=== PATIENT | male | born 1945 | race Hispanic/Latino ===

== ENCOUNTER 2021-10-26 16:00 | Inpatient (IN) | payer MEDICARE ==
[2021-10-26] MEDS ORDERED: IPRATROPIUM 0.02% NEBU 2.5 ML IH ONE ×2 (16:11→18:15)
[2021-10-26] MEDS ORDERED: ALBUTEROL 2.5 MG/3 ML NEBU IH ONE ×2 (16:11→18:15)
--- NOTE | 2021-10-26 16:11 | Emergency Department Report ---
ED Shortness of Breath HPI - General Chief Complaint: Dyspnea/Respdistress Stated Complaint: short of breath Time Seen by Provider: 10/26/21 16:11 Source: patient, EMS Mode of arrival: Stretcher Limitations: No Limitations - History of Present Illness Initial Comments: Patient presents by ambulance secondary to shortness of breath. He has been feeling short of breath for the last several days. Apparently, a mobile urgent care was at his house. He was hypoxic. His COVID test was negative. He was referred here for hypoxia. Paramedics were called. Patient was found to be hypoxic. They placed him on a nasal cannula and his O2 saturations improved. He was in the upper 80% range when EMS arrived. On 2 L, he is in the mid 90% range. He has no pain or swelling in the legs. He does report having a cough. His grandson had a cold a couple of weeks ago and seem to get over it. Patient has no hemoptysis. There is no chest pain associated with this. - Related Data Allergies Allergy/AdvReac Type Severity Reaction Status Date / Time lisinopril Allergy Unknown Verified 10/26/21 16:09 ED Review of Systems ROS: Stated complaint: short of breath Other details as noted in HPI Comment: All other systems reviewed and negative Constitutional: fever (Subjective) Eyes: denies: vision change ENT: denies: throat pain Respiratory: see HPI Cardiovascular: denies: chest pain Endocrine: denies: unexplained weight loss Gastrointestinal: denies: abdominal pain Genitourinary: denies: dysuria Musculoskeletal: denies: back pain Skin: denies: rash Neurological: denies: headache Hematological/Lymphatic: denies: easy bruising ED Past Medical Hx - Past Medical History Previous Medical History?: Yes Hx Hypertension: Yes Additional medical history: Aortic dissection? - Family History Family history: hypertension ED Physical Exam - General Limitations: No Limitations, Other (Pulse ox noted and hypoxic. This improves with treatment.) General appearance: alert, in no apparent distress - Head Head exam: Present: atraumatic, normocephalic - Eye Eye exam: Present: normal appearance, EOMI - ENT ENT exam: Present: normal orophraynx, normal external ear exam - Neck Neck exam: Present: normal inspection. Absent: meningismus - Respiratory Respiratory exam: Present: respiratory distress (Mild), wheezes, accessory muscle use - Cardiovascular Cardiovascular Exam: Present: regular rate, normal rhythm - GI/Abdominal GI/Abdominal exam: Present: soft. Absent: distended - Extremities Exam Extremities exam: Present: normal capillary refill. Absent: pedal edema, calf tenderness - Back Exam Back exam: Absent: CVA tenderness (R), CVA tenderness (L) - Neurological Exam Neurological exam: Present: alert, oriented X3, CN II-XII intact. Absent: motor sensory deficit - Psychiatric Psychiatric exam: Present: normal affect, normal mood - Skin Skin exam: Present: warm ED Course Vital Signs 10/26/21 16:01 Temperature 99.1 F Pulse Rate 103 H Respiratory 18 Rate Blood Pressure 145/87 [Left] O2 Sat by Pulse 93 Oximetry - Reevaluation(s) Reevaluation #1: 10/26/21 16:11 EMS was met upon arrival. Labs and x-rays were ordered. Records reviewed. Reevaluation #2: 10/26/21 18:04 Labs and x-ray were noted. Patient was admitted to Dr. Zee, the hospitalist. ED Medical Decision Making - Lab Data Result diagrams: 10/26/21 16:48 10/26/21 16:48 Rhythm strip: Normal sinus rhythm without ectopy per monitor observe 10 seconds. - Radiology Data Radiology results: report reviewed - Medical Decision Making Patient presented with difficulty breathing, URI symptoms, and hypoxia. He allegedly had a coronavirus test that was negative prior to arrival. However r adiographically, there is a bilateral patchy infiltrate that would be concerning for coronavirus. Patient was treated empirically for community-acquired pneumonia given the negative coronavirus test, although I have a suspicion that was a false negative test. Patient is hypoxic. He will undergo admission and ongoing management. Critical Care Time: No Critical care attestation.: If time is entered above; I have spent that time in minutes in the direct care of this critically ill patient, excluding procedure time. ED Disposition Clinical Impression: Suspected COVID-19 virus infection, CAP (community acquired pneumonia) Disposition: ADMITTED INPATIENT Is pt being admited?: Yes Condition: Stable Instructions: Bacterial Pneumonia (ED)
--- NOTE | 2021-10-26 17:00 | XRay Report ---
CHEST 2 VIEWS INDICATION / CLINICAL INFORMATION: dyspnea. COMPARISON: None available. FINDINGS: SUPPORT DEVICES: None. HEART / MEDIASTINUM: No significant abnormality. LUNGS / PLEURA: There are moderate patchy bilateral pulmonary opacities. ADDITIONAL FINDINGS: No significant additional findings. IMPRESSION: 1. Moderate patchy bilateral pulmonary opacities likely indicating multifocal pneumonia. Signer Name: Ryan Torre MD Signed: 10/26/2021 4:55 PM Workstation Name: [id number]
[2021-10-26 17:04] LABS: Basophils % (Auto) 0.2 % (0.0-1.8); Eosinophils % (Auto) 0.5 % (0.0-4.3); Lymphocytes # (Auto) 0.5 K/mm3 (1.2-5.4); Lymphocytes % (Auto) 11.3 % (13.4-35.0); Mean Corpuscular HGB Conc 32 % (32-34); Mean Corpuscular Volume 94 fl (84-94); Monocytes # (Auto) 0.5 K/mm3 (0.0-0.8); Monocytes % (Auto) 10.2 % (0.0-7.3); Platelet Count 206 K/mm3 (140-440); Red Blood Count 4.38 M/mm3 (3.65-5.03); Red Cell Distribution Width 14.3 % (13.2-15.2)
[2021-10-26 17:28] LABS: BUN/Creatinine Ratio 24; Blood Urea Nitrogen 24 mg/dL (9-20); Calcium 8.7 mg/dL (8.4-10.2); Hemolysis Index 27
[2021-10-26] MEDS ORDERED: cefTRIAXone/NS 1 GM/50 ML 1 GM/50 ML BAG IV ONE (17:45)
[2021-10-26] MEDS ORDERED: AZITHROMYCIN 250 MG TAB PO ONE (17:45)
--- NOTE | 2021-10-26 18:50 | History and Physical Report ---
History of Present Illness Chief complaint: I can hardly breathe History of present illness: 75 YO Male with HTN, PAD, Obesity Hypoventilation Syndrome presents to ED for evaluation. Patient reports "I can hardly breathe". Patient states that he has experienced shortness of breath, fatigue, malaise, body aches, dry cough, diminished sense of smell, diminished sense of taste, subjective fever, generalized weakness, runny nose over the past 1 week with persistent and worsening symptoms over the same timeframe. EMS was notified and upon arrival the patient was found to be in distress with a pulse oximetry of 82% the patient was placed on supplemental oxygen and transported to [facility] for further care and evaluation of the aforementioned symptoms. The patient was seen and evaluated in the emergency department. All lab and imaging studies reviewed. The patient was found to have a pulse oximetry of 83% on room air which is consistent with acute hypoxemic respiratory failure. Patient sitting up in bed and using accessory muscles to breathe, speaking in short sentences. Patient underwent chest x-ray and was found to have bilateral pneumonia. Patient admitted to medical floor and initiated on pneumonia protocol as well as coronavirus protocol. Patient knowledges subjective fever but denies chills, chest pain, palpitation, skin rash, unilateral leg swelling, calf pain, individual/family history of DVT/PE/bleeding/blood clotting disorders. Patient acknowledges recent ill contact with his grandchildren. No prior admission for review. All medication listed at time of admission has been reconciled. Advanced care planning conducted in ED. Past History Past Medical History: hypertension, PVD, other (See HPI) Past Surgical History: No surgical history, Other (Reviewed) Social history: , lives with family. denies: smoking, alcohol abuse, prescription drug abuse Family history: hypertension Medications and Allergies Allergies Allergy/AdvReac Type Severity Reaction Status Date / Time lisinopril Allergy Unknown Verified 10/26/21 16:09 Review of Systems Constitutional: fever, fatigue, weakness, malaise Ears, nose, mouth and throat: nasal congestion, other (Diminished sense of smell, diminished sense of taste), no ear pain, no ear discharge, no tinnitis, no decreased hearing, no nose pain Cardiovascular: no chest pain, no orthopnea, no palpitations Respiratory: cough, shortness of breath Gastrointestinal: no nausea, no vomiting, no diarrhea, no constipation Genitourinary Male: no hematuria, no flank pain, no discharge, no urinary frequency Rectal: no pain, no incontinence, no bleeding Musculoskeletal: no neck stiffness, no neck pain, no shooting arm pain, no arm numbness/tingling, no low back pain Integumentary: no rash, no pruritis, no redness, no sores, no wounds Neurological: no transient paralysis, no paralysis, no weakness, no parathesias, no numbness, no tingling, no seizures Psychiatric: no anxiety, no memory loss, no sleep disturbances, no hypersomnia, no change in appetite, no suicidal ideation Endocrine: no cold intolerance, no excessive thirst, no polydipsia, no polyuria, no nocturia, no excessive sweating Hematologic/Lymphatic: no easy bruising, no easy bleeding Allergic/Immunologic: no urticaria, no wheezing Exam - Constitutional Vitals: Temp Pulse Resp BP Pulse Ox 99.1 F 103 H 18 145/87 95 10/26/21 16:01 10/26/21 16:01 10/26/21 18:47 10/26/21 16:01 10/26/21 18:47 General appearance: Present: mild distress, obese - EENT Eyes: Present: PERRL ENT: hearing intact, clear oral mucosa - Neck Neck: Present: supple, normal ROM - Respiratory Respiratory effort: labored, accessory muscle use, stridor Respiratory: bilateral: diminished, rhonchi - Cardiovascular Heart Sounds: Present: S1 & S2. Absent: rub, click - Extremities Extremities: pulses symmetrical, No edema Peripheral Pulses: within normal limits - Abdominal General gastrointestinal: Present: soft, non-tender, non-distended, normal bowel sounds Male genitourinary: Present: normal - Integumentary Integumentary: Present: clear, warm, dry - Musculoskeletal Musculoskeletal: gait normal, strength equal bilaterally - Psychiatric Psychiatric: appropriate mood/affect, intact judgment & insight - Neurologic Neurologic: CNII-XII intact, moves all extremities HEART Score - HEART Score Troponin: Troponin T < 0.010 ng/mL (0.00-0.029) 10/26/21 16:48 Results - Labs CBC & Chem 7: 10/26/21 16:48 10/26/21 19:03 Labs: Abnormal lab results 10/26/21 10/26/21 Range/Units 16:48 16:48 Lymph % (Auto) 11.3 L (13.4-35.0) % [place] % (Auto) 10.2 H (0.0-7.3) % Lymph # (Auto) 0.5 L (1.2-5.4) K/mm3 Seg Neutrophils % 77.8 H (40.0-70.0) % Potassium 3.4 L (3.6-5.0) mmol/L Chloride 97.5 L (98-107) mmol/L BUN 24 H (9-20) mg/dL Glucose 108 H (75-100) mg/dL Assessment and Plan - Patient Problems (1) Acute hypoxemic respiratory failure Current Visit: No Status: Acute Plan to address problem: Chest x-ray, supplemental oxygen, pulse oximetry, nebulizer therapy, prone positioning while in bed, pulmonary toilet. (2) Pneumonia Current Visit: No Status: Acute Plan to address problem: Pneumonia protocol: Chest x-ray, CBC, CMP, IV antibiotic therapy, supplemental oxygen, pulse oximetry, nebulizer therapy, blood culture. (3) Obesity hypoventilation syndrome Current Visit: No Status: Acute Plan to address problem: Balanced diet, increase physical activity discharge, outpatient pulmonary follow-up for sleep study. (4) Hypertension Current Visit: No Status: Acute Qualifiers: Hypertension type: primary hypertension Qualified Code(s): I10 - Essential (primary) hypertension Plan to address problem: Monitor blood pressure every shift, continue medical management. (5) DVT prophylaxis Current Visit: No Status: Acute Plan to address problem: SCD to bilateral lower extremities while in bed, prophylactic anticoagulation (6) Advance care planning Current Visit: No Status: Acute Plan to address problem: Disease education conducted, care plan discussed, diagnoses discussed, prognosis discussed, patient is full code. Patient acknowledges understanding and agreem ent with care plan, +30 minutes.
[2021-10-26] MEDS ORDERED: ALBUTEROL 2.5 MG/3 ML NEBU IH PRN (18:52)
[2021-10-26] MEDS ORDERED: ONDANSETRON 4 MG/2 ML INJ IV PRN (18:52)
[2021-10-26] MEDS ORDERED: HYDROmorphone 1 MG/1 ML INJ IV PRN (18:52)
[2021-10-26] MEDS ORDERED: ACETAMINOPHEN 325 MG TAB PO PRN (18:52)
[2021-10-26 19:45] LABS: C-Reactive Protein 11.8 mg/dL (0.00-1.30)
[2021-10-26] MEDS ORDERED: dilTIAZem 25 MG/5 ML INJ IV ONE (20:29)
[2021-10-26] MEDS: dilTIAZem/D5W 100 MG/100 ML BAG IV SCH (20:57)
[2021-10-26] MEDS ORDERED: METOPROLOL TARTRATE 5 MG/5 ML INJ IV ONE (21:40)
[2021-10-26 23:01] LABS: Free T4 (Free Thyroxine) 1.78 ng/dL (0.76-1.46)
--- NOTE | 2021-10-26 23:16 | Event Note ---
Date: 10/26/21 I placed a ultrasound-guided right upper extremity 20-gauge peripheral IV in the antecubital fossa. 1 attempt made and it appears successful. The IV was adhered with Tegaderm. Less than 5 cc of blood loss. This was done as nursing and ED staff was unable to obtain IV access.
[2021-10-26 23:48] LABS: ABG HCO3 25.3 mmol/L (20.0-26.0); ABG Methemoglobin 0.4 % (0.0-1.5); ABG Oxygen Saturation 88.5 % (95.0-99.0); ABG PCO2 35.2 mm Hg; ABG PH 7.474 pH Units (7.350-7.450); ABG PO2 47.3 mm Hg (80.0-90.0)
[2021-10-27] MEDS ORDERED: ENOXAPARIN 100 MG/1 ML INJ SUB-Q ONE (03:57)
[2021-10-27 04:11] LABS: Hematocrit 39.3 % (35.5-45.6); Hemoglobin 12.7 gm/dl (11.8-15.2); Mean Corpuscular HGB Conc 32 % (32-34); Mean Corpuscular Volume 95 fl (84-94); Platelet Count 214 K/mm3 (140-440); Red Blood Count 4.13 M/mm3 (3.65-5.03)
[2021-10-27 04:22] LABS: BUN/Creatinine Ratio 23; Blood Urea Nitrogen 23 mg/dL (9-20); Calcium 8.3 mg/dL (8.4-10.2); Hemolysis Index 15
[2021-10-27 04:48] LABS: Band Neutrophils # (Manual) 0.2 K/mm3; Basophils % (Manual) 0 % (0.0-1.8); Eosinophils % (Manual) 0 % (0.0-4.3); Total Cells Counted 100
[2021-10-27 04:49] LABS: Large Platelets Few; Platelet Estimate Consistent w Auto; RBC Morphology Normal
[2021-10-27] MEDS: AZITHROMYCIN/NS 500 MG/250 ML 500 MG/250 ML BAG IV SCH (07:36)
[2021-10-27] MEDS: dilTIAZem/D5W 100 MG/100 ML BAG IV SCH (09:50)
[2021-10-27] MEDS ORDERED: APIXABAN 5 MG TAB PO SCH (12:00)
[2021-10-27 12:54] LABS: Hematocrit 37.7 % (35.5-45.6); Hemoglobin 12.5 gm/dl (11.8-15.2); Mean Corpuscular HGB Conc 33 % (32-34); Mean Corpuscular Volume 93 fl (84-94); Platelet Count 192 K/mm3 (140-440); Red Blood Count 4.07 M/mm3 (3.65-5.03)
[2021-10-27 13:04] LABS: INR 0.91 (0.87-1.13)
[2021-10-27 13:05] LABS: Partial Thromboplastin Time 27.3 Sec. (24.2-36.6)
--- NOTE | 2021-10-27 13:11 | Electrocardiograph Report ---
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
--- NOTE | 2021-10-27 13:12 | Electrocardiograph Report ---
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
[2021-10-27] MEDS: dilTIAZem 30 MG TAB PO SCH ×2 (13:31→20:12)
--- NOTE | 2021-10-27 14:51 | Consultation ---
History of Present Illness Consult date: 10/27/21 Requesting physician: DELMER OLSEN History of present illness: Is a 75-year-old male with a past medical history of hypertension, coronary artery disease, and thoracic aortic aneurysm who presented to the ED with a complaint of difficulty breathing since [place]. Patient states he also has had worsening fatigue, malaise weakness, cough, and fevers throughout this timeframe. EMS was called and patient was found to be in respiratory distress with a pulse ox of 82% patient was then transferred to [facility]. In the ED patient developed new onset A. fib with RVR. He was treated with diltiazem which controlled his rate. Patient denies chest pain, palpitations, nausea, vomiting or dizziness. Patient reports not being vaccinated for the COVID-19 virus. Patient is previously known to our practice but patient follows with [facility]. Cardiology is consulted for A. fib with RVR Past History Past Medical History: CAD, hypertension, PVD, other (See HPI) Past Surgical History: No surgical history, Other (Reviewed) Social history: , lives with family. denies: smoking, alcohol abuse, prescription drug abuse Family history: hypertension Medications and Allergies Allergies Allergy/AdvReac Type Severity Reaction Status Date / Time lisinopril Allergy Unknown Verified 10/26/21 16:09 Active Meds: Active Medications Acetaminophen (Acetaminophen 325 Mg Tab) 650 mg PO Q4H PRN PRN Reason: Pain MILD(1-3)/Fever >100.5/LEYVA Albuterol (Albuterol 2.5 Mg/3 Ml Nebu) 2.5 mg IH Q4HRT PRN PRN Reason: Shortness Of Breath Apixaban (Apixaban 5 Mg Tab) 5 mg PO Q12HR [facility]ASYL; Protocol Last Admin: 10/27/21 13:14 Dose: 5 mg Aspirin (Aspirin 81 Mg Tab Chew) 81 mg PO QDAY [facility] Diltiazem HCl (Diltiazem 30 Mg Tab) 30 mg PO TID [facility]ASYL Last Admin: 10/27/21 13:31 Dose: 30 mg Hydromorphone HCl (Hydromorphone 1 Mg/1 Ml Inj) 0.5 mg IV Q23H PRN PRN Reason: Pain , Severe (7-10) Ceftriaxone Sodium (Rocephin/Ns 2 Gm/100 Ml) 2 gm in 100 mls @ 200 mls/hr IV Q24H [facility]; Protocol Azithromycin (Zithromax/Ns) 500 mg in 250 mls @ 250 mls/hr IV Q24H [facility]; Protocol Last Admin: 10/27/21 07:36 Dose: 250 mls/hr Ondansetron HCl (Ondansetron 4 Mg/2 Ml Inj) 4 mg IV Q8H PRN PRN Reason: Nausea And Vomiting Oxycodone/Acetaminophen (Oxycodone /Acetaminophen 5-325mg Tab) 1 tab PO Q16H PRN PRN Reason: Pain, Moderate (4-6) Sodium Chloride (Sodium Chloride 0.9% 10 Ml Flush Syringe) 10 ml IV BID [facility] Last Admin: 10/27/21 11:16 Dose: 10 ml Sodium Chloride (Sodium Chloride 0.9% 10 Ml Flush Syringe) 10 ml IV PRN PRN PRN Reason: LINE FLUSH Review of Systems Constitutional: fever, chills, fatigue, malaise Ears, nose, mouth and throat: no nasal congestion, no sinus pressure, no sinus pain Cardiovascular: shortness of breath, no chest pain, no palpitations, no rapid/irregular heart beat, no edema, no syncope Respiratory: cough, shortness of breath Gastrointestinal: no abdominal pain, no nausea, no vomiting, no diarrhea Musculoskeletal: no neck pain, no shooting arm pain, no arm numbness/tingling Integumentary: no rash, no pruritis, no redness Neurological: no head injury, no transient paralysis, no paralysis Psychiatric: no anxiety, no memory loss Endocrine: no cold intolerance, no heat intolerance Physical Examination Vital Signs Temp Pulse Resp BP Pulse Ox 99.1 F 103 H 18 145/87 93 10/26/21 16:01 10/26/21 16:01 10/26/21 16:01 10/26/21 16:01 10/26/21 16:01 General appearance: no acute distress, other HEENT: Positive: PERRL, Mucus Membranes Dry Cardiac: Positive: irregularly irregular Lungs: Positive: Rales Neuro: Positive: Grossly Intact Abdomen: Positive: Soft, Active Bowel Sounds Skin: Negative: Rash, Suspicious Lesions, Ulceration Extremities: Present: upper extr. pulses. Absent: edema Results 10/27/21 12:36 10/27/21 12:36 Cardiac Enzymes 10/26/21 Range/Units 19:03 Lactate Dehydrogenase 268 H (91-180) units/L Coagulation 10/27/21 Range/Units 12:36 PT 13.3 (12.2-14.9) Sec. INR 0.91 (0.87-1.13) APTT 27.3 (24.2-36.6) Sec. CBC 10/26/21 10/27/21 10/27/21 Range/Units 16:48 03:44 12:36 WBC 4.5 6.4 4.1 L (4.5-11.0) K/mm3 RBC 4.38 4.13 4.07 (3.65-5.03) M/mm3 Hgb 13.0 12.7 12.5 (11.8-15.2) gm/dl Hct 41.0 39.3 37.7 (35.5-45.6) % Plt Count 206 214 192 (140-440) K/mm3 Lymph # (Auto) 0.5 L (1.2-5.4) K/mm3 [place] # (Auto) 0.5 (0.0-0.8) K/mm3 Eos # (Auto) 0.0 (0.0-0.4) K/mm3 Baso # (Auto) 0.0 (0.0-0.1) K/mm3 Comprehensive Metabolic Panel 10/26/21 10/26/21 10/27/21 Range/Units 16:48 19:03 03:44 Sodium 138 137 (137-145) mmol/L Potassium 3.4 L 3.6 (3.6-5.0) mmol/L Chloride 97.5 L 97.9 L (98-107) mmol/L Carbon Dioxide 24 24 (22-30) mmol/L BUN 24 H 23 H (9-20) mg/dL Creatinine 1.0 1.0 (0.8-1.3) mg/dL Glucose 108 H 104 H 139 H (75-100) mg/dL Calcium 8.7 8.3 L (8.4-10.2) mg/dL 10/27/21 Range/Units 12:36 Sodium (137-145) mmol/L Potassium (3.6-5.0) mmol/L Chloride (98-107) mmol/L Carbon Dioxide (22-30) mmol/L BUN (9-20) mg/dL Creatinine 0.9 (0.8-1.3) mg/dL Glucose (75-100) mg/dL Calcium (8.4-10.2) mg/dL - Imaging and Cardiology Echo: report reviewed EKG interpretations - Telemetry EKG Rhythm: V-Tachycardia - EKG Supraventricular dysrhythmia: atrial fibrillation AV and intraventricular conduction: right bundle branch block Assessment and Plan Is a 75-year-old male with a past medical history of hypertension, coronary artery disease, and thoracic aortic aneurysm who presented to the ED with a complaint of difficulty breathing since [place] PUI- COVID PCR pending Acute hypoxic respiratory failure- on highflow NC PNA Afib w/ RVR(new onset) HTN CAD Echo 10/26/2021-EF 50 to 55%. Right ventricle systolic function is normal. Trace mitral regurgitation. Trace tricuspid regurgitation. Ascending aorta is dilated 4.1 cm Stress11/20/2019- Normal pharmacological SPECT stress test. Stress ECG was negative for ischemia. No symptoms of chest pain with vasodilator stress. Normal perfusion without evidence of ischemia or infarct. TID 0.97 (normal). Normal LV systolic function (calculated LVEF 69%). No wall motion abnormalities. Echo 11/20/2019-LV normal size. Normal LV wall thickness. LV wall motion normal. LVEF is 59%. GLS decreased. Normal LV diastolic function. RV moderately to severely dilated. RV systolic function is normal. Estimated RAP 5 mmHg based on IVC. Unable to assess RVSP due to insufficient TR signal. AV not well visualized. AV opens well. Mild AR. No AV stenosis. Aortic arch normal. Sinotubular junction mildly dilated. Ascending aorta mildly dilated. No aortic coarctation. Ao Sinus s 3.[address] jnct s 3.87 cm Ao Asc s 4.1 cm Plan: Initial EKG shows sinus rhythm 97 PACs. No acute ischemic changes Repeat EKG shows A. fib with RVR rate 174 and incomplete RBBB and LAFB. No acute ischemic changes troponins negative x1. CXR shows PNA Patient denies any chest an dpatient appears euvolemic on exam Rate currently controlled trending in 80s. diltiazem gtt stopped Initiate diltiazem 30 mg p.o. 3 times daily. Titrate as needed for rate control Stop heparin drip. Convert to Eliquis for anticoagulation Echo pending Patient seen in conjunction with Dr. Brady who agrees with this plan of care - Patient Problems (1) CAD (coronary artery disease) Current Visit: Yes Status: Acute (2) Acute hypoxemic respiratory failure Current Visit: No Status: Acute (3) Hypertension Current Visit: No Status: Acute Qualifiers: Hypertension type: primary hypertension Qualified Code(s): I10 - Essential (primary) hypertension (4) Obesity hypoventilation syndrome Current Visit: No Status: Acute (5) Pneumonia Current Visit: No Status: Acute
--- NOTE | 2021-10-27 15:57 | Progress Note ---
Assessment and Plan --New onset atrial fibrillation: Patient found to have new onset A. fib in the emergency department. Patient treated with Cardizem bolus with rapid return of rapid ventricular response. Patient subsequently initiated on Cardizem drip and admitted to [facility]. Cardiology team consulted. Magnesium level, thyroid panel, echocardiogram or dered and pending at time of admission. Initiated on Eliquis for anticoagulation --b/l PE, change eliquis dose tp 10mg bid for a week then will reduce to 5mg bid -- Acute hypoxemic respiratory failure Due to bilateral PE and COVID-19 pneumonia Currently on high flow O2, pulmonary consulted Continue therapeutic anticoagulation and treatment protocol for COVID-19 supplemental oxygen, pulse oximetry, nebulizer therapy, prone positioning while in bed, pulmonary toilet. -- b/l Pneumonia with covid19 ordered solumedrol, remdesivir, ID consulted Continue to follow inflammatory markers -- Obesity Balanced diet, increase physical activity following discharge if stable, outpatient pulmonary follow-up for sleep study. -- Hypertension Monitor blood pressure every shift, continue medical management. -- DVT prophylaxis SCD to bilateral lower extremities while in bed, prophylactic anticoagulation -- Full CODE STATUS The high probability of a clinically significant, sudden or life threatening deterioration of the system(s) required my full and direct attention, intervention and personal management. The aggregate critical care time was [35] minutes. This time is in addition to time spent performing reported procedures but includes the following: [x] Data Review and interpretation [x] Patient assessment and monitoring of vital signs [x] Documentation [x] Medication orders and management Daily clinical course: 10/27/21: Covid 19 test result is positive, initiated on COVID-19 protocol. CTA chest also suggestive for bilateral PE-adjusted Eliquis dose. Patient on 25 L high flow O2, consult pulmonary. Cardiology following for atrial fibrillation. We will also consult ID, will continue to follow inflammatory markers Subjective Date of service: 10/27/21 Interval history: Patient seen and examined. Medical records and medication list reviewed. No acute event overnight noted by the RN. Patient on high flow O2, COVID test is positive Discussed plan of care at bedside with patient. Objective - Exam Narrative Exam: Limited physical exam due to COVID-19 pandemic to minimize transmission of the disease and to preserve PPE. Vital reviewed and stable. GENERAL: well-developed well-nourished elderly wild male lying on bed appeared to be in no discomfort. HEENT: Normocephalic. Atraumatic. NECK: Supple. CHEST/LUNGS: breathing on high flow O2 HEART/CARDIOVASCULAR: Heart rate stable on telemetry ABDOMEN: Visibly not distended SKIN: There is no rash NEURO: No focal motor deficit. Follows command. MUSCULOSKELETAL: No joint effusion EXTRIMITY: No swelling, no cyanosis or clubbing. PSYCH: Cooperative. - Constitutional Vitals: Vital Signs - 12hr 10/27/21 10/27/21 10/27/21 04:01 04:15 04:31 Pulse Rate 93 H 83 79 Respiratory 26 H 29 H 31 H Rate Blood Pressure 103/67 106/76 116/70 Blood Pressure [Left] O2 Sat by Pulse 95 96 96 Oximetry 10/27/21 10/27/21 10/27/21 04:45 05:01 05:15 Pulse Rate 86 83 77 Respiratory 29 H 41 H 37 H Rate Blood Pressure 111/66 117/66 114/57 Blood Pressure [Left] O2 Sat by Pulse 94 96 94 Oximetry 10/27/21 10/27/21 10/27/21 05:30 05:45 06:00 Pulse Rate 124 H 119 H 86 Respiratory 26 H 32 H 28 H Rate Blood Pressure 119/66 121/61 106/65 Blood Pressure [Left] O2 Sat by Pulse 93 97 95 Oximetry 10/27/21 10/27/21 10/27/21 06:15 06:31 06:45 Pulse Rate 77 86 Respiratory 25 H 24 27 H Rate Blood Pressure 102/70 106/55 113/63 Blood Pressure [Left] O2 Sat by Pulse 93 95 95 Oximetry 10/27/21 10/27/21 10/27/21 07:00 07:01 07:15 Pulse Rate 86 89 90 Respiratory 22 12 23 Rate Blood Pressure 118/60 118/60 Blood Pressure 118/60 [Left] O2 Sat by Pulse 93 94 92 Oximetry 10/27/21 10/27/21 07:31 08:00 Pulse Rate 86 Respiratory 27 H Rate Blood Pressure 118/60 Blood Pressure [Left] O2 Sat by Pulse 94 94 Oximetry - Labs CBC & Chem 7: 10/27/21 12:36 10/28/21 04:53 Labs: Abnormal lab results 10/26/21 10/26/21 10/26/21 Range/Units 16:48 16:48 19:03 WBC (4.5-11.0) K/mm3 MCV (84-94) fl Lymph % (Auto) 11.3 L (13.4-35.0) % Tyrrell % (Auto) 10.2 H (0.0-7.3) % Lymph # (Auto) 0.5 L (1.2-5.4) K/mm3 Seg Neutrophils % 77.8 H (40.0-70.0) % Seg Neuts % (Manual) (40.0-70.0) % Lymphocytes % (Manual) (13.4-35.0) % Lymphocytes # (Manual) (1.2-5.4) K/mm3 D-Dimer 1951.42 H (0-234) ng/mlDDU ABG pH (7.350-7.450) pH Units ABG pO2 (80.0-90.0) mm Hg ABG O2 Saturation (95.0-99.0) % ABG Hemoglobin (14.0-18.0) gm/dl Oxyhemoglobin (95.0-99.0) % Potassium 3.4 L (3.6-5.0) mmol/L Chloride 97.5 L (98-107) mmol/L BUN 24 H (9-20) mg/dL Glucose 108 H (75-100) mg/dL Calcium (8.4-10.2) mg/dL Ferritin (30.0-300.0) ng/mL Lactate Dehydrogenase (91-180) units/L C-Reactive Protein (0.00-1.30) mg/dL Free T4 (0.76-1.46) ng/dL 10/26/21 10/26/21 10/26/21 Range/Units 19:03 19:03 21:46 WBC (4.5-11.0) K/mm3 MCV (84-94) fl Lymph % (Auto) (13.4-35.0) % Tyrrell % (Auto) (0.0-7.3) % Lymph # (Auto) (1.2-5.4) K/mm3 Seg Neutrophils % (40.0-70.0) % Seg Neuts % (Manual) (40.0-70.0) % Lymphocytes % (Manual) (13.4-35.0) % Lymphocytes # (Manual) (1.2-5.4) K/mm3 D-Dimer (0-234) ng/mlDDU ABG pH (7.350-7.450) pH Units ABG pO2 (80.0-90.0) mm Hg ABG O2 Saturation (95.0-99.0) % ABG Hemoglobin (14.0-18.0) gm/dl Oxyhemoglobin (95.0-99.0) % Potassium (3.6-5.0) mmol/L Chloride (98-107) mmol/L BUN (9-20) mg/dL Glucose 104 H (75-100) mg/dL Calcium (8.4-10.2) mg/dL Ferritin 319.2 H (30.0-300.0) ng/mL Lactate Dehydrogenase 268 H (91-180) units/L C-Reactive Protein 11.80 H (0.00-1.30) mg/dL Free T4 1.78 H (0.76-1.46) ng/dL 10/26/21 10/27/21 10/27/21 Range/Units 23:20 03:44 03:44 WBC (4.5-11.0) K/mm3 MCV 95 H (84-94) fl Lymph % (Auto) (13.4-35.0) % Tyrrell % (Auto) (0.0-7.3) % Lymph # (Auto) (1.2-5.4) K/mm3 Seg Neutrophils % (40.0-70.0) % Seg Neuts % (Manual) 84.0 H (40.0-70.0) % Lymphocytes % (Manual) 10.0 L (13.4-35.0) % Lymphocytes # (Manual) 0.6 L (1.2-5.4) K/mm3 D-Dimer (0-234) ng/mlDDU ABG pH 7.474 H (7.350-7.450) pH Units ABG pO2 47.3 L (80.0-90.0) mm Hg ABG O2 Saturation 88.5 L (95.0-99.0) % ABG Hemoglobin 13.5 L (14.0-18.0) gm/dl Oxyhemoglobin 87.7 L (95.0-99.0) % Potassium (3.6-5.0) mmol/L Chloride 97.9 L (98-107) mmol/L BUN 23 H (9-20) mg/dL Glucose 139 H (75-100) mg/dL Calcium 8.3 L (8.4-10.2) mg/dL Ferritin (30.0-300.0) ng/mL Lactate Dehydrogenase (91-180) units/L C-Reactive Protein (0.00-1.30) mg/dL Free T4 (0.76-1.46) ng/dL 10/27/21 Range/Units 12:36 WBC 4.1 L (4.5-11.0) K/mm3 MCV (84-94) fl Lymph % (Auto) (13.4-35.0) % Tyrrell % (Auto) (0.0-7.3) % Lymph # (Auto) (1.2-5.4) K/mm3 Seg Neutrophils % (40.0-70.0) % Seg Neuts % (Manual) (40.0-70.0) % Lymphocytes % (Manual) (13.4-35.0) % Lymphocytes # (Manual) (1.2-5.4) K/mm3 D-Dimer (0-234) ng/mlDDU ABG pH (7.350-7.450) pH Units ABG pO2 (80.0-90.0) mm Hg ABG O2 Saturation (95.0-99.0) % ABG Hemoglobin (14.0-18.0) gm/dl Oxyhemoglobin (95.0-99.0) % Potassium (3.6-5.0) mmol/L Chloride (98-107) mmol/L BUN (9-20) mg/dL Glucose (75-100) mg/dL Calcium (8.4-10.2) mg/dL Ferritin (30.0-300.0) ng/mL Lactate Dehydrogenase (91-180) units/L C-Reactive Protein (0.00-1.30) mg/dL Free T4 (0.76-1.46) ng/dL HEART Score - HEART Score Troponin: Troponin T < 0.010 ng/mL (0.00-0.029) 10/26/21 16:48
--- NOTE | 2021-10-27 16:37 | Cat Scan Report ---
CTA CHEST WITH IV CONTRAST INDICATION: Tachycardia, Chest tightness, R/O Pulmonary Embolism. TECHNIQUE: Axial CT images were obtained through the chest after injection of 100 cc Omni 350 IV contrast. 3 nuris ne MIP reconstructions were produced. All CT scans at this location are performed using CT dose reduc tion for ALARA by means of automated exposure control. COMPARISON: None available. FINDINGS: Limited secondary to moderate respiratory motion artifact PULMONARY ARTERIES: Moderate sized pulmonary emboli within both upper and right lower lobe segmental pulmonary arteries THORACIC AORTA: No acute abnormality. HEART: Normal. CORONARY ARTERIES: No significant calcification. PLEURA: No pleural effusion. No pneumothorax. LYMPH NODES: No significant adenopathy. LUNGS: Moderate multifocal bilateral groundglass right renal disease characteristic for multifocal pn eumonia ADDITIONAL FINDINGS: None. UPPER ABDOMEN: Moderate hiatal hernia SKELETAL STRUCTURES: No significant osseous abnormality. IMPRESSION: 1. Moderate bilateral pulmonary emboli 2. Moderate multifocal bilateral Covid pneumonia 3. Moderate hiatal hernia CRITICAL RESULT: Bilateral acute PTE Time of Discovery (EMPLOYMENT REPRESENTATIVE/CDT): 3:26 PM Central time 10/27/2021 Time of Communication (EMPLOYMENT REPRESENTATIVE/CDT): 3:30 p.m. Licensed Practitioner Receiving Report: Angelina Chin [employer] Sales Representative Read-Back Performed: Yes. Signer Name: Michael Luz MD Signed: 10/27/2021 4:32 PM Workstation Name: [id number]
[2021-10-27] MEDS: methylPREDNISolone Sod Succinate 125 MG/2 ML INJ IV SCH (18:15)
[2021-10-27] MEDS: cefTRIAXone/NS 2 GM/100 ML 2 GM/100 ML BAG IV SCH (18:15)
[2021-10-27] MEDS ORDERED: REMDESIVIR 200 MG in SODIUM CHLORIDE 0.9% 250ML 250 ML IV ONE (19:00)
[2021-10-27] MEDS: SODIUM CHLORIDE 0.9% 50 ML IVPB IV SCH (21:14)
[2021-10-27] MEDS: APIXABAN 5 MG TAB PO SCH (21:47)
[2021-10-28 00:03] LABS: Alanine Aminotransferase 26 units/L (7-56); Albumin 3.4 g/dL (3.9-5); BUN/Creatinine Ratio 26; Blood Urea Nitrogen 21 mg/dL (9-20); Calcium 8.8 mg/dL (8.4-10.2); Hemolysis Index 6
[2021-10-28] MEDS: methylPREDNISolone Sod Succinate 125 MG/2 ML INJ IV SCH ×4 (00:10→22:00)
[2021-10-28 05:40] LABS: Alanine Aminotransferase 27 units/L (7-56); Albumin 3.2 g/dL (3.9-5); BUN/Creatinine Ratio 27; Blood Urea Nitrogen 24 mg/dL (9-20); Calcium 8.5 mg/dL (8.4-10.2); Hemolysis Index 5
[2021-10-28] MEDS: AZITHROMYCIN/NS 500 MG/250 ML 500 MG/250 ML BAG IV SCH (05:41)
[2021-10-28] MEDS ORDERED: dilTIAZem 25 MG/5 ML INJ IV ONE (06:24)
[2021-10-28] MEDS ORDERED: dilTIAZem/D5W 100 MG/100 ML BAG IV SCH (07:00)
[2021-10-28] MEDS: dilTIAZem 30 MG TAB PO SCH ×3 (09:30→21:29)
--- NOTE | 2021-10-28 11:17 | Consultation ---
History of Present Illness Consult date: 10/28/21 Requesting physician: RASHEED TURK Reason for consult: other (A-Fib with RVR; COVID-19 infection; Bilateral P.E.) History of present illness: PULMONARY/CCM CONSULT NOTE (Full dictation # [id number]) Please see dictated notes for full details Past History Past Medical History: CAD, hypertension, PVD, other (See HPI) Past Surgical History: No surgical history, Other (Reviewed) Social history: , lives with family. denies: smoking, alcohol abuse, prescription drug abuse Family history: hypertension Medications and Allergies Allergies Allergy/AdvReac Type Severity Reaction Status Date / Time lisinopril Allergy Unknown Verified 10/26/21 16:09 Active Meds: Active Medications Acetaminophen (Acetaminophen 325 Mg Tab) 650 mg PO Q4H PRN PRN Reason: Pain MILD(1-3)/Fever >100.5/LEYVA Albuterol (Albuterol 2.5 Mg/3 Ml Nebu) 2.5 mg IH Q4HRT PRN PRN Reason: Shortness Of Breath Apixaban (Apixaban 5 Mg Tab) 10 mg PO Q12HR [facility]; Protocol Stop: 11/02/21 23:59 Last Admin: 10/27/21 21:47 Dose: 10 mg Aspirin (Aspirin 81 Mg Tab Chew) 81 mg PO QDAY [facility] Diltiazem HCl (Diltiazem 30 Mg Tab) 30 mg PO TID [facility] Last Admin: 10/28/21 09:30 Dose: 30 mg Hydromorphone HCl (Hydromorphone 1 Mg/1 Ml Inj) 0.5 mg IV Q23H PRN PRN Reason: Pain , Severe (7-10) Ceftriaxone Sodium (Rocephin/Ns 2 Gm/100 Ml) 2 gm in 100 mls @ 200 mls/hr IV Q24H [facility]; Protocol Last Infusion: 10/27/21 18:45 Dose: Infused Azithromycin (Zithromax/Ns) 500 mg in 250 mls @ 250 mls/hr IV Q24H [facility]; Protocol Last Admin: 10/28/21 05:41 Dose: 250 mls/hr REMDESIVIR 100 mg/ Sodium (Chloride) 250 mls @ 500 mls/hr IV Q24HR@2100 [facility] Stop: 10/31/21 21:29 Diltiazem HCl (Cardizem/D5w 100mg/100ml) 100 mg in 100 mls @ 5 mls/hr IV TITR [facility]; Protocol Last Titration: 10/28/21 09:26 Dose: 5 mg/hr, 5 mls/hr Methylprednisolone Sodium Succinate (Methylprednisolone Sod Succinate 125 Mg/2 Ml Inj) 60 mg IV Q8HR [facility] Last Admin: 10/28/21 05:41 Dose: 60 mg Ondansetron HCl (Ondansetron 4 Mg/2 Ml Inj) 4 mg IV Q8H PRN PRN Reason: Nausea And Vomiting Oxycodone/Acetaminophen (Oxycodone /Acetaminophen 5-325mg Tab) 1 tab PO Q16H PRN PRN Reason: Pain, Moderate (4-6) Sodium Chloride (Sodium Chloride 0.9% 10 Ml Flush Syringe) 10 ml IV BID [facility] Last Admin: 10/28/21 00:10 Dose: 10 ml Sodium Chloride (Sodium Chloride 0.9% 10 Ml Flush Syringe) 10 ml IV PRN PRN PRN Reason: LINE FLUSH Sodium Chloride (Sodium Chloride 0.9% 50 Ml Ivpb) 50 ml IV Q24HR@2100 [facility] Stop: 10/31/21 21:01 Last Admin: 10/27/21 21:14 Dose: 50 ml Physical Examination Vital signs: Vital Signs Temp Pulse Resp BP Pulse Ox 99.1 F 103 H 18 145/87 93 10/26/21 16:01 10/26/21 16:01 10/26/21 16:01 10/26/21 16:01 10/26/21 16:01 Results - Laboratory Findings CBC and BMP: 10/27/21 12:36 10/28/21 04:53 ABG ABG pH 7.474 pH Units (7.350-7.450) H 10/26/21 23:20 ABG pCO2 35.2 mm Hg 10/26/21 23:20 ABG pO2 47.3 mm Hg (80.0-90.0) L 10/26/21 23:20 ABG O2 Saturation 88.5 % (95.0-99.0) L 10/26/21 23:20 PT/INR, D-dimer PT 13.3 Sec. (12.2-14.9) 10/27/21 12:36 INR 0.91 (0.87-1.13) 10/27/21 12:36 D-Dimer 1951.42 ng/mlDDU (0-234) H 10/26/21 19:03 Abnormal lab findings: Abnormal Labs 10/26/21 10/26/21 10/26/21 16:48 16:48 19:03 WBC MCV Lymph % (Auto) 11.3 L Sherman % (Auto) 10.2 H Lymph # (Auto) 0.5 L Seg Neutrophils % 77.8 H Seg Neuts % (Manual) Lymphocytes % (Manual) Lymphocytes # (Manual) D-Dimer 1951.42 H ABG pH ABG pO2 ABG O2 Saturation ABG Hemoglobin Oxyhemoglobin Sodium Potassium 3.4 L Chloride 97.5 L BUN 24 H Glucose 108 H Calcium Ferritin AST Lactate Dehydrogenase C-Reactive Protein Total Protein Albumin Free T4 Coronavirus (PCR) 10/26/21 10/26/21 10/26/21 19:03 19:03 21:46 WBC MCV Lymph % (Auto) Sherman % (Auto) Lymph # (Auto) Seg Neutrophils % Seg Neuts % (Manual) Lymphocytes % (Manual) Lymphocytes # (Manual) D-Dimer ABG pH ABG pO2 ABG O2 Saturation ABG Hemoglobin Oxyhemoglobin Sodium Potassium Chloride BUN Glucose 104 H Calcium Ferritin 319.2 H AST Lactate Dehydrogenase 268 H C-Reactive Protein 11.80 H Total Protein Albumin Free T4 1.78 H Coronavirus (PCR) 10/26/21 10/27/21 10/27/21 23:20 03:44 03:44 WBC MCV 95 H Lymph % (Auto) Sherman % (Auto) Lymph # (Auto) Seg Neutrophils % Seg Neuts % (Manual) 84.0 H Lymphocytes % (Manual) 10.0 L Lymphocytes # (Manual) 0.6 L D-Dimer ABG pH 7.474 H ABG pO2 47.3 L ABG O2 Saturation 88.5 L ABG Hemoglobin 13.5 L Oxyhemoglobin 87.7 L Sodium Potassium Chloride 97.9 L BUN 23 H Glucose 139 H Calcium 8.3 L Ferritin AST Lactate Dehydrogenase C-Reactive Protein Total Protein Albumin Free T4 Coronavirus (PCR) 10/27/21 10/27/21 10/27/21 12:36 23:24 Unknown WBC 4.1 L MCV Lymph % (Auto) Sherman % (Auto) Lymph # (Auto) Seg Neutrophils % Seg Neuts % (Manual) Lymphocytes % (Manual) Lymphocytes # (Manual) D-Dimer ABG pH ABG pO2 ABG O2 Saturation ABG Hemoglobin Oxyhemoglobin Sodium 136 L Potassium Chloride 96.8 L BUN 21 H Glucose 144 H Calcium Ferritin AST 49 H Lactate Dehydrogenase C-Reactive Protein Total Protein Albumin 3.4 L Free T4 Coronavirus (PCR) Positive A 10/28/21 04:53 WBC MCV Lymph % (Auto) Sherman % (Auto) Lymph # (Auto) Seg Neutrophils % Seg Neuts % (Manual) Lymphocytes % (Manual) Lymphocytes # (Manual) D-Dimer ABG pH ABG pO2 ABG O2 Saturation ABG Hemoglobin Oxyhemoglobin Sodium Potassium Chloride BUN 24 H Glucose 163 H Calcium Ferritin AST 52 H Lactate Dehydrogenase C-Reactive Protein Total Protein 6.2 L Albumin 3.2 L Free T4 Coronavirus (PCR)
[2021-10-28] MEDS: ASPIRIN 81 MG TAB CHEW PO SCH (11:40)
[2021-10-28] MEDS: APIXABAN 5 MG TAB PO SCH ×2 (11:41→22:00)
--- NOTE | 2021-10-28 12:00 | Progress Note ---
Objective Vital Signs Temp Pulse Resp BP BP Pulse Ox 10/28/21 11:30 83 22 130/77 95 10/28/21 11:16 87 22 119/80 95 10/28/21 11:00 82 22 128/74 95 10/28/21 10:46 86 27 H 134/84 96 10/28/21 10:30 83 21 133/86 95 10/28/21 10:16 85 24 144/88 94 10/28/21 10:00 77 22 134/80 93 10/28/21 09:46 88 22 135/77 95 10/28/21 09:30 83 23 128/81 94 10/28/21 09:16 85 21 138/83 95 10/28/21 09:00 75 24 131/76 93 10/28/21 08:46 72 23 127/72 95 10/28/21 08:30 84 26 H 131/82 96 10/28/21 08:16 85 23 131/82 96 10/28/21 08:00 91 H 24 129/85 95 10/28/21 07:45 94 H 25 H 116/90 93 10/28/21 07:30 82 23 115/71 97 10/28/21 07:16 148 H 31 H 120/64 94 10/28/21 07:00 130 H 30 H 122/78 92 10/28/21 06:46 149 H 28 H 136/88 95 10/28/21 06:32 147 H 136/88 10/28/21 06:30 134 H 33 H 136/88 94 10/28/21 06:26 149 H 122/90 10/28/21 06:16 154 H 22 122/90 95 10/28/21 06:00 151 H 32 H 122/90 92 10/28/21 05:46 150 H 24 117/72 94 10/28/21 05:16 128/80 92 10/28/21 04:46 79 21 130/76 94 10/28/21 04:31 95 10/28/21 04:30 82 29 H 130/76 94 10/28/21 04:16 83 17 139/82 95 10/28/21 04:00 85 17 139/82 94 10/28/21 03:46 85 11 L 143/87 95 10/28/21 03:30 86 22 143/87 94 10/28/21 03:16 84 25 H 151/101 94 10/28/21 03:00 84 26 H 151/101 93 10/28/21 02:46 78 14 120/78 95 10/28/21 02:30 81 22 120/78 97 10/28/21 02:16 77 19 112/78 96 10/28/21 02:00 67 21 112/78 97 10/28/21 01:46 69 21 118/83 97 10/28/21 01:30 83 19 118/83 96 10/28/21 01:16 69 20 128/79 96 10/28/21 01:00 78 24 128/79 98 10/28/21 00:46 75 21 131/81 95 10/28/21 00:30 84 27 H 131/81 96 10/28/21 00:15 87 25 H 136/82 97 10/28/21 00:10 98.2 F 89 26 H 136/82 97 10/28/21 00:01 85 28 H 97 10/27/21 23:45 84 27 H 94 10/27/21 22:15 65 20 94 10/27/21 22:01 88 28 H 96 10/27/21 21:45 87 33 H 95 10/27/21 21:31 84 28 H 95 10/27/21 21:15 86 28 H 95 10/27/21 21:01 89 31 H 96 10/27/21 20:45 86 28 H 96 10/27/21 20:31 85 30 H 96 10/27/21 20:15 87 29 H 96 10/27/21 20:12 95 10/27/21 20:01 29 H 96 10/27/21 19:45 24 93 10/27/21 19:31 27 H 95 10/27/21 19:15 22 96 10/27/21 19:01 28 H 96 10/27/21 18:45 14 97 10/27/21 18:31 24 97 10/27/21 18:15 20 96 10/27/21 18:01 15 92 10/27/21 17:45 25 H 96 10/27/21 17:31 26 H 94 10/27/21 17:15 18 98 10/27/21 17:01 19 96 10/27/21 16:45 27 H 94 10/27/21 16:31 23 96 10/27/21 16:15 25 H 94 10/27/21 16:07 24 92 10/27/21 15:15 29 H 127/80 96 10/27/21 15:01 16 127/80 93 10/27/21 14:45 24 127/80 95 10/27/21 14:31 88 26 H 127/80 98 10/27/21 14:15 83 28 H 127/80 96 10/27/21 14:01 82 30 H 127/80 96 10/27/21 14:00 95 10/27/21 13:45 87 31 H 121/81 92 10/27/21 13:31 82 28 H 121/81 96 10/27/21 13:15 85 27 H 121/81 94 10/27/21 13:01 79 28 H 121/81 96 10/27/21 12:45 83 25 H 121/81 94 10/27/21 12:31 92 H 28 H 121/81 96 10/27/21 12:15 87 29 H 121/81 96 10/27/21 12:01 85 28 H 121/81 94 - Physical Examination HEENT: Positive: PERRL, Mucus Membranes Dry Neuro: Positive: Grossly Intact Abdomen: Positive: Soft, Active Bowel Sounds Skin: Negative: Rash, Suspicious Lesions, Ulceration Extremities: Present: upper extr. pulses. Absent: edema - Labs and Meds Cardiac Enzymes 10/27/21 10/28/21 Range/Units 23:24 04:53 AST 49 H 52 H (5-40) units/L Coagulation 10/27/21 Range/Units 12:36 PT 13.3 (12.2-14.9) Sec. INR 0.91 (0.87-1.13) APTT 27.3 (24.2-36.6) Sec. CBC 10/27/21 Range/Units 12:36 WBC 4.1 L (4.5-11.0) K/mm3 RBC 4.07 (3.65-5.03) M/mm3 Hgb 12.5 (11.8-15.2) gm/dl Hct 37.7 (35.5-45.6) % Plt Count 192 (140-440) K/mm3 Comprehensive Metabolic Panel 10/27/21 10/27/21 10/28/21 Range/Units 12:36 23:24 04:53 Sodium 136 L 139 (137-145) mmol/L Potassium 3.8 4.0 (3.6-5.0) mmol/L Chloride 96.8 L 99.1 (98-107) mmol/L Carbon Dioxide 23 23 (22-30) mmol/L BUN 21 H 24 H (9-20) mg/dL Creatinine 0.9 0.8 0.9 (0.8-1.3) mg/dL Glucose 144 H 163 H (75-100) mg/dL Calcium 8.8 8.5 (8.4-10.2) mg/dL AST 49 H 52 H (5-40) units/L ALT 26 27 (7-56) units/L Alkaline Phosphatase 53 55 (35-129) units/L Total Protein 6.6 6.2 L (6.3-8.2) g/dL Albumin 3.4 L 3.2 L (3.9-5) g/dL - Imaging and Cardiology Echo: report reviewed AV and intraventricular conduction: right bundle branch block
--- NOTE | 2021-10-28 12:03 | Progress Note ---
Assessment and Plan Is a 75-year-old male with a past medical history of hypertension, coronary artery disease, and thoracic aortic aneurysm who presented to the ED with a complaint of difficulty breathing since [place] COVID Acute hypoxic respiratory failure- on highflow NC PNA Afib w/ RVR(new onset) - nsr HTN CAD bilateral PE Echo 10/26/2021-EF 50 to 55%. Right ventricle systolic function is normal. Trace mitral regurgitation. Trace tricuspid regurgitation. Ascending aorta is dilated 4.1 cm Stress11/20/2019- Normal pharmacological SPECT stress test. Stress ECG was negative for ischemia. No symptoms of chest pain with vasodilator stress. Normal perfusion without evidence of ischemia or infarct. TID 0.97 (normal). Normal LV systolic function (calculated LVEF 69%). No wall motion abnormalities. Echo 11/20/2019-LV normal size. Normal LV wall thickness. LV wall motion normal. LVEF is 59%. GLS decreased. Normal LV diastolic function. RV moderately to severely dilated. RV systolic function is normal. Estimated RAP 5 mmHg based on IVC. Unable to assess RVSP due to insufficient TR signal. AV not well visualized. AV opens well. Mild AR. No AV stenosis. Aortic arch normal. Sinotubular junction mildly dilated. Ascending aorta mildly dilated. No aortic coarctation. Ao Sinus s 3.[address] jnct s 3.87 cm Ao Asc s 4.1 cm rec: cont elquis and increase cardizem 60mg tid , pt is is nsr this am Subjective Date of service: 10/28/21 Principal diagnosis: afib Interval history: sob is same Objective Vital Signs Temp Pulse Resp BP BP Pulse Ox 10/28/21 11:30 83 22 130/77 95 10/28/21 11:16 87 22 119/80 95 10/28/21 11:00 82 22 128/74 95 10/28/21 10:46 86 27 H 134/84 96 10/28/21 10:30 83 21 133/86 95 10/28/21 10:16 85 24 144/88 94 10/28/21 10:00 77 22 134/80 93 10/28/21 09:46 88 22 135/77 95 10/28/21 09:30 83 23 128/81 94 10/28/21 09:16 85 21 138/83 95 10/28/21 09:00 75 24 131/76 93 10/28/21 08:46 72 23 127/72 95 10/28/21 08:30 84 26 H 131/82 96 10/28/21 08:16 85 23 131/82 96 10/28/21 08:00 91 H 24 129/85 95 10/28/21 07:45 94 H 25 H 116/90 93 10/28/21 07:30 82 23 115/71 97 10/28/21 07:16 148 H 31 H 120/64 94 10/28/21 07:00 130 H 30 H 122/78 92 10/28/21 06:46 149 H 28 H 136/88 95 10/28/21 06:32 147 H 136/88 10/28/21 06:30 134 H 33 H 136/88 94 10/28/21 06:26 149 H 122/90 10/28/21 06:16 154 H 22 122/90 95 10/28/21 06:00 151 H 32 H 122/90 92 10/28/21 05:46 150 H 24 117/72 94 10/28/21 05:16 128/80 92 10/28/21 04:46 79 21 130/76 94 10/28/21 04:31 95 10/28/21 04:30 82 29 H 130/76 94 10/28/21 04:16 83 17 139/82 95 10/28/21 04:00 85 17 139/82 94 10/28/21 03:46 85 11 L 143/87 95 10/28/21 03:30 86 22 143/87 94 10/28/21 03:16 84 25 H 151/101 94 10/28/21 03:00 84 26 H 151/101 93 10/28/21 02:46 78 14 120/78 95 10/28/21 02:30 81 22 120/78 97 10/28/21 02:16 77 19 112/78 96 10/28/21 02:00 67 21 112/78 97 10/28/21 01:46 69 21 118/83 97 10/28/21 01:30 83 19 118/83 96 10/28/21 01:16 69 20 128/79 96 10/28/21 01:00 78 24 128/79 98 10/28/21 00:46 75 21 131/81 95 10/28/21 00:30 84 27 H 131/81 96 10/28/21 00:15 87 25 H 136/82 97 10/28/21 00:10 98.2 F 89 26 H 136/82 97 10/28/21 00:01 85 28 H 97 10/27/21 23:45 84 27 H 94 10/27/21 22:15 65 20 94 10/27/21 22:01 88 28 H 96 10/27/21 21:45 87 33 H 95 10/27/21 21:31 84 28 H 95 10/27/21 21:15 86 28 H 95 10/27/21 21:01 89 31 H 96 10/27/21 20:45 86 28 H 96 10/27/21 20:31 85 30 H 96 10/27/21 20:15 87 29 H 96 10/27/21 20:12 95 10/27/21 20:01 29 H 96 10/27/21 19:45 24 93 10/27/21 19:31 27 H 95 10/27/21 19:15 22 96 10/27/21 19:01 28 H 96 10/27/21 18:45 14 97 10/27/21 18:31 24 97 10/27/21 18:15 20 96 10/27/21 18:01 15 92 10/27/21 17:45 25 H 96 10/27/21 17:31 26 H 94 10/27/21 17:15 18 98 10/27/21 17:01 19 96 10/27/21 16:45 27 H 94 10/27/21 16:31 23 96 10/27/21 16:15 25 H 94 10/27/21 16:07 24 92 10/27/21 15:15 29 H 127/80 96 10/27/21 15:01 16 127/80 93 10/27/21 14:45 24 127/80 95 10/27/21 14:31 88 26 H 127/80 98 10/27/21 14:15 83 28 H 127/80 96 10/27/21 14:01 82 30 H 127/80 96 10/27/21 14:00 95 10/27/21 13:45 87 31 H 121/81 92 10/27/21 13:31 82 28 H 121/81 96 10/27/21 13:15 85 27 H 121/81 94 10/27/21 13:01 79 28 H 96 10/27/21 12:45 83 25 H 94 10/27/21 12:31 92 H 28 H 96 10/27/21 12:15 87 29 H 96 - Physical Examination General: No Apparent Distress HEENT: Positive: PERRL, Mucus Membranes Dry Neck: Positive: neck supple Cardiac: Positive: Reg Rate and Rhythm Lungs: Positive: Decreased Breath Sounds Neuro: Positive: Grossly Intact Abdomen: Positive: Soft, Active Bowel Sounds Skin: Negative: Rash, Suspicious Lesions, Ulceration Extremities: Present: upper extr. pulses. Absent: edema - Labs and Meds Cardiac Enzymes 10/27/21 10/28/21 Range/Units 23:24 04:53 AST 49 H 52 H (5-40) units/L Coagulation 10/27/21 Range/Units 12:36 PT 13.3 (12.2-14.9) Sec. INR 0.91 (0.87-1.13) APTT 27.3 (24.2-36.6) Sec. CBC 10/27/21 Range/Units 12:36 WBC 4.1 L (4.5-11.0) K/mm3 RBC 4.07 (3.65-5.03) M/mm3 Hgb 12.5 (11.8-15.2) gm/dl Hct 37.7 (35.5-45.6) % Plt Count 192 (140-440) K/mm3 Comprehensive Metabolic Panel 10/27/21 10/27/21 10/28/21 Range/Units 12:36 23:24 04:53 Sodium 136 L 139 (137-145) mmol/L Potassium 3.8 4.0 (3.6-5.0) mmol/L Chloride 96.8 L 99.1 (98-107) mmol/L Carbon Dioxide 23 23 (22-30) mmol/L BUN 21 H 24 H (9-20) mg/dL Creatinine 0.9 0.8 0.9 (0.8-1.3) mg/dL Glucose 144 H 163 H (75-100) mg/dL Calcium 8.8 8.5 (8.4-10.2) mg/dL AST 49 H 52 H (5-40) units/L ALT 26 27 (7-56) units/L Alkaline Phosphatase 53 55 (35-129) units/L Total Protein 6.6 6.2 L (6.3-8.2) g/dL Albumin 3.4 L 3.2 L (3.9-5) g/dL - Imaging and Cardiology Echo: report reviewed - Telemetry EKG Rhythm: Sinus Rhythm AV and intraventricular conduction: right bundle branch block
--- NOTE | 2021-10-28 16:29 | Progress Note ---
Assessment and Plan --New onset atrial fibrillation: Patient found to have new onset A. fib in the emergency department. Patient treated with Cardizem bolus with rapid return of rapid ventricular response. Patient subsequently initiated on Cardizem drip and admitted to [facility]. Cardiology team consulted. Magnesium level, thyroid panel, echocardiogram or dered and pending at time of admission. Initiated on Eliquis for anticoagulation --b/l PE, change eliquis dose tp 10mg bid for a week then will reduce to 5mg bid -- Acute hypoxemic respiratory failure Due to bilateral PE and COVID-19 pneumonia Currently on high flow O2, pulmonary consulted Continue therapeutic anticoagulation and treatment protocol for COVID-19 supplemental oxygen, pulse oximetry, nebulizer therapy, prone positioning while in bed, pulmonary toilet. -- b/l Pneumonia with covid19 ordered solumedrol, remdesivir, ID consulted Continue to follow inflammatory markers -- Obesity Balanced diet, increase physical activity following discharge if stable, outpatient pulmonary follow-up for sleep study. -- Hypertension Monitor blood pressure every shift, continue medical management. -- DVT prophylaxis SCD to bilateral lower extremities while in bed, prophylactic anticoagulation -- Full CODE STATUS Daily clinical course: 10/27/21: Covid 19 test result is positive, initiated on COVID-19 protocol. CTA chest also suggestive for bilateral PE-adjusted Eliquis dose. Patient on 25 L high flow O2, consult pulmonary. Cardiology following for atrial fibrillation. We will also consult ID, will continue to follow inflammatory markers 10/28/20; REMAINS ON HIGH FLOW O2, cont therapeutic anticoagulation, empiric steroid and IV remdesivir. Being followed by cardiology and pulmonary. ID consult pending. Will downgrade to MedSur unit with telemetry. Subjective Date of service: 10/28/21 Principal diagnosis: afib Interval history: Patient seen and examined. Medical records and medication list reviewed. No acute event overnight noted by the RN. Patient remains on high flow O2, Discussed plan of care at bedside with patient. Objective - Exam Narrative Exam: Limited physical exam due to COVID-19 pandemic to minimize transmission of the disease and to preserve PPE. Vital reviewed and stable. GENERAL: well-developed well-nourished elderly wild male lying on bed appeared to be in no discomfort. HEENT: Normocephalic. Atraumatic. NECK: Supple. CHEST/LUNGS: breathing on high flow O2 HEART/CARDIOVASCULAR: Heart rate stable on telemetry ABDOMEN: Visibly not distended SKIN: There is no rash NEURO: No focal motor deficit. Follows command. MUSCULOSKELETAL: No joint effusion EXTRIMITY: No swelling, no cyanosis or clubbing. PSYCH: Cooperative. - Constitutional Vitals: Vital Signs - 12hr 10/28/21 10/28/21 10/28/21 04:30 04:31 04:46 Pulse Rate 82 79 Respiratory 29 H 21 Rate Blood Pressure 130/76 130/76 O2 Sat by Pulse 94 95 94 Oximetry 10/28/21 10/28/21 10/28/21 05:16 05:46 06:00 Pulse Rate 150 H 151 H Respiratory 24 32 H Rate Blood Pressure 128/80 117/72 122/90 O2 Sat by Pulse 92 94 92 Oximetry 10/28/21 10/28/21 10/28/21 06:16 06:26 06:30 Pulse Rate 154 H 149 H 134 H Respiratory 22 33 H Rate Blood Pressure 122/90 122/90 136/88 O2 Sat by Pulse 95 94 Oximetry 10/28/21 10/28/21 10/28/21 06:32 06:46 07:00 Pulse Rate 147 H 149 H 130 H Respiratory 28 H 30 H Rate Blood Pressure 136/88 136/88 122/78 O2 Sat by Pulse 95 92 Oximetry 10/28/21 10/28/21 10/28/21 07:16 07:30 07:45 Pulse Rate 148 H 82 94 H Respiratory 31 H 23 25 H Rate Blood Pressure 120/64 115/71 116/90 O2 Sat by Pulse 94 97 93 Oximetry 10/28/21 10/28/21 10/28/21 08:00 08:16 08:30 Pulse Rate 91 H 85 84 Respiratory 24 23 26 H Rate Blood Pressure 129/85 131/82 131/82 O2 Sat by Pulse 95 96 96 Oximetry 10/28/21 10/28/21 10/28/21 08:46 09:00 09:16 Pulse Rate 72 75 85 Respiratory 23 24 21 Rate Blood Pressure 127/72 131/76 138/83 O2 Sat by Pulse 95 93 95 Oximetry 10/28/21 10/28/21 10/28/21 09:30 09:46 10:00 Pulse Rate 83 88 77 Respiratory 23 22 22 Rate Blood Pressure 128/81 135/77 134/80 O2 Sat by Pulse 94 95 93 Oximetry 10/28/21 10/28/21 10/28/21 10:16 10:30 10:46 Pulse Rate 85 83 86 Respiratory 24 21 27 H Rate Blood Pressure 144/88 133/86 134/84 O2 Sat by Pulse 94 95 96 Oximetry 10/28/21 10/28/21 10/28/21 11:00 11:16 11:30 Pulse Rate 82 87 83 Respiratory 22 22 22 Rate Blood Pressure 128/74 119/80 130/77 O2 Sat by Pulse 95 95 95 Oximetry 10/28/21 13:55 Pulse Rate 88 Respiratory Rate Blood Pressure 145/88 O2 Sat by Pulse Oximetry - Labs CBC & Chem 7: 10/29/21 04:28 10/29/21 04:28 Labs: Abnormal lab results 10/27/21 10/27/21 10/28/21 Range/Units 23:24 Unknown 04:53 Sodium 136 L (137-145) mmol/L Chloride 96.8 L (98-107) mmol/L BUN 21 H 24 H (9-20) mg/dL Glucose 144 H 163 H (75-100) mg/dL AST 49 H 52 H (5-40) units/L Total Protein 6.2 L (6.3-8.2) g/dL Albumin 3.4 L 3.2 L (3.9-5) g/dL Coronavirus (PCR) Positive A (Negative) HEART Score - HEART Score Troponin: Troponin T < 0.010 ng/mL (0.00-0.029) 10/26/21 16:48
[2021-10-28] MEDS: cefTRIAXone/NS 2 GM/100 ML 2 GM/100 ML BAG IV SCH (18:50)
[2021-10-28] MEDS: REMDESIVIR 100 MG in SODIUM CHLORIDE 0.9% 250ML 250 ML IV SCH (21:00)
[2021-10-28] MEDS: SODIUM CHLORIDE 0.9% 50 ML IVPB IV SCH (21:00)
--- NOTE | 2021-10-28 23:17 | Consultation ---
DATE OF CONSULTATION: 10/28/2021 PULMONARY CRITICAL CARE CONSULTATION NOTE CONSULTING PHYSICIAN: Dr. Avelar. REASON FOR CONSULTATION: Atrial fibrillation with a rapid ventricular response and COVID-19 infection. CHIEF COMPLAINT AND HISTORY OF PRESENT ILLNESS: As follows: The patient is a now 75-year-old morbidly obese male with past medical history significant amongst other things for a diagnosis of obesity hypoventilation syndrome and peripheral arterial disease, came into the Emergency Room complaining of being unable to breathe. He mentioned that he had experienced shortness of breath, fatigue, body aches, dry cough at home. He had been tested at home he said about 5 days before presentation and it was a negative test. However, when he came into the Emergency Room, he was tested and turned out to be positive for COVID-19. Emergency Medical Services upon arrival found him hypoxemic, 83% on room air. He was using accessory muscles to breathe, speaking in short sentences. He was brought into the ER and a chest x-ray revealed bilateral pneumonia. He denied any new-onset leg pain or swelling, either unilaterally or bilaterally or any suggestion of a deep venous thrombosis. He denied coughing. He denied a family history of any clotting disorders. When I stopped by to see him, he was resting in bed. He was on high-flow nasal cannula 40 liters, 80% FiO2 with O2 sats of about 95%, breathing was still a little bit labored. He denied nausea, vomiting or overt aspiration. When asked about a history of tobacco use, he denies any use throughout his life. This really is as much of the history of presentation as I have. PAST MEDICAL HISTORY: Hypertension, peripheral vascular disease, obesity hypoventilation syndrome. He is morbidly obese. PAST SURGICAL HISTORY: Denied. MEDICATIONS: He was on at the time I stopped by to see him, according to the medication administration record included the following: Tylenol 650 mg p.o. q. 4 hours p.r.n. mild pain or fevers, albuterol 2.5 mg nebulized q. 4 hours p.r.n. shortness of breath, Eliquis 10 mg p.o. q. 12 hours, aspirin 81 mg p.o. daily, azithromycin 500 mg IV daily, Rocephin 2 grams IV daily, diltiazem drip was going at 5 mg per hour. He has also been started on diltiazem 60 mg p.o. t.i.d. scheduled, Dilaudid 0.5 mg IV q. 23 hours p.r.n. severe pain, Solu-Medrol 60 mg IV q. 8 hours, Zofran 4 mg IV q. 8 hours p.r.n. nausea and vomiting, Percocet 5/325 one tablet p.o. q. 16 hours p.r.n. moderate pain. Remdesivir had been started, he was getting the first of 5 bags. ALLERGIES: LISINOPRIL. NATURE OF THIS ALLERGY IS UNKNOWN. DIET: Obese gentleman. Denies acute weight loss or gain in the preceding few weeks to months. FAMILY AND SOCIAL HISTORY: Lives in the community. Denies current alcohol, tobacco or illicit drug use or abuse. There is a family history of hypertension. REVIEW OF SYSTEMS: Denies loss of consciousness. Denies new onset seizures. No new onset focal weakness. Denies gross hematochezia or melena. Denies gross hematuria or dysuria. He has some chest pain. He denies polydipsia or polyuria. Denies heat or cold intolerance. Complete 13-system review of system was obtained. Pertinent positives and/or negatives as in the body of the history above, otherwise noncontributory. PHYSICAL EXAMINATION: VITAL SIGNS: At presentation, he had a low-grade fever of 99.1 degrees Fahrenheit, pulse of 103, respiratory rate at presentation was 18, blood pressure 145/87, O2 sats were 93%, inspired oxygen concentration at that time was not recorded. When I saw him, he was breathing with a respiratory rate in the mid 20s, 95% on 80% via the high flow nasal cannula. GENERAL: He is an elderly looking obese male. Normocephalic, atraumatic. Talking to me with full sentences, but with mildly increased respiratory effort at rest. HEAD, EYES, EARS, NOSE AND THROAT: Anicteric. No conjunctival erythema. Oropharynx was moist. NECK: He has a large neck circumference. No gross jugular venous distention, no thyromegaly. Grossly, there were no palpable lymph nodes in the supraclavicular or submandibular lymph node chains. LUNGS: Auscultation of both lung sampson significant for diminished bilateral breath sounds, bibasilar inspiratory rales, no wheezing. HEART: Sounds 1 and 2 are heard at the time of my evaluation, regular rate and rhythm without overt rubs or murmurs. ABDOMEN: Soft, full, protuberant. Bowel sounds are positive, nontender, no palpable hepatosplenomegaly. EXTREMITIES: Without overt digital clubbing or cyanosis, no pedal edema. Pedal pulses were 2+ bilaterally. NEUROLOGIC: Pupils were equal, round, about 4 mm, reactive to light. Extraocular muscle movements were intact. He moves all 4 extremities spontaneously. SKIN: Normal turgor without overt cellulitis or rash. Please see the wound care nurses' notes for full description of his skin. PSYCHIATRIC: Mood, affect were anxious. He did have intact judgment and insight. LABORATORY DATA: From my review are as follows: White cell count at presentation 12,500, hemoglobin 13.0, hematocrit 41.0, platelet count was 206, 3% band neutrophils on the manual differential. INR 0.91. D-dimer 1951. Arterial blood gas showed a pH of 7.47, pCO2 of 35, pO2 of 47 that was on room air. Serum sodium was 138, potassium 3.4, chloride 98, bicarbonate 24, BUN 24, creatinine 1.0, glucose is 104. Liver function test within normal limits. Troponin within normal limits. CRP was up at 11.8. TSH was within normal limits. Coronavirus PCR testing has come back positive. No microbiology studies for my review. Chest x-ray shows bilateral infiltrates with mid lung zone predominance and gross cardiomegaly. A CT scan was done, it is a CT angiogram. There is poor contrast phase timing, nonetheless I do see filling defects in both lower lobe branches of pulmonary artery as well as dense bilateral consolidation in the lung sampson involving both lung sampson. 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 He also has areas of ground glass calcifications. ASSESSMENT: 1. Acute hypoxemic respiratory failure secondary to bilateral pneumonia. 2. Bilateral pneumonia, community-acquired. 3. COVID-19 infection. 4. Acute respiratory distress syndrome. 5. Obesity hypoventilation syndrome. 6. Bilateral pulmonary emboli. 7. Hypertension. 8. Peripheral vascular disease. PLAN: The plan will be to continue supplemental oxygen to keep sats greater than or equal to about 90%. Aspiration precautions will be maintained. I will deploy bilevel positive airway pressure ventilation therapy at bedtime with p.r.n. daytime use for alveolar recruitment. Bronchodilators will be ordered. I will also start long-acting bronchodilators in the short term. Continue the short-acting bronchodilators. We will complete empiric community-acquired pneumonia therapy with Rocephin and azithromycin. A procalcitonin level will be ordered. The patient may be a candidate for Actemra. I will defer to the Infectious Disease physician. He is unvaccinated and his outcomes are therefore bothersome. He is fully anticoagulated. I will be starting him on zinc and vitamin C supplementation. He is receiving remdesivir therapy. He will also be placed on DVT prophylaxis. Flu and pneumonia vaccination will be addressed per protocol. Further interventions will depend on his progress through this admission. He is critically ill on life-sustaining interventions including the high flow nasal cannula and now noninvasive ventilation therapy, at very high risk of from cardiopulmonary system and hematologic system decompensation. At this time, I spent about 35-40 minutes of critical care time without overlap and excluding any procedural time that may be necessary. TID: [id number] RECEIPT: [id number] SNEHAL/REUBEN
[2021-10-29 05:44] LABS: Hematocrit 41.6 % (35.5-45.6); Hemoglobin 13.2 gm/dl (11.8-15.2); Mean Corpuscular HGB Conc 32 % (32-34); Mean Corpuscular Volume 93 fl (84-94); Platelet Count 279 K/mm3 (140-440); Red Blood Count 4.47 M/mm3 (3.65-5.03); Red Cell Distribution Width 13.9 % (13.2-15.2)
[2021-10-29] MEDS: AZITHROMYCIN/NS 500 MG/250 ML 500 MG/250 ML BAG IV SCH (06:06)
[2021-10-29] MEDS: methylPREDNISolone Sod Succinate 125 MG/2 ML INJ IV SCH ×2 (06:06→18:15)
[2021-10-29 06:10] LABS: Alanine Aminotransferase 29 units/L (7-56); Albumin 3.2 g/dL (3.9-5); BUN/Creatinine Ratio 38; Blood Urea Nitrogen 38 mg/dL (9-20); Calcium 8.8 mg/dL (8.4-10.2); Hemolysis Index 56
[2021-10-29] MEDS: dilTIAZem 30 MG TAB PO SCH ×3 (07:50→21:20)
[2021-10-29] MEDS: ASPIRIN 81 MG TAB CHEW PO SCH (09:57)
[2021-10-29] MEDS: APIXABAN 5 MG TAB PO SCH (09:58)
[2021-10-29] MEDS: FAMOTIDINE 20 MG TAB PO SCH (09:58)
--- NOTE | 2021-10-29 10:34 | Progress Note ---
Assessment and Plan Is a 75-year-old male with a past medical history of hypertension, coronary artery disease, and thoracic aortic aneurysm who presented to the ED with a complaint of difficulty breathing since [place] COVID Acute hypoxic respiratory failure- on highflow NC PNA Afib w/ RVR(new onset) HTN CAD bilateral PE Echo 10/26/2021-EF 50 to 55%. Right ventricle systolic function is normal. Trace mitral regurgitation. Trace tricuspid regurgitation. Ascending aorta is dilated 4.1 cm Stress11/20/2019- Normal pharmacological SPECT stress test. Stress ECG was negative for ischemia. No symptoms of chest pain with vasodilator stress. Normal perfusion without evidence of ischemia or infarct. TID 0.97 (normal). Normal LV systolic function (calculated LVEF 69%). No wall motion abnormalities. Echo 11/20/2019-LV normal size. Normal LV wall thickness. LV wall motion normal. LVEF is 59%. GLS decreased. Normal LV diastolic function. RV moderately to severely dilated. RV systolic function is normal. Estimated RAP 5 mmHg based on IVC. Unable to assess RVSP due to insufficient TR signal. AV not well visualized. AV opens well. Mild AR. No AV stenosis. Aortic arch normal. Sinotubular junction mildly dilated. Ascending aorta mildly dilated. No aortic coarctation. Ao Sinus s 3.[address] jnct s 3.87 cm Ao Asc s 4.1 cm rec: Patient went back into atrial fibrillation with rapid ventricle response reinitiate IV Cardizem and continue p.o. Cardizem and oral anticoagulation and Covid treatment discussed with patient about pronating and sleeping on his stomach Subjective Date of service: 10/29/21 Principal diagnosis: afib Interval history: sob is present but stable Objective Vital Signs Pulse Resp BP Pulse Ox 10/29/21 09:31 149 H 25 H 122/78 98 10/29/21 09:15 151 H 26 H 122/78 98 10/29/21 09:01 151 H 23 122/78 96 10/29/21 08:45 157 H 27 H 122/78 97 10/29/21 08:36 89 10/29/21 08:31 145 H 24 116/81 91 10/29/21 08:15 151 H 27 H 116/81 93 10/29/21 08:01 138 H 28 H 116/81 93 10/29/21 07:50 120 H 126/80 10/29/21 07:45 139 H 26 H 116/81 95 10/29/21 07:30 141 H 23 116/81 95 10/29/21 07:16 141 H 25 H 116/81 94 10/29/21 07:00 153 H 24 116/81 89 10/29/21 06:46 138 H 18 116/81 94 10/29/21 06:30 129 H 19 137/79 92 10/29/21 06:15 148 H 23 116/81 92 10/29/21 05:46 74 14 126/80 91 10/29/21 05:30 82 18 123/81 95 10/29/21 05:16 137/79 89 10/29/21 05:00 131/74 96 10/29/21 04:46 134/78 93 10/29/21 04:30 83 20 129/81 95 10/29/21 04:16 48 L 23 141/90 10/29/21 04:00 78 21 134/77 94 10/29/21 03:46 72 23 128/74 94 10/29/21 03:30 86 33 H 140/91 94 10/29/21 03:16 74 24 120/80 94 10/29/21 03:00 88 29 H 116/74 94 10/29/21 02:45 84 24 116/75 92 10/29/21 02:30 87 24 123/72 92 10/29/21 02:16 90 23 130/64 94 10/29/21 02:00 79 27 H 122/81 93 10/29/21 01:46 97 H 22 138/96 93 10/29/21 01:30 74 25 H 121/81 95 10/29/21 01:16 80 25 H 124/73 92 10/29/21 01:00 79 25 H 133/76 94 10/29/21 00:45 88 26 H 136/84 88 10/29/21 00:30 87 19 127/78 93 10/29/21 00:16 82 25 H 127/78 94 10/29/21 00:00 93 H 23 127/78 92 10/28/21 23:46 90 22 135/85 92 10/28/21 23:30 88 23 139/90 92 10/28/21 23:16 92 H 19 141/88 91 10/28/21 23:00 87 27 H 115/67 92 10/28/21 22:46 83 25 H 129/75 95 10/28/21 22:34 88 22 121/76 93 10/28/21 22:30 85 22 121/76 94 10/28/21 22:16 84 20 121/67 94 10/28/21 22:00 87 21 113/67 95 10/28/21 21:46 86 20 113/64 93 10/28/21 21:30 94 H 22 135/82 93 10/28/21 21:29 91 H 136/78 10/28/21 21:16 129/68 89 10/28/21 21:00 90 26 H 128/70 94 10/28/21 20:46 86 27 H 126/67 93 10/28/21 20:30 87 24 129/75 92 10/28/21 20:16 87 24 141/78 94 10/28/21 20:00 90 27 H 151/86 93 10/28/21 19:50 94 10/28/21 19:46 87 27 H 149/92 95 10/28/21 19:30 86 23 144/84 94 10/28/21 19:15 89 26 H 145/80 92 10/28/21 19:00 91 H 25 H 144/80 94 10/28/21 18:46 92 H 26 H 125/86 93 10/28/21 18:30 93 H 24 122/77 92 10/28/21 18:16 90 25 H 141/96 93 10/28/21 18:00 81 26 H 130/79 92 10/28/21 17:46 93 H 28 H 134/80 94 10/28/21 17:30 86 22 127/73 95 10/28/21 17:16 90 28 H 120/84 92 10/28/21 17:00 91 H 28 H 121/88 92 10/28/21 16:46 90 24 130/83 89 10/28/21 16:30 84 25 H 130/73 91 10/28/21 16:16 86 25 H 130/82 93 10/28/21 16:00 95 H 31 H 142/71 90 10/28/21 15:46 92 H 20 122/88 92 10/28/21 15:30 98 H 34 H 131/87 91 10/28/21 15:16 78 25 H 120/64 93 10/28/21 15:00 71 23 122/71 95 10/28/21 14:45 92 H 23 120/75 93 10/28/21 14:30 85 23 143/76 95 10/28/21 14:16 87 23 130/77 94 10/28/21 14:00 91 H 19 147/84 93 10/28/21 13:55 88 145/88 10/28/21 13:46 91 H 25 H 145/88 91 10/28/21 13:30 84 20 137/80 95 10/28/21 13:16 91 H 16 139/80 94 10/28/21 13:00 79 25 H 129/73 96 10/28/21 12:46 83 25 H 122/71 93 10/28/21 12:30 88 30 H 139/76 95 10/28/21 12:16 83 21 136/74 95 10/28/21 12:00 86 21 126/81 95 10/28/21 11:46 93 H 19 136/87 92 10/28/21 11:30 83 22 130/77 95 10/28/21 11:16 87 22 119/80 95 10/28/21 11:00 82 22 128/74 95 10/28/21 10:46 86 27 H 134/84 96 - Physical Examination General: No Apparent Distress HEENT: Positive: PERRL, Mucus Membranes Dry Neck: Positive: neck supple Cardiac: Positive: Irregularly Regular, Tachycardia Lungs: Positive: Decreased Breath Sounds Neuro: Positive: Grossly Intact Abdomen: Positive: Soft, Active Bowel Sounds Skin: Negative: Rash, Suspicious Lesions, Ulceration Extremities: Present: upper extr. pulses. Absent: edema - Labs and Meds Cardiac Enzymes 10/29/21 Range/Units 04:28 AST 52 H (5-40) units/L CBC 10/29/21 Range/Units 04:28 WBC 5.8 (4.5-11.0) K/mm3 RBC 4.47 (3.65-5.03) M/mm3 Hgb 13.2 (11.8-15.2) gm/dl Hct 41.6 (35.5-45.6) % Plt Count 279 (140-440) K/mm3 Comprehensive Metabolic Panel 10/29/21 Range/Units 04:28 Sodium 136 L (137-145) mmol/L Potassium 4.0 (3.6-5.0) mmol/L Chloride 98.8 (98-107) mmol/L Carbon Dioxide 25 (22-30) mmol/L BUN 38 H (9-20) mg/dL Creatinine 1.0 (0.8-1.3) mg/dL Glucose 225 H (75-100) mg/dL Calcium 8.8 (8.4-10.2) mg/dL AST 52 H (5-40) units/L ALT 29 (7-56) units/L Alkaline Phosphatase 51 (35-129) units/L Total Protein 6.7 (6.3-8.2) g/dL Albumin 3.2 L (3.9-5) g/dL - Imaging and Cardiology Echo: report reviewed - Telemetry EKG Rhythm: Atrial Fibrillation AV and intraventricular conduction: right bundle branch block
[2021-10-29] MEDS ORDERED: dilTIAZem 25 MG/5 ML INJ IV ONE (11:00)
--- NOTE | 2021-10-29 12:33 | Progress Note ---
Assessment and Plan Acute hypoxemic respiratory failure Bilateral pneumonia (CAP / COVID-19) COVID-19 infection Acute respiratory distress syndrome Bilateral pulmonary emboli A-fib with RVR OHS Hypertension Peripheral vascular disease - continue BIPAP scheduled qhs with prn daytime use - ID evaluation pending - continue full anticoagulation re: P.E. - awake proning counseled - continue to wean supplemental oxygen for target O2 sat's > 90% acutely - aspiration precautions - continue bronchodilators with pulmonary hygiene per RT - continue accuchecks with glycemic control per SSI (While critically ill target blood glucose of 140-180 mg/dL; avoid hypoglycemia) - avoid nephrotoxins, renally dose all medications - avoid benzodiazepine's, reduce the possibility of delirium - Anti-infective's per ID rec's - prn analgesia per CPOT score - Maintenance of sleep-wake cycle, avoid delirium - G.I. & VTE prophylaxis - PT/OT/ROM exercises - continue mobility protocols for pressure ulcer prophylaxis - Monitor hemodynamics closely - continue other care per attending / other consultants - discharge planning ongoing concurrently COVID SPECIFIC INTERVENTIONS - Remdesivir as per ID/Pulmonary developed protocols (patient wants to discuss therapeutics with ID team) - continue systemic steroids for severe COVID-19 infection empirically (Dexamet hasngozi) - follow repeat COVID tests results - zinc and vitamin C supplementation - Monitor inflammatory markers per facility protocol - ferritin, Ddimer, CRP - therapeutic anticoagulation per system Protocol based on d-dimer and clinical considerations (treatment dose re: VTE) - Continue contact and airborne isolation .... Re-evaluate in am & prn CONDITION: CRITICAL PROGNOSIS: GUARDED CODE STATUS: FULL CODE The high probability of a clinically significant, sudden or life-threatening deterioration of the [respiratory, cardiovascular & hematologic] system(s) required my full and direct attention, intervention and personal management. The aggregate critical care time was [33] minutes without overlap. Time includes spent on; [x] Data Review and interpretation [x] Patient assessment and monitoring of vital signs [x] Documentation [x] Medication orders and management Subjective Date of service: 10/29/21 Principal diagnosis: AHRF; A-fib; CAP; COVID-19 infection; Pulm Embolism; ARDS; Morbid Obesity Interval history: Patient is seen today for: AHRF; A-fib with RVR; Pneumonia; COVID-19 infection; Pulm Embolism; ARDS; Morbid Obesity; OHS Seen and examined at bedside; 24hour events reviewed; nursing and respiratory care staff consulted; no adverse overnight events reported to me; resting in bed; remains with ARDS on HFNC via vapotherm and 80% FiO2; denies chest pain / N/V/F/C; denies hemoptysis Objective Vital Signs - 12hr 10/29/21 10/29/21 10/29/21 00:45 01:00 01:16 Pulse Rate 88 79 80 Respiratory 26 H 25 H 25 H Rate Blood Pressure 136/84 133/76 124/73 O2 Sat by Pulse 88 94 92 Oximetry 10/29/21 10/29/21 10/29/21 01:30 01:46 02:00 Pulse Rate 74 97 H 79 Respiratory 25 H 22 27 H Rate Blood Pressure 121/81 138/96 122/81 O2 Sat by Pulse 95 93 93 Oximetry 10/29/21 10/29/21 10/29/21 02:16 02:30 02:45 Pulse Rate 90 87 84 Respiratory 23 24 24 Rate Blood Pressure 130/64 123/72 116/75 O2 Sat by Pulse 94 92 92 Oximetry 10/29/21 10/29/21 10/29/21 03:00 03:16 03:30 Pulse Rate 88 74 86 Respiratory 29 H 24 33 H Rate Blood Pressure 116/74 120/80 140/91 O2 Sat by Pulse 94 94 94 Oximetry 10/29/21 10/29/21 10/29/21 03:46 04:00 04:16 Pulse Rate 72 78 48 L Respiratory 23 21 23 Rate Blood Pressure 128/74 134/77 141/90 O2 Sat by Pulse 94 94 Oximetry 10/29/21 10/29/21 10/29/21 04:30 04:46 05:00 Pulse Rate 83 Respiratory 20 Rate Blood Pressure 129/81 134/78 131/74 O2 Sat by Pulse 95 93 96 Oximetry 10/29/21 10/29/21 10/29/21 05:16 05:30 05:46 Pulse Rate 82 74 Respiratory 18 14 Rate Blood Pressure 137/79 123/81 126/80 O2 Sat by Pulse 89 95 91 Oximetry 10/29/21 10/29/21 10/29/21 06:15 06:30 06:46 Pulse Rate 148 H 129 H 138 H Respiratory 23 19 18 Rate Blood Pressure 116/81 137/79 116/81 O2 Sat by Pulse 92 92 94 Oximetry 10/29/21 10/29/21 10/29/21 07:00 07:16 07:30 Pulse Rate 153 H 141 H 141 H Respiratory 24 25 H 23 Rate Blood Pressure 116/81 116/81 116/81 O2 Sat by Pulse 89 94 95 Oximetry 10/29/21 10/29/21 10/29/21 07:45 07:50 08:01 Pulse Rate 139 H 120 H 138 H Respiratory 26 H 28 H Rate Blood Pressure 116/81 126/80 116/81 O2 Sat by Pulse 95 93 Oximetry 10/29/21 10/29/21 10/29/21 08:15 08:31 08:36 Pulse Rate 151 H 145 H Respiratory 27 H 24 Rate Blood Pressure 116/81 116/81 O2 Sat by Pulse 93 91 89 Oximetry 10/29/21 10/29/21 10/29/21 08:45 09:01 09:15 Pulse Rate 157 H 151 H 151 H Respiratory 27 H 23 26 H Rate Blood Pressure 122/78 122/78 122/78 O2 Sat by Pulse 97 96 98 Oximetry 10/29/21 10/29/21 10/29/21 09:31 09:45 10:01 Pulse Rate 149 H 141 H 146 H Respiratory 25 H 30 H 32 H Rate Blood Pressure 122/78 122/78 122/78 O2 Sat by Pulse 98 98 97 Oximetry 10/29/21 10/29/21 10/29/21 10:15 10:31 10:39 Pulse Rate 123 H 134 H 134 H Respiratory 25 H 24 Rate Blood Pressure 122/78 122/78 O2 Sat by Pulse 99 100 Oximetry 10/29/21 10/29/21 10/29/21 10:46 11:00 11:16 Pulse Rate 139 H 128 H 139 H Respiratory 29 H 26 H 26 H Rate Blood Pressure 119/72 113/76 113/76 O2 Sat by Pulse 98 100 97 Oximetry 10/29/21 10/29/21 10/29/21 11:30 11:46 12:00 Pulse Rate 133 H 116 H 129 H Respiratory 25 H 24 25 H Rate Blood Pressure 113/76 113/76 116/84 O2 Sat by Pulse 100 100 100 Oximetry 10/29/21 12:16 Pulse Rate 143 H Respiratory 26 H Rate Blood Pressure 116/84 O2 Sat by Pulse 99 Oximetry Constitutional: appears uncomfortable, other (elderly obese male with mildly increased respiratory effort at rest) Eyes: non-icteric ENT: oropharynx moist Neck: supple, no lymphadenopathy, no JVD, other (large circumference) Effort: mildly labored Ascultation: Bilateral: diminished breath sounds, rales Percussion: Bilateral: not dull Cardiovascular: regular rate and rhythm Gastrointestinal: normoactive bowel sounds, soft, non-tender, non-distended (protuberant) Integumentary: normal Extremities: no cyanosis, pink and warm, pulses normal, no ischemia or petechiae Neurologic: non-focal exam, pupils equal and round, CN II-XII normal, motor strength normal and Psychiatric: mood appropriate, anxious CBC and BMP: 11/02/21 05:58 11/02/21 05:58 ABG, PT/INR, D-dimer: ABG ABG pH 7.474 pH Units (7.350-7.450) H 10/26/21 23:20 ABG pCO2 35.2 mm Hg 10/26/21 23:20 ABG pO2 47.3 mm Hg (80.0-90.0) L 10/26/21 23:20 ABG O2 Saturation 88.5 % (95.0-99.0) L 10/26/21 23:20 PT/INR, D-dimer PT 13.3 Sec. (12.2-14.9) 10/27/21 12:36 INR 0.91 (0.87-1.13) 10/27/21 12:36 D-Dimer 1951.42 ng/mlDDU (0-234) H 10/26/21 19:03 Abnormal lab findings: Abnormal Labs 10/26/21 10/26/21 10/26/21 16:48 16:48 19:03 WBC MCV Lymph % (Auto) 11.3 L Pope % (Auto) 10.2 H Lymph # (Auto) 0.5 L Seg Neutrophils % 77.8 H Seg Neuts % (Manual) Lymphocytes % (Manual) Lymphocytes # (Manual) D-Dimer 1951.42 H ABG pH ABG pO2 ABG O2 Saturation ABG Hemoglobin Oxyhemoglobin Sodium Potassium 3.4 L Chloride 97.5 L BUN 24 H Glucose 108 H Calcium Ferritin AST Lactate Dehydrogenase C-Reactive Protein Total Protein Albumin Free T4 Coronavirus (PCR) 10/26/21 10/26/21 10/26/21 19:03 19:03 21:46 WBC MCV Lymph % (Auto) Pope % (Auto) Lymph # (Auto) Seg Neutrophils % Seg Neuts % (Manual) Lymphocytes % (Manual) Lymphocytes # (Manual) D-Dimer ABG pH ABG pO2 ABG O2 Saturation ABG Hemoglobin Oxyhemoglobin Sodium Potassium Chloride BUN Glucose 104 H Calcium Ferritin 319.2 H AST Lactate Dehydrogenase 268 H C-Reactive Protein 11.80 H Total Protein Albumin Free T4 1.78 H Coronavirus (PCR) 10/26/21 10/27/21 10/27/21 23:20 03:44 03:44 WBC MCV 95 H Lymph % (Auto) Pope % (Auto) Lymph # (Auto) Seg Neutrophils % Seg Neuts % (Manual) 84.0 H Lymphocytes % (Manual) 10.0 L Lymphocytes # (Manual) 0.6 L D-Dimer ABG pH 7.474 H ABG pO2 47.3 L ABG O2 Saturation 88.5 L ABG Hemoglobin 13.5 L Oxyhemoglobin 87.7 L Sodium Potassium Chloride 97.9 L BUN 23 H Glucose 139 H Calcium 8.3 L Ferritin AST Lactate Dehydrogenase C-Reactive Protein Total Protein Albumin Free T4 Coronavirus (PCR) 10/27/21 10/27/21 10/27/21 12:36 23:24 Unknown WBC 4.1 L MCV Lymph % (Auto) Pope % (Auto) Lymph # (Auto) Seg Neutrophils % Seg Neuts % (Manual) Lymphocytes % (Manual) Lymphocytes # (Manual) D-Dimer ABG pH ABG pO2 ABG O2 Saturation ABG Hemoglobin Oxyhemoglobin Sodium 136 L Potassium Chloride 96.8 L BUN 21 H Glucose 144 H Calcium Ferritin AST 49 H Lactate Dehydrogenase C-Reactive Protein Total Protein Albumin 3.4 L Free T4 Coronavirus (PCR) Positive A 10/28/21 10/29/21 04:53 04:28 WBC MCV Lymph % (Auto) Pope % (Auto) Lymph # (Auto) Seg Neutrophils % Seg Neuts % (Manual) Lymphocytes % (Manual) Lymphocytes # (Manual) D-Dimer ABG pH ABG pO2 ABG O2 Saturation ABG Hemoglobin Oxyhemoglobin Sodium 136 L Potassium Chloride BUN 24 H 38 H Glucose 163 H 225 H Calcium Ferritin AST 52 H 52 H Lactate Dehydrogenase C-Reactive Protein Total Protein 6.2 L Albumin 3.2 L 3.2 L Free T4 Coronavirus (PCR) Allied health notes reviewed: nursing
--- NOTE | 2021-10-29 17:35 | Progress Note ---
Assessment and Plan --New onset atrial fibrillation: Patient found to have new onset A. fib in the emergency department. Patient treated with Cardizem bolus with rapid return of rapid ventricular response. Patient subsequently initiated on Cardizem drip and admitted to [facility]. Cardiology team consulted. Initiated on Eliquis for anticoagulation --b/l PE, change eliquis dose tp 10mg bid for a week then will reduce to 5mg bid -- Acute hypoxemic respiratory failure Due to bilateral PE and COVID-19 pneumonia Currently on high flow O2, pulmonary consulted Continue therapeutic anticoagulation and treatment protocol for COVID-19 supplemental oxygen, pulse oximetry, nebulizer therapy, prone positioning while in bed, pulmonary toilet. -- b/l Pneumonia with covid19 ordered solumedrol, remdesivir, ID consulted Continue to follow inflammatory markers -- Obesity Balanced diet, increase physical activity following discharge if stable, outpatient pulmonary follow-up for sleep study. -- Hypertension Monitor blood pressure every shift, continue medical management. -- DVT prophylaxis SCD to bilateral lower extremities while in bed, prophylactic anticoagulation -- Full CODE STATUS Daily clinical course: 10/27/21: Covid 19 test result is positive, initiated on COVID-19 protocol. CTA chest also suggestive for bilateral PE-adjusted Eliquis dose. Patient on 25 L high flow O2, consult pulmonary. Cardiology following for atrial fibrillation. We will also consult ID, will continue to follow inflammatory markers 10/28/20; REMAINS ON HIGH FLOW O2, cont therapeutic anticoagulation, empiric steroid and IV remdesivir. Being followed by cardiology and pulmonary. ID consult pending. Will downgrade to MedSurg unit with telemetry. 10/29/20: Patient HR at 160s today, restarted on cardizem drip, cont high flow O2, follow inflammatory markers, follow clinically Subjective Date of service: 10/29/21 Principal diagnosis: afib Interval history: Patient seen and examined. Medical records and medication list reviewed. No acute event overnight noted by the RN. Patient remains on high flow O2, HR at 160s Discussed plan of care at bedside with patient. Objective - Exam Narrative Exam: Limited physical exam due to COVID-19 pandemic to minimize transmission of the disease and to preserve PPE. Vital reviewed and stable. GENERAL: well-developed well-nourished elderly wild male lying on bed appeared to be in no discomfort. HEENT: Normocephalic. Atraumatic. NECK: Supple. CHEST/LUNGS: breathing on high flow O2 HEART/CARDIOVASCULAR: Heart rate stable on telemetry ABDOMEN: Visibly not distended SKIN: There is no rash NEURO: No focal motor deficit. Follows command. MUSCULOSKELETAL: No joint effusion EXTRIMITY: No swelling, no cyanosis or clubbing. PSYCH: Cooperative. - Constitutional Vitals: Vital Signs - 12hr 10/29/21 10/29/21 10/29/21 05:46 06:15 06:30 Pulse Rate 74 148 H 129 H Respiratory 14 23 19 Rate Blood Pressure 126/80 116/81 137/79 O2 Sat by Pulse 91 92 92 Oximetry 10/29/21 10/29/21 10/29/21 06:46 07:00 07:16 Pulse Rate 138 H 153 H 141 H Respiratory 18 24 25 H Rate Blood Pressure 116/81 116/81 116/81 O2 Sat by Pulse 94 89 94 Oximetry 10/29/21 10/29/21 10/29/21 07:30 07:45 07:50 Pulse Rate 141 H 139 H 120 H Respiratory 23 26 H Rate Blood Pressure 116/81 116/81 126/80 O2 Sat by Pulse 95 95 Oximetry 10/29/21 10/29/21 10/29/21 08:01 08:15 08:31 Pulse Rate 138 H 151 H 145 H Respiratory 28 H 27 H 24 Rate Blood Pressure 116/81 116/81 116/81 O2 Sat by Pulse 93 93 91 Oximetry 10/29/21 10/29/21 10/29/21 08:36 08:45 09:01 Pulse Rate 157 H 151 H Respiratory 27 H 23 Rate Blood Pressure 122/78 122/78 O2 Sat by Pulse 89 97 96 Oximetry 10/29/21 10/29/21 10/29/21 09:15 09:31 09:45 Pulse Rate 151 H 149 H 141 H Respiratory 26 H 25 H 30 H Rate Blood Pressure 122/78 122/78 122/78 O2 Sat by Pulse 98 98 98 Oximetry 10/29/21 10/29/21 10/29/21 10:01 10:15 10:31 Pulse Rate 146 H 123 H 134 H Respiratory 32 H 25 H 24 Rate Blood Pressure 122/78 122/78 122/78 O2 Sat by Pulse 97 99 100 Oximetry 10/29/21 10/29/21 10/29/21 10:39 10:46 11:00 Pulse Rate 134 H 139 H 128 H Respiratory 29 H 26 H Rate Blood Pressure 119/72 113/76 O2 Sat by Pulse 98 100 Oximetry 10/29/21 10/29/21 10/29/21 11:16 11:30 11:46 Pulse Rate 139 H 133 H 116 H Respiratory 26 H 25 H 24 Rate Blood Pressure 113/76 113/76 113/76 O2 Sat by Pulse 97 100 100 Oximetry 10/29/21 10/29/21 10/29/21 12:00 12:16 12:30 Pulse Rate 129 H 143 H 145 H Respiratory 25 H 26 H 28 H Rate Blood Pressure 116/84 116/84 116/84 O2 Sat by Pulse 100 99 96 Oximetry 10/29/21 10/29/21 10/29/21 12:46 13:00 13:16 Pulse Rate 153 H 150 H 161 H Respiratory 26 H 30 H 28 H Rate Blood Pressure 116/84 105/78 105/78 O2 Sat by Pulse 100 96 97 Oximetry 10/29/21 10/29/21 10/29/21 13:30 13:46 14:00 Pulse Rate 150 H 153 H Respiratory 25 H 24 Rate Blood Pressure 105/78 105/78 105/78 O2 Sat by Pulse 99 98 92 Oximetry - Labs CBC & Chem 7: 10/29/21 04:28 10/29/21 04:28 Labs: Abnormal lab results 10/29/21 Range/Units 04:28 Sodium 136 L (137-145) mmol/L BUN 38 H (9-20) mg/dL Glucose 225 H (75-100) mg/dL AST 52 H (5-40) units/L Albumin 3.2 L (3.9-5) g/dL HEART Score - HEART Score Troponin: Troponin T < 0.010 ng/mL (0.00-0.029) 10/26/21 16:48
[2021-10-29] MEDS ORDERED: METOPROLOL TARTRATE 5 MG/5 ML INJ IV ONE (18:07)
[2021-10-29] MEDS: cefTRIAXone/NS 2 GM/100 ML 2 GM/100 ML BAG IV SCH (18:15)
[2021-10-29] MEDS: REMDESIVIR 100 MG in SODIUM CHLORIDE 0.9% 250ML 250 ML IV SCH (21:05)
[2021-10-29] MEDS: SODIUM CHLORIDE 0.9% 50 ML IVPB IV SCH (21:05)
[2021-10-29] MEDS: dilTIAZem/D5W 100 MG/100 ML BAG IV SCH (22:00)
[2021-10-30] MEDS: methylPREDNISolone Sod Succinate 125 MG/2 ML INJ IV SCH ×3 (00:45→14:24)
[2021-10-30] MEDS: APIXABAN 5 MG TAB PO SCH ×3 (00:45→23:12)
[2021-10-30] MEDS: dilTIAZem/D5W 100 MG/100 ML BAG IV SCH (05:00)
[2021-10-30 05:58] LABS: Alanine Aminotransferase 37 units/L (7-56); Albumin 3.5 g/dL (3.9-5); BUN/Creatinine Ratio 44; Blood Urea Nitrogen 44 mg/dL (9-20); Calcium 9.4 mg/dL (8.4-10.2); Hemolysis Index 9
[2021-10-30] MEDS: AZITHROMYCIN/NS 500 MG/250 ML 500 MG/250 ML BAG IV SCH (06:09)
[2021-10-30] MEDS: dilTIAZem 30 MG TAB PO SCH ×3 (09:00→20:15)
--- NOTE | 2021-10-30 09:31 | Progress Note ---
Assessment and Plan 75 YO Male with HTN, PVD, Obesity Hypoventilation Syndrome presents to ED for evaluation. Patient reports "I can hardly breathe". Patient states that he has experienced shortness of breath, fatigue, malaise, body aches, dry cough, dimini shed sense of smell, diminished sense of taste, subjective fever, generalized weakness, runny nose over the past 1 week with persistent and worsening symptoms over the same timeframe. EMS was notified and upon arrival the patient was found to be in distress with a pulse oximetry of 82% the patient was placed on supplemental oxygen and transported to [facility] for further care and evaluation of the aforementioned symptoms. The patient was seen and evaluated in the emergency department. All lab and imaging studies reviewed. The patient was found to have a pulse oximetry of 83% on room air which is consistent with acute hypoxemic respiratory failure. Patient sitting up in bed and using accessory muscles to breathe, speaking in short sentences. Patient underwent chest x-ray and was found to have bilateral pneumonia. Patient admitted to the hospital and initiated on pneumonia protocol as well as coronavirus protocol. Patient knowledges subjective fever but denies chills, chest pain, palpitation, skin rash, unilateral leg swelling, calf pain. Patient has history of PE. On eliquis. Patient acknowledges recent ill contact with his grandchildren. Patient denies smoking, alcohol or drug abuse. 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 Allergic to Lisinopril. Patients cedillo virus PCR positive. Patient awake. Complaining shortness of breath and cough. Denies chest pain. Patient is on vapotherm FIO2 70% and O2 saturation running 95%. Patient afebrile, No leukocytosis. Blood pressure 124/59, pulse 122, Respirations 20. Patients CAT scan of chest done 10/26/21 reported Moderate bilateral pulmonary emboli .Moderate multifocal bilateral Covid pneumonia . Moderate hiatal hernia . Patient is on I/V solumedrol, REMDESIVIR, Apixaban, Famotidine. Patient was seen in the Emergency room. I spent critical care time of 40 minutes, obtaining history, review the chart, examine the patient, review chest xray, CAT scan of chest, review lab results.talking to the nursing staff and respiratory therapy and work up plan of treatment in this critically ill COVID 19 patient. - Patient Problems (1) CAD (coronary artery disease) Current Visit: Yes Status: Acute Plan to address problem: Management as per cardiology. (2) Acute hypoxemic respiratory failure Current Visit: No Status: Acute Plan to address problem: On vapotherm, FIO2 70%. Patient is on I/V solumedrol Patient is on Apixaban Patient is on famotidine. Albuterol inhaler as needed for shortness of breath. (3) Hypertension Current Visit: No Status: Acute Qualifiers: Hypertension type: primary hypertension Qualified Code(s): I10 - Essential (primary) hypertension Plan to address problem: Management as per primary care. (4) Obesity hypoventilation syndrome Current Visit: No Status: Acute Plan to address problem: Blood gases not suggestive of Obesity hypoventilation. Recommend sleep study as out patient, once she recovered from this episode. (5) Pneumonia Current Visit: No Status: Acute Plan to address problem: Antibiotics as per infectious diseases. (6) Pulmonary emboli Current Visit: Yes Status: Acute Plan to address problem: Patient is on eliquis. Subjective Date of service: 10/30/21 Principal diagnosis: afib Interval history: 75 YO Male with HTN, PVD, Obesity Hypoventilation Syndrome presents to ED for evaluation. Patient reports "I can hardly breathe". Patient states that he has experienced shortness of breath, fatigue, malaise, body aches, dry cough, diminished sense of smell, diminished sense of taste, subjective fever, generalized weakness, runny nose over the past 1 week with persistent and worsening symptoms over the same timeframe. EMS was notified and upon arrival the patient was found to be in distress with a pulse oximetry of 82% the patient was placed on supplemental oxygen and transported to [facility] for further care and e valuation of the aforementioned symptoms. The patient was seen and evaluated in the emergency department. All lab and imaging studies reviewed. The patient was found to have a pulse oximetry of 83% on room air which is consistent with acute hypoxemic respiratory failure. Patient sitting up in bed and using accessory muscles to breathe, speaking in short sentences. Patient underwent chest x-ray and was found to have bilateral pneumonia. Patient admitted to the hospital and initiated on pneumonia protocol as well as coronavirus protocol. Patient knowledges subjective fever but denies chills, chest pain, palpitation, skin rash, unilateral leg swelling, calf pain. Patient has history of PE. On Eliquis. Patient acknowledges recent ill contact with his grandchildren. Patient denies smoking, alcohol or drug abuse. 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 Allergic to Lisinopril. Patients cedillo virus PCR positive. Patient awake. Complaining shortness of breath and cough. Denies chest pain. Patient is on vapotherm FIO2 70% and O2 saturation running 95%. Patient afebrile, No leukocytosis. Blood pressure 124/59, pulse 122, Respirations 20. Patients CAT scan of chest done 10/26/21 reported Moderate bilateral pulmonary emboli .Moderate multifocal bilateral Covid pneumonia . Moderate hiatal hernia . Patient is on I/V solumedrol, REMDESIVIR, Apixaban, Famotidine. Objective Vital Signs - 12hr 10/29/21 10/29/21 10/29/21 21:30 21:31 21:45 Pulse Rate 134 H 134 H Respiratory 21 26 H Rate Blood Pressure 113/78 113/73 O2 Sat by Pulse 95 94 97 Oximetry 10/29/21 10/29/21 10/29/21 22:00 22:15 22:31 Pulse Rate 133 H 124 H 112 H Respiratory 27 H 15 26 H Rate Blood Pressure 119/70 122/80 118/74 O2 Sat by Pulse 97 97 97 Oximetry 10/29/21 10/29/21 10/29/21 22:45 23:01 23:15 Pulse Rate 128 H 122 H 138 H Respiratory 19 39 H 43 H Rate Blood Pressure 118/80 124/73 119/67 O2 Sat by Pulse 96 86 Oximetry 10/29/21 10/29/21 10/29/21 23:30 23:45 23:57 Pulse Rate 112 H 120 H 101 H Respiratory 24 28 H 28 H Rate Blood Pressure 119/79 124/72 124/72 O2 Sat by Pulse 84 99 98 Oximetry 10/30/21 10/30/21 10/30/21 00:01 00:15 00:30 Pulse Rate 117 H 111 H 111 H Respiratory 26 H 25 H 25 H Rate Blood Pressure 107/75 108/80 113/78 O2 Sat by Pulse 94 100 98 Oximetry 10/30/21 10/30/21 10/30/21 00:45 01:01 01:15 Pulse Rate 131 H 117 H 145 H Respiratory 19 20 28 H Rate Blood Pressure 113/78 128/83 115/65 O2 Sat by Pulse 93 96 98 Oximetry 10/30/21 10/30/21 10/30/21 01:31 01:45 02:01 Pulse Rate 133 H 128 H 125 H Respiratory 26 H 25 H 14 Rate Blood Pressure 128/79 138/81 123/73 O2 Sat by Pulse 85 90 97 Oximetry 10/30/21 10/30/21 10/30/21 02:15 02:31 02:45 Pulse Rate 122 H 122 H 123 H Respiratory 22 25 H 20 Rate Blood Pressure 117/67 111/70 103/68 O2 Sat by Pulse 98 96 98 Oximetry 10/30/21 10/30/21 10/30/21 03:01 03:15 03:31 Pulse Rate 112 H 125 H 134 H Respiratory 20 22 22 Rate Blood Pressure 98/65 98/68 99/67 O2 Sat by Pulse 98 98 97 Oximetry 10/30/21 10/30/21 10/30/21 03:45 04:01 04:15 Pulse Rate 128 H 136 H 133 H Respiratory 34 H 31 H 36 H Rate Blood Pressure 99/67 92/74 120/80 O2 Sat by Pulse 85 95 95 Oximetry 10/30/21 10/30/21 10/30/21 04:31 04:45 05:00 Pulse Rate 124 H 128 H 135 H Respiratory 28 H 29 H 38 H Rate Blood Pressure 122/68 123/83 102/78 O2 Sat by Pulse 96 96 84 Oximetry 10/30/21 10/30/21 10/30/21 05:15 05:31 05:45 Pulse Rate 133 H 129 H 118 H Respiratory 28 H 25 H 22 Rate Blood Pressure 114/69 109/79 114/69 O2 Sat by Pulse 98 98 98 Oximetry 10/30/21 10/30/21 10/30/21 06:00 06:15 06:30 Pulse Rate 125 H 119 H 112 H Respiratory 30 H 28 H 26 H Rate Blood Pressure 129/88 120/81 114/88 O2 Sat by Pulse 99 100 100 Oximetry 10/30/21 10/30/21 10/30/21 06:45 07:01 07:15 Pulse Rate 129 H 123 H 122 H Respiratory 22 21 34 H Rate Blood Pressure 107/72 103/67 96/75 O2 Sat by Pulse 100 100 100 Oximetry 10/30/21 08:00 Pulse Rate Respiratory Rate Blood Pressure O2 Sat by Pulse 100 Oximetry Constitutional: alert, appears uncomfortable Eyes: non-icteric Neck: supple, no lymphadenopathy Ascultation: Bilateral: rhonchi Cardiovascular: irregular rhythm (Tachycardia.) Gastrointestinal: normoactive bowel sounds, soft, non-tender Integumentary: normal Extremities: no cyanosis, no edema Neurologic: non-focal exam, pupils equal and round Psychiatric: depressed CBC and BMP: 10/31/21 08:07 11/01/21 04:00 ABG, PT/INR, D-dimer: ABG ABG pH 7.474 pH Units (7.350-7.450) H 10/26/21 23:20 ABG pCO2 35.2 mm Hg 10/26/21 23:20 ABG pO2 47.3 mm Hg (80.0-90.0) L 10/26/21 23:20 ABG O2 Saturation 88.5 % (95.0-99.0) L 10/26/21 23:20 PT/INR, D-dimer PT 13.3 Sec. (12.2-14.9) 10/27/21 12:36 INR 0.91 (0.87-1.13) 10/27/21 12:36 D-Dimer 1951.42 ng/mlDDU (0-234) H 10/26/21 19:03 Abnormal lab findings: Abnormal Labs 10/26/21 10/26/21 10/26/21 16:48 16:48 19:03 WBC MCV Lymph % (Auto) 11.3 L Alexander % (Auto) 10.2 H Lymph # (Auto) 0.5 L Seg Neutrophils % 77.8 H Seg Neuts % (Manual) Lymphocytes % (Manual) Lymphocytes # (Manual) D-Dimer 1951.42 H ABG pH ABG pO2 ABG O2 Saturation ABG Hemoglobin Oxyhemoglobin Sodium Potassium 3.4 L Chloride 97.5 L BUN 24 H Glucose 108 H Calcium Ferritin AST Lactate Dehydrogenase C-Reactive Protein Total Protein Albumin Free T4 Coronavirus (PCR) 10/26/21 10/26/21 10/26/21 19:03 19:03 21:46 WBC MCV Lymph % (Auto) Alexander % (Auto) Lymph # (Auto) Seg Neutrophils % Seg Neuts % (Manual) Lymphocytes % (Manual) Lymphocytes # (Manual) D-Dimer ABG pH ABG pO2 ABG O2 Saturation ABG Hemoglobin Oxyhemoglobin Sodium Potassium Chloride BUN Glucose 104 H Calcium Ferritin 319.2 H AST Lactate Dehydrogenase 268 H C-Reactive Protein 11.80 H Total Protein Albumin Free T4 1.78 H Coronavirus (PCR) 10/26/21 10/27/21 10/27/21 23:20 03:44 03:44 WBC MCV 95 H Lymph % (Auto) Alexander % (Auto) Lymph # (Auto) Seg Neutrophils % Seg Neuts % (Manual) 84.0 H Lymphocytes % (Manual) 10.0 L Lymphocytes # (Manual) 0.6 L D-Dimer ABG pH 7.474 H ABG pO2 47.3 L ABG O2 Saturation 88.5 L ABG Hemoglobin 13.5 L Oxyhemoglobin 87.7 L Sodium Potassium Chloride 97.9 L BUN 23 H Glucose 139 H Calcium 8.3 L Ferritin AST Lactate Dehydrogenase C-Reactive Protein Total Protein Albumin Free T4 Coronavirus (PCR) 10/27/21 10/27/21 10/27/21 12:36 23:24 Unknown WBC 4.1 L MCV Lymph % (Auto) Alexander % (Auto) Lymph # (Auto) Seg Neutrophils % Seg Neuts % (Manual) Lymphocytes % (Manual) Lymphocytes # (Manual) D-Dimer ABG pH ABG pO2 ABG O2 Saturation ABG Hemoglobin Oxyhemoglobin Sodium 136 L Potassium Chloride 96.8 L BUN 21 H Glucose 144 H Calcium Ferritin AST 49 H Lactate Dehydrogenase C-Reactive Protein Total Protein Albumin 3.4 L Free T4 Coronavirus (PCR) Positive A 10/28/21 10/29/21 10/30/21 04:53 04:28 05:02 WBC MCV Lymph % (Auto) Alexander % (Auto) Lymph # (Auto) Seg Neutrophils % Seg Neuts % (Manual) Lymphocytes % (Manual) Lymphocytes # (Manual) D-Dimer ABG pH ABG pO2 ABG O2 Saturation ABG Hemoglobin Oxyhemoglobin Sodium 136 L Potassium Chloride BUN 24 H 38 H 44 H Glucose 163 H 225 H 215 H Calcium Ferritin AST 52 H 52 H 55 H Lactate Dehydrogenase C-Reactive Protein Total Protein 6.2 L 6.1 L Albumin 3.2 L 3.2 L 3.5 L Free T4 Coronavirus (PCR) Chest x-ray: report reviewed, image reviewed CT scan - chest: report reviewed, image reviewed Additional Studies: CHEST 2 VIEWS 10/26/2021 INDICATION / CLINICAL INFORMATION: dyspnea. COMPARISON: None available. FINDINGS: SUPPORT DEVICES: None. HEART / MEDIASTINUM: No significant abnormality. LUNGS / PLEURA: There are moderate patchy bilateral pulmonary opacities. ADDITIONAL FINDINGS: No significant additional findings. IMPRESSION: 1. Moderate patchy bilateral pulmonary opacities likely indicating multifocal pneumonia. CTA CHEST WITH IV CONTRAST 10/26/2021 INDICATION: Tachycardia, Chest tightness, R/O Pulmonary Embolism. TECHNIQUE: Axial CT images were obtained through the chest after injection of 100 cc Omni 350 IV contrast. 3 plane MIP reconstructions were produced. All CT scans at this location are performed using CT dose reduction for ALARA by means of automated exposure control. COMPARISON: None available. FINDINGS: Limited secondary to moderate respiratory motion artifact PULMONARY ARTERIES: Moderate sized pulmonary emboli within both upper and right lower lobe segmental pulmonary arteries THORACIC AORTA: No acute abnormality. HEART: Normal. CORONARY ARTERIES: No significant calcification. PLEURA: No pleural effusion. No pneumothorax. LYMPH NODES: No significant adenopathy. LUNGS: Moderate multifocal bilateral groundglass right renal disease characteristic for multifocal pneumonia ADDITIONAL FINDINGS: None. UPPER ABDOMEN: Moderate hiatal hernia SKELETAL STRUCTURES: No significant osseous abnormality. IMPRESSION: 1. Moderate bilateral pulmonary emboli 2. Moderate multifocal bilateral Covid pneumonia 3. Moderate hiatal hernia
[2021-10-30] MEDS: ASPIRIN 81 MG TAB CHEW PO SCH (11:55)
[2021-10-30] MEDS: FAMOTIDINE 20 MG TAB PO SCH (11:55)
[2021-10-30] MEDS: METOPROLOL TARTRATE 50 MG TAB PO SCH ×2 (12:15→23:12)
--- NOTE | 2021-10-30 12:38 | Progress Note ---
Assessment and Plan Is a 75-year-old male with a past medical history of hypertension, coronary artery disease, and thoracic aortic aneurysm who presented to the ED with a complaint of difficulty breathing since [place] PUI- COVID PCR pending Acute hypoxic respiratory failure- on highflow NC PNA Afib w/ RVR(new onset) HTN CAD Echo 10/26/2021-EF 50 to 55%. Right ventricle systolic function is normal. Trace mitral regurgitation. Trace tricuspid regurgitation. Ascending aorta is dilated 4.1 cm Stress11/20/2019- Normal pharmacological SPECT stress test. Stress ECG was negative for ischemia. No symptoms of chest pain with vasodilator stress. Normal perfusion without evidence of ischemia or infarct. TID 0.97 (normal). Normal LV systolic function (calculated LVEF 69%). No wall motion abnormalities. Echo 11/20/2019-LV normal size. Normal LV wall thickness. LV wall motion normal. LVEF is 59%. GLS decreased. Normal LV diastolic function. RV moderately to severely dilated. RV systolic function is normal. Estimated RAP 5 mmHg based on IVC. Unable to assess RVSP due to insufficient TR signal. AV not well visualized. AV opens well. Mild AR. No AV stenosis. Aortic arch normal. Sinotubular junction mildly dilated. Ascending aorta mildly dilated. No aortic coarctation. Ao Sinus s 3.[address] jnct s 3.87 cm Ao Asc s 4.1 cm Plan: Currently on diltiazem gtt and diltiazem 60 mg p.o. 3 times daily. Eliquis for anticoagulation HR is still elevated will intiate metoprolol 50mg PO BID Patient seen in conjunction with Dr. Garcia who agrees with this plan of care - Patient Problems (1) CAD (coronary artery disease) Current Visit: Yes Status: Acute (2) Acute hypoxemic respiratory failure Current Visit: No Status: Acute (3) Hypertension Current Visit: No Status: Acute Qualifiers: Hypertension type: primary hypertension Qualified Code(s): I10 - Essential (primary) hypertension (4) Obesity hypoventilation syndrome Current Visit: No Status: Acute (5) Pneumonia Current Visit: No Status: Acute Subjective Date of service: 10/30/21 Principal diagnosis: afib, COVID-19 Interval history: Patient sitting in bed on high flow nasal cannula A. fib heart rate trending 120s to 130 Objective Vital Signs Temp Pulse Resp BP Pulse Ox 10/30/21 09:44 97.9 F 22 79 L 10/30/21 09:31 130 H 28 H 134/83 82 L 10/30/21 09:15 131 H 27 H 113/85 77 L 10/30/21 09:00 135 H 26 H 120/66 79 L 10/30/21 08:45 117 H 27 H 128/81 78 L 10/30/21 08:31 135 H 30 H 128/81 84 10/30/21 08:15 124 H 34 H 116/65 97 10/30/21 08:00 113 H 25 H 116/65 100 10/30/21 07:45 127 H 32 H 130/85 99 10/30/21 07:31 110 H 20 131/68 98 10/30/21 07:15 122 H 34 H 96/75 100 10/30/21 07:01 123 H 21 103/67 100 10/30/21 06:45 129 H 22 107/72 100 10/30/21 06:30 112 H 26 H 114/88 100 10/30/21 06:15 119 H 28 H 120/81 100 10/30/21 06:00 125 H 30 H 129/88 99 10/30/21 05:45 118 H 22 114/69 98 10/30/21 05:31 129 H 25 H 109/79 98 10/30/21 05:15 133 H 28 H 114/69 98 10/30/21 05:00 135 H 38 H 102/78 84 10/30/21 04:45 128 H 29 H 123/83 96 10/30/21 04:31 124 H 28 H 122/68 96 10/30/21 04:15 133 H 36 H 120/80 95 10/30/21 04:01 136 H 31 H 92/74 95 10/30/21 03:45 128 H 34 H 99/67 85 10/30/21 03:31 134 H 22 99/67 97 10/30/21 03:15 125 H 22 98/68 98 10/30/21 03:01 112 H 20 98/65 98 10/30/21 02:45 123 H 20 103/68 98 10/30/21 02:31 122 H 25 H 111/70 96 10/30/21 02:15 122 H 22 117/67 98 10/30/21 02:01 125 H 14 123/73 97 10/30/21 01:45 128 H 25 H 138/81 90 10/30/21 01:31 133 H 26 H 128/79 85 10/30/21 01:15 145 H 28 H 115/65 98 10/30/21 01:01 117 H 20 128/83 96 10/30/21 00:45 131 H 19 113/78 93 10/30/21 00:30 111 H 25 H 113/78 98 10/30/21 00:15 111 H 25 H 108/80 100 10/30/21 00:01 117 H 26 H 107/75 94 10/29/21 23:57 101 H 28 H 124/72 98 10/29/21 23:45 120 H 28 H 124/72 99 10/29/21 23:30 112 H 24 119/79 84 10/29/21 23:15 138 H 43 H 119/67 86 10/29/21 23:01 122 H 39 H 124/73 96 10/29/21 22:45 128 H 19 118/80 10/29/21 22:31 112 H 26 H 118/74 97 10/29/21 22:15 124 H 15 122/80 97 10/29/21 22:00 133 H 27 H 119/70 97 10/29/21 21:45 134 H 26 H 113/73 97 10/29/21 21:31 134 H 21 113/78 94 10/29/21 21:30 95 10/29/21 21:20 135 H 125/90 10/29/21 21:15 125/90 96 10/29/21 21:01 142 H 29 H 125/87 100 10/29/21 20:45 31 H 130/88 98 10/29/21 20:31 124 H 25 H 116/72 100 10/29/21 20:15 112 H 110/66 100 10/29/21 20:01 118/82 100 10/29/21 19:45 111/75 100 10/29/21 19:31 130 H 36 H 117/86 100 10/29/21 19:15 135 H 26 H 107/80 98 10/29/21 19:01 28 H 115/89 100 10/29/21 18:45 118 H 26 H 94/73 100 10/29/21 18:30 27 H 99/72 93 10/29/21 18:15 133 H 28 H 120/77 99 10/29/21 18:01 154 H 33 H 116/76 100 10/29/21 17:45 111/85 100 10/29/21 17:31 111/85 96 10/29/21 17:15 165 H 41 H 111/85 96 10/29/21 17:01 111/85 99 10/29/21 16:45 111/85 93 10/29/21 16:31 111/85 99 10/29/21 16:15 111/85 100 10/29/21 16:01 167 H 34 H 111/85 100 10/29/21 15:45 167 H 29 H 111/85 100 10/29/21 15:31 160 H 31 H 111/85 99 10/29/21 15:15 150 H 34 H 111/85 100 10/29/21 15:00 164 H 18 111/85 100 10/29/21 14:45 146 H 38 H 105/78 100 10/29/21 14:31 167 H 28 H 105/78 99 10/29/21 14:15 184 H 30 H 105/78 10/29/21 14:00 105/78 92 10/29/21 13:46 153 H 24 105/78 98 10/29/21 13:30 150 H 25 H 105/78 99 10/29/21 13:16 161 H 28 H 105/78 97 10/29/21 13:00 150 H 30 H 105/78 96 10/29/21 12:46 153 H 26 H 116/84 100 - Physical Examination General: No Apparent Distress HEENT: Positive: PERRL, Mucus Membranes Dry Neck: Positive: neck supple Cardiac: Positive: irregularly irregular, Tachycardia Lungs: Positive: Decreased Breath Sounds Neuro: Positive: Grossly Intact Abdomen: Positive: Soft, Active Bowel Sounds Skin: Negative: Rash, Suspicious Lesions, Ulceration Extremities: Present: upper extr. pulses. Absent: edema - Labs and Meds Cardiac Enzymes 10/30/21 Range/Units 05:02 AST 55 H (5-40) units/L Comprehensive Metabolic Panel 10/30/21 Range/Units 05:02 Sodium 138 (137-145) mmol/L Potassium 4.4 (3.6-5.0) mmol/L Chloride 98.3 (98-107) mmol/L Carbon Dioxide 26 (22-30) mmol/L BUN 44 H (9-20) mg/dL Creatinine 1.0 (0.8-1.3) mg/dL Glucose 215 H (75-100) mg/dL Calcium 9.4 (8.4-10.2) mg/dL AST 55 H (5-40) units/L ALT 37 (7-56) units/L Alkaline Phosphatase 54 (35-129) units/L Total Protein 6.1 L (6.3-8.2) g/dL Albumin 3.5 L (3.9-5) g/dL - Imaging and Cardiology Echo: report reviewed - Telemetry EKG Rhythm: Atrial Fibrillation - EKG Supraventricular dysrhythmia: atrial fibrillation AV and intraventricular conduction: right bundle branch block
[2021-10-30] MEDS ORDERED: TOCILIZUMAB 800 MG in SODIUM CHLORIDE 0.9% 100 ML IV ONE (15:44)
--- NOTE | 2021-10-30 15:45 | Consultation ---
History of Present Illness - Reason for Consult Consult date: 10/30/21 COVID-19 Requesting physician: MARCO A LOBO - History of Present Illness The patient is a 75-year-old male with hypertension, CAD, thoracic aortic aneurysm peripheral vascular disease, obesity hypoventilation, morbid obesity was admitted to the hospital with worsening shortness of breath. Noted to be hypoxic on admission. Chest x-ray showed bilateral pneumonia. Tested positive for COVID-19, hence infectious diseases was consulted. Otherwise afebrile, currently requiring high flow nasal cannula. Labs reveal WBC 5.8, D-dimer 1951, mild transaminitis, ferritin 319, LDH 268, CRP 11.8 Review of Systems: reviewed in the chart, unable to obtain, minimize risk of transmission Past History Past Medical History: CAD, hypertension, PVD, other (See HPI) Past Surgical History: No surgical history, Other (Reviewed) Social history: , lives with family. denies: smoking, alcohol abuse, prescription drug abuse Family history: hypertension Medications and Allergies Allergies Allergy/AdvReac Type Severity Reaction Status Date / Time lisinopril Allergy Unknown Verified 10/26/21 16:09 Home Medications Medication Instructions Recorded Confirmed Last Taken Type Aspirin BABY CHEW TAB 1 tab PO DAILY 10/28/21 10/28/21 Unknown History Losartan 100 mg PO DAILY 10/28/21 10/28/21 Unknown History Prilosec 40 mg PO DAILY 10/28/21 10/28/21 Unknown History Triamter/Hctz 37.5-25 mg 1 tab PO DAILY 10/28/21 10/28/21 Unknown History Active Meds: Active Medications Acetaminophen (Acetaminophen 325 Mg Tab) 650 mg PO Q4H PRN PRN Reason: Pain MILD(1-3)/Fever >100.5/LEYVA Albuterol (Albuterol 2.5 Mg/3 Ml Nebu) 2.5 mg IH Q4HRT PRN PRN Reason: Shortness Of Breath Apixaban (Apixaban 5 Mg Tab) 10 mg PO Q12HR [facility]; Protocol Stop: 11/02/21 23:59 Last Admin: 10/30/21 11:55 Dose: 10 mg Aspirin (Aspirin 81 Mg Tab Chew) 81 mg PO QDAY [facility] Last Admin: 10/30/21 11:55 Dose: 81 mg Diltiazem HCl (Diltiazem 30 Mg Tab) 60 mg PO TID [facility] Last Admin: 10/30/21 14:25 Dose: 60 mg Famotidine (Famotidine 20 Mg Tab) 20 mg PO QDAY [facility] Last Admin: 10/30/21 11:55 Dose: 20 mg Hydromorphone HCl (Hydromorphone 1 Mg/1 Ml Inj) 0.5 mg IV Q23H PRN PRN Reason: Pain , Severe (7-10) Ceftriaxone Sodium (Rocephin/Ns 2 Gm/100 Ml) 2 gm in 100 mls @ 200 mls/hr IV Q24H [facility]; Protocol Last Admin: 10/29/21 18:15 Dose: 200 mls/hr Azithromycin (Zithromax/Ns) 500 mg in 250 mls @ 250 mls/hr IV Q24H [facility]; Protocol Last Admin: 10/30/21 06:09 Dose: 250 mls/hr REMDESIVIR 100 mg/ Sodium (Chloride) 250 mls @ 500 mls/hr IV Q24HR@2100 [facility] Stop: 10/31/21 21:29 Last Admin: 10/29/21 21:05 Dose: Not Given Diltiazem HCl (Cardizem/D5w 100mg/100ml) 100 mg in 100 mls @ 5 mls/hr IV TITR [facility]; Protocol Last Admin: 10/30/21 05:00 Dose: 15 mg/hr, 15 mls/hr Methylprednisolone Sodium Succinate (Methylprednisolone Sod Succinate 125 Mg/2 Ml Inj) 60 mg IV Q8HR [facility] Last Admin: 10/30/21 14:24 Dose: 60 mg Metoprolol Tartrate (Metoprolol Tartrate 50 Mg Tab) 50 mg PO BID [facility] Last Admin: 10/30/21 12:15 Dose: 50 mg Ondansetron HCl (Ondansetron 4 Mg/2 Ml Inj) 4 mg IV Q8H PRN PRN Reason: Nausea And Vomiting Oxycodone/Acetaminophen (Oxycodone /Acetaminophen 5-325mg Tab) 1 tab PO Q16H PRN PRN Reason: Pain, Moderate (4-6) Sodium Chloride (Sodium Chloride 0.9% 10 Ml Flush Syringe) 10 ml IV BID [facility] Last Admin: 10/30/21 11:56 Dose: 10 ml Sodium Chloride (Sodium Chloride 0.9% 10 Ml Flush Syringe) 10 ml IV PRN PRN PRN Reason: LINE FLUSH Sodium Chloride (Sodium Chloride 0.9% 50 Ml Ivpb) 50 ml IV Q24HR@2100 [facility] Stop: 10/31/21 21:01 Last Admin: 10/29/21 21:05 Dose: Not Given Physical Examination - Physical Exam Narrative exam: Physical Exam (reviewed in chart to minimize risk of transmission) Constitutional: deferred Head, Ears, Nose: deferred Eyes: deferred Neck: deferred Oral: deferred Cardiovascular: deferred Respiratory: deferred GI: deferred Musculoskeletal: deferred Skin: deferred Hem/Lymphatic: deferred Psych: deferred Neurological: deferred - Constitutional Vitals: Vital Signs Temp Pulse Resp BP Pulse Ox 97.9 F 130 H 22 134/83 95 10/30/21 09:44 10/30/21 14:25 10/30/21 09:44 10/30/21 09:31 10/30/21 14:00 Temperature -Last 24 Hours Temperature 97.9 F Results - Labs CBC & Chem 7: 10/29/21 04:28 10/30/21 05:02 Labs: Abnormal lab results 10/30/21 Range/Units 05:02 BUN 44 H (9-20) mg/dL Glucose 215 H (75-100) mg/dL AST 55 H (5-40) units/L Total Protein 6.1 L (6.3-8.2) g/dL Albumin 3.5 L (3.9-5) g/dL - Imaging and Cardiology Chest x-ray: report reviewed, image reviewed (b/l pna) Assessment and Plan Cultures: SARS CoV2 PCR: Positive A/P: 75-year-old male with hypertension, CAD, thoracic aortic aneurysm peripheral vascular disease, obesity hypoventilation, morbid obesity: #Bilateral pneumonia: Secondary to COVID-19. Labs reveal WBC 5.8, D-dimer 1951, mild transaminitis, ferritin 319, LDH 268, CRP 11.8 #Acute hypoxic respiratory failure: Requiring HFNC #New onset atrial fibrillation with RVR #Bilateral PE: on anticoagulation. Recs: -On Solu-Medrol, complete at least 10 days of steroids -Continue remdesivir x 5 days -given high CRP and need for HFNC, candidate for Actemra (depending on availability), order placed -Anticoagulation for PE per primary -if procalcitonin is low, abx not needed -trend CRP every 2-3 days Bruno Garrett MD, FACP, [facility] O: [phone] F: [phone]
--- NOTE | 2021-10-30 16:02 | Progress Note ---
Assessment and Plan 75-year-old male with a past medical history of hypertension, coronary artery disease, and thoracic aortic aneurysm who presented to the ED with a complaint of difficulty breathing since [place]. Chest x-ray showed bilateral pneumonia. His COVID 19 test result was positive and noted to be in atrial fib. Assessment and plan: --New onset atrial fibrillation: Patient found to have new onset A. fib in the emergency department. Patient treated with Cardizem bolus with rapid return of rapid ventricular response. Patient subsequently initiated on Cardizem drip along with cardizem po Cardiology team consulted. Initiated on Eliquis for anticoagulation HR still elevated, plan to initiate on metoprolol 50mg BID --b/l PE, change eliquis dose tp 10mg bid for a week then will reduce to 5mg bid -- Acute hypoxemic respiratory failure Due to bilateral PE and COVID-19 pneumonia Currently on high flow O2, pulmonary consulted Continue therapeutic anticoagulation and treatment protocol for COVID-19 supplemental oxygen, pulse oximetry, nebulizer therapy, prone positioning while in bed, pulmonary toilet. -- b/l Pneumonia with covid19 ordered solumedrol, remdesivir, ID consulted Continue to follow inflammatory markers -- Obesity Balanced diet, increase physical activity following discharge if stable, outpatient pulmonary follow-up for sleep study. -- Hypertension Monitor blood pressure every shift, continue medical management. --CAD, cont current cardiac medication -- Thoracic aortic aneurysm, CTA chest w/o any -- DVT prophylaxis SCD to bilateral lower extremities while in bed, prophylactic anticoagulation -- Full CODE STATUS Daily clinical course: 10/27/21: Covid 19 test result is positive, initiated on COVID-19 protocol. CTA chest also suggestive for bilateral PE-adjusted Eliquis dose. Patient on 25 L high flow O2, consult pulmonary. Cardiology following for atrial fibrillation. We will also consult ID, will continue to follow inflammatory markers 10/28/21; REMAINS ON HIGH FLOW O2, cont therapeutic anticoagulation, empiric steroid and IV remdesivir. Being followed by cardiology and pulmonary. ID consult pending. Will downgrade to MedSurg unit with telemetry. 10/29/21: Patient HR at 160s today, restarted on cardizem drip, cont high flow O2, follow inflammatory markers, follow clinically 10/30/21; HR still at 130s with cardizem drip and cardizem po. Plan to initiate metoprolol 50mg po BID if HR remains uncontrolled. Patient remains on high flow O2. Subjective Date of service: 10/30/21 Principal diagnosis: afib, COVID-19 Interval history: Patient seen and examined. Medical records and medication list reviewed. No acute event overnight noted by the RN. Patient remains on high flow O2, HR at 120s Discussed plan of care at bedside with patient. Objective - Exam Narrative Exam: Limited physical exam due to COVID-19 pandemic to minimize transmission of the disease and to preserve PPE. Vital reviewed and stable. GENERAL: well-developed well-nourished elderly wild male lying on bed appeared to be in no discomfort. HEENT: Normocephalic. Atraumatic. NECK: Supple. CHEST/LUNGS: breathing on high flow O2 HEART/CARDIOVASCULAR: Heart rate elevated ABDOMEN: Visibly not distended SKIN: There is no rash NEURO: No focal motor deficit. Follows command. MUSCULOSKELETAL: No joint effusion EXTRIMITY: No swelling, no cyanosis or clubbing. PSYCH: Cooperative. - Constitutional Vitals: Vital Signs - 12hr 10/30/21 10/30/21 10/30/21 03:31 03:45 04:01 Temperature Pulse Rate 134 H 128 H 136 H Respiratory 22 34 H 31 H Rate Blood Pressure 99/67 99/67 92/74 O2 Sat by Pulse 97 85 95 Oximetry 10/30/21 10/30/21 10/30/21 04:15 04:31 04:45 Temperature Pulse Rate 133 H 124 H 128 H Respiratory 36 H 28 H 29 H Rate Blood Pressure 120/80 122/68 123/83 O2 Sat by Pulse 95 96 96 Oximetry 10/30/21 10/30/21 10/30/21 05:00 05:15 05:31 Temperature Pulse Rate 135 H 133 H 129 H Respiratory 38 H 28 H 25 H Rate Blood Pressure 102/78 114/69 109/79 O2 Sat by Pulse 84 98 98 Oximetry 10/30/21 10/30/21 10/30/21 05:45 06:00 06:15 Temperature Pulse Rate 118 H 125 H 119 H Respiratory 22 30 H 28 H Rate Blood Pressure 114/69 129/88 120/81 O2 Sat by Pulse 98 99 100 Oximetry 10/30/21 10/30/21 10/30/21 06:30 06:45 07:01 Temperature Pulse Rate 112 H 129 H 123 H Respiratory 26 H 22 21 Rate Blood Pressure 114/88 107/72 103/67 O2 Sat by Pulse 100 100 100 Oximetry 10/30/21 10/30/21 10/30/21 07:15 07:31 07:45 Temperature Pulse Rate 122 H 110 H 127 H Respiratory 34 H 20 32 H Rate Blood Pressure 96/75 131/68 130/85 O2 Sat by Pulse 100 98 99 Oximetry 10/30/21 10/30/21 10/30/21 08:00 08:15 08:31 Temperature Pulse Rate 113 H 124 H 135 H Respiratory 25 H 34 H 30 H Rate Blood Pressure 116/65 116/65 128/81 O2 Sat by Pulse 100 97 84 Oximetry 10/30/21 10/30/21 10/30/21 08:45 09:00 09:15 Temperature Pulse Rate 117 H 135 H 131 H Respiratory 27 H 26 H 27 H Rate Blood Pressure 128/81 120/66 113/85 O2 Sat by Pulse 78 L 79 L 77 L Oximetry 10/30/21 10/30/21 10/30/21 09:31 09:44 14:25 Temperature 97.9 F Pulse Rate 130 H 130 H Respiratory 28 H 22 Rate Blood Pressure 134/83 O2 Sat by Pulse 82 L 79 L Oximetry - Labs CBC & Chem 7: 10/29/21 04:28 10/30/21 05:02 Labs: Abnormal lab results 10/30/21 Range/Units 05:02 BUN 44 H (9-20) mg/dL Glucose 215 H (75-100) mg/dL AST 55 H (5-40) units/L Total Protein 6.1 L (6.3-8.2) g/dL Albumin 3.5 L (3.9-5) g/dL HEART Score - HEART Score Troponin: Troponin T < 0.010 ng/mL (0.00-0.029) 10/26/21 16:48
[2021-10-30] MEDS: cefTRIAXone/NS 2 GM/100 ML 2 GM/100 ML BAG IV SCH (19:07)
[2021-10-30] MEDS: REMDESIVIR 100 MG in SODIUM CHLORIDE 0.9% 250ML 250 ML IV SCH (23:13)
[2021-10-30] MEDS: SODIUM CHLORIDE 0.9% 50 ML IVPB IV SCH (23:14)
[2021-10-31] MEDS: dilTIAZem 30 MG TAB PO SCH ×2 (07:00→14:20)
[2021-10-31] MEDS: methylPREDNISolone Sod Succinate 125 MG/2 ML INJ IV SCH ×3 (07:15→21:36)
[2021-10-31 08:13] LABS: Hemoglobin 13.9 gm/dl (11.8-15.2); Mean Corpuscular HGB Conc 32 % (32-34); Mean Corpuscular Volume 93 fl (84-94); Platelet Count 371 K/mm3 (140-440); Red Blood Count 4.73 M/mm3 (3.65-5.03); Red Cell Distribution Width 14.1 % (13.2-15.2)
[2021-10-31] MEDS: METOPROLOL TARTRATE 50 MG TAB PO SCH ×2 (10:00→23:22)
[2021-10-31] MEDS: FAMOTIDINE 20 MG TAB PO SCH (10:00)
[2021-10-31] MEDS: ASPIRIN 81 MG TAB CHEW PO SCH (10:00)
[2021-10-31] MEDS: APIXABAN 5 MG TAB PO SCH ×2 (10:00→23:21)
--- NOTE | 2021-10-31 10:56 | Progress Note ---
Assessment and Plan Is a 75-year-old male with a past medical history of hypertension, coronary artery disease, and thoracic aortic aneurysm who presented to the ED with a complaint of difficulty breathing since [place] COVID PE Acute hypoxic respiratory failure- on highflow NC PNA Afib w/ RVR(new onset) HTN CAD Echo 10/26/2021-EF 50 to 55%. Right ventricle systolic function is normal. Trace mitral regurgitation. Trace tricuspid regurgitation. Ascending aorta is dilated 4.1 cm Stress11/20/2019- Normal pharmacological SPECT stress test. Stress ECG was negative for ischemia. No symptoms of chest pain with vasodilator stress. Normal perfusion without evidence of ischemia or infarct. TID 0.97 (normal). Normal LV systolic function (calculated LVEF 69%). No wall motion abnormalities. Echo 11/20/2019-LV normal size. Normal LV wall thickness. LV wall motion normal. LVEF is 59%. GLS decreased. Normal LV diastolic function. RV moderately to severely dilated. RV systolic function is normal. Estimated RAP 5 mmHg based on IVC. Unable to assess RVSP due to insufficient TR signal. AV not well visualized. AV opens well. Mild AR. No AV stenosis. Aortic arch normal. Sinotubular junction mildly dilated. Ascending aorta mildly dilated. No aortic coarctation. Ao Sinus s 3.[address] jnct s 3.87 cm Ao Asc s 4.1 cm Plan: Patient has not been receiving his Cardizem drip Currently on diltiazem 60 mg p.o. q6hrs and metoprolol 50mg PO BID Eliquis for anticoagulation HR is still elevated will initiate amiodarone bolus and drip Patient seen in conjunction with Dr. Garcia who agrees with this plan of care - Patient Problems (1) CAD (coronary artery disease) Current Visit: Yes Status: Acute (2) Acute hypoxemic respiratory failure Current Visit: No Status: Acute (3) Hypertension Current Visit: No Status: Acute Qualifiers: Hypertension type: primary hypertension Qualified Code(s): I10 - Essential (primary) hypertension (4) Obesity hypoventilation syndrome Current Visit: No Status: Acute (5) Pneumonia Current Visit: No Status: Acute Subjective Date of service: 10/31/21 Principal diagnosis: afib, COVID-19 Interval history: Patient sitting in bed on high flow nasal cannula. Patient reports feeling better A. fib heart rate trending 120s to 130s Objective Vital Signs Temp Pulse Resp BP Pulse Ox 10/31/21 06:45 118 H 22 127/85 96 10/31/21 06:31 129 H 20 127/83 94 10/31/21 06:15 128 H 23 122/85 95 10/31/21 06:01 107 H 20 116/71 93 10/31/21 05:45 115 H 21 114/73 93 10/31/21 05:31 120 H 21 114/80 93 10/31/21 05:15 103 H 21 113/77 94 10/31/21 05:01 107 H 21 128/84 93 10/31/21 04:45 106 H 21 118/81 94 10/31/21 04:31 114 H 14 113/89 95 10/31/21 04:15 111 H 24 111/80 93 10/31/21 04:01 114 H 25 H 104/60 92 10/31/21 03:45 108 H 21 104/60 95 10/31/21 03:30 107 H 21 98/68 93 10/31/21 03:15 114 H 22 115/66 94 10/31/21 03:01 124 H 19 119/83 93 10/31/21 02:45 103 H 22 129/87 92 10/31/21 02:30 110 H 20 123/86 93 10/31/21 02:15 106 H 25 H 136/92 95 10/31/21 02:01 97 H 31 H 116/74 96 10/31/21 01:45 107 H 21 116/74 96 10/31/21 01:31 97 H 21 108/69 95 10/31/21 01:15 105 H 21 119/72 96 10/31/21 01:01 105 H 31 H 121/85 94 10/31/21 00:54 97 10/31/21 00:45 99 H 24 122/80 94 10/31/21 00:31 97 H 24 121/83 95 10/31/21 00:15 119 H 29 H 124/75 92 10/31/21 00:01 107 H 24 118/88 96 10/30/21 23:45 112 H 34 H 116/83 95 10/30/21 23:31 99 H 31 H 132/85 89 10/30/21 23:15 124 H 27 H 127/79 95 10/30/21 23:12 125 H 10/30/21 23:10 98.0 F 10/30/21 23:09 115 H 30 H 130/78 96 10/30/21 23:01 115 H 27 H 130/78 95 10/30/21 22:45 115 H 26 H 125/82 95 10/30/21 22:31 115 H 19 130/83 95 10/30/21 22:15 129 H 30 H 117/78 92 10/30/21 22:01 117 H 22 107/69 94 10/30/21 21:45 104 H 26 H 119/87 96 10/30/21 21:36 97 10/30/21 21:31 119 H 22 126/79 95 10/30/21 21:15 117 H 32 H 129/79 92 10/30/21 21:01 66 22 125/88 94 10/30/21 20:45 130 H 26 H 122/80 94 10/30/21 20:31 107 H 26 H 117/77 95 10/30/21 20:15 125 H 24 130/78 96 10/30/21 20:00 135 H 17 114/80 95 10/30/21 19:45 121 H 19 118/76 95 10/30/21 19:31 113 H 29 H 120/72 94 10/30/21 19:15 102 H 24 115/69 94 10/30/21 19:01 112 H 25 H 110/76 95 10/30/21 18:45 124 H 21 121/69 95 10/30/21 18:31 135 H 23 119/65 95 10/30/21 18:15 148 H 17 118/76 95 10/30/21 18:01 141 H 29 H 124/78 95 10/30/21 17:45 127 H 27 H 121/85 92 10/30/21 17:31 32 H 108/66 95 10/30/21 17:15 133 H 22 113/68 92 10/30/21 17:01 116 H 21 118/72 94 10/30/21 16:45 129 H 16 110/79 94 10/30/21 16:31 116 H 22 99/78 97 10/30/21 16:15 118 H 21 111/68 95 10/30/21 16:01 117 H 21 115/66 95 10/30/21 15:45 110 H 21 115/72 95 10/30/21 15:31 114 H 15 111/78 96 10/30/21 15:15 126 H 20 123/83 90 10/30/21 15:01 115 H 22 113/75 95 10/30/21 14:45 124 H 46 H 131/82 92 10/30/21 14:31 121 H 20 125/74 93 10/30/21 14:25 130 H 10/30/21 14:15 117 H 24 114/78 94 10/30/21 14:01 117 H 22 118/78 93 10/30/21 14:00 95 10/30/21 13:45 127 H 21 124/81 95 10/30/21 13:30 137 H 18 93/75 95 10/30/21 13:15 127 H 20 104/77 94 10/30/21 13:01 119 H 24 117/67 79 L 10/30/21 12:45 109 H 26 H 125/73 70 L 10/30/21 12:31 120 H 21 125/78 92 10/30/21 12:15 135 H 18 116/74 82 L 10/30/21 12:00 120 H 29 H 120/84 83 L 10/30/21 11:45 122 H 22 106/70 91 10/30/21 11:31 124 H 16 116/79 87 10/30/21 11:15 120 H 22 116/76 85 10/30/21 11:01 117 H 17 122/86 79 L - Physical Examination General: No Apparent Distress HEENT: Positive: PERRL, Mucus Membranes Dry Neck: Positive: neck supple Cardiac: Positive: irregularly irregular Lungs: Positive: Decreased Breath Sounds Neuro: Positive: Grossly Intact Abdomen: Positive: Soft, Active Bowel Sounds Skin: Negative: Rash, Suspicious Lesions, Ulceration Extremities: Present: upper extr. pulses. Absent: edema - Labs and Meds CBC 10/31/21 Range/Units 08:07 WBC 8.6 (4.5-11.0) K/mm3 RBC 4.73 (3.65-5.03) M/mm3 Hgb 13.9 (11.8-15.2) gm/dl Hct 44.0 (35.5-45.6) % Plt Count 371 (140-440) K/mm3 - Imaging and Cardiology Echo: report reviewed - Telemetry EKG Rhythm: Atrial Fibrillation - EKG Supraventricular dysrhythmia: atrial fibrillation AV and intraventricular conduction: right bundle branch block
[2021-10-31] MEDS ORDERED: AMIODARONE 360 MG in DEXTROSE 5% IN WATER 192.8 ML IV SCH (11:00)
[2021-10-31] MEDS ORDERED: AMIODARONE 150 MG in DEXTROSE 5% IN WATER 97 ML IV NR (11:00)
--- NOTE | 2021-10-31 15:08 | Progress Note ---
Assessment and Plan Cultures: SARS CoV2 PCR: Positive A/P: 75-year-old male with hypertension, CAD, thoracic aortic aneurysm peripheral vascular disease, obesity hypoventilation, morbid obesity: #Bilateral pneumonia: Secondary to COVID-19. Labs reveal WBC 5.8, D-dimer 1951, mild transaminitis, ferritin 319, LDH 268, CRP 11.8. Procalcitonin 0.05 #Acute hypoxic respiratory failure: Requiring HFNC #New onset atrial fibrillation with RVR: cardiology following. #Bilateral PE: on anticoagulation. Recs: -On Solu-Medrol, complete at least 10 days of steroids -Continue remdesivir x 5 days -Actemra ordered yesterday, not administered yet, limited supply per pharmacy -Anticoagulation for PE per primary -procalcitonin is low, abx not needed, order d/ingrid -trend CRP every 2-3 days Bruno Garrett MD, FACP, [facility] O: [phone] F: [phone] Subjective Date of service: 10/31/21 Principal diagnosis: afib, COVID-19 Interval history: No fever. In A. fib with RVR. Remains on high flow. Objective - Exam Narrative Exam: Physical Exam (reviewed in chart to minimize risk of transmission) Constitutional: deferred Head, Ears, Nose: deferred Eyes: deferred Neck: deferred Oral: deferred Cardiovascular: deferred Respiratory: deferred GI: deferred Musculoskeletal: deferred Skin: deferred Hem/Lymphatic: deferred Psych: deferred Neurological: deferred - Constitutional Vitals: Vital Signs Temp Pulse Resp BP Pulse Ox 98.4 F 128 H 19 127/85 95 10/31/21 12:41 10/31/21 07:00 10/31/21 12:41 10/31/21 06:45 10/31/21 12:41 Temperature -Last 24 Hours Temperature 98.4 F Temperature 98.0 F - Labs CBC & Chem 7: 10/31/21 08:07 10/30/21 05:02
[2021-10-31] MEDS ORDERED: FLU VACC QUAD 2021-22(6MOS UP)/PF 60 MCG/0.5 ML SYRINGE IM ONE (16:27)
[2021-10-31] MEDS ORDERED: TOCILIZUMAB 810 MG in SODIUM CHLORIDE 0.9% 100 ML IV ONE (17:00)
--- NOTE | 2021-10-31 18:11 | Progress Note ---
Assessment and Plan Assessment and plan: #New onset atrial fibrillation Patient found to have new onset A. fib in the emergency department. Patient treated with Cardizem bolus with rapid return of rapid ventricular r esponse. Patient subsequently initiated on Cardizem drip along with cardizem po Cardiology consulted; appreciate recs. Initiated on Eliquis for anticoagulation Continue metoprolol tartrate 50 mg twice daily. Continue to monitor. #B/l pulmonary embolism Change eliquis dose tp 10mg bid for a week then will reduce to 5mg bid #Acute hypoxemic respiratory failure #COVID-19 pneumonia Due to bilateral PE and COVID-19 pneumonia Currently on high flow O2. Wean as tolerated. Infectious disease consulted; appreciate recs Pulmonology consulted; appreciate recs Continue steroids x10 days and remdesivir x5 days. Continue therapeutic anticoagulation and treatment protocol for COVID-19 Supplemental oxygen, pulse oximetry, nebulizer therapy, prone positioning while in bed, pulmonary toilet. #Obesity #Weight loss counseling #Exercise counseling - BMI 34 - Counseled patient on the importance of weight loss, incorporating exercise, and dietary changes (lean meats, fresh fruits and vegetables, and water intake). Patient expresses understanding. Outpatient pulmonary follow-up for sleep study. - Time: +15 min #Hypertension Monitor blood pressure every shift, continue medical management. #CAD -cont current cardiac medication #Thoracic aortic aneurysm CTA chest w/o any h/o Thoracic aortic aneurysm, but CTA chest w/o any acute findings, follow clinically. given high CRP and need for HFNC, candidate for Actemra (depending on availability), order placed. Pending procalcitonin level. #Advanced care planning -Disease education conducted, care plan discussed, diagnoses discussed, prognosis discussed, and patient acknowledges understanding with care plan -Time: +30 min Disposition Plan: Continue medical management Total Time Spent with Patient (Minutes): 45 minutes History Interval history: No acute events overnight. Hospitalist Physical - Constitutional Vitals: Temp Pulse Resp BP Pulse Ox 98.4 F 126 H 16 125/73 94 10/31/21 12:41 10/31/21 17:31 10/31/21 17:31 10/31/21 17:31 10/31/21 17:31 General appearance: Present: no acute distress, obese, other - EENT Eyes: Present: PERRL, EOM intact ENT: hearing intact, clear oral mucosa - Neck Neck: Present: supple, normal ROM - Respiratory Respiratory effort: normal Respiratory: negative: diminished (On high flow nasal cannula) - Cardiovascular Rhythm: regular Heart Sounds: Present: S1 & S2 - Extremities Extremities: no ischemia, pulses intact, pulses symmetrical, No edema, normal temperature, normal color Peripheral Pulses: within normal limits - Abdominal General gastrointestinal: soft, non-tender, non-distended, normal bowel sounds - Integumentary Integumentary: Present: clear, warm, dry - Psychiatric Psychiatric: appropriate mood/affect, cooperative - Neurologic Neurologic: CNII-XII intact - Allied Health Allied health notes reviewed: nursing HEART Score - HEART Score Troponin: Troponin T < 0.010 ng/mL (0.00-0.029) 10/26/21 16:48 Results - Labs CBC & Chem 7: 10/31/21 08:07 10/30/21 05:02 Labs: Laboratory Last Values WBC 8.6 K/mm3 (4.5-11.0) 10/31/21 08:07 RBC 4.73 M/mm3 (3.65-5.03) 10/31/21 08:07 Hgb 13.9 gm/dl (11.8-15.2) 10/31/21 08:07 Hct 44.0 % (35.5-45.6) 10/31/21 08:07 MCV 93 fl (84-94) 10/31/21 08:07 MCH 29 pg (28-32) 10/31/21 08:07 MCHC 32 % (32-34) 10/31/21 08:07 RDW 14.1 % (13.2-15.2) 10/31/21 08:07 Plt Count 371 K/mm3 (140-440) 10/31/21 08:07 Lymph % (Auto) 11.3 % (13.4-35.0) L 10/26/21 16:48 [place] % (Auto) 10.2 % (0.0-7.3) H 10/26/21 16:48 Eos % (Auto) 0.5 % (0.0-4.3) 10/26/21 16:48 Baso % (Auto) 0.2 % (0.0-1.8) 10/26/21 16:48 Lymph # (Auto) 0.5 K/mm3 (1.2-5.4) L 10/26/21 16:48 [place] # (Auto) 0.5 K/mm3 (0.0-0.8) 10/26/21 16:48 Eos # (Auto) 0.0 K/mm3 (0.0-0.4) 10/26/21 16:48 Baso # (Auto) 0.0 K/mm3 (0.0-0.1) 10/26/21 16:48 Add Manual Diff Complete 10/27/21 03:44 Total Counted 100 10/27/21 03:44 Seg Neutrophils % 77.8 % (40.0-70.0) H 10/26/21 16:48 Seg Neuts % (Manual) 84.0 % (40.0-70.0) H 10/27/21 03:44 Band Neutrophils % 3.0 % 10/27/21 03:44 Lymphocytes % (Manual) 10.0 % (13.4-35.0) L 10/27/21 03:44 Reactive Lymphs % (Man) 0 % 10/27/21 03:44 Monocytes % (Manual) 3.0 % (0.0-7.3) 10/27/21 03:44 Eosinophils % (Manual) 0 % (0.0-4.3) 10/27/21 03:44 Basophils % (Manual) 0 % (0.0-1.8) 10/27/21 03:44 Metamyelocytes % 0 % 10/27/21 03:44 Myelocytes % 0 % 10/27/21 03:44 Promyelocytes % 0 % 10/27/21 03:44 Blast Cells % 0 % 10/27/21 03:44 Nucleated RBC % Not Reportable 10/27/21 03:44 Seg Neutrophils # 3.5 K/mm3 (1.8-7.7) 10/26/21 16:48 Seg Neutrophils # Man 5.4 K/mm3 (1.8-7.7) 10/27/21 03:44 Band Neutrophils # 0.2 K/mm3 10/27/21 03:44 Lymphocytes # (Manual) 0.6 K/mm3 (1.2-5.4) L 10/27/21 03:44 Abs React Lymphs (Man) 0.0 K/mm3 10/27/21 03:44 Monocytes # (Manual) 0.2 K/mm3 (0.0-0.8) 10/27/21 03:44 Eosinophils # (Manual) 0.0 K/mm3 (0.0-0.4) 10/27/21 03:44 Basophils # (Manual) 0.0 K/mm3 (0.0-0.1) 10/27/21 03:44 Metamyelocytes # 0.0 K/mm3 10/27/21 03:44 Myelocytes # 0.0 K/mm3 10/27/21 03:44 Promyelocytes # 0.0 K/mm3 10/27/21 03:44 Blast Cells # 0.0 K/mm3 10/27/21 03:44 WBC Morphology Not Reportable 10/27/21 03:44 Hypersegmented Neuts Not Reportable 10/27/21 03:44 Hyposegmented Neuts Not Reportable 10/27/21 03:44 Hypogranular Neuts Not Reportable 10/27/21 03:44 Smudge Cells Not Reportable 10/27/21 03:44 Toxic Granulation Not Reportable 10/27/21 03:44 Toxic Vacuolation Not Reportable 10/27/21 03:44 Dohle Bodies Not Reportable 10/27/21 03:44 Pelger-Huet Anomaly Not Reportable 10/27/21 03:44 Seven Rods Not Reportable 10/27/21 03:44 Platelet Estimate Consistent w auto 10/27/21 03:44 Clumped Platelets Not Reportable 10/27/21 03:44 Plt Clumps, EDTA Not Reportable 10/27/21 03:44 Large Platelets Few 10/27/21 03:44 Giant Platelets Not Reportable 10/27/21 03:44 Platelet Satelliting Not Reportable 10/27/21 03:44 Plt Morphology Comment Not Reportable 10/27/21 03:44 RBC Morphology Normal 10/27/21 03:44 Dimorphic RBCs Not Reportable 10/27/21 03:44 Polychromasia Not Reportable 10/27/21 03:44 Hypochromasia Not Reportable 10/27/21 03:44 Poikilocytosis Not Reportable 10/27/21 03:44 Anisocytosis Not Reportable 10/27/21 03:44 Microcytosis Not Reportable 10/27/21 03:44 Macrocytosis Not Reportable 10/27/21 03:44 Spherocytes Not Reportable 10/27/21 03:44 Pappenheimer Bodies Not Reportable 10/27/21 03:44 Sickle Cells Not Reportable 10/27/21 03:44 Target Cells Not Reportable 10/27/21 03:44 Tear Drop Cells Not Reportable 10/27/21 03:44 Ovalocytes Not Reportable 10/27/21 03:44 Helmet Cells Not Reportable 10/27/21 03:44 Jain-[place] Bodies Not Reportable 10/27/21 03:44 [place] Rings Not Reportable 10/27/21 03:44 [place] Cells Not Reportable 10/27/21 03:44 Bite Cells Not Reportable 10/27/21 03:44 Crenated Cell Not Reportable 10/27/21 03:44 Elliptocytes Not Reportable 10/27/21 03:44 Acanthocytes (Spur) Not Reportable 10/27/21 03:44 Rouleaux Not Reportable 10/27/21 03:44 Hemoglobin C Crystals Not Reportable 10/27/21 03:44 Schistocytes Not Reportable 10/27/21 03:44 Malaria parasites Not Reportable 10/27/21 03:44 Harjit Bodies Not Reportable 10/27/21 03:44 Hem Pathologist Commnt No 10/27/21 03:44 PT 13.3 Sec. (12.2-14.9) 10/27/21 12:36 INR 0.91 (0.87-1.13) 10/27/21 12:36 APTT 27.3 Sec. (24.2-36.6) 10/27/21 12:36 D-Dimer 1951.42 ng/mlDDU (0-234) H 10/26/21 19:03 ABG pH 7.474 pH Units (7.350-7.450) H 10/26/21 23:20 ABG pCO2 35.2 mm Hg 10/26/21 23:20 ABG pO2 47.3 mm Hg (80.0-90.0) L 10/26/21 23:20 ABG HCO3 25.3 mmol/L (20.0-26.0) 10/26/21 23:20 ABG O2 Saturation 88.5 % (95.0-99.0) L 10/26/21 23:20 ABG O2 Content 16.6 (0.0-44) 10/26/21 23:20 ABG Base Excess 2.0 mmol/L (-2.0-3.0) 10/26/21 23:20 ABG Hemoglobin 13.5 gm/dl (14.0-18.0) L 10/26/21 23:20 ABG Carboxyhemoglobin 0.5 % (0.0-5.0) 10/26/21 23:20 ABG Methemoglobin 0.4 % (0.0-1.5) 10/26/21 23:20 Oxyhemoglobin 87.7 % (95.0-99.0) L 10/26/21 23:20 FiO2 21 % 10/26/21 23:20 Sodium 138 mmol/L (137-145) 10/30/21 05:02 Potassium 4.4 mmol/L (3.6-5.0) 10/30/21 05:02 Chloride 98.3 mmol/L (98-107) 10/30/21 05:02 Carbon Dioxide 26 mmol/L (22-30) 10/30/21 05:02 Anion Gap 18 mmol/L 10/30/21 05:02 BUN 44 mg/dL (9-20) H 10/30/21 05:02 Creatinine 1.0 mg/dL (0.8-1.3) 10/30/21 05:02 Estimated GFR > 60 ml/min 10/30/21 05:02 BUN/Creatinine Ratio 44 % 10/30/21 05:02 Glucose 215 mg/dL (75-100) H 10/30/21 05:02 Calcium 9.4 mg/dL (8.4-10.2) 10/30/21 05:02 Magnesium 1.90 mg/dL (1.7-2.3) 10/26/21 21:46 Ferritin 319.2 ng/mL (30.0-300.0) H 10/26/21 19:03 Total Bilirubin 0.50 mg/dL (0.1-1.2) 10/30/21 05:02 AST 55 units/L (5-40) H 10/30/21 05:02 ALT 37 units/L (7-56) 10/30/21 05:02 Alkaline Phosphatase 54 units/L (35-129) 10/30/21 05:02 Lactate Dehydrogenase 268 units/L (91-180) H 10/26/21 19:03 Troponin T < 0.010 ng/mL (0.00-0.029) 10/26/21 16:48 C-Reactive Protein 11.80 mg/dL (0.00-1.30) H 10/26/21 19:03 NT-Pro-B Natriuret Pep 806.1 pg/mL (0-900) 10/26/21 16:48 Total Protein 6.1 g/dL (6.3-8.2) L 10/30/21 05:02 Albumin 3.5 g/dL (3.9-5) L 10/30/21 05:02 Albumin/Globulin Ratio 1.3 % 10/30/21 05:02 Procalcitonin < 0.05 ng/mL (<0.15) 10/31/21 08:07 TSH 0.889 mlU/mL (0.270-4.200) 10/26/21 21:46 Free T4 1.78 ng/dL (0.76-1.46) H 10/26/21 21:46 Coronavirus (PCR) Positive (Negative) A 10/27/21 Unknown Active Medications - Current Medications Current Medications: Generic Name Dose Route Start Last Admin Trade Name Freq PRN Reason Stop Dose Admin Acetaminophen 650 mg 10/26/21 18:52 Acetaminophen 325 Mg Tab PO Q4H PRN Pain MILD(1-3)/Fever >100.5/LEYVA Albuterol 2.5 mg 10/26/21 18:52 Albuterol 2.5 Mg/3 Ml Nebu IH Q4HRT PRN Shortness Of Breath Apixaban 10 mg 10/27/21 18:00 10/31/21 10:00 Apixaban 5 Mg Tab PO 11/02/21 23:59 10 mg Q12HR VASYL Administration Protocol Apixaban 5 mg 11/03/21 10:00 Apixaban 5 Mg Tab PO Q12HR VASYL Aspirin 81 mg 10/28/21 10:00 10/31/21 10:00 Aspirin 81 Mg Tab Chew PO 81 mg QDAY VASYL Administration Diltiazem HCl 60 mg 10/28/21 13:00 10/31/21 14:20 Diltiazem 30 Mg Tab PO 60 mg TID VASYL Administration Famotidine 20 mg 10/29/21 10:00 10/31/21 10:00 Famotidine 20 Mg Tab PO 20 mg QDAY VASYL Administration Hydromorphone HCl 0.5 mg 10/26/21 18:52 Hydromorphone 1 Mg/1 Ml Inj IV Q23H PRN Pain , Severe (7-10) REMDESIVIR 100 mg/ Sodium 250 mls @ 500 mls/hr 10/28/21 21:00 10/30/21 23:13 Chloride IV 10/31/21 21:29 Not Given Q24HR@2100 VASYL Diltiazem HCl 100 mg in 100 mls @ 5 mls/hr 10/29/21 15:00 10/30/21 05:00 Cardizem/D5w 100mg/100ml IV 15 mg/hr TITR VASYL 15 mls/hr Administration Protocol 5 MG/HR Amiodarone HCl 360 mg/ 200 mls @ 33.333 mls/hr 10/31/21 11:00 10/31/21 16:00 Dextrose IV 1 mg/min DIRECT VASYL 33.333 mls/hr Titration Protocol 1 MG/MIN Methylprednisolone Sodium Succinate 60 mg 10/27/21 18:00 10/31/21 14:15 Methylprednisolone Sod Succinate 125 Mg/2 Ml Inj IV 60 mg Q8HR VASYL Administration Metoprolol Tartrate 50 mg 10/30/21 12:00 10/31/21 10:00 Metoprolol Tartrate 50 Mg Tab PO 50 mg BID VASYL Administration Ondansetron HCl 4 mg 10/26/21 18:52 Ondansetron 4 Mg/2 Ml Inj IV Q8H PRN Nausea And Vomiting Oxycodone/Acetaminophen 1 tab 10/26/21 18:52 Oxycodone /Acetaminophen 5-325mg Tab PO Q16H PRN Pain, Moderate (4-6) Sodium Chloride 10 ml 10/26/21 22:00 10/31/21 11:41 Sodium Chloride 0.9% 10 Ml Flush Syringe IV 10 ml BID VASYL Administration Sodium Chloride 10 ml 10/26/21 18:52 Sodium Chloride 0.9% 10 Ml Flush Syringe IV PRN PRN LINE FLUSH Sodium Chloride 50 ml 10/27/21 21:00 10/30/21 23:14 Sodium Chloride 0.9% 50 Ml Ivpb IV 10/31/21 21:01 50 ml Q24HR@2100 VASYL Administration
[2021-10-31] MEDS ORDERED: METOPROLOL TARTRATE 5 MG/5 ML INJ IV ONE (18:57)
[2021-10-31] MEDS: SODIUM CHLORIDE 0.9% 50 ML IVPB IV SCH (21:28)
[2021-10-31] MEDS: REMDESIVIR 100 MG in SODIUM CHLORIDE 0.9% 250ML 250 ML IV SCH (21:35)
--- NOTE | 2021-10-31 23:20 | Progress Note ---
Assessment and Plan 75 YO Male with HTN, PVD, Obesity Hypoventilation Syndrome presents to ED for evaluation. Patient reports "I can hardly breathe". Patient states that he has experienced shortness of breath, fatigue, malaise, body aches, dry cough, dimini shed sense of smell, diminished sense of taste, subjective fever, generalized weakness, runny nose over the past 1 week with persistent and worsening symptoms over the same timeframe. EMS was notified and upon arrival the patient was found to be in distress with a pulse oximetry of 82% the patient was placed on supplemental oxygen and transported to [facility] for further care and evaluation of the aforementioned symptoms. The patient was seen and evaluated in the emergency department. All lab and imaging studies reviewed. The patient was found to have a pulse oximetry of 83% on room air which is consistent with acute hypoxemic respiratory failure. Patient sitting up in bed and using accessory muscles to breathe, speaking in short sentences. Patient underwent chest x-ray and was found to have bilateral pneumonia. Patient admitted to the hospital and initiated on pneumonia protocol as well as coronavirus protocol. Patient knowledges subjective fever but denies chills, chest pain, palpitation, skin rash, unilateral leg swelling, calf pain. Patient has history of PE. On eliquis. Patient acknowledges recent ill contact with his grandchildren. Patient denies smoking, alcohol or drug abuse. 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 Allergic to Lisinopril. Patients cedillo virus PCR positive. Patient is obese and sleeping on BiPAP 26/20, rate 20. FIO2 100%. O2 saturation 96% BP 156/84, Pulse 65, Respiratory rate 20 Patient is afebrile. No leukocytosis. Patients CAT scan of chest done 10/26/21 reported Moderate bilateral pulmonary emboli .Moderate multifocal bilateral Covid pneumonia . Moderate hiatal hernia . Patient is on I/V solumedrol, Apixaban, Famotidine and albuterol, finished course of remdesevir I spent critical care time of 35 minutes, obtaining history, review the chart, examine the patient, review chest xray, CAT scan of chest, review lab results.talking to the nursing staff and respiratory therapy and work up plan of treatment in this critically ill COVID 19 patient - Patient Problems (1) CAD (coronary artery disease) Current Visit: Yes Status: Acute Plan to address problem: Management as per cardiology. (2) Acute hypoxemic respiratory failure Current Visit: No Status: Acute Plan to address problem: On BiPAP /, rate 20. FIO2 100%. Patient is on I/V solumedrol Patient is on Apixaban Patient is on famotidine. Albuterol inhaler as needed for shortness of breath. (3) Hypertension Current Visit: No Status: Acute Qualifiers: Hypertension type: primary hypertension Qualified Code(s): I10 - Essential (primary) hypertension Plan to address problem: Management as per primary care. (4) Obesity hypoventilation syndrome Current Visit: No Status: Acute Plan to address problem: Blood gases not suggestive of Obesity hypoventilation. Recommend sleep study as out patient, once she recovered from this episode. (5) Pneumonia Current Visit: No Status: Acute Plan to address problem: Antibiotics as per infectious diseases. (6) Pulmonary emboli Current Visit: Yes Status: Acute Plan to address problem: Patient is on eliquis. Subjective Date of service: 10/31/21 Principal diagnosis: afib Interval history: 75 YO Male with HTN, PVD, Obesity Hypoventilation Syndrome presents to ED for ev aluation. Patient reports "I can hardly breathe". Patient states that he has experienced shortness of breath, fatigue, malaise, body aches, dry cough, diminished sense of smell, diminished sense of taste, subjective fever, generalized weakness, runny nose over the past 1 week with persistent and w orsening symptoms over the same timeframe. EMS was notified and upon arrival the patient was found to be in distress with a pulse oximetry of 82% the patient was placed on supplemental oxygen and transported to [facility] for further care and evaluation of the aforementioned symptoms. The patient was seen and evaluated in the emergency department. All lab and imaging studies reviewed. The patient was found to have a pulse oximetry of 83% on room air which is consistent with acute hypoxemic respiratory failure. Patient sitting up in bed and using accessory muscles to breathe, speaking in short sentences. Patient underwent chest x-ray and was found to have bilateral pneumonia. Patient admitted to the hospital and initiated on pneumonia protocol as well as coronavirus protocol. Patient knowledges subjective fever but denies chills, chest pain, palpitation, skin rash, unilateral leg swelling, calf pain. Patient has history of PE. On eliquis. Patient acknowledges recent ill contact with his grandchildren. Patient denies smoking, alcohol or drug abuse. 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 Allergic to Lisinopril. Patients cedillo virus PCR positive. Patient is obese and sleeping on BiPAP 26/20, rate 20. FIO2 100%. O2 saturation 96% BP 156/84, Pulse 65, Respiratory rate 20 Patient is afebrile. No leukocytosis. Patients CAT scan of chest done 10/26/21 reported Moderate bilateral pulmonary emboli .Moderate multifocal bilateral Covid pneumonia . Moderate hiatal hernia . Patient is on I/V solumedrol, Apixaban, Famotidine and albuterol, finished course of remdesevir Objective Vital Signs - 12hr 10/31/21 10/31/21 10/31/21 11:28 11:31 11:45 Temperature Pulse Rate 141 H 133 H Respiratory 28 H 24 22 Rate Blood Pressure 126/80 85/66 116/57 O2 Sat by Pulse 94 92 94 Oximetry 10/31/21 10/31/21 10/31/21 12:01 12:15 12:31 Temperature Pulse Rate 138 H 116 H Respiratory 35 H 21 29 H Rate Blood Pressure 112/79 109/73 114/69 O2 Sat by Pulse 96 96 94 Oximetry 10/31/21 10/31/21 10/31/21 12:41 12:45 13:01 Temperature 98.4 F Pulse Rate 116 H 114 H Respiratory 19 19 24 Rate Blood Pressure 109/74 117/78 O2 Sat by Pulse 95 93 94 Oximetry 10/31/21 10/31/21 10/31/21 13:15 13:31 13:45 Temperature Pulse Rate 108 H 98 H 100 H Respiratory 22 23 25 H Rate Blood Pressure 115/83 117/74 109/82 O2 Sat by Pulse 94 96 96 Oximetry 10/31/21 10/31/21 10/31/21 14:00 14:01 14:15 Temperature Pulse Rate 108 H 108 H Respiratory 23 21 Rate Blood Pressure 119/82 125/85 O2 Sat by Pulse 96 96 97 Oximetry 10/31/21 10/31/21 10/31/21 14:31 14:45 15:01 Temperature Pulse Rate 102 H 103 H 105 H Respiratory 20 16 19 Rate Blood Pressure 115/76 103/68 115/76 O2 Sat by Pulse 95 96 95 Oximetry 10/31/21 10/31/21 10/31/21 15:15 15:31 15:45 Temperature Pulse Rate 109 H 110 H 106 H Respiratory 21 22 24 Rate Blood Pressure 114/83 114/83 119/73 O2 Sat by Pulse 96 95 94 Oximetry 10/31/21 10/31/21 10/31/21 16:01 16:15 16:31 Temperature Pulse Rate 117 H 121 H 110 H Respiratory 17 24 13 Rate Blood Pressure 117/79 116/77 112/82 O2 Sat by Pulse 94 95 94 Oximetry 10/31/21 10/31/21 10/31/21 16:45 17:01 17:15 Temperature Pulse Rate 114 H 119 H 109 H Respiratory 25 H 23 26 H Rate Blood Pressure 103/73 127/91 127/91 O2 Sat by Pulse 93 94 96 Oximetry 10/31/21 10/31/21 10/31/21 17:31 17:45 18:01 Temperature Pulse Rate 126 H 128 H 115 H Respiratory 16 25 H 20 Rate Blood Pressure 125/73 117/74 126/81 O2 Sat by Pulse 94 95 95 Oximetry 10/31/21 10/31/21 10/31/21 18:15 18:31 18:45 Temperature Pulse Rate 120 H 122 H 127 H Respiratory 20 29 H 25 H Rate Blood Pressure 118/88 123/71 116/84 O2 Sat by Pulse 95 96 96 Oximetry 10/31/21 10/31/21 10/31/21 19:00 19:11 19:15 Temperature Pulse Rate 106 H 132 H 102 H Respiratory 26 H 25 H Rate Blood Pressure 113/78 119/91 O2 Sat by Pulse 94 95 Oximetry 10/31/21 10/31/21 10/31/21 19:31 19:45 20:00 Temperature Pulse Rate 116 H 103 H Respiratory 24 23 Rate Blood Pressure 125/75 120/75 O2 Sat by Pulse 94 95 95 Oximetry 10/31/21 10/31/21 10/31/21 20:01 20:15 20:30 Temperature Pulse Rate 104 H 103 H 106 H Respiratory 22 24 22 Rate Blood Pressure 109/67 106/74 95/70 O2 Sat by Pulse 95 97 94 Oximetry 10/31/21 20:45 Temperature Pulse Rate 102 H Respiratory 23 Rate Blood Pressure 104/67 O2 Sat by Pulse 95 Oximetry Constitutional: asleep, appears uncomfortable, other (on BiPAP, mildly increased work of breathing) Eyes: non-icteric Neck: supple, no lymphadenopathy Ascultation: Bilateral: rhonchi Cardiovascular: irregular rhythm (Tachycardia.) Gastrointestinal: normoactive bowel sounds, soft, non-tender Integumentary: normal Extremities: no cyanosis, no edema Neurologic: non-focal exam, pupils equal and round Psychiatric: depressed CBC and BMP: 10/31/21 08:07 11/01/21 04:00 ABG, PT/INR, D-dimer: ABG ABG pH 7.474 pH Units (7.350-7.450) H 10/26/21 23:20 ABG pCO2 35.2 mm Hg 10/26/21 23:20 ABG pO2 47.3 mm Hg (80.0-90.0) L 10/26/21 23:20 ABG O2 Saturation 88.5 % (95.0-99.0) L 10/26/21 23:20 PT/INR, D-dimer PT 13.3 Sec. (12.2-14.9) 10/27/21 12:36 INR 0.91 (0.87-1.13) 10/27/21 12:36 D-Dimer 1951.42 ng/mlDDU (0-234) H 10/26/21 19:03 Abnormal lab findings: Abnormal Labs 10/26/21 10/26/21 10/26/21 16:48 16:48 19:03 WBC MCV Lymph % (Auto) 11.3 L [place] % (Auto) 10.2 H Lymph # (Auto) 0.5 L Seg Neutrophils % 77.8 H Seg Neuts % (Manual) Lymphocytes % (Manual) Lymphocytes # (Manual) D-Dimer 1951.42 H ABG pH ABG pO2 ABG O2 Saturation ABG Hemoglobin Oxyhemoglobin Sodium Potassium 3.4 L Chloride 97.5 L BUN 24 H Glucose 108 H Calcium Ferritin AST Lactate Dehydrogenase C-Reactive Protein Total Protein Albumin Free T4 Coronavirus (PCR) 10/26/21 10/26/21 10/26/21 19:03 19:03 21:46 WBC MCV Lymph % (Auto) [place] % (Auto) Lymph # (Auto) Seg Neutrophils % Seg Neuts % (Manual) Lymphocytes % (Manual) Lymphocytes # (Manual) D-Dimer ABG pH ABG pO2 ABG O2 Saturation ABG Hemoglobin Oxyhemoglobin Sodium Potassium Chloride BUN Glucose 104 H Calcium Ferritin 319.2 H AST Lactate Dehydrogenase 268 H C-Reactive Protein 11.80 H Total Protein Albumin Free T4 1.78 H Coronavirus (PCR) 10/26/21 10/27/21 10/27/21 23:20 03:44 03:44 WBC MCV 95 H Lymph % (Auto) [place] % (Auto) Lymph # (Auto) Seg Neutrophils % Seg Neuts % (Manual) 84.0 H Lymphocytes % (Manual) 10.0 L Lymphocytes # (Manual) 0.6 L D-Dimer ABG pH 7.474 H ABG pO2 47.3 L ABG O2 Saturation 88.5 L ABG Hemoglobin 13.5 L Oxyhemoglobin 87.7 L Sodium Potassium Chloride 97.9 L BUN 23 H Glucose 139 H Calcium 8.3 L Ferritin AST Lactate Dehydrogenase C-Reactive Protein Total Protein Albumin Free T4 Coronavirus (PCR) 10/27/21 10/27/21 10/27/21 12:36 23:24 Unknown WBC 4.1 L MCV Lymph % (Auto) [place] % (Auto) Lymph # (Auto) Seg Neutrophils % Seg Neuts % (Manual) Lymphocytes % (Manual) Lymphocytes # (Manual) D-Dimer ABG pH ABG pO2 ABG O2 Saturation ABG Hemoglobin Oxyhemoglobin Sodium 136 L Potassium Chloride 96.8 L BUN 21 H Glucose 144 H Calcium Ferritin AST 49 H Lactate Dehydrogenase C-Reactive Protein Total Protein Albumin 3.4 L Free T4 Coronavirus (PCR) Positive A 10/28/21 10/29/21 10/30/21 04:53 04:28 05:02 WBC MCV Lymph % (Auto) [place] % (Auto) Lymph # (Auto) Seg Neutrophils % Seg Neuts % (Manual) Lymphocytes % (Manual) Lymphocytes # (Manual) D-Dimer ABG pH ABG pO2 ABG O2 Saturation ABG Hemoglobin Oxyhemoglobin Sodium 136 L Potassium Chloride BUN 24 H 38 H 44 H Glucose 163 H 225 H 215 H Calcium Ferritin AST 52 H 52 H 55 H Lactate Dehydrogenase C-Reactive Protein Total Protein 6.2 L 6.1 L Albumin 3.2 L 3.2 L 3.5 L Free T4 Coronavirus (PCR)
[2021-10-31] MEDS: dilTIAZem 60 MG TAB PO SCH (23:21)
[2021-11-01] MEDS: methylPREDNISolone Sod Succinate 125 MG/2 ML INJ IV SCH ×4 (02:32→21:53)
[2021-11-01] MEDS: dilTIAZem 60 MG TAB PO SCH ×4 (02:33→17:45)
--- NOTE | 2021-11-01 08:23 | Electrocardiograph Report ---
[facility] Test Date: 2021-10-28 Test Time: 06:00:44 Pat Name: SHELBY LEBLANC Department: Room: A357 Gender: M Horologist: CAROLINE : 1945 Requested By: MARCO A LOBO Order Number: [id number] Reading MD: Angela Abdul Measurements Intervals [place] Rate: 137 P: SD: QRS: -64 QRSD: 102 T: 90 QT: 317 QTc: 489 Interpretive Statements Atrial fibrillation with rapid ventricular response Nonspecific ST and T wave abnormality Repolarization abnormality, prob rate related Compared to ECG 10/26/2021 20:24:46 No significant change Electronically Signed On 11-01-2021 8:23:19 EST by Angela Abdul
[2021-11-01 08:44] LABS: BUN/Creatinine Ratio 46; Blood Urea Nitrogen 41 mg/dL (9-20); Calcium 9.1 mg/dL (8.4-10.2); Hemolysis Index 5
[2021-11-01] MEDS: ASPIRIN 81 MG TAB CHEW PO SCH (09:14)
[2021-11-01] MEDS: METOPROLOL TARTRATE 50 MG TAB PO SCH ×2 (09:14→21:53)
[2021-11-01] MEDS: APIXABAN 5 MG TAB PO SCH ×2 (09:15→21:53)
[2021-11-01] MEDS: FAMOTIDINE 20 MG TAB PO SCH (09:15)
[2021-11-01 09:33] LABS: Albumin 3.3 g/dL (3.9-5); Bilirubin,Direct 0.2 mg/dL (0-0.2)
--- NOTE | 2021-11-01 11:18 | Progress Note ---
Assessment and Plan Is a 75-year-old male with a past medical history of hypertension, coronary artery disease, and thoracic aortic aneurysm who presented to the ED with a complaint of difficulty breathing since [place] COVID PE Acute hypoxic respiratory failure- on highflow NC PNA Afib w/ RVR(new onset) HTN CAD Echo 10/26/2021-EF 50 to 55%. Right ventricle systolic function is normal. Trace mitral regurgitation. Trace tricuspid regurgitation. Ascending aorta is dilated 4.1 cm Stress11/20/2019- Normal pharmacological SPECT stress test. Stress ECG was negative for ischemia. No symptoms of chest pain with vasodilator stress. Normal perfusion without evidence of ischemia or infarct. TID 0.97 (normal). Normal LV systolic function (calculated LVEF 69%). No wall motion abnormalities. Echo 11/20/2019-LV normal size. Normal LV wall thickness. LV wall motion normal. LVEF is 59%. GLS decreased. Normal LV diastolic function. RV moderately to severely dilated. RV systolic function is normal. Estimated RAP 5 mmHg based on IVC. Unable to assess RVSP due to insufficient TR signal. AV not well visualized. AV opens well. Mild AR. No AV stenosis. Aortic arch normal. Sinotubular junction mildly dilated. Ascending aorta mildly dilated. No aortic coarctation. Ao Sinus s 3.[address] jnct s 3.87 cm Ao Asc s 4.1 cm Plan: Patient not currently on amiodarone drip. However patient heart rate has significantly improved trending in the low 100s Continue diltiazem 60 mg p.o. q6hrs and metoprolol 50mg PO BID. Will titrate as needed for rate control Eliquis for anticoagulation Patient seen in conjunction with Dr. Garcia who agrees with this plan of care - Patient Problems (1) CAD (coronary artery disease) Current Visit: Yes Status: Acute (2) Acute hypoxemic respiratory failure Current Visit: No Status: Acute (3) Hypertension Current Visit: No Status: Acute Qualifiers: Hypertension type: primary hypertension Qualified Code(s): I10 - Essential (primary) hypertension (4) Obesity hypoventilation syndrome Current Visit: No Status: Acute (5) Pneumonia Current Visit: No Status: Acute Subjective Date of service: 11/01/21 Principal diagnosis: afib,COVID, bilateral PE Interval history: Patient has been transferred to third floor. Patient sitting in bed in no acute distress reports feeling better Patient not on monitor overnight. This morning patient is still in A. fib rate trending 100s Objective Vital Signs Temp Pulse Resp BP Pulse Ox 11/01/21 08:00 94 11/01/21 04:43 97.6 F 103 H 16 126/97 95 11/01/21 04:00 94 11/01/21 03:20 96 11/01/21 02:34 94 11/01/21 02:17 97.9 F 94 H 20 115/80 95 11/01/21 01:45 104 H 21 120/76 94 11/01/21 01:31 99 H 24 119/80 96 11/01/21 01:15 111 H 42 H 125/88 94 11/01/21 01:01 106 H 29 H 123/86 95 11/01/21 00:45 115 H 21 115/80 95 11/01/21 00:31 126 H 27 H 123/83 96 11/01/21 00:15 111 H 24 128/80 97 11/01/21 00:01 124 H 22 107/77 96 10/31/21 23:45 122 H 21 119/82 95 10/31/21 23:31 102 H 18 121/83 95 10/31/21 23:22 120 H 133/79 10/31/21 23:21 120 H 133/79 10/31/21 23:15 120 H 27 H 124/88 95 10/31/21 23:01 110 H 22 133/73 95 10/31/21 22:45 109 H 22 111/72 94 10/31/21 22:31 115 H 24 117/85 94 10/31/21 22:15 124 H 21 127/90 95 10/31/21 22:01 113 H 16 123/82 93 10/31/21 21:45 116 H 20 126/84 95 10/31/21 21:31 109 H 26 H 119/79 94 10/31/21 21:15 103 H 15 118/98 90 10/31/21 21:01 98 H 14 102/71 97 10/31/21 20:47 104 H 21 104/67 95 10/31/21 20:45 102 H 23 104/67 95 10/31/21 20:30 106 H 22 95/70 94 10/31/21 20:15 103 H 24 106/74 97 01/11/22 20:01 104 H 22 109/67 95 10/31/21 20:00 95 10/31/21 19:45 103 H 23 120/75 95 10/31/21 19:31 116 H 24 125/75 94 10/31/21 19:15 102 H 25 H 119/91 95 10/31/21 19:11 132 H 10/31/21 19:00 106 H 26 H 113/78 94 10/31/21 18:45 127 H 25 H 116/84 96 10/31/21 18:31 122 H 29 H 123/71 96 10/31/21 18:15 120 H 20 118/88 95 10/31/21 18:01 115 H 20 126/81 95 10/31/21 17:45 128 H 25 H 117/74 95 10/31/21 17:31 126 H 16 125/73 94 10/31/21 17:15 109 H 26 H 127/91 96 10/31/21 17:01 119 H 23 127/91 94 10/31/21 16:45 114 H 25 H 103/73 93 10/31/21 16:31 110 H 13 112/82 94 10/31/21 16:15 121 H 24 116/77 95 10/31/21 16:01 117 H 17 117/79 94 10/31/21 15:45 106 H 24 119/73 94 10/31/21 15:31 110 H 22 114/83 95 10/31/21 15:15 109 H 21 114/83 96 10/31/21 15:01 105 H 19 115/76 95 10/31/21 14:45 103 H 16 103/68 96 10/31/21 14:31 102 H 20 115/76 95 10/31/21 14:15 108 H 21 125/85 97 10/31/21 14:01 108 H 23 119/82 96 10/31/21 14:00 96 10/31/21 13:45 100 H 25 H 109/82 96 10/31/21 13:31 98 H 23 117/74 96 10/31/21 13:15 108 H 22 115/83 94 10/31/21 13:01 114 H 24 117/78 94 10/31/21 12:45 116 H 19 109/74 93 10/31/21 12:41 98.4 F 19 95 01/11/22 12:31 116 H 29 H 114/69 94 10/31/21 12:15 138 H 21 109/73 96 10/31/21 12:01 35 H 112/79 96 10/31/21 11:45 22 116/57 94 10/31/21 11:31 133 H 24 85/66 92 10/31/21 11:28 141 H 28 H 126/80 94 - Physical Examination General: No Apparent Distress HEENT: Positive: PERRL, Mucus Membranes Dry Neck: Positive: neck supple Cardiac: Positive: irregularly irregular Lungs: Positive: Decreased Breath Sounds Neuro: Positive: Grossly Intact Abdomen: Positive: Soft, Active Bowel Sounds Skin: Negative: Rash, Suspicious Lesions, Ulceration Extremities: Present: upper extr. pulses. Absent: edema - Labs and Meds Cardiac Enzymes 11/01/21 Range/Units 04:00 AST 37 (5-40) units/L Comprehensive Metabolic Panel 11/01/21 11/01/21 Range/Units 04:00 04:00 Sodium 141 (137-145) mmol/L Potassium 4.6 (3.6-5.0) mmol/L Chloride 102.2 (98-107) mmol/L Carbon Dioxide 28 (22-30) mmol/L BUN 41 H (9-20) mg/dL Creatinine 0.9 (0.8-1.3) mg/dL Glucose 192 H (75-100) mg/dL Calcium 9.1 (8.4-10.2) mg/dL Direct Bilirubin 0.2 (0-0.2) mg/dL Indirect Bilirubin 0.5 mg/dL AST 37 (5-40) units/L ALT 47 (7-56) units/L Alkaline Phosphatase 50 (35-129) units/L Total Protein 6.1 L (6.3-8.2) g/dL Albumin 3.3 L (3.9-5) g/dL - Imaging and Cardiology Echo: report reviewed - Telemetry EKG Rhythm: Atrial Fibrillation - EKG Supraventricular dysrhythmia: atrial fibrillation AV and intraventricular conduction: right bundle branch block
--- NOTE | 2021-11-01 13:51 | Progress Note ---
Assessment and Plan Cultures: SARS CoV2 PCR: Positive A/P: 75-year-old male with hypertension, CAD, thoracic aortic aneurysm peripheral vascular disease, obesity hypoventilation, morbid obesity: #Bilateral pneumonia: Secondary to COVID-19. Labs reveal WBC 5.8, D-dimer 1951, mild transaminitis, ferritin 319, LDH 268, CRP 11.8. Procalcitonin 0.05 #Acute hypoxic respiratory failure: Requiring HFNC #New onset atrial fibrillation with RVR: cardiology following. #Bilateral PE: on anticoagulation. Recs: -On Solu-Medrol, complete at least 10 days of steroids -Completed Remdesivir -s/p Actemra 10/31/2021 -Anticoagulation for PE per primary -trend CRP every 2-3 days -guarded prognosis Bruno Garrett MD, FACP, [facility] ([facility] O: [phone] F: [phone] Subjective Date of service: 11/01/21 Principal diagnosis: afib Interval history: No fever. Remains on high flow nasal cannula. Objective - Exam Narrative Exam: Physical Exam (reviewed in chart to minimize risk of transmission) Constitutional: deferred Head, Ears, Nose: deferred Eyes: deferred Neck: deferred Oral: deferred Cardiovascular: deferred Respiratory: deferred GI: deferred Musculoskeletal: deferred Skin: deferred Hem/Lymphatic: deferred Psych: deferred Neurological: deferred - Constitutional Vitals: Vital Signs Temp Pulse Resp BP Pulse Ox 97.6 F 103 H 16 126/97 95 11/01/21 04:43 11/01/21 04:43 11/01/21 04:43 11/01/21 04:43 11/01/21 08:00 Temperature -Last 24 Hours Temperature 97.6 F Temperature 97.9 F - Labs CBC & Chem 7: 10/31/21 08:07 11/01/21 04:00 Labs: Abnormal lab results 11/01/21 11/01/21 Range/Units 04:00 04:00 BUN 41 H (9-20) mg/dL Glucose 192 H (75-100) mg/dL Total Protein 6.1 L (6.3-8.2) g/dL Albumin 3.3 L (3.9-5) g/dL
--- NOTE | 2021-11-01 13:58 | Progress Note ---
Assessment and Plan Assessment and plan: #New onset atrial fibrillation Patient found to have new onset A. fib in the emergency department. Continue p.o. diltiazem 60 mg every 6 hours and metoprolol tartrate 50 mg twice daily Cardiology consulted; appreciate recs. Currently on Eliquis 10 mg every 12 hours for anticoagulation. Will transition to Eliquis 5 mg every 12 hours on 11/03/2021 Continue to monitor. #B/l pulmonary embolism Currently on Eliquis 10 mg every 12 hours for anticoagulation. Will transition to Eliquis 5 mg every 12 hours on 11/03/2021 #Acute hypoxemic respiratory failure #COVID-19 pneumonia Due to bilateral PE and COVID-19 pneumonia Currently on high flow nasal cannula 25 L / 65% FiO2 wean as tolerated. Infectious disease consulted; appreciate recs Pulmonology consulted; appreciate recs Continue steroids x10 days. Completed remdesivir x5 days. Continue therapeutic anticoagulation and treatment protocol for COVID-19 Supplemental oxygen, pulse oximetry, nebulizer therapy, prone positioning while in bed, pulmonary toilet. #Obesity #Weight loss counseling #Exercise counseling - BMI 34 - Counseled patient on the importance of weight loss, incorporating exercise, and dietary changes (lean meats, fresh fruits and vegetables, and water intake). Patient expresses understanding. Outpatient pulmonary follow-up for sleep study. - Time: +15 min #Hypertension Monitor blood pressure every shift, continue medical management. #CAD -cont current cardiac medication #Thoracic aortic aneurysm CTA chest w/o any h/o Thoracic aortic aneurysm, but CTA chest w/o any acute findings, follow clinically. given high CRP and need for HFNC, candidate for Actemra (depending on availability), order placed. Pending procalcitonin level. #Advanced care planning -Disease education conducted, care plan discussed, diagnoses discussed, prognosis discussed, and patient acknowledges understanding with care plan -Time: +30 min Disposition Plan: Continue medical management Total Time Spent with Patient (Minutes): 45 minutes History Interval history: No acute events overnight Hospitalist Physical - Constitutional Vitals: Temp Pulse Resp BP Pulse Ox 97.6 F 103 H 16 126/97 95 11/01/21 04:43 11/01/21 04:43 11/01/21 04:43 11/01/21 04:43 11/01/21 08:00 General appearance: Present: no acute distress, well-nourished, obese, other - EENT Eyes: Present: PERRL, EOM intact ENT: hearing intact, clear oral mucosa - Neck Neck: Present: supple, normal ROM - Respiratory Respiratory effort: normal Respiratory: bilateral: diminished (On high flow nasal cannula 25 L / 65% FiO2) - Cardiovascular Rhythm: regular Heart Sounds: Present: S1 & S2 - Extremities Extremities: no ischemia, pulses intact, pulses symmetrical, No edema, normal temperature, normal color, Full ROM Peripheral Pulses: within normal limits - Abdominal General gastrointestinal: soft, non-tender, non-distended, normal bowel sounds - Integumentary Integumentary: Present: clear, warm, dry - Psychiatric Psychiatric: appropriate mood/affect, cooperative - Neurologic Neurologic: CNII-XII intact, moves all extremities - Allied Health Allied health notes reviewed: nursing HEART Score - HEART Score Troponin: Troponin T < 0.010 ng/mL (0.00-0.029) 10/26/21 16:48 Results - Labs CBC & Chem 7: 10/31/21 08:07 11/01/21 04:00 Labs: Laboratory Last Values WBC 8.6 K/mm3 (4.5-11.0) 10/31/21 08:07 RBC 4.73 M/mm3 (3.65-5.03) 10/31/21 08:07 Hgb 13.9 gm/dl (11.8-15.2) 10/31/21 08:07 Hct 44.0 % (35.5-45.6) 10/31/21 08:07 MCV 93 fl (84-94) 10/31/21 08:07 MCH 29 pg (28-32) 10/31/21 08:07 MCHC 32 % (32-34) 10/31/21 08:07 RDW 14.1 % (13.2-15.2) 10/31/21 08:07 Plt Count 371 K/mm3 (140-440) 10/31/21 08:07 Lymph % (Auto) 11.3 % (13.4-35.0) L 10/26/21 16:48 [place] % (Auto) 10.2 % (0.0-7.3) H 10/26/21 16:48 Eos % (Auto) 0.5 % (0.0-4.3) 10/26/21 16:48 Baso % (Auto) 0.2 % (0.0-1.8) 10/26/21 16:48 Lymph # (Auto) 0.5 K/mm3 (1.2-5.4) L 10/26/21 16:48 [place] # (Auto) 0.5 K/mm3 (0.0-0.8) 10/26/21 16:48 Eos # (Auto) 0.0 K/mm3 (0.0-0.4) 10/26/21 16:48 Baso # (Auto) 0.0 K/mm3 (0.0-0.1) 10/26/21 16:48 Add Manual Diff Complete 10/27/21 03:44 Total Counted 100 10/27/21 03:44 Seg Neutrophils % 77.8 % (40.0-70.0) H 10/26/21 16:48 Seg Neuts % (Manual) 84.0 % (40.0-70.0) H 10/27/21 03:44 Band Neutrophils % 3.0 % 10/27/21 03:44 Lymphocytes % (Manual) 10.0 % (13.4-35.0) L 10/27/21 03:44 Reactive Lymphs % (Man) 0 % 10/27/21 03:44 Monocytes % (Manual) 3.0 % (0.0-7.3) 10/27/21 03:44 Eosinophils % (Manual) 0 % (0.0-4.3) 10/27/21 03:44 Basophils % (Manual) 0 % (0.0-1.8) 10/27/21 03:44 Metamyelocytes % 0 % 10/27/21 03:44 Myelocytes % 0 % 10/27/21 03:44 Promyelocytes % 0 % 10/27/21 03:44 Blast Cells % 0 % 10/27/21 03:44 Nucleated RBC % Not Reportable 10/27/21 03:44 Seg Neutrophils # 3.5 K/mm3 (1.8-7.7) 10/26/21 16:48 Seg Neutrophils # Man 5.4 K/mm3 (1.8-7.7) 10/27/21 03:44 Band Neutrophils # 0.2 K/mm3 10/27/21 03:44 Lymphocytes # (Manual) 0.6 K/mm3 (1.2-5.4) L 10/27/21 03:44 Abs React Lymphs (Man) 0.0 K/mm3 10/27/21 03:44 Monocytes # (Manual) 0.2 K/mm3 (0.0-0.8) 10/27/21 03:44 Eosinophils # (Manual) 0.0 K/mm3 (0.0-0.4) 10/27/21 03:44 Basophils # (Manual) 0.0 K/mm3 (0.0-0.1) 10/27/21 03:44 Metamyelocytes # 0.0 K/mm3 10/27/21 03:44 Myelocytes # 0.0 K/mm3 10/27/21 03:44 Promyelocytes # 0.0 K/mm3 10/27/21 03:44 Blast Cells # 0.0 K/mm3 10/27/21 03:44 WBC Morphology Not Reportable 10/27/21 03:44 Hypersegmented Neuts Not Reportable 10/27/21 03:44 Hyposegmented Neuts Not Reportable 10/27/21 03:44 Hypogranular Neuts Not Reportable 10/27/21 03:44 Smudge Cells Not Reportable 10/27/21 03:44 Toxic Granulation Not Reportable 10/27/21 03:44 Toxic Vacuolation Not Reportable 10/27/21 03:44 Dohle Bodies Not Reportable 10/27/21 03:44 Pelger-Huet Anomaly Not Reportable 10/27/21 03:44 Seven Rods Not Reportable 10/27/21 03:44 Platelet Estimate Consistent w auto 10/27/21 03:44 Clumped Platelets Not Reportable 10/27/21 03:44 Plt Clumps, EDTA Not Reportable 10/27/21 03:44 Large Platelets Few 10/27/21 03:44 Giant Platelets Not Reportable 10/27/21 03:44 Platelet Satelliting Not Reportable 10/27/21 03:44 Plt Morphology Comment Not Reportable 10/27/21 03:44 RBC Morphology Normal 10/27/21 03:44 Dimorphic RBCs Not Reportable 10/27/21 03:44 Polychromasia Not Reportable 10/27/21 03:44 Hypochromasia Not Reportable 10/27/21 03:44 Poikilocytosis Not Reportable 10/27/21 03:44 Anisocytosis Not Reportable 10/27/21 03:44 Microcytosis Not Reportable 10/27/21 03:44 Macrocytosis Not Reportable 10/27/21 03:44 Spherocytes Not Reportable 10/27/21 03:44 Pappenheimer Bodies Not Reportable 10/27/21 03:44 Sickle Cells Not Reportable 10/27/21 03:44 Target Cells Not Reportable 10/27/21 03:44 Tear Drop Cells Not Reportable 10/27/21 03:44 Ovalocytes Not Reportable 10/27/21 03:44 Helmet Cells Not Reportable 10/27/21 03:44 [place] Bodies Not Reportable 10/27/21 03:44 [place] Rings Not Reportable 10/27/21 03:44 [place] Cells Not Reportable 10/27/21 03:44 Bite Cells Not Reportable 10/27/21 03:44 Crenated Cell Not Reportable 10/27/21 03:44 Elliptocytes Not Reportable 10/27/21 03:44 Acanthocytes (Spur) Not Reportable 10/27/21 03:44 Rouleaux Not Reportable 10/27/21 03:44 Hemoglobin C Crystals Not Reportable 10/27/21 03:44 Schistocytes Not Reportable 10/27/21 03:44 Malaria parasites Not Reportable 10/27/21 03:44 Harjit Bodies Not Reportable 10/27/21 03:44 Hem Pathologist Commnt No 10/27/21 03:44 PT 13.3 Sec. (12.2-14.9) 10/27/21 12:36 INR 0.91 (0.87-1.13) 10/27/21 12:36 APTT 27.3 Sec. (24.2-36.6) 10/27/21 12:36 D-Dimer 1951.42 ng/mlDDU (0-234) H 10/26/21 19:03 ABG pH 7.474 pH Units (7.350-7.450) H 10/26/21 23:20 ABG pCO2 35.2 mm Hg 10/26/21 23:20 ABG pO2 47.3 mm Hg (80.0-90.0) L 10/26/21 23:20 ABG HCO3 25.3 mmol/L (20.0-26.0) 10/26/21 23:20 ABG O2 Saturation 88.5 % (95.0-99.0) L 10/26/21 23:20 ABG O2 Content 16.6 (0.0-44) 10/26/21 23:20 ABG Base Excess 2.0 mmol/L (-2.0-3.0) 10/26/21 23:20 ABG Hemoglobin 13.5 gm/dl (14.0-18.0) L 10/26/21 23:20 ABG Carboxyhemoglobin 0.5 % (0.0-5.0) 10/26/21 23:20 ABG Methemoglobin 0.4 % (0.0-1.5) 10/26/21 23:20 Oxyhemoglobin 87.7 % (95.0-99.0) L 10/26/21 23:20 FiO2 21 % 10/26/21 23:20 Sodium 141 mmol/L (137-145) 11/01/21 04:00 Potassium 4.6 mmol/L (3.6-5.0) 11/01/21 04:00 Chloride 102.2 mmol/L (98-107) 11/01/21 04:00 Carbon Dioxide 28 mmol/L (22-30) 11/01/21 04:00 Anion Gap 15 mmol/L 11/01/21 04:00 BUN 41 mg/dL (9-20) H 11/01/21 04:00 Creatinine 0.9 mg/dL (0.8-1.3) 11/01/21 04:00 Estimated GFR > 60 ml/min 11/01/21 04:00 BUN/Creatinine Ratio 46 % 11/01/21 04:00 Glucose 192 mg/dL (75-100) H 11/01/21 04:00 Calcium 9.1 mg/dL (8.4-10.2) 11/01/21 04:00 Magnesium 1.90 mg/dL (1.7-2.3) 10/26/21 21:46 Ferritin 319.2 ng/mL (30.0-300.0) H 10/26/21 19:03 Total Bilirubin 0.70 mg/dL (0.1-1.2) 11/01/21 04:00 Direct Bilirubin 0.2 mg/dL (0-0.2) 11/01/21 04:00 Indirect Bilirubin 0.5 mg/dL 11/01/21 04:00 AST 37 units/L (5-40) 11/01/21 04:00 ALT 47 units/L (7-56) 11/01/21 04:00 Alkaline Phosphatase 50 units/L (35-129) 11/01/21 04:00 Lactate Dehydrogenase 268 units/L (91-180) H 10/26/21 19:03 Troponin T < 0.010 ng/mL (0.00-0.029) 10/26/21 16:48 C-Reactive Protein 11.80 mg/dL (0.00-1.30) H 10/26/21 19:03 NT-Pro-B Natriuret Pep 806.1 pg/mL (0-900) 10/26/21 16:48 Total Protein 6.1 g/dL (6.3-8.2) L 11/01/21 04:00 Albumin 3.3 g/dL (3.9-5) L 11/01/21 04:00 Albumin/Globulin Ratio 1.2 % 11/01/21 04:00 Procalcitonin < 0.05 ng/mL (<0.15) 10/31/21 08:07 TSH 0.889 mlU/mL (0.270-4.200) 10/26/21 21:46 Free T4 1.78 ng/dL (0.76-1.46) H 10/26/21 21:46 Coronavirus (PCR) Positive (Negative) A 10/27/21 Unknown Active Medications - Current Medications Current Medications: Generic Name Dose Route Start Last Admin Trade Name Freq PRN Reason Stop Dose Admin Acetaminophen 650 mg 10/26/21 18:52 Acetaminophen 325 Mg Tab PO Q4H PRN Pain MILD(1-3)/Fever >100.5/LEYVA Albuterol 2.5 mg 10/26/21 18:52 Albuterol 2.5 Mg/3 Ml Nebu IH Q4HRT PRN Shortness Of Breath Apixaban 10 mg 10/27/21 18:00 11/01/21 09:15 Apixaban 5 Mg Tab PO 11/02/21 23:59 10 mg Q12HR VASYL Administration Protocol Apixaban 5 mg 11/03/21 10:00 Apixaban 5 Mg Tab PO Q12HR VASYL Aspirin 81 mg 10/28/21 10:00 11/01/21 09:14 Aspirin 81 Mg Tab Chew PO 81 mg QDAY VASYL Administration Diltiazem HCl 60 mg 10/31/21 19:00 11/01/21 05:01 Diltiazem 60 Mg Tab PO 60 mg Q6HR VASYL Administration Famotidine 20 mg 10/29/21 10:00 11/01/21 09:15 Famotidine 20 Mg Tab PO 20 mg QDAY VASYL Administration Hydromorphone HCl 0.5 mg 10/26/21 18:52 Hydromorphone 1 Mg/1 Ml Inj IV Q23H PRN Pain , Severe (7-10) Amiodarone HCl 360 mg/ 200 mls @ 33.333 mls/hr 10/31/21 11:00 10/31/21 18:00 Dextrose IV Infused DIRECT VASYL Titration Protocol 1 MG/MIN Methylprednisolone Sodium Succinate 60 mg 10/27/21 18:00 11/01/21 05:00 Methylprednisolone Sod Succinate 125 Mg/2 Ml Inj IV 60 mg Q8HR VASYL Administration Metoprolol Tartrate 50 mg 10/30/21 12:00 11/01/21 09:14 Metoprolol Tartrate 50 Mg Tab PO 50 mg BID VASYL Administration Ondansetron HCl 4 mg 10/26/21 18:52 Ondansetron 4 Mg/2 Ml Inj IV Q8H PRN Nausea And Vomiting Oxycodone/Acetaminophen 1 tab 10/26/21 18:52 Oxycodone /Acetaminophen 5-325mg Tab PO Q16H PRN Pain, Moderate (4-6) Sodium Chloride 10 ml 10/26/21 22:00 11/01/21 09:15 Sodium Chloride 0.9% 10 Ml Flush Syringe IV 10 ml BID VASYL Administration Sodium Chloride 10 ml 10/26/21 18:52 Sodium Chloride 0.9% 10 Ml Flush Syringe IV PRN PRN LINE FLUSH
--- NOTE | 2021-11-01 19:27 | Progress Note ---
Assessment and Plan 75 YO Male with HTN, PVD, Obesity Hypoventilation Syndrome presents to ED for evaluation. Patient reports "I can hardly breathe". Patient states that he has experienced shortness of breath, fatigue, malaise, body aches, dry cough, dimini shed sense of smell, diminished sense of taste, subjective fever, generalized weakness, runny nose over the past 1 week with persistent and worsening symptoms over the same timeframe. EMS was notified and upon arrival the patient was found to be in distress with a pulse oximetry of 82% the patient was placed on supplemental oxygen and transported to [facility] for further care and evaluation of the aforementioned symptoms. The patient was seen and evaluated in the emergency department. All lab and imaging studies reviewed. The patient was found to have a pulse oximetry of 83% on room air which is consistent with acute hypoxemic respiratory failure. Patient sitting up in bed and using accessory muscles to breathe, speaking in short sentences. Patient underwent chest x-ray and was found to have bilateral pneumonia. Patient admitted to the hospital and initiated on pneumonia protocol as well as coronavirus protocol. Patient knowledges subjective fever but denies chills, chest pain, palpitation, skin rash, unilateral leg swelling, calf pain. Patient has history of PE. On eliquis. Patient acknowledges recent ill contact with his grandchildren. Patient denies smoking, alcohol or drug abuse. 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 Allergic to Lisinopril. Patients cedillo virus PCR positive. Patient alert, and awake, still has shortness of breath and cough, no chest pain. On vapotherm FiO2 60%. O2 saturation 91% BP 128/94 Pulse 104, Respiratory rate 18 Patient is afebrile. No leukocytosis. Patients CAT scan of chest done 10/26/21 reported Moderate bilateral pulmonary emboli .Moderate multifocal bilateral Covid pneumonia . Moderate hiatal hernia . Patient is on I/V solumedrol, Apixaban, Famotidine and albuterol, finished course of remdesevir I spent critical care time of 35 minutes, obtaining history, review the chart, examine the patient, review chest xray, CAT scan of chest, review lab results.talking to the nursing staff and respiratory therapy and work up plan of treatment in this critically ill COVID 19 patient - Patient Problems (1) CAD (coronary artery disease) Current Visit: Yes Status: Acute Plan to address problem: Management as per cardiology. (2) Acute hypoxemic respiratory failure Current Visit: No Status: Acute Plan to address problem: On Vapotherm Fi02 60%. Patient is on I/V solumedrol Patient is on Apixaban Patient is on famotidine. Albuterol inhaler as needed for shortness of breath. (3) Hypertension Current Visit: No Status: Acute Qualifiers: Hypertension type: primary hypertension Qualified Code(s): I10 - Essential (primary) hypertension Plan to address problem: Management as per primary care. (4) Obesity hypoventilation syndrome Current Visit: No Status: Acute Plan to address problem: Blood gases not suggestive of Obesity hypoventilation. Recommend sleep study as out patient, once she recovered from this episode. (5) Pneumonia Current Visit: No Status: Acute Plan to address problem: Antibiotics as per infectious diseases. (6) Pulmonary emboli Current Visit: Yes Status: Acute Plan to address problem: Patient is on eliquis. Subjective Date of service: 11/01/21 Principal diagnosis: afib Interval history: 75 YO Male with HTN, PVD, Obesity Hypoventilation Syndrome presents to ED for evaluation. Patient reports "I can hardly breathe". Patient states that he has experienced shortness of breath, fatigue, malaise, body aches, dry cough, diminished sense of smell, diminished sense of taste, subjective fever, generalized weakness, runny nose over the past 1 week with persistent and worsening symptoms over the same timeframe. EMS was notified and upon arrival the patient was found to be in distress with a pulse oximetry of 82% the patient was placed on supplemental oxygen and transported to [facility] for further care and evaluation of the aforementioned symptoms. The patient was seen and evaluated in the emergency department. All lab and imaging studies reviewed. The patient was found to have a pulse oximetry of 83% on room air which is consistent with acute hypoxemic respiratory failure. Patient sitting up in bed and using accessory muscles to breathe, speaking in short sentences. Patient underwent chest x-ray and was found to have bilateral pneumonia. Patient admitted to the hospital and initiated on pneumonia protocol as well as coronavirus protocol. Patient knowledges subjective fever but denies chills, chest pain, palpitation, skin rash, unilateral leg swelling, calf pain. Patient has history of PE. On eliquis. Patient acknowledges recent ill contact with his grandchildren. Patient denies smoking, alcohol or drug abuse. 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 Allergic to Lisinopril. Patients cedillo virus PCR positive. Patient alert, and awake, still has shortness of breath and cough, no chest pain. On vapotherm FiO2 60%. O2 saturation 91% BP 128/94 Pulse 104, Respiratory rate 18 Patient is afebrile. No leukocytosis. Patients CAT scan of chest done 10/26/21 reported Moderate bilateral pulmonary emboli .Moderate multifocal bilateral Covid pneumonia . Moderate hiatal hernia . Patient is on I/V solumedrol, Apixaban, Famotidine and albuterol, finished course of remdesevir Objective Vital Signs - 12hr 11/01/21 11/01/21 11/01/21 08:00 14:09 15:40 Temperature 98.4 F Pulse Rate 79 Respiratory 18 Rate Blood Pressure 118/80 O2 Sat by Pulse 95 94 96 Oximetry 11/01/21 16:46 Temperature 98.6 F Pulse Rate 89 Respiratory 18 Rate Blood Pressure 109/72 O2 Sat by Pulse 95 Oximetry Constitutional: asleep, appears uncomfortable, other (on Vapotherm, mildly increased work of breathing) Eyes: non-icteric Neck: supple, no lymphadenopathy Ascultation: Bilateral: rhonchi Cardiovascular: irregular rhythm (Tachycardia.) Gastrointestinal: normoactive bowel sounds, soft, non-tender Integumentary: normal Extremities: no cyanosis, no edema Neurologic: non-focal exam, pupils equal and round Psychiatric: depressed CBC and BMP: 11/02/21 05:58 11/02/21 05:58 ABG, PT/INR, D-dimer: ABG ABG pH 7.474 pH Units (7.350-7.450) H 10/26/21 23:20 ABG pCO2 35.2 mm Hg 10/26/21 23:20 ABG pO2 47.3 mm Hg (80.0-90.0) L 10/26/21 23:20 ABG O2 Saturation 88.5 % (95.0-99.0) L 10/26/21 23:20 PT/INR, D-dimer PT 13.3 Sec. (12.2-14.9) 10/27/21 12:36 INR 0.91 (0.87-1.13) 10/27/21 12:36 D-Dimer 1951.42 ng/mlDDU (0-234) H 10/26/21 19:03 Abnormal lab findings: Abnormal Labs 10/26/21 10/26/21 10/26/21 16:48 16:48 19:03 WBC MCV Lymph % (Auto) 11.3 L [place] % (Auto) 10.2 H Lymph # (Auto) 0.5 L Seg Neutrophils % 77.8 H Seg Neuts % (Manual) Lymphocytes % (Manual) Lymphocytes # (Manual) D-Dimer 1951.42 H ABG pH ABG pO2 ABG O2 Saturation ABG Hemoglobin Oxyhemoglobin Sodium Potassium 3.4 L Chloride 97.5 L BUN 24 H Glucose 108 H Calcium Ferritin AST Lactate Dehydrogenase C-Reactive Protein Total Protein Albumin Free T4 Coronavirus (PCR) 10/26/21 10/26/21 10/26/21 19:03 19:03 21:46 WBC MCV Lymph % (Auto) [place] % (Auto) Lymph # (Auto) Seg Neutrophils % Seg Neuts % (Manual) Lymphocytes % (Manual) Lymphocytes # (Manual) D-Dimer ABG pH ABG pO2 ABG O2 Saturation ABG Hemoglobin Oxyhemoglobin Sodium Potassium Chloride BUN Glucose 104 H Calcium Ferritin 319.2 H AST Lactate Dehydrogenase 268 H C-Reactive Protein 11.80 H Total Protein Albumin Free T4 1.78 H Coronavirus (PCR) 10/26/21 10/27/21 10/27/21 23:20 03:44 03:44 WBC MCV 95 H Lymph % (Auto) [place] % (Auto) Lymph # (Auto) Seg Neutrophils % Seg Neuts % (Manual) 84.0 H Lymphocytes % (Manual) 10.0 L Lymphocytes # (Manual) 0.6 L D-Dimer ABG pH 7.474 H ABG pO2 47.3 L ABG O2 Saturation 88.5 L ABG Hemoglobin 13.5 L Oxyhemoglobin 87.7 L Sodium Potassium Chloride 97.9 L BUN 23 H Glucose 139 H Calcium 8.3 L Ferritin AST Lactate Dehydrogenase C-Reactive Protein Total Protein Albumin Free T4 Coronavirus (PCR) 10/27/21 10/27/21 10/27/21 12:36 23:24 Unknown WBC 4.1 L MCV Lymph % (Auto) [place] % (Auto) Lymph # (Auto) Seg Neutrophils % Seg Neuts % (Manual) Lymphocytes % (Manual) Lymphocytes # (Manual) D-Dimer ABG pH ABG pO2 ABG O2 Saturation ABG Hemoglobin Oxyhemoglobin Sodium 136 L Potassium Chloride 96.8 L BUN 21 H Glucose 144 H Calcium Ferritin AST 49 H Lactate Dehydrogenase C-Reactive Protein Total Protein Albumin 3.4 L Free T4 Coronavirus (PCR) Positive A 10/28/21 10/29/21 10/30/21 04:53 04:28 05:02 WBC MCV Lymph % (Auto) [place] % (Auto) Lymph # (Auto) Seg Neutrophils % Seg Neuts % (Manual) Lymphocytes % (Manual) Lymphocytes # (Manual) D-Dimer ABG pH ABG pO2 ABG O2 Saturation ABG Hemoglobin Oxyhemoglobin Sodium 136 L Potassium Chloride BUN 24 H 38 H 44 H Glucose 163 H 225 H 215 H Calcium Ferritin AST 52 H 52 H 55 H Lactate Dehydrogenase C-Reactive Protein Total Protein 6.2 L 6.1 L Albumin 3.2 L 3.2 L 3.5 L Free T4 Coronavirus (PCR) 11/01/21 11/01/21 04:00 04:00 WBC MCV Lymph % (Auto) [place] % (Auto) Lymph # (Auto) Seg Neutrophils % Seg Neuts % (Manual) Lymphocytes % (Manual) Lymphocytes # (Manual) D-Dimer ABG pH ABG pO2 ABG O2 Saturation ABG Hemoglobin Oxyhemoglobin Sodium Potassium Chloride BUN 41 H Glucose 192 H Calcium Ferritin AST Lactate Dehydrogenase C-Reactive Protein Total Protein 6.1 L Albumin 3.3 L Free T4 Coronavirus (PCR)
[2021-11-02] MEDS: dilTIAZem 60 MG TAB PO SCH ×4 (01:30→17:32)
[2021-11-02] MEDS: methylPREDNISolone Sod Succinate 125 MG/2 ML INJ IV SCH ×3 (05:30→21:09)
[2021-11-02 06:22] LABS: Hematocrit 40.9 % (35.5-45.6); Hemoglobin 13.4 gm/dl (11.8-15.2); Mean Corpuscular HGB Conc 33 % (32-34); Mean Corpuscular Volume 93 fl (84-94); Platelet Count 329 K/mm3 (140-440); Red Blood Count 4.41 M/mm3 (3.65-5.03); Red Cell Distribution Width 13.5 % (13.2-15.2)
[2021-11-02 06:36] LABS: BUN/Creatinine Ratio 43; Blood Urea Nitrogen 39 mg/dL (9-20); Calcium 8.9 mg/dL (8.4-10.2); Hemolysis Index 10
[2021-11-02] MEDS: ASPIRIN 81 MG TAB CHEW PO SCH (10:27)
[2021-11-02] MEDS: APIXABAN 5 MG TAB PO SCH ×2 (10:27→21:10)
[2021-11-02 10:31] LABS: Basophils % (Manual) 0 % (0.0-1.8); Eosinophils % (Manual) 0 % (0.0-4.3); Total Cells Counted 100
[2021-11-02 10:32] LABS: Platelet Estimate Consistent w Auto
[2021-11-02] MEDS: FAMOTIDINE 20 MG TAB PO SCH (10:33)
--- NOTE | 2021-11-02 10:44 | Progress Note ---
Assessment and Plan Is a 75-year-old male with a past medical history of hypertension, coronary artery disease, and thoracic aortic aneurysm who presented to the ED with a complaint of difficulty breathing since [place] COVID PE Acute hypoxic respiratory failure- on highflow NC PNA Afib w/ RVR(new onset) HTN CAD Echo 10/26/2021-EF 50 to 55%. Right ventricle systolic function is normal. Trace mitral regurgitation. Trace tricuspid regurgitation. Ascending aorta is dilated 4.1 cm Stress11/20/2019- Normal pharmacological SPECT stress test. Stress ECG was negative for ischemia. No symptoms of chest pain with vasodilator stress. Normal perfusion without evidence of ischemia or infarct. TID 0.97 (normal). Normal LV systolic function (calculated LVEF 69%). No wall motion abnormalities. Echo 11/20/2019-LV normal size. Normal LV wall thickness. LV wall motion normal. LVEF is 59%. GLS decreased. Normal LV diastolic function. RV moderately to severely dilated. RV systolic function is normal. Estimated RAP 5 mmHg based on IVC. Unable to assess RVSP due to insufficient TR signal. AV not well visualized. AV opens well. Mild AR. No AV stenosis. Aortic arch normal. Sinotubular junction mildly dilated. Ascending aorta mildly dilated. No aortic coarctation. Ao Sinus s 3.[address] jnct s 3.87 cm Ao Asc s 4.1 cm Plan: Patient heart is now 110s-120s Will increase to metoprolol 50mg PO TID Continue diltiazem 60 mg p.o. q6hrs Continue Eliquis for anticoagulation Patient seen in conjunction with Dr. Garcia who agrees with this plan of care - Patient Problems (1) CAD (coronary artery disease) Current Visit: Yes Status: Acute (2) Acute hypoxemic respiratory failure Current Visit: No Status: Acute (3) Hypertension Current Visit: No Status: Acute Qualifiers: Hypertension type: primary hypertension Qualified Code(s): I10 - Essential (primary) hypertension (4) Obesity hypoventilation syndrome Current Visit: No Status: Acute (5) Pneumonia Current Visit: No Status: Acute Subjective Date of service: 11/02/21 Principal diagnosis: afib Interval history: Patient sitting in bed in no acute distress reports feeling better Patient is still in A. fib rate trending 110s-120s Objective Vital Signs Temp Pulse Resp BP Pulse Ox 11/02/21 08:00 94 11/02/21 05:23 98.2 F 72 18 115/79 95 11/02/21 02:00 97 11/02/21 01:55 94 11/02/21 01:42 94 11/01/21 21:26 98.1 F 104 H 18 128/94 91 11/01/21 20:00 95 11/01/21 16:46 98.6 F 89 18 109/72 95 11/01/21 15:40 96 11/01/21 14:09 98.4 F 79 18 118/80 94 - Physical Examination General: No Apparent Distress HEENT: Positive: PERRL, Mucus Membranes Dry Neck: Positive: neck supple Cardiac: Positive: irregularly irregular, Tachycardia Lungs: Positive: Normal Breath Sounds Neuro: Positive: Grossly Intact Abdomen: Positive: Soft, Active Bowel Sounds Skin: Negative: Rash, Suspicious Lesions, Ulceration Extremities: Present: upper extr. pulses. Absent: edema - Labs and Meds Cardiac Enzymes 11/02/21 Range/Units 05:58 Lactate Dehydrogenase 411 H (91-180) units/L CBC 11/02/21 Range/Units 05:58 WBC 8.0 (4.5-11.0) K/mm3 RBC 4.41 (3.65-5.03) M/mm3 Hgb 13.4 (11.8-15.2) gm/dl Hct 40.9 (35.5-45.6) % Plt Count 329 (140-440) K/mm3 Comprehensive Metabolic Panel 11/02/21 Range/Units 05:58 Sodium 135 L (137-145) mmol/L Potassium 4.8 (3.6-5.0) mmol/L Chloride 99.0 (98-107) mmol/L Carbon Dioxide 28 (22-30) mmol/L BUN 39 H (9-20) mg/dL Creatinine 0.9 (0.8-1.3) mg/dL Glucose 236 H (75-100) mg/dL Calcium 8.9 (8.4-10.2) mg/dL - Imaging and Cardiology Echo: report reviewed - Telemetry EKG Rhythm: Atrial Fibrillation - EKG Supraventricular dysrhythmia: atrial fibrillation AV and intraventricular conduction: right bundle branch block
--- NOTE | 2021-11-02 11:44 | Progress Note ---
Assessment and Plan Acute hypoxemic respiratory failure Bilateral pneumonia (CAP / COVID-19) COVID-19 infection Acute respiratory distress syndrome Bilateral pulmonary emboli A-fib with RVR OHS Hypertension Peripheral vascular disease - clinically better, continue care as below; - continue BIPAP scheduled qhs with prn daytime use - ID evaluation pending - continue full anticoagulation re: P.E. - awake proning counseled - continue to wean supplemental oxygen for target O2 sat's > 90% acutely - aspiration precautions - continue bronchodilators with pulmonary hygiene per RT - continue accuchecks with glycemic control per SSI (While critically ill target blood glucose of 140-180 mg/dL; avoid hypoglycemia) - avoid nephrotoxins, renally dose all medications - avoid benzodiazepine's, reduce the possibility of delirium - Anti-infective's per ID rec's - prn analgesia per CPOT score - Maintenance of sleep-wake cycle, avoid delirium - G.I. & VTE prophylaxis - PT/OT/ROM exercises - continue mobility protocols for pressure ulcer prophylaxis - Monitor hemodynamics closely - continue other care per attending / other consultants - discharge planning ongoing concurrently COVID SPECIFIC INTERVENTIONS - Remdesivir as per ID/Pulmonary developed protocols (refused) - continue systemic steroids for severe COVID-19 infection empirically (Solumedrol) - follow repeat COVID tests results - zinc and vitamin C supplementation - Monitor inflammatory markers per facility protocol - ferritin, Ddimer, CRP - therapeutic anticoagulation per system Protocol based on d-dimer and clinical considerations (treatment dose re: VTE) - Continue contact and airborne isolation .... Re-evaluate in am & prn CONDITION: CRITICAL PROGNOSIS: GUARDED CODE STATUS: FULL CODE The high probability of a clinically significant, sudden or life-threatening deterioration of the [respiratory, cardiovascular & hematologic] system(s) required my full and direct attention, intervention and personal management. The aggregate critical care time was [34] minutes without overlap. Time includes spent on; [x] Data Review and interpretation [x] Patient assessment and monitoring of vital signs [x] Documentation [x] Medication orders and management Subjective Date of service: 11/02/21 Principal diagnosis: AHRF; A-fib; CAP; COVID-19 infection; Pulm Embolism; ARDS; Morbid Obesity Interval history: Patient is seen today for: AHRF; A-fib with RVR; Pneumonia; COVID-19 infection; Pulm Embolism; ARDS; Morbid Obesity; OHS Seen and examined at bedside; 24hour events reviewed; nursing and respiratory care staff consulted; no adverse overnight events reported to me; resting in bed; remains on supplemental oxygen at 60% FiO2; clinically looks better; denies N/V/F/C Objective Vital Signs - 12hr 11/02/21 11/02/21 11/02/21 01:42 01:55 02:00 Temperature Pulse Rate Respiratory Rate Blood Pressure O2 Sat by Pulse 94 94 97 Oximetry 11/02/21 11/02/21 05:23 08:00 Temperature 98.2 F Pulse Rate 72 Respiratory 18 Rate Blood Pressure 115/79 O2 Sat by Pulse 95 94 Oximetry Constitutional: no acute distress, other (elderly obese male with mildly increased respiratory effort at rest) Eyes: non-icteric ENT: oropharynx moist Neck: supple, no lymphadenopathy, no JVD, other (large circumference) Effort: mildly labored Ascultation: Bilateral: diminished breath sounds, rhonchi Percussion: Bilateral: not dull Cardiovascular: regular rate and rhythm Gastrointestinal: normoactive bowel sounds, soft, non-tender, non-distended (protuberant) Integumentary: normal Extremities: no cyanosis, pink and warm, pulses normal, no ischemia or petechiae Neurologic: non-focal exam, pupils equal and round, CN II-XII normal, motor strength normal and Psychiatric: mood appropriate, anxious CBC and BMP: 11/02/21 05:58 11/02/21 05:58 ABG, PT/INR, D-dimer: ABG ABG pH 7.474 pH Units (7.350-7.450) H 10/26/21 23:20 ABG pCO2 35.2 mm Hg 10/26/21 23:20 ABG pO2 47.3 mm Hg (80.0-90.0) L 10/26/21 23:20 ABG O2 Saturation 88.5 % (95.0-99.0) L 10/26/21 23:20 PT/INR, D-dimer PT 13.3 Sec. (12.2-14.9) 10/27/21 12:36 INR 0.91 (0.87-1.13) 10/27/21 12:36 D-Dimer 1824.38 ng/mlDDU (0-234) H 11/02/21 05:58 Abnormal lab findings: Abnormal Labs 10/26/21 10/26/21 10/26/21 16:48 16:48 19:03 WBC MCV Lymph % (Auto) 11.3 L [place] % (Auto) 10.2 H Lymph # (Auto) 0.5 L Seg Neutrophils % 77.8 H Seg Neuts % (Manual) Lymphocytes % (Manual) Seg Neutrophils # Man Lymphocytes # (Manual) D-Dimer 1951.42 H ABG pH ABG pO2 ABG O2 Saturation ABG Hemoglobin Oxyhemoglobin Sodium Potassium 3.4 L Chloride 97.5 L BUN 24 H Glucose 108 H Calcium Ferritin AST Lactate Dehydrogenase C-Reactive Protein Total Protein Albumin Free T4 Coronavirus (PCR) 10/26/21 10/26/21 10/26/21 19:03 19:03 21:46 WBC MCV Lymph % (Auto) [place] % (Auto) Lymph # (Auto) Seg Neutrophils % Seg Neuts % (Manual) Lymphocytes % (Manual) Seg Neutrophils # Man Lymphocytes # (Manual) D-Dimer ABG pH ABG pO2 ABG O2 Saturation ABG Hemoglobin Oxyhemoglobin Sodium Potassium Chloride BUN Glucose 104 H Calcium Ferritin 319.2 H AST Lactate Dehydrogenase 268 H C-Reactive Protein 11.80 H Total Protein Albumin Free T4 1.78 H Coronavirus (PCR) 10/26/21 10/27/21 10/27/21 23:20 03:44 03:44 WBC MCV 95 H Lymph % (Auto) [place] % (Auto) Lymph # (Auto) Seg Neutrophils % Seg Neuts % (Manual) 84.0 H Lymphocytes % (Manual) 10.0 L Seg Neutrophils # Man Lymphocytes # (Manual) 0.6 L D-Dimer ABG pH 7.474 H ABG pO2 47.3 L ABG O2 Saturation 88.5 L ABG Hemoglobin 13.5 L Oxyhemoglobin 87.7 L Sodium Potassium Chloride 97.9 L BUN 23 H Glucose 139 H Calcium 8.3 L Ferritin AST Lactate Dehydrogenase C-Reactive Protein Total Protein Albumin Free T4 Coronavirus (PCR) 10/27/21 10/27/21 10/27/21 12:36 23:24 Unknown WBC 4.1 L MCV Lymph % (Auto) [place] % (Auto) Lymph # (Auto) Seg Neutrophils % Seg Neuts % (Manual) Lymphocytes % (Manual) Seg Neutrophils # Man Lymphocytes # (Manual) D-Dimer ABG pH ABG pO2 ABG O2 Saturation ABG Hemoglobin Oxyhemoglobin Sodium 136 L Potassium Chloride 96.8 L BUN 21 H Glucose 144 H Calcium Ferritin AST 49 H Lactate Dehydrogenase C-Reactive Protein Total Protein Albumin 3.4 L Free T4 Coronavirus (PCR) Positive A 10/28/21 10/29/21 10/30/21 04:53 04:28 05:02 WBC MCV Lymph % (Auto) [place] % (Auto) Lymph # (Auto) Seg Neutrophils % Seg Neuts % (Manual) Lymphocytes % (Manual) Seg Neutrophils # Man Lymphocytes # (Manual) D-Dimer ABG pH ABG pO2 ABG O2 Saturation ABG Hemoglobin Oxyhemoglobin Sodium 136 L Potassium Chloride BUN 24 H 38 H 44 H Glucose 163 H 225 H 215 H Calcium Ferritin AST 52 H 52 H 55 H Lactate Dehydrogenase C-Reactive Protein Total Protein 6.2 L 6.1 L Albumin 3.2 L 3.2 L 3.5 L Free T4 Coronavirus (PCR) 11/01/21 11/01/21 11/02/21 04:00 04:00 05:58 WBC MCV Lymph % (Auto) [place] % (Auto) Lymph # (Auto) Seg Neutrophils % Seg Neuts % (Manual) 98.0 H Lymphocytes % (Manual) 0 L Seg Neutrophils # Man 7.8 H Lymphocytes # (Manual) 0.0 L D-Dimer ABG pH ABG pO2 ABG O2 Saturation ABG Hemoglobin Oxyhemoglobin Sodium Potassium Chloride BUN 41 H Glucose 192 H Calcium Ferritin AST Lactate Dehydrogenase C-Reactive Protein Total Protein 6.1 L Albumin 3.3 L Free T4 Coronavirus (PCR) 11/02/21 11/02/21 11/02/21 05:58 05:58 05:58 WBC MCV Lymph % (Auto) [place] % (Auto) Lymph # (Auto) Seg Neutrophils % Seg Neuts % (Manual) Lymphocytes % (Manual) Seg Neutrophils # Man Lymphocytes # (Manual) D-Dimer 1824.38 H ABG pH ABG pO2 ABG O2 Saturation ABG Hemoglobin Oxyhemoglobin Sodium 135 L Potassium Chloride BUN 39 H Glucose 236 H Calcium Ferritin 497.7 H AST Lactate Dehydrogenase 411 H C-Reactive Protein Total Protein Albumin Free T4 Coronavirus (PCR) Allied health notes reviewed: nursing
--- NOTE | 2021-11-02 13:08 | Progress Note ---
Assessment and Plan Cultures: SARS CoV2 PCR: Positive A/P: 75-year-old male with hypertension, CAD, thoracic aortic aneurysm peripheral vascular disease, obesity hypoventilation, morbid obesity: #Bilateral pneumonia: Secondary to COVID-19. Labs reveal WBC 5.8, D-dimer 1951, mild transaminitis, ferritin 319, LDH 268, CRP 11.8. Procalcitonin 0.05. CRP improved to 1.3, ferritin 497. #Acute hypoxic respiratory failure: Requiring HFNC #New onset atrial fibrillation with RVR: cardiology following. #Bilateral PE: on anticoagulation. Recs: -On Solu-Medrol, complete at least 10 days of steroids -Completed Remdesivir -s/p Actemra 10/31/2021 -Anticoagulation for PE per primary -CRP improved to 1.3, ferritin 497 -guarded prognosis Bruno Garrett MD, FACP, [facility] O: [phone] F: [phone] Subjective Date of service: 11/02/21 Principal diagnosis: AHRF; A-fib; CAP; COVID-19 infection; Pulm Embolism; ARDS; Morbid Obesity Interval history: No fever. Remains on HFNC. Objective - Exam Narrative Exam: Physical Exam (reviewed in chart to minimize risk of transmission) Constitutional: deferred Head, Ears, Nose: deferred Eyes: deferred Neck: deferred Oral: deferred Cardiovascular: deferred Respiratory: deferred GI: deferred Musculoskeletal: deferred Skin: deferred Hem/Lymphatic: deferred Psych: deferred Neurological: deferred - Constitutional Vitals: Vital Signs Temp Pulse Resp BP Pulse Ox 98.2 F 72 18 115/79 94 11/02/21 05:23 11/02/21 05:23 11/02/21 05:23 11/02/21 05:23 11/02/21 08:00 Temperature -Last 24 Hours Temperature 98.2 F Temperature 98.1 F Temperature 98.6 F Temperature 98.4 F - Labs CBC & Chem 7: 11/02/21 05:58 11/02/21 05:58 Labs: Abnormal lab results 11/02/21 11/02/21 11/02/21 Range/Units 05:58 05:58 05:58 Seg Neuts % (Manual) 98.0 H (40.0-70.0) % Lymphocytes % (Manual) 0 L (13.4-35.0) % Seg Neutrophils # Man 7.8 H (1.8-7.7) K/mm3 Lymphocytes # (Manual) 0.0 L (1.2-5.4) K/mm3 D-Dimer 1824.38 H (0-234) ng/mlDDU Sodium 135 L (137-145) mmol/L BUN 39 H (9-20) mg/dL Glucose 236 H (75-100) mg/dL Ferritin (30.0-300.0) ng/mL Lactate Dehydrogenase 411 H (91-180) units/L 11/02/21 Range/Units 05:58 Seg Neuts % (Manual) (40.0-70.0) % Lymphocytes % (Manual) (13.4-35.0) % Seg Neutrophils # Man (1.8-7.7) K/mm3 Lymphocytes # (Manual) (1.2-5.4) K/mm3 D-Dimer (0-234) ng/mlDDU Sodium (137-145) mmol/L BUN (9-20) mg/dL Glucose (75-100) mg/dL Ferritin 497.7 H (30.0-300.0) ng/mL Lactate Dehydrogenase (91-180) units/L
--- NOTE | 2021-11-02 14:44 | Progress Note ---
Assessment and Plan Assessment and plan: #New onset atrial fibrillation Patient found to have new onset A. fib in the emergency department. Continue p.o. diltiazem 60 mg every 6 hours and metoprolol tartrate 50 mg twice daily Cardiology consulted; appreciate recs. Currently on Eliquis 10 mg every 12 hours for anticoagulation. Will transition to Eliquis 5 mg every 12 hours on 11/03/2021 Continue to monitor. #B/l pulmonary embolism Currently on Eliquis 10 mg every 12 hours for anticoagulation. Will transition to Eliquis 5 mg every 12 hours on 11/03/2021 #Acute hypoxemic respiratory failure #COVID-19 pneumonia Due to bilateral PE and COVID-19 pneumonia Currently on high flow nasal cannula 25 L / 60% FiO2 wean as tolerated. Infectious disease consulted; appreciate recs Pulmonology consulted; appreciate recs Continue steroids x10 days. Completed remdesivir x5 days. Continue therapeutic anticoagulation and treatment protocol for COVID-19 Supplemental oxygen, pulse oximetry, nebulizer therapy, prone positioning while in bed, pulmonary toilet. #Obesity #Weight loss counseling #Exercise counseling - BMI 34 - Counseled patient on the importance of weight loss, incorporating exercise, and dietary changes (lean meats, fresh fruits and vegetables, and water intake). Patient expresses understanding. Outpatient pulmonary follow-up for sleep study. - Time: +15 min #Hypertension Monitor blood pressure every shift, continue medical management. #CAD -cont current cardiac medication #Thoracic aortic aneurysm CTA chest w/o any h/o Thoracic aortic aneurysm, but CTA chest w/o any acute findings, follow clinically. given high CRP and need for HFNC, candidate for Actemra (depending on availability), order placed. Pending procalcitonin level. #Advanced care planning -Disease education conducted, care plan discussed, diagnoses discussed, prognosis discussed, and patient acknowledges understanding with care plan -Time: +30 min Disposition Plan: Continue medical management Total Time Spent with Patient (Minutes): 45 min History Interval history: No acute events overnight Hospitalist Physical - Constitutional Vitals: Temp Pulse Resp BP Pulse Ox 98.2 F 73 18 119/73 94 11/02/21 05:23 11/02/21 13:44 11/02/21 05:23 11/02/21 13:44 11/02/21 08:00 General appearance: Present: no acute distress, well-nourished, obese, other - EENT Eyes: Present: PERRL, EOM intact ENT: hearing intact, clear oral mucosa - Neck Neck: Present: supple, normal ROM - Respiratory Respiratory effort: labored Respiratory: bilateral: diminished (HFNC 25L/60% ) - Cardiovascular Rhythm: regular Heart Sounds: Present: S1 & S2 - Extremities Extremities: no ischemia, pulses intact, pulses symmetrical, No edema, normal temperature, normal color Peripheral Pulses: within normal limits - Abdominal General gastrointestinal: soft, non-tender, non-distended, normal bowel sounds - Integumentary Integumentary: Present: clear, warm, dry - Psychiatric Psychiatric: appropriate mood/affect, cooperative - Neurologic Neurologic: CNII-XII intact - Allied Health Allied health notes reviewed: nursing HEART Score - HEART Score Troponin: Troponin T < 0.010 ng/mL (0.00-0.029) 10/26/21 16:48 Results - Labs CBC & Chem 7: 11/02/21 05:58 11/02/21 05:58 Labs: Laboratory Last Values WBC 8.0 K/mm3 (4.5-11.0) 11/02/21 05:58 RBC 4.41 M/mm3 (3.65-5.03) 11/02/21 05:58 Hgb 13.4 gm/dl (11.8-15.2) 11/02/21 05:58 Hct 40.9 % (35.5-45.6) 11/02/21 05:58 MCV 93 fl (84-94) 11/02/21 05:58 MCH 31 pg (28-32) 11/02/21 05:58 MCHC 33 % (32-34) 11/02/21 05:58 RDW 13.5 % (13.2-15.2) 11/02/21 05:58 Plt Count 329 K/mm3 (140-440) 11/02/21 05:58 Lymph % (Auto) 11.3 % (13.4-35.0) L 10/26/21 16:48 [place] % (Auto) 10.2 % (0.0-7.3) H 10/26/21 16:48 Eos % (Auto) 0.5 % (0.0-4.3) 10/26/21 16:48 Baso % (Auto) 0.2 % (0.0-1.8) 10/26/21 16:48 Lymph # (Auto) 0.5 K/mm3 (1.2-5.4) L 10/26/21 16:48 [place] # (Auto) 0.5 K/mm3 (0.0-0.8) 10/26/21 16:48 Eos # (Auto) 0.0 K/mm3 (0.0-0.4) 10/26/21 16:48 Baso # (Auto) 0.0 K/mm3 (0.0-0.1) 10/26/21 16:48 Add Manual Diff Complete 11/02/21 05:58 Total Counted 100 11/02/21 05:58 Seg Neutrophils % Fight Manager 11/02/21 05:58 Seg Neuts % (Manual) 98.0 % (40.0-70.0) H 11/02/21 05:58 Band Neutrophils % 0 % 11/02/21 05:58 Lymphocytes % (Manual) 0 % (13.4-35.0) L 11/02/21 05:58 Reactive Lymphs % (Man) 0 % 11/02/21 05:58 Monocytes % (Manual) 2.0 % (0.0-7.3) 11/02/21 05:58 Eosinophils % (Manual) 0 % (0.0-4.3) 11/02/21 05:58 Basophils % (Manual) 0 % (0.0-1.8) 11/02/21 05:58 Metamyelocytes % 0 % 11/02/21 05:58 Myelocytes % 0 % 11/02/21 05:58 Promyelocytes % 0 % 11/02/21 05:58 Blast Cells % 0 % 11/02/21 05:58 Nucleated RBC % Not Reportable 11/02/21 05:58 Seg Neutrophils # 3.5 K/mm3 (1.8-7.7) 10/26/21 16:48 Seg Neutrophils # Man 7.8 K/mm3 (1.8-7.7) H 11/02/21 05:58 Band Neutrophils # 0.0 K/mm3 11/02/21 05:58 Lymphocytes # (Manual) 0.0 K/mm3 (1.2-5.4) L 11/02/21 05:58 Abs React Lymphs (Man) 0.0 K/mm3 11/02/21 05:58 Monocytes # (Manual) 0.2 K/mm3 (0.0-0.8) 11/02/21 05:58 Eosinophils # (Manual) 0.0 K/mm3 (0.0-0.4) 11/02/21 05:58 Basophils # (Manual) 0.0 K/mm3 (0.0-0.1) 11/02/21 05:58 Metamyelocytes # 0.0 K/mm3 11/02/21 05:58 Myelocytes # 0.0 K/mm3 11/02/21 05:58 Promyelocytes # 0.0 K/mm3 11/02/21 05:58 Blast Cells # 0.0 K/mm3 11/02/21 05:58 WBC Morphology Not Reportable 11/02/21 05:58 Hypersegmented Neuts Not Reportable 11/02/21 05:58 Hyposegmented Neuts Not Reportable 11/02/21 05:58 Hypogranular Neuts Not Reportable 11/02/21 05:58 Smudge Cells Not Reportable 11/02/21 05:58 Toxic Granulation Not Reportable 11/02/21 05:58 Toxic Vacuolation Not Reportable 11/02/21 05:58 Dohle Bodies Not Reportable 11/02/21 05:58 Pelger-Huet Anomaly Not Reportable 11/02/21 05:58 Seven Rods Not Reportable 11/02/21 05:58 Platelet Estimate Consistent w auto 11/02/21 05:58 Clumped Platelets Not Reportable 11/02/21 05:58 Plt Clumps, EDTA Not Reportable 11/02/21 05:58 Large Platelets Not Reportable 11/02/21 05:58 Giant Platelets Not Reportable 11/02/21 05:58 Platelet Satelliting Not Reportable 11/02/21 05:58 Plt Morphology Comment Not Reportable 11/02/21 05:58 RBC Morphology Not Reportable 11/02/21 05:58 Dimorphic RBCs Not Reportable 11/02/21 05:58 Polychromasia Not Reportable 11/02/21 05:58 Hypochromasia Not Reportable 11/02/21 05:58 Poikilocytosis Not Reportable 11/02/21 05:58 Anisocytosis Not Reportable 11/02/21 05:58 Microcytosis Not Reportable 11/02/21 05:58 Macrocytosis Not Reportable 11/02/21 05:58 Spherocytes Not Reportable 11/02/21 05:58 Pappenheimer Bodies Not Reportable 11/02/21 05:58 Sickle Cells Not Reportable 11/02/21 05:58 Target Cells Not Reportable 11/02/21 05:58 Tear Drop Cells Not Reportable 11/02/21 05:58 Ovalocytes Not Reportable 11/02/21 05:58 Helmet Cells Not Reportable 11/02/21 05:58 Jain-Dowling Bodies Not Reportable 11/02/21 05:58 [place] Rings Not Reportable 11/02/21 05:58 [place] Cells Not Reportable 11/02/21 05:58 Bite Cells Not Reportable 11/02/21 05:58 Crenated Cell Not Reportable 11/02/21 05:58 Elliptocytes Not Reportable 11/02/21 05:58 Acanthocytes (Spur) Not Reportable 11/02/21 05:58 Rouleaux Not Reportable 11/02/21 05:58 Hemoglobin C Crystals Not Reportable 11/02/21 05:58 Schistocytes Not Reportable 11/02/21 05:58 Malaria parasites Not Reportable 11/02/21 05:58 Harjit Bodies Not Reportable 11/02/21 05:58 Hem Pathologist Commnt No 11/02/21 05:58 PT 13.3 Sec. (12.2-14.9) 10/27/21 12:36 INR 0.91 (0.87-1.13) 10/27/21 12:36 APTT 27.3 Sec. (24.2-36.6) 10/27/21 12:36 D-Dimer 1824.38 ng/mlDDU (0-234) H 11/02/21 05:58 ABG pH 7.474 pH Units (7.350-7.450) H 10/26/21 23:20 ABG pCO2 35.2 mm Hg 10/26/21 23:20 ABG pO2 47.3 mm Hg (80.0-90.0) L 10/26/21 23:20 ABG HCO3 25.3 mmol/L (20.0-26.0) 10/26/21 23:20 ABG O2 Saturation 88.5 % (95.0-99.0) L 10/26/21 23:20 ABG O2 Content 16.6 (0.0-44) 10/26/21 23:20 ABG Base Excess 2.0 mmol/L (-2.0-3.0) 10/26/21 23:20 ABG Hemoglobin 13.5 gm/dl (14.0-18.0) L 10/26/21 23:20 ABG Carboxyhemoglobin 0.5 % (0.0-5.0) 10/26/21 23:20 ABG Methemoglobin 0.4 % (0.0-1.5) 10/26/21 23:20 Oxyhemoglobin 87.7 % (95.0-99.0) L 10/26/21 23:20 FiO2 21 % 10/26/21 23:20 Sodium 135 mmol/L (137-145) L 11/02/21 05:58 Potassium 4.8 mmol/L (3.6-5.0) 11/02/21 05:58 Chloride 99.0 mmol/L (98-107) 11/02/21 05:58 Carbon Dioxide 28 mmol/L (22-30) 11/02/21 05:58 Anion Gap 13 mmol/L 11/02/21 05:58 BUN 39 mg/dL (9-20) H 11/02/21 05:58 Creatinine 0.9 mg/dL (0.8-1.3) 11/02/21 05:58 Estimated GFR > 60 ml/min 11/02/21 05:58 BUN/Creatinine Ratio 43 % 11/02/21 05:58 Glucose 236 mg/dL (75-100) H 11/02/21 05:58 Calcium 8.9 mg/dL (8.4-10.2) 11/02/21 05:58 Magnesium 1.90 mg/dL (1.7-2.3) 10/26/21 21:46 Ferritin 497.7 ng/mL (30.0-300.0) H 11/02/21 05:58 Total Bilirubin 0.70 mg/dL (0.1-1.2) 11/01/21 04:00 Direct Bilirubin 0.2 mg/dL (0-0.2) 11/01/21 04:00 Indirect Bilirubin 0.5 mg/dL 11/01/21 04:00 AST 37 units/L (5-40) 11/01/21 04:00 ALT 47 units/L (7-56) 11/01/21 04:00 Alkaline Phosphatase 50 units/L (35-129) 11/01/21 04:00 Lactate Dehydrogenase 411 units/L (91-180) H 11/02/21 05:58 Troponin T < 0.010 ng/mL (0.00-0.029) 10/26/21 16:48 C-Reactive Protein 1.30 mg/dL (0.00-1.30) 11/02/21 05:58 NT-Pro-B Natriuret Pep 806.1 pg/mL (0-900) 10/26/21 16:48 Total Protein 6.1 g/dL (6.3-8.2) L 11/01/21 04:00 Albumin 3.3 g/dL (3.9-5) L 11/01/21 04:00 Albumin/Globulin Ratio 1.2 % 11/01/21 04:00 Procalcitonin < 0.05 ng/mL (<0.15) 10/31/21 08:07 TSH 0.889 mlU/mL (0.270-4.200) 10/26/21 21:46 Free T4 1.78 ng/dL (0.76-1.46) H 10/26/21 21:46 Coronavirus (PCR) Positive (Negative) A 10/27/21 Unknown Active Medications - Current Medications Current Medications: Generic Name Dose Route Start Last Admin Trade Name Freq PRN Reason Stop Dose Admin Acetaminophen 650 mg 10/26/21 18:52 Acetaminophen 325 Mg Tab PO Q4H PRN Pain MILD(1-3)/Fever >100.5/LEYVA Albuterol 2.5 mg 10/26/21 18:52 Albuterol 2.5 Mg/3 Ml Nebu IH Q4HRT PRN Shortness Of Breath Apixaban 10 mg 10/27/21 18:00 11/02/21 10:27 Apixaban 5 Mg Tab PO 11/02/21 23:59 10 mg Q12HR VASYL Administration Protocol Apixaban 5 mg 11/03/21 10:00 Apixaban 5 Mg Tab PO Q12HR VASYL Aspirin 81 mg 10/28/21 10:00 11/02/21 10:27 Aspirin 81 Mg Tab Chew PO 81 mg QDAY VASYL Administration Diltiazem HCl 60 mg 10/31/21 19:00 11/02/21 13:44 Diltiazem 60 Mg Tab PO 60 mg Q6HR VASYL Administration Famotidine 20 mg 10/29/21 10:00 11/02/21 10:33 Famotidine 20 Mg Tab PO 20 mg QDAY [facility] Administration Hydromorphone HCl 0.5 mg 10/26/21 18:52 Hydromorphone 1 Mg/1 Ml Inj IV Q23H PRN Pain , Severe (7-10) Methylprednisolone Sodium Succinate 60 mg 10/27/21 18:00 11/02/21 05:30 Methylprednisolone Sod Succinate 125 Mg/2 Ml Inj IV 60 mg Q8HR VASYL Administration Metoprolol Tartrate 50 mg 11/02/21 14:00 Metoprolol Tartrate 50 Mg Tab PO TID [facility] Ondansetron HCl 4 mg 10/26/21 18:52 Ondansetron 4 Mg/2 Ml Inj IV Q8H PRN Nausea And Vomiting Oxycodone/Acetaminophen 1 tab 10/26/21 18:52 Oxycodone /Acetaminophen 5-325mg Tab PO Q16H PRN Pain, Moderate (4-6) Sodium Chloride 10 ml 10/26/21 22:00 11/02/21 10:33 Sodium Chloride 0.9% 10 Ml Flush Syringe IV 10 ml BID VASYL Administration Sodium Chloride 10 ml 10/26/21 18:52 Sodium Chloride 0.9% 10 Ml Flush Syringe IV PRN PRN LINE FLUSH
[2021-11-02] MEDS: METOPROLOL TARTRATE 50 MG TAB PO SCH ×2 (17:32→21:12)
[2021-11-03] MEDS: dilTIAZem 60 MG TAB PO SCH ×4 (05:11→17:27)
[2021-11-03] MEDS: methylPREDNISolone Sod Succinate 125 MG/2 ML INJ IV SCH ×3 (05:12→22:07)
[2021-11-03] MEDS: METOPROLOL TARTRATE 50 MG TAB PO SCH ×3 (08:26→22:06)
[2021-11-03] MEDS: ASPIRIN 81 MG TAB CHEW PO SCH (10:11)
[2021-11-03] MEDS: FAMOTIDINE 20 MG TAB PO SCH (10:12)
[2021-11-03] MEDS: APIXABAN 5 MG TAB PO SCH ×2 (10:12→22:08)
--- NOTE | 2021-11-03 11:58 | Progress Note ---
Assessment and Plan Is a 75-year-old male with a past medical history of hypertension, coronary artery disease, and thoracic aortic aneurysm who presented to the ED with a complaint of difficulty breathing since [place] COVID Bilateral PE Acute hypoxic respiratory failure- on highflow NC COVID PNA Afib w/ RVR(new onset) HTN CAD Echo 10/26/2021-EF 50 to 55%. Right ventricle systolic function is normal. Trace mitral regurgitation. Trace tricuspid regurgitation. Ascending aorta is dilated 4.1 cm Stress11/20/2019- Normal pharmacological SPECT stress test. Stress ECG was negative for ischemia. No symptoms of chest pain with vasodilator stress. Normal perfusion without evidence of ischemia or infarct. TID 0.97 (normal). Normal LV systolic function (calculated LVEF 69%). No wall motion abnormalities. Echo 11/20/2019-LV normal size. Normal LV wall thickness. LV wall motion normal. LVEF is 59%. GLS decreased. Normal LV diastolic function. RV moderately to severely dilated. RV systolic function is normal. Estimated RAP 5 mmHg based on IVC. Unable to assess RVSP due to insufficient TR signal. AV not well visualized. AV opens well. Mild AR. No AV stenosis. Aortic arch normal. Sinotubular junction mildly dilated. Ascending aorta mildly dilated. No aortic coarctation. Ao Sinus s 3.[address] jnct s 3.87 cm Ao Asc s 4.1 cm Plan: Patient heart is now 90s-110s Continue metoprolol 50mg PO TID and diltiazem 60 mg p.o. q6hrs Continue Eliquis for anticoagulation Due to variable BP we will continue to hold patient's losartan Patient seen in conjunction with Dr. Garcia who agrees with this plan of care - Patient Problems (1) CAD (coronary artery disease) Current Visit: Yes Status: Acute (2) Acute hypoxemic respiratory failure Current Visit: No Status: Acute (3) Hypertension Current Visit: No Status: Acute Qualifiers: Hypertension type: primary hypertension Qualified Code(s): I10 - Essential (primary) hypertension (4) Obesity hypoventilation syndrome Current Visit: No Status: Acute (5) Pneumonia Current Visit: No Status: Acute Subjective Date of service: 11/03/21 Principal diagnosis: afib Interval history: Patient sitting in bed in no acute distress. Patient still on high flow nasal cannula but being weaned down. Patient currently being seen by PT Patient is still in A. fib rate trending 90s-110s Objective Vital Signs Temp Pulse Resp BP Pulse Ox 11/03/21 08:26 79 137/92 11/03/21 08:00 95 11/03/21 05:34 98.6 F 79 20 137/92 95 11/03/21 02:00 95 11/02/21 22:01 98.1 F 95 H 20 100/80 97 11/02/21 20:00 97 11/02/21 16:47 98.2 F 88 20 121/68 95 11/02/21 14:00 96 11/02/21 13:44 73 119/73 - Physical Examination General: No Apparent Distress HEENT: Positive: PERRL, Mucus Membranes Dry Neck: Positive: neck supple Cardiac: Positive: irregularly irregular, Tachycardia Lungs: Positive: Decreased Breath Sounds Neuro: Positive: Grossly Intact Abdomen: Positive: Soft, Active Bowel Sounds Skin: Negative: Rash, Suspicious Lesions, Ulceration Extremities: Present: upper extr. pulses. Absent: edema - Imaging and Cardiology Echo: report reviewed - Telemetry EKG Rhythm: Atrial Fibrillation - EKG Supraventricular dysrhythmia: atrial fibrillation AV and intraventricular conduction: right bundle branch block - Allied health notes Allied health notes reviewed: nursing
--- NOTE | 2021-11-03 12:04 | Progress Note ---
Assessment and Plan Cultures: SARS CoV2 PCR: Positive A/P: 75-year-old male with hypertension, CAD, thoracic aortic aneurysm peripheral vascular disease, obesity hypoventilation, morbid obesity: #Bilateral pneumonia: Secondary to COVID-19. Labs reveal WBC 5.8, D-dimer 1951, mild transaminitis, ferritin 319, LDH 268, CRP 11.8. Procalcitonin 0.05. CRP improved to 1.3, ferritin 497. #Acute hypoxic respiratory failure: on HFNC #New onset atrial fibrillation with RVR: cardiology following. #Bilateral PE: on anticoagulation. Recs: -On Solu-Medrol per pulmonary, complete at least 10 days of steroids -Completed Remdesivir -s/p Actemra 10/31/2021 -Anticoagulation for PE per primary -guarded prognosis Bruno Garrett MD, FACP, [facility] O: [phone] F: [phone] Subjective Date of service: 11/03/21 Principal diagnosis: afib Interval history: No fever. Remains on HFNC. Objective - Exam Narrative Exam: Physical Exam (reviewed in chart to minimize risk of transmission) Constitutional: deferred Head, Ears, Nose: deferred Eyes: deferred Neck: deferred Oral: deferred Cardiovascular: deferred Respiratory: deferred GI: deferred Musculoskeletal: deferred Skin: deferred Hem/Lymphatic: deferred Psych: deferred Neurological: deferred - Constitutional Vitals: Vital Signs Temp Pulse Resp BP Pulse Ox 98.6 F 79 20 137/92 95 11/03/21 05:34 11/03/21 08:26 11/03/21 05:34 11/03/21 08:26 11/03/21 08:00 Temperature -Last 24 Hours Temperature 98.6 F Temperature 98.1 F Temperature 98.2 F - Labs CBC & Chem 7: 11/02/21 05:58 11/02/21 05:58
--- NOTE | 2021-11-03 13:04 | Progress Note ---
Assessment and Plan Acute hypoxemic respiratory failure Bilateral pneumonia (CAP / COVID-19) COVID-19 infection Acute respiratory distress syndrome Bilateral pulmonary emboli A-fib with RVR OHS Hypertension Peripheral vascular disease - trend H&H - conservative volume strategies - clinically better, continue care as below; - continue BIPAP scheduled qhs with prn daytime use - ID evaluation pending - continue full anticoagulation re: P.E. - awake proning counseled - continue to wean supplemental oxygen for target O2 sat's > 90% acutely - aspiration precautions - continue bronchodilators with pulmonary hygiene per RT - continue accuchecks with glycemic control per SSI (While critically ill target blood glucose of 140-180 mg/dL; avoid hypoglycemia) - avoid nephrotoxins, renally dose all medications - avoid benzodiazepine's, reduce the possibility of delirium - Anti-infective's per ID rec's - prn analgesia per CPOT score - Maintenance of sleep-wake cycle, avoid delirium - G.I. & VTE prophylaxis - PT/OT/ROM exercises - continue mobility protocols for pressure ulcer prophylaxis - Monitor hemodynamics closely - continue other care per attending / other consultants - discharge planning ongoing concurrently COVID SPECIFIC INTERVENTIONS - Remdesivir as per ID/Pulmonary developed protocols (refused) - continue systemic steroids for severe COVID-19 infection empirically (Solumedrol) - follow repeat COVID tests results - zinc and vitamin C supplementation - Monitor inflammatory markers per facility protocol - ferritin, Ddimer, CRP - therapeutic anticoagulation per system Protocol based on d-dimer and clinical considerations (treatment dose re: VTE) - Continue contact and airborne isolation .... Re-evaluate in am & prn CONDITION: CRITICAL PROGNOSIS: GUARDED CODE STATUS: FULL CODE The high probability of a clinically significant, sudden or life-threatening deterioration of the [respiratory, cardiovascular & hematologic] system(s) required my full and direct attention, intervention and personal management. The aggregate critical care time was [32] minutes without overlap. Time includes spent on; [x] Data Review and interpretation [x] Patient assessment and monitoring of vital signs [x] Documentation [x] Medication orders and management Subjective Date of service: 11/03/21 Principal diagnosis: AHRF; A-fib; CAP; COVID-19 infection; Pulm Embolism; ARDS; Morbid Obesity Interval history: Patient is seen today for: AHRF; A-fib with RVR; Pneumonia; COVID-19 infection; Pulm Embolism; ARDS; Morbid Obesity; OHS Seen and examined at bedside; 24hour events reviewed; nursing and respiratory care staff consulted; no adverse overnight events reported to me; resting in bed; remains on supplemental oxygen but down to 50% at 20L flow; afebrile Objective Vital Signs - 12hr 11/03/21 11/03/21 11/03/21 02:00 05:34 08:00 Temperature 98.6 F Pulse Rate 79 Respiratory 20 Rate Blood Pressure 137/92 O2 Sat by Pulse 95 95 95 Oximetry 11/03/21 08:26 Temperature Pulse Rate 79 Respiratory Rate Blood Pressure 137/92 O2 Sat by Pulse Oximetry Constitutional: no acute distress, other (elderly obese male with mildly increased respiratory effort at rest) Eyes: non-icteric ENT: oropharynx moist Neck: supple, no lymphadenopathy, no JVD, other (large circumference) Effort: mildly labored Ascultation: Bilateral: diminished breath sounds, rales (inspiratory, bases) Percussion: Bilateral: not dull Cardiovascular: regular rate and rhythm Gastrointestinal: normoactive bowel sounds, soft, non-tender, non-distended (protuberant) Integumentary: normal Extremities: no cyanosis, pink and warm, pulses normal, no ischemia or petechiae Neurologic: non-focal exam, pupils equal and round, CN II-XII normal, motor strength normal and Psychiatric: mood appropriate, affect normal CBC and BMP: 11/02/21 05:58 11/02/21 05:58 ABG, PT/INR, D-dimer: ABG ABG pH 7.474 pH Units (7.350-7.450) H 10/26/21 23:20 ABG pCO2 35.2 mm Hg 10/26/21 23:20 ABG pO2 47.3 mm Hg (80.0-90.0) L 10/26/21 23:20 ABG O2 Saturation 88.5 % (95.0-99.0) L 10/26/21 23:20 PT/INR, D-dimer PT 13.3 Sec. (12.2-14.9) 10/27/21 12:36 INR 0.91 (0.87-1.13) 10/27/21 12:36 D-Dimer 1824.38 ng/mlDDU (0-234) H 11/02/21 05:58 Abnormal lab findings: Abnormal Labs 10/26/21 10/26/21 10/26/21 16:48 16:48 19:03 WBC MCV Lymph % (Auto) 11.3 L [place] % (Auto) 10.2 H Lymph # (Auto) 0.5 L Seg Neutrophils % 77.8 H Seg Neuts % (Manual) Lymphocytes % (Manual) Seg Neutrophils # Man Lymphocytes # (Manual) D-Dimer 1951.42 H ABG pH ABG pO2 ABG O2 Saturation ABG Hemoglobin Oxyhemoglobin Sodium Potassium 3.4 L Chloride 97.5 L BUN 24 H Glucose 108 H Calcium Ferritin AST Lactate Dehydrogenase C-Reactive Protein Total Protein Albumin Free T4 Coronavirus (PCR) 10/26/21 10/26/21 10/26/21 19:03 19:03 21:46 WBC MCV Lymph % (Auto) [place] % (Auto) Lymph # (Auto) Seg Neutrophils % Seg Neuts % (Manual) Lymphocytes % (Manual) Seg Neutrophils # Man Lymphocytes # (Manual) D-Dimer ABG pH ABG pO2 ABG O2 Saturation ABG Hemoglobin Oxyhemoglobin Sodium Potassium Chloride BUN Glucose 104 H Calcium Ferritin 319.2 H AST Lactate Dehydrogenase 268 H C-Reactive Protein 11.80 H Total Protein Albumin Free T4 1.78 H Coronavirus (PCR) 10/26/21 10/27/21 10/27/21 23:20 03:44 03:44 WBC MCV 95 H Lymph % (Auto) [place] % (Auto) Lymph # (Auto) Seg Neutrophils % Seg Neuts % (Manual) 84.0 H Lymphocytes % (Manual) 10.0 L Seg Neutrophils # Man Lymphocytes # (Manual) 0.6 L D-Dimer ABG pH 7.474 H ABG pO2 47.3 L ABG O2 Saturation 88.5 L ABG Hemoglobin 13.5 L Oxyhemoglobin 87.7 L Sodium Potassium Chloride 97.9 L BUN 23 H Glucose 139 H Calcium 8.3 L Ferritin AST Lactate Dehydrogenase C-Reactive Protein Total Protein Albumin Free T4 Coronavirus (PCR) 10/27/21 10/27/21 10/27/21 12:36 23:24 Unknown WBC 4.1 L MCV Lymph % (Auto) [place] % (Auto) Lymph # (Auto) Seg Neutrophils % Seg Neuts % (Manual) Lymphocytes % (Manual) Seg Neutrophils # Man Lymphocytes # (Manual) D-Dimer ABG pH ABG pO2 ABG O2 Saturation ABG Hemoglobin Oxyhemoglobin Sodium 136 L Potassium Chloride 96.8 L BUN 21 H Glucose 144 H Calcium Ferritin AST 49 H Lactate Dehydrogenase C-Reactive Protein Total Protein Albumin 3.4 L Free T4 Coronavirus (PCR) Positive A 10/28/21 10/29/21 10/30/21 04:53 04:28 05:02 WBC MCV Lymph % (Auto) [place] % (Auto) Lymph # (Auto) Seg Neutrophils % Seg Neuts % (Manual) Lymphocytes % (Manual) Seg Neutrophils # Man Lymphocytes # (Manual) D-Dimer ABG pH ABG pO2 ABG O2 Saturation ABG Hemoglobin Oxyhemoglobin Sodium 136 L Potassium Chloride BUN 24 H 38 H 44 H Glucose 163 H 225 H 215 H Calcium Ferritin AST 52 H 52 H 55 H Lactate Dehydrogenase C-Reactive Protein Total Protein 6.2 L 6.1 L Albumin 3.2 L 3.2 L 3.5 L Free T4 Coronavirus (PCR) 11/01/21 11/01/21 11/02/21 04:00 04:00 05:58 WBC MCV Lymph % (Auto) [place] % (Auto) Lymph # (Auto) Seg Neutrophils % Seg Neuts % (Manual) 98.0 H Lymphocytes % (Manual) 0 L Seg Neutrophils # Man 7.8 H Lymphocytes # (Manual) 0.0 L D-Dimer ABG pH ABG pO2 ABG O2 Saturation ABG Hemoglobin Oxyhemoglobin Sodium Potassium Chloride BUN 41 H Glucose 192 H Calcium Ferritin AST Lactate Dehydrogenase C-Reactive Protein Total Protein 6.1 L Albumin 3.3 L Free T4 Coronavirus (PCR) 11/02/21 11/02/21 11/02/21 05:58 05:58 05:58 WBC MCV Lymph % (Auto) [place] % (Auto) Lymph # (Auto) Seg Neutrophils % Seg Neuts % (Manual) Lymphocytes % (Manual) Seg Neutrophils # Man Lymphocytes # (Manual) D-Dimer 1824.38 H ABG pH ABG pO2 ABG O2 Saturation ABG Hemoglobin Oxyhemoglobin Sodium 135 L Potassium Chloride BUN 39 H Glucose 236 H Calcium Ferritin 497.7 H AST Lactate Dehydrogenase 411 H C-Reactive Protein Total Protein Albumin Free T4 Coronavirus (PCR) Allied health notes reviewed: nursing
--- NOTE | 2021-11-03 14:18 | Progress Note ---
Assessment and Plan Assessment and plan: #New onset atrial fibrillation Patient found to have new onset A. fib in the emergency department. Continue p.o. diltiazem 60 mg every 6 hours and metoprolol tartrate 50 mg twice daily Cardiology consulted; appreciate recs. Currently on Eliquis 10 mg every 12 hours for anticoagulation. Will transition to Eliquis 5 mg every 12 hours on 11/03/2021 Continue to monitor. #B/l pulmonary embolism Currently on Eliquis 10 mg every 12 hours for anticoagulation. Will transition to Eliquis 5 mg every 12 hours on 11/03/2021 #Acute hypoxemic respiratory failure #COVID-19 pneumonia Due to bilateral PE and COVID-19 pneumonia Currently on high flow nasal cannula 25 L / 55% FiO2 wean as tolerated. Infectious disease consulted; appreciate recs Pulmonology consulted; appreciate recs Continue steroids x10 days. Patient refused Remdesivir (correction from previous notes) Continue therapeutic anticoagulation and treatment protocol for COVID-19 Supplemental oxygen, pulse oximetry, nebulizer therapy, prone positioning while in bed, pulmonary toilet. #Obesity #Weight loss counseling #Exercise counseling - BMI 34 - Counseled patient on the importance of weight loss, incorporating exercise, a nd dietary changes (lean meats, fresh fruits and vegetables, and water intake). Patient expresses understanding. Outpatient pulmonary follow-up for sleep study. - Time: +15 min #Hypertension Monitor blood pressure every shift, continue medical management. #CAD -cont current cardiac medication #Thoracic aortic aneurysm CTA chest w/o any h/o Thoracic aortic aneurysm, but CTA chest w/o any acute findings, follow clinically. given high CRP and need for HFNC, candidate for Actemra (depending on availability), order placed. Pending procalcitonin level. #Advanced care planning -Disease education conducted, care plan discussed, diagnoses discussed, prognosis discussed, and patient acknowledges understanding with care plan -Time: +30 min Disposition Plan: Continue medical management Total Time Spent with Patient (Minutes): 45 minutes History Interval history: No acute events overnight. Hospitalist Physical - Constitutional Vitals: Temp Pulse Resp BP Pulse Ox 98.6 F 79 20 137/92 95 11/03/21 05:34 11/03/21 08:26 11/03/21 05:34 11/03/21 08:26 11/03/21 08:00 General appearance: Present: no acute distress, well-nourished, obese, other - EENT Eyes: Present: PERRL, EOM intact ENT: hearing intact, clear oral mucosa, dentition normal - Neck Neck: Present: supple, normal ROM - Respiratory Respiratory effort: normal Respiratory: bilateral: diminished (on HFNC 25L/55% ) - Cardiovascular Rhythm: regular Heart Sounds: Present: S1 & S2 - Extremities Extremities: no ischemia, pulses intact, pulses symmetrical, No edema, normal temperature, normal color Peripheral Pulses: within normal limits - Abdominal General gastrointestinal: soft, non-tender, non-distended, normal bowel sounds - Integumentary Integumentary: Present: clear, warm, dry - Psychiatric Psychiatric: appropriate mood/affect, cooperative - Neurologic Neurologic: CNII-XII intact, moves all extremities - Allied Health Allied health notes reviewed: nursing HEART Score - HEART Score Troponin: Troponin T < 0.010 ng/mL (0.00-0.029) 10/26/21 16:48 Results - Labs CBC & Chem 7: 11/02/21 05:58 11/02/21 05:58 Labs: Laboratory Last Values WBC 8.0 K/mm3 (4.5-11.0) 11/02/21 05:58 RBC 4.41 M/mm3 (3.65-5.03) 11/02/21 05:58 Hgb 13.4 gm/dl (11.8-15.2) 11/02/21 05:58 Hct 40.9 % (35.5-45.6) 11/02/21 05:58 MCV 93 fl (84-94) 11/02/21 05:58 MCH 31 pg (28-32) 11/02/21 05:58 MCHC 33 % (32-34) 11/02/21 05:58 RDW 13.5 % (13.2-15.2) 11/02/21 05:58 Plt Count 329 K/mm3 (140-440) 11/02/21 05:58 Lymph % (Auto) 11.3 % (13.4-35.0) L 10/26/21 16:48 Arroyo % (Auto) 10.2 % (0.0-7.3) H 10/26/21 16:48 Eos % (Auto) 0.5 % (0.0-4.3) 10/26/21 16:48 Baso % (Auto) 0.2 % (0.0-1.8) 10/26/21 16:48 Lymph # (Auto) 0.5 K/mm3 (1.2-5.4) L 10/26/21 16:48 Arroyo # (Auto) 0.5 K/mm3 (0.0-0.8) 10/26/21 16:48 Eos # (Auto) 0.0 K/mm3 (0.0-0.4) 10/26/21 16:48 Baso # (Auto) 0.0 K/mm3 (0.0-0.1) 10/26/21 16:48 Add Manual Diff Complete 11/02/21 05:58 Total Counted 100 11/02/21 05:58 Seg Neutrophils % Peer Tutor 11/02/21 05:58 Seg Neuts % (Manual) 98.0 % (40.0-70.0) H 11/02/21 05:58 Band Neutrophils % 0 % 11/02/21 05:58 Lymphocytes % (Manual) 0 % (13.4-35.0) L 11/02/21 05:58 Reactive Lymphs % (Man) 0 % 11/02/21 05:58 Monocytes % (Manual) 2.0 % (0.0-7.3) 11/02/21 05:58 Eosinophils % (Manual) 0 % (0.0-4.3) 11/02/21 05:58 Basophils % (Manual) 0 % (0.0-1.8) 11/02/21 05:58 Metamyelocytes % 0 % 11/02/21 05:58 Myelocytes % 0 % 11/02/21 05:58 Promyelocytes % 0 % 11/02/21 05:58 Blast Cells % 0 % 11/02/21 05:58 Nucleated RBC % Not Reportable 11/02/21 05:58 Seg Neutrophils # 3.5 K/mm3 (1.8-7.7) 10/26/21 16:48 Seg Neutrophils # Man 7.8 K/mm3 (1.8-7.7) H 11/02/21 05:58 Band Neutrophils # 0.0 K/mm3 11/02/21 05:58 Lymphocytes # (Manual) 0.0 K/mm3 (1.2-5.4) L 11/02/21 05:58 Abs React Lymphs (Man) 0.0 K/mm3 11/02/21 05:58 Monocytes # (Manual) 0.2 K/mm3 (0.0-0.8) 11/02/21 05:58 Eosinophils # (Manual) 0.0 K/mm3 (0.0-0.4) 11/02/21 05:58 Basophils # (Manual) 0.0 K/mm3 (0.0-0.1) 11/02/21 05:58 Metamyelocytes # 0.0 K/mm3 11/02/21 05:58 Myelocytes # 0.0 K/mm3 11/02/21 05:58 Promyelocytes # 0.0 K/mm3 11/02/21 05:58 Blast Cells # 0.0 K/mm3 11/02/21 05:58 WBC Morphology Not Reportable 11/02/21 05:58 Hypersegmented Neuts Not Reportable 11/02/21 05:58 Hyposegmented Neuts Not Reportable 11/02/21 05:58 Hypogranular Neuts Not Reportable 11/02/21 05:58 Smudge Cells Not Reportable 11/02/21 05:58 Toxic Granulation Not Reportable 11/02/21 05:58 Toxic Vacuolation Not Reportable 11/02/21 05:58 Dohle Bodies Not Reportable 11/02/21 05:58 Pelger-Huet Anomaly Not Reportable 11/02/21 05:58 Seven Rods Not Reportable 11/02/21 05:58 Platelet Estimate Consistent w auto 11/02/21 05:58 Clumped Platelets Not Reportable 11/02/21 05:58 Plt Clumps, EDTA Not Reportable 11/02/21 05:58 Large Platelets Not Reportable 11/02/21 05:58 Giant Platelets Not Reportable 11/02/21 05:58 Platelet Satelliting Not Reportable 11/02/21 05:58 Plt Morphology Comment Not Reportable 11/02/21 05:58 RBC Morphology Not Reportable 11/02/21 05:58 Dimorphic RBCs Not Reportable 11/02/21 05:58 Polychromasia Not Reportable 11/02/21 05:58 Hypochromasia Not Reportable 11/02/21 05:58 Poikilocytosis Not Reportable 11/02/21 05:58 Anisocytosis Not Reportable 11/02/21 05:58 Microcytosis Not Reportable 11/02/21 05:58 Macrocytosis Not Reportable 11/02/21 05:58 Spherocytes Not Reportable 11/02/21 05:58 Pappenheimer Bodies Not Reportable 11/02/21 05:58 Sickle Cells Not Reportable 11/02/21 05:58 Target Cells Not Reportable 11/02/21 05:58 Tear Drop Cells Not Reportable 11/02/21 05:58 Ovalocytes Not Reportable 11/02/21 05:58 Helmet Cells Not Reportable 11/02/21 05:58 Jain-Agar Bodies Not Reportable 11/02/21 05:58 Vinson Rings Not Reportable 11/02/21 05:58 [place] Cells Not Reportable 11/02/21 05:58 Bite Cells Not Reportable 11/02/21 05:58 Crenated Cell Not Reportable 11/02/21 05:58 Elliptocytes Not Reportable 11/02/21 05:58 Acanthocytes (Spur) Not Reportable 11/02/21 05:58 Rouleaux Not Reportable 11/02/21 05:58 Hemoglobin C Crystals Not Reportable 11/02/21 05:58 Schistocytes Not Reportable 11/02/21 05:58 Malaria parasites Not Reportable 11/02/21 05:58 Harjit Bodies Not Reportable 11/02/21 05:58 Hem Pathologist Commnt No 11/02/21 05:58 PT 13.3 Sec. (12.2-14.9) 10/27/21 12:36 INR 0.91 (0.87-1.13) 10/27/21 12:36 APTT 27.3 Sec. (24.2-36.6) 10/27/21 12:36 D-Dimer 1824.38 ng/mlDDU (0-234) H 11/02/21 05:58 ABG pH 7.474 pH Units (7.350-7.450) H 10/26/21 23:20 ABG pCO2 35.2 mm Hg 10/26/21 23:20 ABG pO2 47.3 mm Hg (80.0-90.0) L 10/26/21 23:20 ABG HCO3 25.3 mmol/L (20.0-26.0) 10/26/21 23:20 ABG O2 Saturation 88.5 % (95.0-99.0) L 10/26/21 23:20 ABG O2 Content 16.6 (0.0-44) 10/26/21 23:20 ABG Base Excess 2.0 mmol/L (-2.0-3.0) 10/26/21 23:20 ABG Hemoglobin 13.5 gm/dl (14.0-18.0) L 10/26/21 23:20 ABG Carboxyhemoglobin 0.5 % (0.0-5.0) 10/26/21 23:20 ABG Methemoglobin 0.4 % (0.0-1.5) 10/26/21 23:20 Oxyhemoglobin 87.7 % (95.0-99.0) L 10/26/21 23:20 FiO2 21 % 10/26/21 23:20 Sodium 135 mmol/L (137-145) L 11/02/21 05:58 Potassium 4.8 mmol/L (3.6-5.0) 11/02/21 05:58 Chloride 99.0 mmol/L (98-107) 11/02/21 05:58 Carbon Dioxide 28 mmol/L (22-30) 11/02/21 05:58 Anion Gap 13 mmol/L 11/02/21 05:58 BUN 39 mg/dL (9-20) H 11/02/21 05:58 Creatinine 0.9 mg/dL (0.8-1.3) 11/02/21 05:58 Estimated GFR > 60 ml/min 11/02/21 05:58 BUN/Creatinine Ratio 43 % 11/02/21 05:58 Glucose 236 mg/dL (75-100) H 11/02/21 05:58 Calcium 8.9 mg/dL (8.4-10.2) 11/02/21 05:58 Magnesium 1.90 mg/dL (1.7-2.3) 10/26/21 21:46 Ferritin 497.7 ng/mL (30.0-300.0) H 11/02/21 05:58 Total Bilirubin 0.70 mg/dL (0.1-1.2) 11/01/21 04:00 Direct Bilirubin 0.2 mg/dL (0-0.2) 11/01/21 04:00 Indirect Bilirubin 0.5 mg/dL 11/01/21 04:00 AST 37 units/L (5-40) 11/01/21 04:00 ALT 47 units/L (7-56) 11/01/21 04:00 Alkaline Phosphatase 50 units/L (35-129) 11/01/21 04:00 Lactate Dehydrogenase 411 units/L (91-180) H 11/02/21 05:58 Troponin T < 0.010 ng/mL (0.00-0.029) 10/26/21 16:48 C-Reactive Protein 1.30 mg/dL (0.00-1.30) 11/02/21 05:58 NT-Pro-B Natriuret Pep 806.1 pg/mL (0-900) 10/26/21 16:48 Total Protein 6.1 g/dL (6.3-8.2) L 11/01/21 04:00 Albumin 3.3 g/dL (3.9-5) L 11/01/21 04:00 Albumin/Globulin Ratio 1.2 % 11/01/21 04:00 Procalcitonin < 0.05 ng/mL (<0.15) 10/31/21 08:07 TSH 0.889 mlU/mL (0.270-4.200) 10/26/21 21:46 Free T4 1.78 ng/dL (0.76-1.46) H 10/26/21 21:46 Coronavirus (PCR) Positive (Negative) A 10/27/21 Unknown Active Medications - Current Medications Current Medications: Generic Name Dose Route Start Last Admin Trade Name Freq PRN Reason Stop Dose Admin Acetaminophen 650 mg 10/26/21 18:52 Acetaminophen 325 Mg Tab PO Q4H PRN Pain MILD(1-3)/Fever >100.5/LEYVA Albuterol 2.5 mg 10/26/21 18:52 Albuterol 2.5 Mg/3 Ml Nebu IH Q4HRT PRN Shortness Of Breath Apixaban 5 mg 11/03/21 10:00 11/03/21 10:12 Apixaban 5 Mg Tab PO 5 mg Q12HR VASYL Administration Aspirin 81 mg 10/28/21 10:00 11/03/21 10:11 Aspirin 81 Mg Tab Chew PO 81 mg QDAY VASYL Administration Diltiazem HCl 60 mg 10/31/21 19:00 11/03/21 05:11 Diltiazem 60 Mg Tab PO 60 mg Q6HR VASYL Administration Famotidine 20 mg 10/29/21 10:00 11/03/21 10:12 Famotidine 20 Mg Tab PO 20 mg QDAY VASYL Administration Hydromorphone HCl 0.5 mg 10/26/21 18:52 Hydromorphone 1 Mg/1 Ml Inj IV Q23H PRN Pain , Severe (7-10) Methylprednisolone Sodium Succinate 60 mg 10/27/21 18:00 11/03/21 05:12 Methylprednisolone Sod Succinate 125 Mg/2 Ml Inj IV 60 mg Q8HR VASYL Administration Metoprolol Tartrate 50 mg 11/02/21 14:00 11/03/21 08:26 Metoprolol Tartrate 50 Mg Tab PO 50 mg TID VASYL Administration Ondansetron HCl 4 mg 10/26/21 18:52 Ondansetron 4 Mg/2 Ml Inj IV Q8H PRN Nausea And Vomiting Oxycodone/Acetaminophen 1 tab 10/26/21 18:52 Oxycodone /Acetaminophen 5-325mg Tab PO Q16H PRN Pain, Moderate (4-6) Sodium Chloride 10 ml 10/26/21 22:00 11/03/21 10:12 Sodium Chloride 0.9% 10 Ml Flush Syringe IV 10 ml BID VASYL Administration Sodium Chloride 10 ml 10/26/21 18:52 Sodium Chloride 0.9% 10 Ml Flush Syringe IV PRN PRN LINE FLUSH Nutrition/Malnutrition Assess - Dietary Evaluation Nutrition/Malnutrition Findings: Nutrition Notes Start: 11/02/21 15:51 Freq: Status: Active Protocol: Document 11/02/21 15:51 JOANN (Rec: 11/02/21 16:06 JOANN [id number]) Nutrition Notes Need for Assessment generated from: LOS Initial or Follow up Assessment Current Diagnosis Coronary Artery Disease, Hypertension,Respiratory Failure Other Pertinent Diagnosis COVID-19, B/l pulmonary embolism, Aortic aneurysm, Atrial Fibrilation. Current Diet Cardiac Diet (since D 10/26). Labs/Tests 11/02: Na 135, BUN 39, Glu 236 . Pertinent Medications 11/02: Nutritionally unremarkable. Height 5 ft 11 in Weight 113.398 kg [place] Body Weight (kg) 78.18 BMI 34.8 Intake Prior to Admission Good Weight change and time frame Pt states not having lost body weight recently. Subjective/Other Information RD consult for LOS assessment. Pt's PO intake of meals has been Fair (50%), according to ADL notes. Ht & Wt checked with RN over the phone. Percent of energy/protein needs met: Prescribed Cardiac Diet provides for energy/protein needs (2,230 Kcal/85 g) during LOS. Burn Absent Trauma Absent GI Symptoms None Food Allergy No Skin Integrity/Comment Clear, warm, dry. Current % PO Fair (50-74%) Minimum of two criteria No Is patient on ventilator? No Is Patient Ambulatory and/or Out of Bed Yes REE-([place]-St. Jeor-ambulatory/OOB) [ 2458.443 [id number]] Kcal/Kg value to use for calculation 12 Approximate Energy Requirements Using 1361 kcal/Kg Calculation Used for Recommendations Kcal/kg Additional Notes Protein: 0.8-1 g/Kg; 77-96 g/ day. Fluids: 1 ml/Kcal, or as per MD. Nutrition Intervention Change Diet Order: Continue Cardiac Diet. Follow-Up By: 11/10/21 Additional Comments Continue monitoring food tolerance, %PO intake of meals , and BM.
[2021-11-04] MEDS: dilTIAZem 60 MG TAB PO SCH ×2 (01:35→05:36)
[2021-11-04] MEDS: methylPREDNISolone Sod Succinate 125 MG/2 ML INJ IV SCH ×2 (05:36→21:35)
--- NOTE | 2021-11-04 10:29 | Progress Note ---
Assessment and Plan Continue current management. - Patient Problems (1) Acute hypoxemic respiratory failure Current Visit: Yes Status: Acute (2) Pneumonia due to COVID-19 virus Current Visit: Yes Status: Acute (3) Atrial fibrillation with rapid ventricular response Current Visit: Yes Status: Acute (4) Acute pulmonary embolism Current Visit: Yes Status: Acute (5) CAD (coronary artery disease) Current Visit: Yes Status: Chronic Qualifiers: Coronary Disease-Associated Artery/Lesion type: habematolel artery (6) Hypertension Current Visit: Yes Status: Chronic Qualifiers: Hypertension type: primary hypertension Qualified Code(s): I10 - Essential (primary) hypertension (7) Obesity hypoventilation syndrome Current Visit: Yes Status: Chronic Subjective Date of service: 11/04/21 Principal diagnosis: Acute resp failure, Covid PNA, Acute PE, AF with RVR Interval history: He feels better. In AF with mildly RVR. Objective Vital Signs Temp Pulse Resp BP BP Pulse Ox 11/04/21 08:33 98 11/04/21 05:36 98 H 11/04/21 05:05 98.2 F 68 18 116/81 93 11/04/21 02:34 94 11/04/21 01:35 112 H 11/03/21 21:22 92 11/03/21 19:00 95 11/03/21 17:28 68 119/90 11/03/21 17:27 68 119/90 11/03/21 16:00 98.6 F 68 16 119/90 92 11/03/21 12:00 98 F 94 H 18 108/77 108/77 94 - Physical Examination General: No Apparent Distress HEENT: Positive: EOMI, Normocephaly, Mucus Membranes Moist, Mucus Membranes Dry Neck: Positive: neck supple, trachea midline Cardiac: Positive: irregularly irregular, S1/S2 Lungs: Positive: Rhonchi Neuro: Positive: Grossly Intact Abdomen: Positive: Soft, Active Bowel Sounds. Negative: Tender Skin: Negative: Rash Musculoskeletal: Normal Range of Motion Extremities: Present: upper extr. pulses. Absent: edema - Telemetry EKG Rhythm: Atrial Fibrillation (with RVR) AV and intraventricular conduction: right bundle branch block - Allied health notes Allied health notes reviewed: nursing
[2021-11-04] MEDS: METOPROLOL TARTRATE 50 MG TAB PO SCH ×2 (10:40→21:36)
--- NOTE | 2021-11-04 10:47 | Progress Note ---
Assessment and Plan Assessment and plan: #New onset atrial fibrillation Patient found to have new onset A. fib in the emergency department. Continue p.o. diltiazem 60 mg every 6 hours and metoprolol tartrate 50 mg twice daily Cardiology consulted; appreciate recs. Currently on Eliquis 10 mg every 12 hours for anticoagulation. Will transition to Eliquis 5 mg every 12 hours on 11/03/2021 Continue to monitor. #B/l pulmonary embolism Currently on Eliquis 10 mg every 12 hours for anticoagulation. Will transition to Eliquis 5 mg every 12 hours on 11/03/2021 #Acute hypoxemic respiratory failure #COVID-19 pneumonia Due to bilateral PE and COVID-19 pneumonia Currently on high flow nasal cannula 25 L / 50% FiO2 wean as tolerated. Infectious disease consulted; appreciate recs Pulmonology consulted; appreciate recs Continue steroids x10 days. Patient refused Remdesivir (correction from previous notes) Continue therapeutic anticoagulation and treatment protocol for COVID-19 Supplemental oxygen, pulse oximetry, nebulizer therapy, prone positioning while in bed, pulmonary toilet. #Obesity #Weight loss counseling #Exercise counseling - BMI 34 - Counseled patient on the importance of weight loss, incorporating exercise, a nd dietary changes (lean meats, fresh fruits and vegetables, and water intake). Patient expresses understanding. Outpatient pulmonary follow-up for sleep study. - Time: +15 min #Hypertension Monitor blood pressure every shift, continue medical management. #CAD -cont current cardiac medication #Thoracic aortic aneurysm CTA chest w/o any h/o Thoracic aortic aneurysm, but CTA chest w/o any acute findings, follow clinically. given high CRP and need for HFNC, candidate for Actemra (depending on availability), order placed. Pending procalcitonin level. #Advanced care planning -Disease education conducted, care plan discussed, diagnoses discussed, prognosis discussed, and patient acknowledges understanding with care plan -Time: +30 min Disposition Plan: Continue medical management Total Time Spent with Patient (Minutes): 45 min History Interval history: No acute events overnight. Hospitalist Physical - Constitutional Vitals: Temp Pulse Resp BP Pulse Ox 98.2 F 91 H 18 116/71 98 11/04/21 05:05 11/04/21 10:40 11/04/21 05:05 11/04/21 10:40 11/04/21 08:33 General appearance: Present: no acute distress, well-nourished, obese, other - EENT Eyes: Present: PERRL, EOM intact ENT: hearing intact, clear oral mucosa, dentition normal - Neck Neck: Present: supple, normal ROM - Respiratory Respiratory effort: labored Respiratory: bilateral: diminished (on 25L/50% FiO2) - Cardiovascular Rhythm: regular Heart Sounds: Present: S1 & S2 - Extremities Extremities: no ischemia, pulses intact, pulses symmetrical, No edema, normal temperature, normal color Peripheral Pulses: within normal limits - Abdominal General gastrointestinal: soft, non-tender, non-distended, normal bowel sounds - Integumentary Integumentary: Present: clear, warm, dry - Psychiatric Psychiatric: appropriate mood/affect, cooperative - Neurologic Neurologic: CNII-XII intact, moves all extremities - Allied Health Allied health notes reviewed: nursing HEART Score - HEART Score Troponin: Troponin T < 0.010 ng/mL (0.00-0.029) 10/26/21 16:48 Results - Labs CBC & Chem 7: 11/02/21 05:58 11/02/21 05:58 Labs: Laboratory Last Values WBC 8.0 K/mm3 (4.5-11.0) 11/02/21 05:58 RBC 4.41 M/mm3 (3.65-5.03) 11/02/21 05:58 Hgb 13.4 gm/dl (11.8-15.2) 11/02/21 05:58 Hct 40.9 % (35.5-45.6) 11/02/21 05:58 MCV 93 fl (84-94) 11/02/21 05:58 MCH 31 pg (28-32) 11/02/21 05:58 MCHC 33 % (32-34) 11/02/21 05:58 RDW 13.5 % (13.2-15.2) 11/02/21 05:58 Plt Count 329 K/mm3 (140-440) 11/02/21 05:58 Lymph % (Auto) 11.3 % (13.4-35.0) L 10/26/21 16:48 [place] % (Auto) 10.2 % (0.0-7.3) H 10/26/21 16:48 Eos % (Auto) 0.5 % (0.0-4.3) 10/26/21 16:48 Baso % (Auto) 0.2 % (0.0-1.8) 10/26/21 16:48 Lymph # (Auto) 0.5 K/mm3 (1.2-5.4) L 10/26/21 16:48 [place] # (Auto) 0.5 K/mm3 (0.0-0.8) 10/26/21 16:48 Eos # (Auto) 0.0 K/mm3 (0.0-0.4) 10/26/21 16:48 Baso # (Auto) 0.0 K/mm3 (0.0-0.1) 10/26/21 16:48 Add Manual Diff Complete 11/02/21 05:58 Total Counted 100 11/02/21 05:58 Seg Neutrophils % [employer] 11/02/21 05:58 Seg Neuts % (Manual) 98.0 % (40.0-70.0) H 11/02/21 05:58 Band Neutrophils % 0 % 11/02/21 05:58 Lymphocytes % (Manual) 0 % (13.4-35.0) L 11/02/21 05:58 Reactive Lymphs % (Man) 0 % 11/02/21 05:58 Monocytes % (Manual) 2.0 % (0.0-7.3) 11/02/21 05:58 Eosinophils % (Manual) 0 % (0.0-4.3) 11/02/21 05:58 Basophils % (Manual) 0 % (0.0-1.8) 11/02/21 05:58 Metamyelocytes % 0 % 11/02/21 05:58 Myelocytes % 0 % 11/02/21 05:58 Promyelocytes % 0 % 11/02/21 05:58 Blast Cells % 0 % 11/02/21 05:58 Nucleated RBC % Not Reportable 11/02/21 05:58 Seg Neutrophils # 3.5 K/mm3 (1.8-7.7) 10/26/21 16:48 Seg Neutrophils # Man 7.8 K/mm3 (1.8-7.7) H 11/02/21 05:58 Band Neutrophils # 0.0 K/mm3 11/02/21 05:58 Lymphocytes # (Manual) 0.0 K/mm3 (1.2-5.4) L 11/02/21 05:58 Abs React Lymphs (Man) 0.0 K/mm3 11/02/21 05:58 Monocytes # (Manual) 0.2 K/mm3 (0.0-0.8) 11/02/21 05:58 Eosinophils # (Manual) 0.0 K/mm3 (0.0-0.4) 11/02/21 05:58 Basophils # (Manual) 0.0 K/mm3 (0.0-0.1) 11/02/21 05:58 Metamyelocytes # 0.0 K/mm3 11/02/21 05:58 Myelocytes # 0.0 K/mm3 11/02/21 05:58 Promyelocytes # 0.0 K/mm3 11/02/21 05:58 Blast Cells # 0.0 K/mm3 11/02/21 05:58 WBC Morphology Not Reportable 11/02/21 05:58 Hypersegmented Neuts Not Reportable 11/02/21 05:58 Hyposegmented Neuts Not Reportable 11/02/21 05:58 Hypogranular Neuts Not Reportable 11/02/21 05:58 Smudge Cells Not Reportable 11/02/21 05:58 Toxic Granulation Not Reportable 11/02/21 05:58 Toxic Vacuolation Not Reportable 11/02/21 05:58 Dohle Bodies Not Reportable 11/02/21 05:58 Pelger-Huet Anomaly Not Reportable 11/02/21 05:58 Seven Rods Not Reportable 11/02/21 05:58 Platelet Estimate Consistent w auto 11/02/21 05:58 Clumped Platelets Not Reportable 11/02/21 05:58 Plt Clumps, EDTA Not Reportable 11/02/21 05:58 Large Platelets Not Reportable 11/02/21 05:58 Giant Platelets Not Reportable 11/02/21 05:58 Platelet Satelliting Not Reportable 11/02/21 05:58 Plt Morphology Comment Not Reportable 11/02/21 05:58 RBC Morphology Not Reportable 11/02/21 05:58 Dimorphic RBCs Not Reportable 11/02/21 05:58 Polychromasia Not Reportable 11/02/21 05:58 Hypochromasia Not Reportable 11/02/21 05:58 Poikilocytosis Not Reportable 11/02/21 05:58 Anisocytosis Not Reportable 11/02/21 05:58 Microcytosis Not Reportable 11/02/21 05:58 Macrocytosis Not Reportable 11/02/21 05:58 Spherocytes Not Reportable 11/02/21 05:58 Pappenheimer Bodies Not Reportable 11/02/21 05:58 Sickle Cells Not Reportable 11/02/21 05:58 Target Cells Not Reportable 11/02/21 05:58 Tear Drop Cells Not Reportable 11/02/21 05:58 Ovalocytes Not Reportable 11/02/21 05:58 Helmet Cells Not Reportable 11/02/21 05:58 [place] Bodies Not Reportable 11/02/21 05:58 [place] Rings Not Reportable 11/02/21 05:58 [place] Cells Not Reportable 11/02/21 05:58 Bite Cells Not Reportable 11/02/21 05:58 Crenated Cell Not Reportable 11/02/21 05:58 Elliptocytes Not Reportable 11/02/21 05:58 Acanthocytes (Spur) Not Reportable 11/02/21 05:58 Rouleaux Not Reportable 11/02/21 05:58 Hemoglobin C Crystals Not Reportable 11/02/21 05:58 Schistocytes Not Reportable 11/02/21 05:58 Malaria parasites Not Reportable 11/02/21 05:58 Harjit Bodies Not Reportable 11/02/21 05:58 Hem Pathologist Commnt No 11/02/21 05:58 PT 13.3 Sec. (12.2-14.9) 10/27/21 12:36 INR 0.91 (0.87-1.13) 10/27/21 12:36 APTT 27.3 Sec. (24.2-36.6) 10/27/21 12:36 D-Dimer 1824.38 ng/mlDDU (0-234) H 11/02/21 05:58 ABG pH 7.474 pH Units (7.350-7.450) H 10/26/21 23:20 ABG pCO2 35.2 mm Hg 10/26/21 23:20 ABG pO2 47.3 mm Hg (80.0-90.0) L 10/26/21 23:20 ABG HCO3 25.3 mmol/L (20.0-26.0) 10/26/21 23:20 ABG O2 Saturation 88.5 % (95.0-99.0) L 10/26/21 23:20 ABG O2 Content 16.6 (0.0-44) 10/26/21 23:20 ABG Base Excess 2.0 mmol/L (-2.0-3.0) 10/26/21 23:20 ABG Hemoglobin 13.5 gm/dl (14.0-18.0) L 10/26/21 23:20 ABG Carboxyhemoglobin 0.5 % (0.0-5.0) 10/26/21 23:20 ABG Methemoglobin 0.4 % (0.0-1.5) 10/26/21 23:20 Oxyhemoglobin 87.7 % (95.0-99.0) L 10/26/21 23:20 FiO2 21 % 10/26/21 23:20 Sodium 135 mmol/L (137-145) L 11/02/21 05:58 Potassium 4.8 mmol/L (3.6-5.0) 11/02/21 05:58 Chloride 99.0 mmol/L (98-107) 11/02/21 05:58 Carbon Dioxide 28 mmol/L (22-30) 11/02/21 05:58 Anion Gap 13 mmol/L 11/02/21 05:58 BUN 39 mg/dL (9-20) H 11/02/21 05:58 Creatinine 0.9 mg/dL (0.8-1.3) 11/02/21 05:58 Estimated GFR > 60 ml/min 11/02/21 05:58 BUN/Creatinine Ratio 43 % 11/02/21 05:58 Glucose 236 mg/dL (75-100) H 11/02/21 05:58 Calcium 8.9 mg/dL (8.4-10.2) 11/02/21 05:58 Magnesium 1.90 mg/dL (1.7-2.3) 10/26/21 21:46 Ferritin 497.7 ng/mL (30.0-300.0) H 11/02/21 05:58 Total Bilirubin 0.70 mg/dL (0.1-1.2) 11/01/21 04:00 Direct Bilirubin 0.2 mg/dL (0-0.2) 11/01/21 04:00 Indirect Bilirubin 0.5 mg/dL 11/01/21 04:00 AST 37 units/L (5-40) 11/01/21 04:00 ALT 47 units/L (7-56) 11/01/21 04:00 Alkaline Phosphatase 50 units/L (35-129) 11/01/21 04:00 Lactate Dehydrogenase 411 units/L (91-180) H 11/02/21 05:58 Troponin T < 0.010 ng/mL (0.00-0.029) 10/26/21 16:48 C-Reactive Protein 1.30 mg/dL (0.00-1.30) 11/02/21 05:58 NT-Pro-B Natriuret Pep 806.1 pg/mL (0-900) 10/26/21 16:48 Total Protein 6.1 g/dL (6.3-8.2) L 11/01/21 04:00 Albumin 3.3 g/dL (3.9-5) L 11/01/21 04:00 Albumin/Globulin Ratio 1.2 % 11/01/21 04:00 Procalcitonin < 0.05 ng/mL (<0.15) 10/31/21 08:07 TSH 0.889 mlU/mL (0.270-4.200) 10/26/21 21:46 Free T4 1.78 ng/dL (0.76-1.46) H 10/26/21 21:46 Coronavirus (PCR) Positive (Negative) A 10/27/21 Unknown [place]/IV: Voiding Method Urinal Active Medications - Current Medications Current Medications: Generic Name Dose Route Start Last Admin Trade Name Freq PRN Reason Stop Dose Admin Acetaminophen 650 mg 10/26/21 18:52 Acetaminophen 325 Mg Tab PO Q4H PRN Pain MILD(1-3)/Fever >100.5/LEYVA Albuterol 2.5 mg 10/26/21 18:52 Albuterol 2.5 Mg/3 Ml Nebu IH Q4HRT PRN Shortness Of Breath Apixaban 5 mg 11/03/21 10:00 11/03/21 22:08 Apixaban 5 Mg Tab PO 5 mg Q12HR VASYL Administration Aspirin 81 mg 10/28/21 10:00 11/03/21 10:11 Aspirin 81 Mg Tab Chew PO 81 mg QDAY VASYL Administration Diltiazem HCl 60 mg 10/31/21 19:00 11/04/21 05:36 Diltiazem 60 Mg Tab PO 60 mg Q6HR VASYL Administration Famotidine 20 mg 10/29/21 10:00 11/03/21 10:12 Famotidine 20 Mg Tab PO 20 mg QDAY VASYL Administration Hydromorphone HCl 0.5 mg 10/26/21 18:52 Hydromorphone 1 Mg/1 Ml Inj IV Q23H PRN Pain , Severe (7-10) Methylprednisolone Sodium Succinate 60 mg 10/27/21 18:00 11/04/21 05:36 Methylprednisolone Sod Succinate 125 Mg/2 Ml Inj IV 60 mg Q8HR VASYL Administration Metoprolol Tartrate 50 mg 11/02/21 14:00 11/04/21 10:40 Metoprolol Tartrate 50 Mg Tab PO 50 mg TID VASYL Administration Ondansetron HCl 4 mg 10/26/21 18:52 Ondansetron 4 Mg/2 Ml Inj IV Q8H PRN Nausea And Vomiting Oxycodone/Acetaminophen 1 tab 10/26/21 18:52 Oxycodone /Acetaminophen 5-325mg Tab PO Q16H PRN Pain, Moderate (4-6) Sodium Chloride 10 ml 10/26/21 22:00 11/04/21 10:39 Sodium Chloride 0.9% 10 Ml Flush Syringe IV 10 ml BID VASYL Administration Sodium Chloride 10 ml 10/26/21 18:52 Sodium Chloride 0.9% 10 Ml Flush Syringe IV PRN PRN LINE FLUSH Nutrition/Malnutrition Assess - Dietary Evaluation Nutrition/Malnutrition Findings: Nutrition Notes Start: 11/02/21 15:51 Freq: Status: Active Protocol: Document 11/02/21 15:51 JOANN (Rec: 11/02/21 16:06 JOANN [id number]) Nutrition Notes Need for Assessment generated from: LOS Initial or Follow up Assessment Current Diagnosis Coronary Artery Disease, Hypertension,Respiratory Failure Other Pertinent Diagnosis COVID-19, B/l pulmonary embolism, Aortic aneurysm, Atrial Fibrilation. Current Diet Cardiac Diet (since D 10/26). Labs/Tests 11/02: Na 135, BUN 39, Glu 236 . Pertinent Medications 01/13: Nutritionally unremarkable. Height 5 ft 11 in Weight 113.398 kg [place] Body Weight (kg) 78.18 BMI 34.8 Intake Prior to Admission Good Weight change and time frame Pt states not having lost body weight recently. Subjective/Other Information RD consult for LOS assessment. Pt's PO intake of meals has been Fair (50%), according to ADL notes. Ht & Wt checked with RN over the phone. Percent of energy/protein needs met: Prescribed Cardiac Diet provides for energy/protein needs (2,230 Kcal/85 g) during LOS. Burn Absent Trauma Absent GI Symptoms None Food Allergy No Skin Integrity/Comment Clear, warm, dry. Current % PO Fair (50-74%) Minimum of two criteria No Is patient on ventilator? No Is Patient Ambulatory and/or Out of Bed Yes REE-([place]-ambulatory/OOB) [ 2458.443 [id number]] Kcal/Kg value to use for calculation 12 Approximate Energy Requirements Using 1361 kcal/Kg Calculation Used for Recommendations Kcal/kg Additional Notes Protein: 0.8-1 g/Kg; 77-96 g/ day. Fluids: 1 ml/Kcal, or as per MD. Nutrition Intervention Change Diet Order: Continue Cardiac Diet. Follow-Up By: 11/10/21 Additional Comments Continue monitoring food tolerance, %PO intake of meals , and BM.
--- NOTE | 2021-11-04 15:05 | Progress Note ---
Assessment and Plan Acute hypoxemic respiratory failure Bilateral pneumonia (CAP / COVID-19) COVID-19 infection Acute respiratory distress syndrome Bilateral pulmonary emboli A-fib with RVR OHS Hypertension Peripheral vascular disease - no new issues today, continue care as below; - continue BIPAP scheduled qhs with prn daytime use - ID evaluation pending - continue full anticoagulation re: P.E. - awake proning counseled - continue to wean supplemental oxygen for target O2 sat's > 90% acutely - aspiration precautions - continue bronchodilators with pulmonary hygiene per RT - continue accuchecks with glycemic control per SSI (While critically ill target blood glucose of 140-180 mg/dL; avoid hypoglycemia) - avoid nephrotoxins, renally dose all medications - avoid benzodiazepine's, reduce the possibility of delirium - Anti-infective's per ID rec's - prn analgesia per CPOT score - Maintenance of sleep-wake cycle, avoid delirium - G.I. & VTE prophylaxis - PT/OT/ROM exercises - continue mobility protocols for pressure ulcer prophylaxis - Monitor hemodynamics closely - continue other care per attending / other consultants - discharge planning ongoing concurrently COVID SPECIFIC INTERVENTIONS - Remdesivir as per ID/Pulmonary developed protocols (refused) - continue systemic steroids for severe COVID-19 infection empirically (Solumedrol) - follow repeat COVID tests results - zinc and vitamin C supplementation - Monitor inflammatory markers per facility protocol - ferritin, Ddimer, CRP - therapeutic anticoagulation per system Protocol based on d-dimer and clinical considerations (treatment dose re: VTE) - Continue contact and airborne isolation .... Re-evaluate in am & prn CONDITION: CRITICAL PROGNOSIS: GUARDED CODE STATUS: FULL CODE The high probability of a clinically significant, sudden or life-threatening deterioration of the [respiratory, cardiovascular & hematologic] system(s) required my full and direct attention, intervention and personal management. The aggregate critical care time was [34] minutes without overlap. Time includes spent on; [x] Data Review and interpretation [x] Patient assessment and monitoring of vital signs [x] Documentation [x] Medication orders and management Subjective Date of service: 11/04/21 Principal diagnosis: Acute resp failure, Covid PNA, Acute PE, AF with RVR Interval history: Patient is seen today for: AHRF; A-fib with RVR; Pneumonia; COVID-19 infection; Pulm Embolism; ARDS; Morbid Obesity; OHS Seen and examined at bedside; 24hour events reviewed; nursing and respiratory care staff consulted; no adverse overnight events reported to me; resting in bed; remains on supplemental oxygen; denies acute chest pains or palpitations Objective Vital Signs - 12hr 11/04/21 11/04/21 11/04/21 05:05 05:36 08:33 Temperature 98.2 F Pulse Rate 68 98 H Respiratory 18 Rate Blood Pressure 116/81 O2 Sat by Pulse 93 98 Oximetry 11/04/21 11/04/21 11/04/21 10:40 10:43 11:18 Temperature 98.6 F Pulse Rate 91 H 96 H Respiratory 20 Rate Blood Pressure 116/71 124/82 O2 Sat by Pulse 95 95 Oximetry Constitutional: no acute distress, other (elderly obese male with mildly increased respiratory effort at rest) Eyes: non-icteric ENT: oropharynx moist Neck: supple, no lymphadenopathy, no JVD, other (large circumference) Effort: mildly labored Ascultation: Bilateral: diminished breath sounds, rhonchi Percussion: Bilateral: not dull Cardiovascular: regular rate and rhythm Gastrointestinal: normoactive bowel sounds, soft, non-tender, non-distended (protuberant) Integumentary: normal Extremities: no cyanosis, pink and warm, pulses normal, no ischemia or petechiae Neurologic: non-focal exam, pupils equal and round, CN II-XII normal, motor strength normal and Psychiatric: mood appropriate, affect normal CBC and BMP: 11/05/21 06:01 11/05/21 06:01 ABG, PT/INR, D-dimer: ABG ABG pH 7.474 pH Units (7.350-7.450) H 10/26/21 23:20 ABG pCO2 35.2 mm Hg 10/26/21 23:20 ABG pO2 47.3 mm Hg (80.0-90.0) L 10/26/21 23:20 ABG O2 Saturation 88.5 % (95.0-99.0) L 10/26/21 23:20 PT/INR, D-dimer PT 13.3 Sec. (12.2-14.9) 10/27/21 12:36 INR 0.91 (0.87-1.13) 10/27/21 12:36 D-Dimer 1824.38 ng/mlDDU (0-234) H 11/02/21 05:58 Abnormal lab findings: Abnormal Labs 10/26/21 10/26/21 10/26/21 16:48 16:48 19:03 WBC MCV Lymph % (Auto) 11.3 L [place] % (Auto) 10.2 H Lymph # (Auto) 0.5 L Seg Neutrophils % 77.8 H Seg Neuts % (Manual) Lymphocytes % (Manual) Seg Neutrophils # Man Lymphocytes # (Manual) D-Dimer 1951.42 H ABG pH ABG pO2 ABG O2 Saturation ABG Hemoglobin Oxyhemoglobin Sodium Potassium 3.4 L Chloride 97.5 L BUN 24 H Glucose 108 H Calcium Ferritin AST Lactate Dehydrogenase C-Reactive Protein Total Protein Albumin Free T4 Coronavirus (PCR) 10/26/21 10/26/21 10/26/21 19:03 19:03 21:46 WBC MCV Lymph % (Auto) [place] % (Auto) Lymph # (Auto) Seg Neutrophils % Seg Neuts % (Manual) Lymphocytes % (Manual) Seg Neutrophils # Man Lymphocytes # (Manual) D-Dimer ABG pH ABG pO2 ABG O2 Saturation ABG Hemoglobin Oxyhemoglobin Sodium Potassium Chloride BUN Glucose 104 H Calcium Ferritin 319.2 H AST Lactate Dehydrogenase 268 H C-Reactive Protein 11.80 H Total Protein Albumin Free T4 1.78 H Coronavirus (PCR) 10/26/21 10/27/21 10/27/21 23:20 03:44 03:44 WBC MCV 95 H Lymph % (Auto) [place] % (Auto) Lymph # (Auto) Seg Neutrophils % Seg Neuts % (Manual) 84.0 H Lymphocytes % (Manual) 10.0 L Seg Neutrophils # Man Lymphocytes # (Manual) 0.6 L D-Dimer ABG pH 7.474 H ABG pO2 47.3 L ABG O2 Saturation 88.5 L ABG Hemoglobin 13.5 L Oxyhemoglobin 87.7 L Sodium Potassium Chloride 97.9 L BUN 23 H Glucose 139 H Calcium 8.3 L Ferritin AST Lactate Dehydrogenase C-Reactive Protein Total Protein Albumin Free T4 Coronavirus (PCR) 10/27/21 10/27/21 10/27/21 12:36 23:24 Unknown WBC 4.1 L MCV Lymph % (Auto) [place] % (Auto) Lymph # (Auto) Seg Neutrophils % Seg Neuts % (Manual) Lymphocytes % (Manual) Seg Neutrophils # Man Lymphocytes # (Manual) D-Dimer ABG pH ABG pO2 ABG O2 Saturation ABG Hemoglobin Oxyhemoglobin Sodium 136 L Potassium Chloride 96.8 L BUN 21 H Glucose 144 H Calcium Ferritin AST 49 H Lactate Dehydrogenase C-Reactive Protein Total Protein Albumin 3.4 L Free T4 Coronavirus (PCR) Positive A 10/28/21 10/29/21 10/30/21 04:53 04:28 05:02 WBC MCV Lymph % (Auto) [place] % (Auto) Lymph # (Auto) Seg Neutrophils % Seg Neuts % (Manual) Lymphocytes % (Manual) Seg Neutrophils # Man Lymphocytes # (Manual) D-Dimer ABG pH ABG pO2 ABG O2 Saturation ABG Hemoglobin Oxyhemoglobin Sodium 136 L Potassium Chloride BUN 24 H 38 H 44 H Glucose 163 H 225 H 215 H Calcium Ferritin AST 52 H 52 H 55 H Lactate Dehydrogenase C-Reactive Protein Total Protein 6.2 L 6.1 L Albumin 3.2 L 3.2 L 3.5 L Free T4 Coronavirus (PCR) 11/01/21 11/01/21 11/02/21 04:00 04:00 05:58 WBC MCV Lymph % (Auto) [place] % (Auto) Lymph # (Auto) Seg Neutrophils % Seg Neuts % (Manual) 98.0 H Lymphocytes % (Manual) 0 L Seg Neutrophils # Man 7.8 H Lymphocytes # (Manual) 0.0 L D-Dimer ABG pH ABG pO2 ABG O2 Saturation ABG Hemoglobin Oxyhemoglobin Sodium Potassium Chloride BUN 41 H Glucose 192 H Calcium Ferritin AST Lactate Dehydrogenase C-Reactive Protein Total Protein 6.1 L Albumin 3.3 L Free T4 Coronavirus (PCR) 11/02/21 11/02/21 11/02/21 05:58 05:58 05:58 WBC MCV Lymph % (Auto) [place] % (Auto) Lymph # (Auto) Seg Neutrophils % Seg Neuts % (Manual) Lymphocytes % (Manual) Seg Neutrophils # Man Lymphocytes # (Manual) D-Dimer 1824.38 H ABG pH ABG pO2 ABG O2 Saturation ABG Hemoglobin Oxyhemoglobin Sodium 135 L Potassium Chloride BUN 39 H Glucose 236 H Calcium Ferritin 497.7 H AST Lactate Dehydrogenase 411 H C-Reactive Protein Total Protein Albumin Free T4 Coronavirus (PCR) Allied health notes reviewed: nursing
[2021-11-04] MEDS: APIXABAN 5 MG TAB PO SCH (21:36)
[2021-11-05] MEDS: dilTIAZem 60 MG TAB PO SCH ×4 (01:01→17:36)
[2021-11-05] MEDS: methylPREDNISolone Sod Succinate 125 MG/2 ML INJ IV SCH ×3 (05:43→21:57)
[2021-11-05 06:56] LABS: Basophils % (Auto) 0.1 % (0.0-1.8); Hematocrit 38.9 % (35.5-45.6); Hemoglobin 12.9 gm/dl (11.8-15.2); Lymphocytes # (Auto) 0.3 K/mm3 (1.2-5.4); Lymphocytes % (Auto) 5.1 % (13.4-35.0); Mean Corpuscular HGB Conc 33 % (32-34); Mean Corpuscular Volume 92 fl (84-94); Monocytes # (Auto) 0.3 K/mm3 (0.0-0.8); Platelet Count 295 K/mm3 (140-440); Red Blood Count 4.22 M/mm3 (3.65-5.03); Red Cell Distribution Width 13.4 % (13.2-15.2)
[2021-11-05 07:07] LABS: BUN/Creatinine Ratio 44; Blood Urea Nitrogen 35 mg/dL (9-20); Calcium 8.6 mg/dL (8.4-10.2); Hemolysis Index 24
[2021-11-05] MEDS: ASPIRIN 81 MG TAB CHEW PO SCH (09:12)
[2021-11-05] MEDS: FAMOTIDINE 20 MG TAB PO SCH (09:13)
[2021-11-05] MEDS: APIXABAN 5 MG TAB PO SCH ×2 (09:13→21:57)
[2021-11-05] MEDS: METOPROLOL TARTRATE 50 MG TAB PO SCH ×3 (09:13→21:56)
--- NOTE | 2021-11-05 09:39 | Progress Note ---
Assessment and Plan Assessment and plan: #New onset atrial fibrillation Patient found to have new onset A. fib in the emergency department. Continue p.o. diltiazem 60 mg every 6 hours and metoprolol tartrate 50 mg 3 times daily. Unsure as to why the patient missed 12 doses yesterday. Cardiology consulted; appreciate recs. Currently on Eliquis 5 mg every 12 hours for anticoagulation. Continue to monitor. #B/l pulmonary embolism Currently on Eliquis 5 mg every 12 hours for anticoagulation. #Acute hypoxemic respiratory failure #COVID-19 pneumonia Due to bilateral PE and COVID-19 pneumonia Currently on high flow nasal cannula 20 L / 45% FiO2 wean as tolerated. Infectious disease consulted; appreciate recs Pulmonology consulted; appreciate recs Continue steroids x10 days. Patient refused Remdesivir (correction from previous notes) Continue therapeutic anticoagulation and treatment protocol for COVID-19 Supplemental oxygen, pulse oximetry, nebulizer therapy, prone positioning while in bed, pulmonary toilet. #Obesity #Weight loss counseling #Exercise counseling - BMI 34 - Counseled patient on the importance of weight loss, incorporating exercise, and dietary changes (lean meats, fresh fruits and vegetables, and water intake). Patient expresses understanding. Outpatient pulmonary follow-up for sleep study. - Time: +15 min #Hypertension Monitor blood pressure every shift, continue medical management. #CAD -cont current cardiac medication #Thoracic aortic aneurysm CTA chest w/o any h/o Thoracic aortic aneurysm, but CTA chest w/o any acute findings, follow clinically. given high CRP and need for HFNC, candidate for Actemra (depending on availability), order placed. Pending procalcitonin level. #Advanced care planning -Disease education conducted, care plan discussed, diagnoses discussed, prognosis discussed, and patient acknowledges understanding with care plan -Time: +30 min Disposition Plan: Continue medical management Total Time Spent with Patient (Minutes): 45 minutes History Interval history: No acute events overnight. Hospitalist Physical - Constitutional Vitals: Temp Pulse Resp BP Pulse Ox 98.4 F 129 H 21 128/78 98 11/04/21 20:36 11/05/21 09:13 11/04/21 20:36 11/04/21 20:36 11/05/21 07:46 General appearance: Present: no acute distress, well-nourished, obese, other - EENT Eyes: Present: PERRL, EOM intact ENT: hearing intact, clear oral mucosa, dentition normal - Neck Neck: Present: supple, normal ROM - Respiratory Respiratory effort: normal Respiratory: bilateral: diminished (On high flow nasal cannula 20 L / 40% FiO2) - Cardiovascular Rhythm: regular Heart Sounds: Present: S1 & S2 - Extremities Extremities: no ischemia, pulses intact, pulses symmetrical Peripheral Pulses: within normal limits - Abdominal General gastrointestinal: soft, non-tender, non-distended, normal bowel sounds - Integumentary Integumentary: Present: clear, warm, dry - Psychiatric Psychiatric: appropriate mood/affect, memory intact, cooperative - Neurologic Neurologic: CNII-XII intact, moves all extremities - Allied Health Allied health notes reviewed: nursing HEART Score - HEART Score Troponin: Troponin T < 0.010 ng/mL (0.00-0.029) 10/26/21 16:48 Results - Labs CBC & Chem 7: 11/05/21 06:01 11/05/21 06:01 Labs: Laboratory Last Values WBC 6.9 K/mm3 (4.5-11.0) 11/05/21 06:01 RBC 4.22 M/mm3 (3.65-5.03) 11/05/21 06:01 Hgb 12.9 gm/dl (11.8-15.2) 11/05/21 06:01 Hct 38.9 % (35.5-45.6) 11/05/21 06:01 MCV 92 fl (84-94) 11/05/21 06:01 MCH 31 pg (28-32) 11/05/21 06:01 MCHC 33 % (32-34) 11/05/21 06:01 RDW 13.4 % (13.2-15.2) 11/05/21 06:01 Plt Count 295 K/mm3 (140-440) 11/05/21 06:01 Lymph % (Auto) 5.1 % (13.4-35.0) L 11/05/21 06:01 [place] % (Auto) 5.0 % (0.0-7.3) 11/05/21 06:01 Eos % (Auto) 0.0 % (0.0-4.3) 11/05/21 06:01 Baso % (Auto) 0.1 % (0.0-1.8) 11/05/21 06:01 Lymph # (Auto) 0.3 K/mm3 (1.2-5.4) L 11/05/21 06:01 [place] # (Auto) 0.3 K/mm3 (0.0-0.8) 11/05/21 06:01 Eos # (Auto) 0.0 K/mm3 (0.0-0.4) 11/05/21 06:01 Baso # (Auto) 0.0 K/mm3 (0.0-0.1) 11/05/21 06:01 Add Manual Diff Complete 11/02/21 05:58 Total Counted 100 11/02/21 05:58 Seg Neutrophils % 89.8 % (40.0-70.0) H 11/05/21 06:01 Seg Neuts % (Manual) 98.0 % (40.0-70.0) H 11/02/21 05:58 Band Neutrophils % 0 % 11/02/21 05:58 Lymphocytes % (Manual) 0 % (13.4-35.0) L 11/02/21 05:58 Reactive Lymphs % (Man) 0 % 11/02/21 05:58 Monocytes % (Manual) 2.0 % (0.0-7.3) 11/02/21 05:58 Eosinophils % (Manual) 0 % (0.0-4.3) 11/02/21 05:58 Basophils % (Manual) 0 % (0.0-1.8) 11/02/21 05:58 Metamyelocytes % 0 % 11/02/21 05:58 Myelocytes % 0 % 11/02/21 05:58 Promyelocytes % 0 % 11/02/21 05:58 Blast Cells % 0 % 11/02/21 05:58 Nucleated RBC % Not Reportable 11/02/21 05:58 Seg Neutrophils # 6.2 K/mm3 (1.8-7.7) 11/05/21 06:01 Seg Neutrophils # Man 7.8 K/mm3 (1.8-7.7) H 11/02/21 05:58 Band Neutrophils # 0.0 K/mm3 11/02/21 05:58 Lymphocytes # (Manual) 0.0 K/mm3 (1.2-5.4) L 11/02/21 05:58 Abs React Lymphs (Man) 0.0 K/mm3 11/02/21 05:58 Monocytes # (Manual) 0.2 K/mm3 (0.0-0.8) 11/02/21 05:58 Eosinophils # (Manual) 0.0 K/mm3 (0.0-0.4) 11/02/21 05:58 Basophils # (Manual) 0.0 K/mm3 (0.0-0.1) 11/02/21 05:58 Metamyelocytes # 0.0 K/mm3 11/02/21 05:58 Myelocytes # 0.0 K/mm3 11/02/21 05:58 Promyelocytes # 0.0 K/mm3 11/02/21 05:58 Blast Cells # 0.0 K/mm3 11/02/21 05:58 WBC Morphology Not Reportable 11/02/21 05:58 Hypersegmented Neuts Not Reportable 11/02/21 05:58 Hyposegmented Neuts Not Reportable 11/02/21 05:58 Hypogranular Neuts Not Reportable 11/02/21 05:58 Smudge Cells Not Reportable 11/02/21 05:58 Toxic Granulation Not Reportable 11/02/21 05:58 Toxic Vacuolation Not Reportable 11/02/21 05:58 Dohle Bodies Not Reportable 11/02/21 05:58 Pelger-Huet Anomaly Not Reportable 11/02/21 05:58 Seven Rods Not Reportable 11/02/21 05:58 Platelet Estimate Consistent w auto 11/02/21 05:58 Clumped Platelets Not Reportable 11/02/21 05:58 Plt Clumps, EDTA Not Reportable 11/02/21 05:58 Large Platelets Not Reportable 11/02/21 05:58 Giant Platelets Not Reportable 11/02/21 05:58 Platelet Satelliting Not Reportable 11/02/21 05:58 Plt Morphology Comment Not Reportable 11/02/21 05:58 RBC Morphology Not Reportable 11/02/21 05:58 Dimorphic RBCs Not Reportable 11/02/21 05:58 Polychromasia Not Reportable 11/02/21 05:58 Hypochromasia Not Reportable 11/02/21 05:58 Poikilocytosis Not Reportable 11/02/21 05:58 Anisocytosis Not Reportable 11/02/21 05:58 Microcytosis Not Reportable 11/02/21 05:58 Macrocytosis Not Reportable 11/02/21 05:58 Spherocytes Not Reportable 11/02/21 05:58 Pappenheimer Bodies Not Reportable 11/02/21 05:58 Sickle Cells Not Reportable 11/02/21 05:58 Target Cells Not Reportable 11/02/21 05:58 Tear Drop Cells Not Reportable 11/02/21 05:58 Ovalocytes Not Reportable 11/02/21 05:58 Helmet Cells Not Reportable 11/02/21 05:58 Jain-Leander Bodies Not Reportable 11/02/21 05:58 [place]ma Rings Not Reportable 11/02/21 05:58 Mary Cells Not Reportable 11/02/21 05:58 Bite Cells Not Reportable 11/02/21 05:58 Crenated Cell Not Reportable 11/02/21 05:58 Elliptocytes Not Reportable 11/02/21 05:58 Acanthocytes (Spur) Not Reportable 11/02/21 05:58 Rouleaux Not Reportable 11/02/21 05:58 Hemoglobin C Crystals Not Reportable 11/02/21 05:58 Schistocytes Not Reportable 11/02/21 05:58 Malaria parasites Not Reportable 11/02/21 05:58 Harjit Bodies Not Reportable 11/02/21 05:58 Hem Pathologist Commnt No 11/02/21 05:58 PT 13.3 Sec. (12.2-14.9) 10/27/21 12:36 INR 0.91 (0.87-1.13) 10/27/21 12:36 APTT 27.3 Sec. (24.2-36.6) 10/27/21 12:36 D-Dimer 1824.38 ng/mlDDU (0-234) H 11/02/21 05:58 ABG pH 7.474 pH Units (7.350-7.450) H 10/26/21 23:20 ABG pCO2 35.2 mm Hg 10/26/21 23:20 ABG pO2 47.3 mm Hg (80.0-90.0) L 10/26/21 23:20 ABG HCO3 25.3 mmol/L (20.0-26.0) 10/26/21 23:20 ABG O2 Saturation 88.5 % (95.0-99.0) L 10/26/21 23:20 ABG O2 Content 16.6 (0.0-44) 10/26/21 23:20 ABG Base Excess 2.0 mmol/L (-2.0-3.0) 10/26/21 23:20 ABG Hemoglobin 13.5 gm/dl (14.0-18.0) L 10/26/21 23:20 ABG Carboxyhemoglobin 0.5 % (0.0-5.0) 10/26/21 23:20 ABG Methemoglobin 0.4 % (0.0-1.5) 10/26/21 23:20 Oxyhemoglobin 87.7 % (95.0-99.0) L 10/26/21 23:20 FiO2 21 % 10/26/21 23:20 Sodium 133 mmol/L (137-145) L 11/05/21 06:01 Potassium 5.0 mmol/L (3.6-5.0) 11/05/21 06:01 Chloride 98.8 mmol/L (98-107) 11/05/21 06:01 Carbon Dioxide 23 mmol/L (22-30) 11/05/21 06:01 Anion Gap 16 mmol/L 11/05/21 06:01 BUN 35 mg/dL (9-20) H 11/05/21 06:01 Creatinine 0.8 mg/dL (0.8-1.3) 11/05/21 06:01 Estimated GFR > 60 ml/min 11/05/21 06:01 BUN/Creatinine Ratio 44 % 11/05/21 06:01 Glucose 237 mg/dL (75-100) H 11/05/21 06:01 Calcium 8.6 mg/dL (8.4-10.2) 11/05/21 06:01 Magnesium 1.90 mg/dL (1.7-2.3) 10/26/21 21:46 Ferritin 497.7 ng/mL (30.0-300.0) H 11/02/21 05:58 Total Bilirubin 0.70 mg/dL (0.1-1.2) 11/01/21 04:00 Direct Bilirubin 0.2 mg/dL (0-0.2) 11/01/21 04:00 Indirect Bilirubin 0.5 mg/dL 11/01/21 04:00 AST 37 units/L (5-40) 11/01/21 04:00 ALT 47 units/L (7-56) 11/01/21 04:00 Alkaline Phosphatase 50 units/L (35-129) 11/01/21 04:00 Lactate Dehydrogenase 411 units/L (91-180) H 11/02/21 05:58 Troponin T < 0.010 ng/mL (0.00-0.029) 10/26/21 16:48 C-Reactive Protein 1.30 mg/dL (0.00-1.30) 11/02/21 05:58 NT-Pro-B Natriuret Pep 806.1 pg/mL (0-900) 10/26/21 16:48 Total Protein 6.1 g/dL (6.3-8.2) L 11/01/21 04:00 Albumin 3.3 g/dL (3.9-5) L 11/01/21 04:00 Albumin/Globulin Ratio 1.2 % 11/01/21 04:00 Procalcitonin < 0.05 ng/mL (<0.15) 10/31/21 08:07 TSH 0.889 mlU/mL (0.270-4.200) 10/26/21 21:46 Free T4 1.78 ng/dL (0.76-1.46) H 10/26/21 21:46 Coronavirus (PCR) Positive (Negative) A 10/27/21 Unknown Cummings/IV: Voiding Method Urinal Active Medications - Current Medications Current Medications: Generic Name Dose Route Start Last Admin Trade Name Freq PRN Reason Stop Dose Admin Acetaminophen 650 mg 10/26/21 18:52 Acetaminophen 325 Mg Tab PO Q4H PRN Pain MILD(1-3)/Fever >100.5/LEYVA Albuterol 2.5 mg 10/26/21 18:52 Albuterol 2.5 Mg/3 Ml Nebu IH Q4HRT PRN Shortness Of Breath Apixaban 5 mg 11/03/21 10:00 11/05/21 09:13 Apixaban 5 Mg Tab PO 5 mg Q12HR VASYL Administration Aspirin 81 mg 10/28/21 10:00 11/05/21 09:12 Aspirin 81 Mg Tab Chew PO 81 mg QDAY VASYL Administration Diltiazem HCl 60 mg 10/31/21 19:00 11/05/21 05:42 Diltiazem 60 Mg Tab PO 60 mg Q6HR VASYL Administration Famotidine 20 mg 10/29/21 10:00 11/05/21 09:13 Famotidine 20 Mg Tab PO 20 mg QDAY VASYL Administration Hydromorphone HCl 0.5 mg 10/26/21 18:52 Hydromorphone 1 Mg/1 Ml Inj IV Q23H PRN Pain , Severe (7-10) Methylprednisolone Sodium Succinate 60 mg 10/27/21 18:00 11/05/21 05:43 Methylprednisolone Sod Succinate 125 Mg/2 Ml Inj IV 60 mg Q8HR VASYL Administration Metoprolol Tartrate 50 mg 11/02/21 14:00 11/05/21 09:13 Metoprolol Tartrate 50 Mg Tab PO 50 mg TID VASYL Administration Ondansetron HCl 4 mg 10/26/21 18:52 Ondansetron 4 Mg/2 Ml Inj IV Q8H PRN Nausea And Vomiting Oxycodone/Acetaminophen 1 tab 10/26/21 18:52 Oxycodone /Acetaminophen 5-325mg Tab PO Q16H PRN Pain, Moderate (4-6) Sodium Chloride 10 ml 10/26/21 22:00 11/04/21 21:37 Sodium Chloride 0.9% 10 Ml Flush Syringe IV 10 ml BID VASYL Administration Sodium Chloride 10 ml 10/26/21 18:52 Sodium Chloride 0.9% 10 Ml Flush Syringe IV PRN PRN LINE FLUSH Nutrition/Malnutrition Assess - Dietary Evaluation Nutrition/Malnutrition Findings: Nutrition Notes Start: 11/02/21 15:51 Freq: Status: Active Protocol: Document 11/02/21 15:51 JOANN (Rec: 11/02/21 16:06 JOANN [id number]) Nutrition Notes Need for Assessment generated from: LOS Initial or Follow up Assessment Current Diagnosis Coronary Artery Disease, Hypertension,Respiratory Failure Other Pertinent Diagnosis COVID-19, B/l pulmonary embolism, Aortic aneurysm, Atrial Fibrilation. Current Diet Cardiac Diet (since D 10/26). Labs/Tests 11/02: Na 135, BUN 39, Glu 236 . Pertinent Medications 11/02: Nutritionally unremarkable. Height 5 ft 11 in Weight 113.398 kg [place] Body Weight (kg) 78.18 BMI 34.8 Intake Prior to Admission Good Weight change and time frame Pt states not having lost body weight recently. Subjective/Other Information RD consult for LOS assessment. Pt's PO intake of meals has been Fair (50%), according to ADL notes. Ht & Wt checked with RN over the phone. Percent of energy/protein needs met: Prescribed Cardiac Diet provides for energy/protein needs (2,230 Kcal/85 g) during LOS. Burn Absent Trauma Absent GI Symptoms None Food Allergy No Skin Integrity/Comment Clear, warm, dry. Current % PO Fair (50-74%) Minimum of two criteria No Is patient on ventilator? No Is Patient Ambulatory and/or Out of Bed Yes REE-([place]-St. Jeor-ambulatory/OOB) [ 2458.443 [id number]] Kcal/Kg value to use for calculation 12 Approximate Energy Requirements Using 1361 kcal/Kg Calculation Used for Recommendations Kcal/kg Additional Notes Protein: 0.8-1 g/Kg; 77-96 g/ day. Fluids: 1 ml/Kcal, or as per MD. Nutrition Intervention Change Diet Order: Continue Cardiac Diet. Follow-Up By: 11/10/21 Additional Comments Continue monitoring food tolerance, %PO intake of meals , and BM.
[2021-11-05] MEDS ORDERED: AMIODARONE 150 MG in DEXTROSE 5% IN WATER 97 ML IV ONE (12:29)
--- NOTE | 2021-11-05 12:36 | Progress Note ---
Assessment and Plan Initiate amiodarone bolus with drip. - Patient Problems (1) Acute hypoxemic respiratory failure Current Visit: Yes Status: Acute (2) Pneumonia due to COVID-19 virus Current Visit: Yes Status: Acute (3) Atrial fibrillation with rapid ventricular response Current Visit: Yes Status: Acute (4) Acute pulmonary embolism Current Visit: Yes Status: Acute (5) CAD (coronary artery disease) Current Visit: Yes Status: Chronic Qualifiers: Coronary Disease-Associated Artery/Lesion type: [place] artery (6) Hypertension Current Visit: Yes Status: Chronic Qualifiers: Hypertension type: primary hypertension Qualified Code(s): I10 - Essential (primary) hypertension (7) Obesity hypoventilation syndrome Current Visit: Yes Status: Chronic Subjective Date of service: 11/05/21 Principal diagnosis: Acute resp failure, Covid PNA, Acute PE, AF with RVR Interval history: The patient is in rapid atrial fibrillation this morning. Objective Vital Signs Temp Pulse Resp BP Pulse Ox 11/05/21 09:13 129 H 11/05/21 07:46 98 11/05/21 02:00 96 11/05/21 01:01 160 H 11/04/21 22:00 165 H 11/04/21 21:36 165 H 11/04/21 20:36 98.4 F 92 H 21 128/78 96 11/04/21 20:19 97.9 F 68 16 123/69 94 11/04/21 20:00 95 11/04/21 16:30 96 11/04/21 16:13 98.9 F 69 20 127/84 94 - Physical Examination General: No Apparent Distress HEENT: Positive: EOMI, Normocephaly, Mucus Membranes Moist, Mucus Membranes Dry Neck: Positive: neck supple, trachea midline Cardiac: Positive: irregularly irregular, S1/S2 Neuro: Positive: Grossly Intact Abdomen: Positive: Soft, Active Bowel Sounds. Negative: Tender Skin: Negative: Rash Musculoskeletal: Normal Range of Motion Extremities: Absent: edema - Labs and Meds CBC 11/05/21 Range/Units 06:01 WBC 6.9 (4.5-11.0) K/mm3 RBC 4.22 (3.65-5.03) M/mm3 Hgb 12.9 (11.8-15.2) gm/dl Hct 38.9 (35.5-45.6) % Plt Count 295 (140-440) K/mm3 Lymph # (Auto) 0.3 L (1.2-5.4) K/mm3 [place] # (Auto) 0.3 (0.0-0.8) K/mm3 Eos # (Auto) 0.0 (0.0-0.4) K/mm3 Baso # (Auto) 0.0 (0.0-0.1) K/mm3 Comprehensive Metabolic Panel 11/05/21 Range/Units 06:01 Sodium 133 L (137-145) mmol/L Potassium 5.0 (3.6-5.0) mmol/L Chloride 98.8 (98-107) mmol/L Carbon Dioxide 23 (22-30) mmol/L BUN 35 H (9-20) mg/dL Creatinine 0.8 (0.8-1.3) mg/dL Glucose 237 H (75-100) mg/dL Calcium 8.6 (8.4-10.2) mg/dL - Telemetry EKG Rhythm: Atrial Fibrillation (with RVR) AV and intraventricular conduction: right bundle branch block - Allied health notes Allied health notes reviewed: nursing
--- NOTE | 2021-11-05 16:44 | Progress Note ---
Assessment and Plan Acute hypoxemic respiratory failure Bilateral pneumonia (CAP / COVID-19) COVID-19 infection Acute respiratory distress syndrome Bilateral pulmonary emboli A-fib with RVR OHS Hypertension Peripheral vascular disease - no new issues today, continue care as below; - continue BIPAP scheduled qhs with prn daytime use - ID evaluation pending - continue full anticoagulation re: P.E. - awake proning counseled - continue to wean supplemental oxygen for target O2 sat's > 90% acutely - aspiration precautions - continue bronchodilators with pulmonary hygiene per RT - continue accuchecks with glycemic control per SSI for target blood glucose of < 180 mg/dL; avoid hypoglycemia - avoid nephrotoxins, renally dose all medications - avoid benzodiazepine's, reduce the possibility of delirium - Anti-infective's per ID rec's - prn analgesia per CPOT score - Maintenance of sleep-wake cycle, avoid delirium - G.I. & VTE prophylaxis - PT/OT/ROM exercises - continue mobility protocols for pressure ulcer prophylaxis - Monitor hemodynamics closely - continue other care per attending / other consultants - discharge planning ongoing concurrently COVID SPECIFIC INTERVENTIONS - Remdesivir as per ID/Pulmonary developed protocols (refused) - continue systemic steroids for severe COVID-19 infection empirically (Solumedrol) - follow repeat COVID tests results - zinc and vitamin C supplementation - Monitor inflammatory markers per facility protocol - ferritin, Ddimer, CRP - therapeutic anticoagulation per system Protocol based on d-dimer and clinical considerations (treatment dose re: VTE) - Continue contact and airborne isolation .... Re-evaluate in am & prn Subjective Date of service: 11/05/21 Principal diagnosis: Acute resp failure, Covid PNA, Acute PE, AF with RVR Interval history: Patient is seen today for: AHRF; A-fib with RVR; Pneumonia; COVID-19 infection; Pulm Embolism; ARDS; Morbid Obesity; OHS Seen and examined at bedside; 24hour events reviewed; nursing and respiratory care staff consulted; no adverse overnight events reported to me; resting in bed; remains on supplemental oxygen Objective Vital Signs - 12hr 11/05/21 11/05/21 11/05/21 07:46 08:00 09:13 Pulse Rate 129 H Respiratory 20 Rate O2 Sat by Pulse 98 98 Oximetry 11/05/21 15:05 Pulse Rate Respiratory Rate O2 Sat by Pulse 96 Oximetry Constitutional: no acute distress, other (elderly obese male with mildly increased respiratory effort at rest) Eyes: non-icteric ENT: oropharynx moist Neck: supple, no lymphadenopathy, no JVD, other (large circumference) Effort: mildly labored Ascultation: Bilateral: diminished breath sounds, rales (inspiratory, bases), rhonchi Percussion: Bilateral: not dull Cardiovascular: regular rate and rhythm Gastrointestinal: normoactive bowel sounds, soft, non-tender, non-distended (protuberant) Integumentary: normal Extremities: no cyanosis, pink and warm, pulses normal, no ischemia or petechiae Neurologic: non-focal exam, pupils equal and round, CN II-XII normal, motor strength normal and Psychiatric: mood appropriate, affect normal CBC and BMP: 11/05/21 06:01 11/05/21 06:01 ABG, PT/INR, D-dimer: ABG ABG pH 7.474 pH Units (7.350-7.450) H 10/26/21 23:20 ABG pCO2 35.2 mm Hg 10/26/21 23:20 ABG pO2 47.3 mm Hg (80.0-90.0) L 10/26/21 23:20 ABG O2 Saturation 88.5 % (95.0-99.0) L 10/26/21 23:20 PT/INR, D-dimer PT 13.3 Sec. (12.2-14.9) 10/27/21 12:36 INR 0.91 (0.87-1.13) 10/27/21 12:36 D-Dimer 1824.38 ng/mlDDU (0-234) H 11/02/21 05:58 Abnormal lab findings: Abnormal Labs 10/26/21 10/26/21 10/26/21 16:48 16:48 19:03 WBC MCV Lymph % (Auto) 11.3 L [place] % (Auto) 10.2 H Lymph # (Auto) 0.5 L Seg Neutrophils % 77.8 H Seg Neuts % (Manual) Lymphocytes % (Manual) Seg Neutrophils # Man Lymphocytes # (Manual) D-Dimer 1951.42 H ABG pH ABG pO2 ABG O2 Saturation ABG Hemoglobin Oxyhemoglobin Sodium Potassium 3.4 L Chloride 97.5 L BUN 24 H Glucose 108 H Calcium Ferritin AST Lactate Dehydrogenase C-Reactive Protein Total Protein Albumin Free T4 Coronavirus (PCR) 10/26/21 10/26/21 10/26/21 19:03 19:03 21:46 WBC MCV Lymph % (Auto) [place] % (Auto) Lymph # (Auto) Seg Neutrophils % Seg Neuts % (Manual) Lymphocytes % (Manual) Seg Neutrophils # Man Lymphocytes # (Manual) D-Dimer ABG pH ABG pO2 ABG O2 Saturation ABG Hemoglobin Oxyhemoglobin Sodium Potassium Chloride BUN Glucose 104 H Calcium Ferritin 319.2 H AST Lactate Dehydrogenase 268 H C-Reactive Protein 11.80 H Total Protein Albumin Free T4 1.78 H Coronavirus (PCR) 10/26/21 10/27/21 10/27/21 23:20 03:44 03:44 WBC MCV 95 H Lymph % (Auto) [place] % (Auto) Lymph # (Auto) Seg Neutrophils % Seg Neuts % (Manual) 84.0 H Lymphocytes % (Manual) 10.0 L Seg Neutrophils # Man Lymphocytes # (Manual) 0.6 L D-Dimer ABG pH 7.474 H ABG pO2 47.3 L ABG O2 Saturation 88.5 L ABG Hemoglobin 13.5 L Oxyhemoglobin 87.7 L Sodium Potassium Chloride 97.9 L BUN 23 H Glucose 139 H Calcium 8.3 L Ferritin AST Lactate Dehydrogenase C-Reactive Protein Total Protein Albumin Free T4 Coronavirus (PCR) 10/27/21 10/27/21 10/27/21 12:36 23:24 Unknown WBC 4.1 L MCV Lymph % (Auto) [place] % (Auto) Lymph # (Auto) Seg Neutrophils % Seg Neuts % (Manual) Lymphocytes % (Manual) Seg Neutrophils # Man Lymphocytes # (Manual) D-Dimer ABG pH ABG pO2 ABG O2 Saturation ABG Hemoglobin Oxyhemoglobin Sodium 136 L Potassium Chloride 96.8 L BUN 21 H Glucose 144 H Calcium Ferritin AST 49 H Lactate Dehydrogenase C-Reactive Protein Total Protein Albumin 3.4 L Free T4 Coronavirus (PCR) Positive A 10/28/21 10/29/21 10/30/21 04:53 04:28 05:02 WBC MCV Lymph % (Auto) [place] % (Auto) Lymph # (Auto) Seg Neutrophils % Seg Neuts % (Manual) Lymphocytes % (Manual) Seg Neutrophils # Man Lymphocytes # (Manual) D-Dimer ABG pH ABG pO2 ABG O2 Saturation ABG Hemoglobin Oxyhemoglobin Sodium 136 L Potassium Chloride BUN 24 H 38 H 44 H Glucose 163 H 225 H 215 H Calcium Ferritin AST 52 H 52 H 55 H Lactate Dehydrogenase C-Reactive Protein Total Protein 6.2 L 6.1 L Albumin 3.2 L 3.2 L 3.5 L Free T4 Coronavirus (PCR) 11/01/21 11/01/21 11/02/21 04:00 04:00 05:58 WBC MCV Lymph % (Auto) [place] % (Auto) Lymph # (Auto) Seg Neutrophils % Seg Neuts % (Manual) 98.0 H Lymphocytes % (Manual) 0 L Seg Neutrophils # Man 7.8 H Lymphocytes # (Manual) 0.0 L D-Dimer ABG pH ABG pO2 ABG O2 Saturation ABG Hemoglobin Oxyhemoglobin Sodium Potassium Chloride BUN 41 H Glucose 192 H Calcium Ferritin AST Lactate Dehydrogenase C-Reactive Protein Total Protein 6.1 L Albumin 3.3 L Free T4 Coronavirus (PCR) 11/02/21 11/02/21 11/02/21 05:58 05:58 05:58 WBC MCV Lymph % (Auto) [place] % (Auto) Lymph # (Auto) Seg Neutrophils % Seg Neuts % (Manual) Lymphocytes % (Manual) Seg Neutrophils # Man Lymphocytes # (Manual) D-Dimer 1824.38 H ABG pH ABG pO2 ABG O2 Saturation ABG Hemoglobin Oxyhemoglobin Sodium 135 L Potassium Chloride BUN 39 H Glucose 236 H Calcium Ferritin 497.7 H AST Lactate Dehydrogenase 411 H C-Reactive Protein Total Protein Albumin Free T4 Coronavirus (PCR) 11/05/21 11/05/21 06:01 06:01 WBC MCV Lymph % (Auto) 5.1 L [place] % (Auto) Lymph # (Auto) 0.3 L Seg Neutrophils % 89.8 H Seg Neuts % (Manual) Lymphocytes % (Manual) Seg Neutrophils # Man Lymphocytes # (Manual) D-Dimer ABG pH ABG pO2 ABG O2 Saturation ABG Hemoglobin Oxyhemoglobin Sodium 133 L Potassium Chloride BUN 35 H Glucose 237 H Calcium Ferritin AST Lactate Dehydrogenase C-Reactive Protein Total Protein Albumin Free T4 Coronavirus (PCR) Allied health notes reviewed: nursing
[2021-11-05] MEDS: MELATONIN 5 MG TAB PO SCH (21:58)
[2021-11-06] MEDS: dilTIAZem 60 MG TAB PO SCH ×2 (00:12→06:13)
[2021-11-06] MEDS: methylPREDNISolone Sod Succinate 125 MG/2 ML INJ IV SCH ×2 (06:14→21:32)
--- NOTE | 2021-11-06 08:13 | Progress Note ---
Assessment and Plan Assessment and plan: #New onset atrial fibrillation #Atrial fibrillation with RVR Patient found to have new onset A. fib in the emergency department. Continue p.o. diltiazem 60 mg every 6 hours and metoprolol tartrate 50 mg 3 times daily. Unsure as to why the patient missed 12 doses on 11/04/2021. Started on amiodarone bolus + amiodarone drip per cardiology Cardiology consulted; appreciate recs. Currently on Eliquis 5 mg every 12 hours for anticoagulation. Continue to monitor. #B/l pulmonary embolism Currently on Eliquis 5 mg every 12 hours for anticoagulation. #Acute hypoxemic respiratory failure #COVID-19 pneumonia Due to bilateral PE and COVID-19 pneumonia Currently on high flow nasal cannula 20 L / 45% FiO2 wean as tolerated. Infectious disease consulted; appreciate recs Pulmonology consulted; appreciate recs Continue steroids x10 days. Patient refused Remdesivir (correction from previous notes) Continue therapeutic anticoagulation and treatment protocol for COVID-19 Supplemental oxygen, pulse oximetry, nebulizer therapy, prone positioning while in bed, pulmonary toilet. #Obesity #Weight loss counseling #Exercise counseling - BMI 34 - Counseled patient on the importance of weight loss, incorporating exercise, and dietary changes (lean meats, fresh fruits and vegetables, and water intake). Patient expresses understanding. Outpatient pulmonary follow-up for sleep study. - Time: +15 min #Hypertension Monitor blood pressure every shift, continue medical management. #CAD -cont current cardiac medication #Thoracic aortic aneurysm CTA chest w/o any h/o Thoracic aortic aneurysm, but CTA chest w/o any acute findings, follow clinically. given high CRP and need for HFNC, candidate for Ac temra (depending on availability), order placed. Pending procalcitonin level. #Advanced care planning -Disease education conducted, care plan discussed, diagnoses discussed, pro gnosis discussed, and patient acknowledges understanding with care plan -Time: +30 min Disposition Plan: Continue medical management Total Time Spent with Patient (Minutes): 45 minutes History Interval history: No acute events overnight. Hospitalist Physical - Constitutional Vitals: Temp Pulse Resp BP Pulse Ox 97.8 F 98 H 16 112/62 94 11/06/21 04:50 11/06/21 06:13 11/06/21 04:50 11/06/21 06:13 11/06/21 04:50 General appearance: Present: no acute distress, well-nourished, obese, other - EENT Eyes: Present: PERRL, EOM intact ENT: hearing intact, clear oral mucosa - Neck Neck: Present: supple, normal ROM - Respiratory Respiratory effort: normal Respiratory: bilateral: diminished (High flow nasal cannula) - Cardiovascular Rhythm: regular Heart Sounds: Present: S1 & S2 - Extremities Extremities: no ischemia, pulses intact, pulses symmetrical, No edema, normal temperature, normal color Peripheral Pulses: within normal limits - Abdominal General gastrointestinal: soft, non-tender, non-distended, normal bowel sounds - Integumentary Integumentary: Present: clear, warm, dry - Psychiatric Psychiatric: appropriate mood/affect, cooperative - Neurologic Neurologic: CNII-XII intact - Allied Health Allied health notes reviewed: nursing HEART Score - HEART Score Troponin: Troponin T < 0.010 ng/mL (0.00-0.029) 10/26/21 16:48 Results - Labs CBC & Chem 7: 11/06/21 07:47 11/06/21 07:47 Labs: Laboratory Last Values WBC 6.9 K/mm3 (4.5-11.0) 11/05/21 06:01 RBC 4.22 M/mm3 (3.65-5.03) 11/05/21 06:01 Hgb 12.9 gm/dl (11.8-15.2) 11/05/21 06:01 Hct 38.9 % (35.5-45.6) 11/05/21 06:01 MCV 92 fl (84-94) 11/05/21 06:01 MCH 31 pg (28-32) 11/05/21 06:01 MCHC 33 % (32-34) 11/05/21 06:01 RDW 13.4 % (13.2-15.2) 11/05/21 06:01 Plt Count 295 K/mm3 (140-440) 11/05/21 06:01 Lymph % (Auto) 5.1 % (13.4-35.0) L 11/05/21 06:01 [place] % (Auto) 5.0 % (0.0-7.3) 11/05/21 06:01 Eos % (Auto) 0.0 % (0.0-4.3) 11/05/21 06:01 Baso % (Auto) 0.1 % (0.0-1.8) 11/05/21 06:01 Lymph # (Auto) 0.3 K/mm3 (1.2-5.4) L 11/05/21 06:01 [place] # (Auto) 0.3 K/mm3 (0.0-0.8) 11/05/21 06:01 Eos # (Auto) 0.0 K/mm3 (0.0-0.4) 11/05/21 06:01 Baso # (Auto) 0.0 K/mm3 (0.0-0.1) 11/05/21 06:01 Add Manual Diff Complete 11/02/21 05:58 Total Counted 100 11/02/21 05:58 Seg Neutrophils % 89.8 % (40.0-70.0) H 11/05/21 06:01 Seg Neuts % (Manual) 98.0 % (40.0-70.0) H 11/02/21 05:58 Band Neutrophils % 0 % 11/02/21 05:58 Lymphocytes % (Manual) 0 % (13.4-35.0) L 11/02/21 05:58 Reactive Lymphs % (Man) 0 % 11/02/21 05:58 Monocytes % (Manual) 2.0 % (0.0-7.3) 11/02/21 05:58 Eosinophils % (Manual) 0 % (0.0-4.3) 11/02/21 05:58 Basophils % (Manual) 0 % (0.0-1.8) 11/02/21 05:58 Metamyelocytes % 0 % 11/02/21 05:58 Myelocytes % 0 % 11/02/21 05:58 Promyelocytes % 0 % 11/02/21 05:58 Blast Cells % 0 % 11/02/21 05:58 Nucleated RBC % Not Reportable 11/02/21 05:58 Seg Neutrophils # 6.2 K/mm3 (1.8-7.7) 11/05/21 06:01 Seg Neutrophils # Man 7.8 K/mm3 (1.8-7.7) H 11/02/21 05:58 Band Neutrophils # 0.0 K/mm3 11/02/21 05:58 Lymphocytes # (Manual) 0.0 K/mm3 (1.2-5.4) L 11/02/21 05:58 Abs React Lymphs (Man) 0.0 K/mm3 11/02/21 05:58 Monocytes # (Manual) 0.2 K/mm3 (0.0-0.8) 11/02/21 05:58 Eosinophils # (Manual) 0.0 K/mm3 (0.0-0.4) 11/02/21 05:58 Basophils # (Manual) 0.0 K/mm3 (0.0-0.1) 11/02/21 05:58 Metamyelocytes # 0.0 K/mm3 11/02/21 05:58 Myelocytes # 0.0 K/mm3 11/02/21 05:58 Promyelocytes # 0.0 K/mm3 11/02/21 05:58 Blast Cells # 0.0 K/mm3 11/02/21 05:58 WBC Morphology Not Reportable 11/02/21 05:58 Hypersegmented Neuts Not Reportable 11/02/21 05:58 Hyposegmented Neuts Not Reportable 11/02/21 05:58 Hypogranular Neuts Not Reportable 11/02/21 05:58 Smudge Cells Not Reportable 11/02/21 05:58 Toxic Granulation Not Reportable 11/02/21 05:58 Toxic Vacuolation Not Reportable 11/02/21 05:58 Dohle Bodies Not Reportable 11/02/21 05:58 Pelger-Huet Anomaly Not Reportable 11/02/21 05:58 Seven Rods Not Reportable 11/02/21 05:58 Platelet Estimate Consistent w auto 11/02/21 05:58 Clumped Platelets Not Reportable 11/02/21 05:58 Plt Clumps, EDTA Not Reportable 11/02/21 05:58 Large Platelets Not Reportable 11/02/21 05:58 Giant Platelets Not Reportable 11/02/21 05:58 Platelet Satelliting Not Reportable 11/02/21 05:58 Plt Morphology Comment Not Reportable 11/02/21 05:58 RBC Morphology Not Reportable 11/02/21 05:58 Dimorphic RBCs Not Reportable 11/02/21 05:58 Polychromasia Not Reportable 11/02/21 05:58 Hypochromasia Not Reportable 11/02/21 05:58 Poikilocytosis Not Reportable 11/02/21 05:58 Anisocytosis Not Reportable 11/02/21 05:58 Microcytosis Not Reportable 11/02/21 05:58 Macrocytosis Not Reportable 11/02/21 05:58 Spherocytes Not Reportable 11/02/21 05:58 Pappenheimer Bodies Not Reportable 11/02/21 05:58 Sickle Cells Not Reportable 11/02/21 05:58 Target Cells Not Reportable 11/02/21 05:58 Tear Drop Cells Not Reportable 11/02/21 05:58 Ovalocytes Not Reportable 11/02/21 05:58 Helmet Cells Not Reportable 11/02/21 05:58 [place] Bodies Not Reportable 11/02/21 05:58 [place] Rings Not Reportable 11/02/21 05:58 [place] Cells Not Reportable 11/02/21 05:58 Bite Cells Not Reportable 11/02/21 05:58 Crenated Cell Not Reportable 11/02/21 05:58 Elliptocytes Not Reportable 11/02/21 05:58 Acanthocytes (Spur) Not Reportable 11/02/21 05:58 Rouleaux Not Reportable 11/02/21 05:58 Hemoglobin C Crystals Not Reportable 11/02/21 05:58 Schistocytes Not Reportable 11/02/21 05:58 Malaria parasites Not Reportable 11/02/21 05:58 Harjit Bodies Not Reportable 11/02/21 05:58 Hem Pathologist Commnt No 11/02/21 05:58 PT 13.3 Sec. (12.2-14.9) 10/27/21 12:36 INR 0.91 (0.87-1.13) 10/27/21 12:36 APTT 27.3 Sec. (24.2-36.6) 10/27/21 12:36 D-Dimer 1824.38 ng/mlDDU (0-234) H 11/02/21 05:58 ABG pH 7.474 pH Units (7.350-7.450) H 10/26/21 23:20 ABG pCO2 35.2 mm Hg 10/26/21 23:20 ABG pO2 47.3 mm Hg (80.0-90.0) L 10/26/21 23:20 ABG HCO3 25.3 mmol/L (20.0-26.0) 10/26/21 23:20 ABG O2 Saturation 88.5 % (95.0-99.0) L 10/26/21 23:20 ABG O2 Content 16.6 (0.0-44) 10/26/21 23:20 ABG Base Excess 2.0 mmol/L (-2.0-3.0) 10/26/21 23:20 ABG Hemoglobin 13.5 gm/dl (14.0-18.0) L 10/26/21 23:20 ABG Carboxyhemoglobin 0.5 % (0.0-5.0) 10/26/21 23:20 ABG Methemoglobin 0.4 % (0.0-1.5) 10/26/21 23:20 Oxyhemoglobin 87.7 % (95.0-99.0) L 10/26/21 23:20 FiO2 21 % 10/26/21 23:20 Sodium 133 mmol/L (137-145) L 11/05/21 06:01 Potassium 5.0 mmol/L (3.6-5.0) 11/05/21 06:01 Chloride 98.8 mmol/L (98-107) 11/05/21 06:01 Carbon Dioxide 23 mmol/L (22-30) 11/05/21 06:01 Anion Gap 16 mmol/L 11/05/21 06:01 BUN 35 mg/dL (9-20) H 11/05/21 06:01 Creatinine 0.8 mg/dL (0.8-1.3) 11/05/21 06:01 Estimated GFR > 60 ml/min 11/05/21 06:01 BUN/Creatinine Ratio 44 % 11/05/21 06:01 Glucose 237 mg/dL (75-100) H 11/05/21 06:01 Calcium 8.6 mg/dL (8.4-10.2) 11/05/21 06:01 Magnesium 1.90 mg/dL (1.7-2.3) 10/26/21 21:46 Ferritin 497.7 ng/mL (30.0-300.0) H 11/02/21 05:58 Total Bilirubin 0.70 mg/dL (0.1-1.2) 11/01/21 04:00 Direct Bilirubin 0.2 mg/dL (0-0.2) 11/01/21 04:00 Indirect Bilirubin 0.5 mg/dL 11/01/21 04:00 AST 37 units/L (5-40) 11/01/21 04:00 ALT 47 units/L (7-56) 11/01/21 04:00 Alkaline Phosphatase 50 units/L (35-129) 11/01/21 04:00 Lactate Dehydrogenase 411 units/L (91-180) H 11/02/21 05:58 Troponin T < 0.010 ng/mL (0.00-0.029) 10/26/21 16:48 C-Reactive Protein 1.30 mg/dL (0.00-1.30) 11/02/21 05:58 NT-Pro-B Natriuret Pep 806.1 pg/mL (0-900) 10/26/21 16:48 Total Protein 6.1 g/dL (6.3-8.2) L 11/01/21 04:00 Albumin 3.3 g/dL (3.9-5) L 11/01/21 04:00 Albumin/Globulin Ratio 1.2 % 11/01/21 04:00 Procalcitonin < 0.05 ng/mL (<0.15) 10/31/21 08:07 TSH 0.889 mlU/mL (0.270-4.200) 10/26/21 21:46 Free T4 1.78 ng/dL (0.76-1.46) H 10/26/21 21:46 Coronavirus (PCR) Positive (Negative) A 10/27/21 Unknown Cummings/IV: Voiding Method Urinal Active Medications - Current Medications Current Medications: Generic Name Dose Route Start Last Admin Trade Name Freq PRN Reason Stop Dose Admin Acetaminophen 650 mg 10/26/21 18:52 Acetaminophen 325 Mg Tab PO Q4H PRN Pain MILD(1-3)/Fever >100.5/LEYVA Albuterol 2.5 mg 10/26/21 18:52 Albuterol 2.5 Mg/3 Ml Nebu IH Q4HRT PRN Shortness Of Breath Apixaban 5 mg 11/03/21 10:00 11/05/21 21:57 Apixaban 5 Mg Tab PO 5 mg Q12HR VASYL Administration Aspirin 81 mg 10/28/21 10:00 11/05/21 09:12 Aspirin 81 Mg Tab Chew PO 81 mg QDAY VASYL Administration Diltiazem HCl 60 mg 10/31/21 19:00 11/06/21 06:13 Diltiazem 60 Mg Tab PO 60 mg Q6HR VASYL Administration Famotidine 20 mg 10/29/21 10:00 11/05/21 09:13 Famotidine 20 Mg Tab PO 20 mg QDAY VASYL Administration Hydromorphone HCl 0.5 mg 10/26/21 18:52 Hydromorphone 1 Mg/1 Ml Inj IV Q23H PRN Pain , Severe (7-10) Melatonin 10 mg 11/05/21 22:00 11/05/21 21:58 Melatonin 5 Mg Tab PO 10 mg QHS VASYL Administration Methylprednisolone Sodium Succinate 60 mg 10/27/21 18:00 11/06/21 06:14 Methylprednisolone Sod Succinate 125 Mg/2 Ml Inj IV 60 mg Q8HR VASYL Administration Metoprolol Tartrate 50 mg 11/02/21 14:00 11/05/21 21:56 Metoprolol Tartrate 50 Mg Tab PO 50 mg TID VASYL Administration Ondansetron HCl 4 mg 10/26/21 18:52 Ondansetron 4 Mg/2 Ml Inj IV Q8H PRN Nausea And Vomiting Oxycodone/Acetaminophen 1 tab 10/26/21 18:52 Oxycodone /Acetaminophen 5-325mg Tab PO Q16H PRN Pain, Moderate (4-6) Sodium Chloride 10 ml 10/26/21 22:00 11/05/21 21:58 Sodium Chloride 0.9% 10 Ml Flush Syringe IV 10 ml BID VASYL Administration Sodium Chloride 10 ml 10/26/21 18:52 Sodium Chloride 0.9% 10 Ml Flush Syringe IV PRN PRN LINE FLUSH Nutrition/Malnutrition Assess - Dietary Evaluation Nutrition/Malnutrition Findings: Nutrition Notes Start: 11/02/21 15:51 Freq: Status: Active Protocol: Document 11/02/21 15:51 JOANN (Rec: 11/02/21 16:06 JOANN [id number]) Nutrition Notes Need for Assessment generated from: LOS Initial or Follow up Assessment Current Diagnosis Coronary Artery Disease, Hypertension,Respiratory Failure Other Pertinent Diagnosis COVID-19, B/l pulmonary embolism, Aortic aneurysm, Atrial Fibrilation. Current Diet Cardiac Diet (since D 10/26). Labs/Tests 11/02: Na 135, BUN 39, Glu 236 . Pertinent Medications 11/02: Nutritionally unremarkable. Height 5 ft 11 in Weight 113.398 kg [place] Body Weight (kg) 78.18 BMI 34.8 Intake Prior to Admission Good Weight change and time frame Pt states not having lost body weight recently. Subjective/Other Information RD consult for LOS assessment. Pt's PO intake of meals has been Fair (50%), according to ADL notes. Ht & Wt checked with RN over the phone. Percent of energy/protein needs met: Prescribed Cardiac Diet provides for energy/protein needs (2,230 Kcal/85 g) during LOS. Burn Absent Trauma Absent GI Symptoms None Food Allergy No Skin Integrity/Comment Clear, warm, dry. Current % PO Fair (50-74%) Minimum of two criteria No Is patient on ventilator? No Is Patient Ambulatory and/or Out of Bed Yes REE-([facility]-ambulatory/OOB) [ 2458.443 [id number]] Kcal/Kg value to use for calculation 12 Approximate Energy Requirements Using 1361 kcal/Kg Calculation Used for Recommendations Kcal/kg Additional Notes Protein: 0.8-1 g/Kg; 77-96 g/ day. Fluids: 1 ml/Kcal, or as per MD. Nutrition Intervention Change Diet Order: Continue Cardiac Diet. Follow-Up By: 11/10/21 Additional Comments Continue monitoring food tolerance, %PO intake of meals , and BM.
[2021-11-06 08:30] LABS: Hematocrit 40.1 % (35.5-45.6); Hemoglobin 13.2 gm/dl (11.8-15.2); Mean Corpuscular HGB Conc 33 % (32-34); Mean Corpuscular Volume 92 fl (84-94); Platelet Count 265 K/mm3 (140-440); Red Blood Count 4.35 M/mm3 (3.65-5.03); Red Cell Distribution Width 13.1 % (13.2-15.2)
[2021-11-06 08:50] LABS: BUN/Creatinine Ratio 39; Blood Urea Nitrogen 31 mg/dL (9-20); Calcium 8.6 mg/dL (8.4-10.2); Hemolysis Index 10
[2021-11-06 09:40] LABS: Basophils % (Manual) 0 % (0.0-1.8); Eosinophils % (Manual) 0 % (0.0-4.3); Total Cells Counted 100
[2021-11-06 09:41] LABS: Platelet Estimate Consistent w Auto; RBC Morphology Normal
[2021-11-06] MEDS: APIXABAN 5 MG TAB PO SCH ×3 (10:28→21:32)
[2021-11-06] MEDS: METOPROLOL TARTRATE 50 MG TAB PO SCH ×3 (10:28→22:29)
[2021-11-06] MEDS: ASPIRIN 81 MG TAB CHEW PO SCH (10:28)
[2021-11-06] MEDS: FAMOTIDINE 20 MG TAB PO SCH (10:29)
--- NOTE | 2021-11-06 10:52 | Progress Note ---
Assessment and Plan Continue current management and anticoagulation. - Patient Problems (1) Acute hypoxemic respiratory failure Current Visit: Yes Status: Acute (2) Pneumonia due to COVID-19 virus Current Visit: Yes Status: Acute (3) Atrial fibrillation with rapid ventricular response Current Visit: Yes Status: Acute (4) Acute pulmonary embolism Current Visit: Yes Status: Acute (5) CAD (coronary artery disease) Current Visit: Yes Status: Chronic Qualifiers: Coronary Disease-Associated Artery/Lesion type: [place] artery (6) Hypertension Current Visit: Yes Status: Chronic Qualifiers: Hypertension type: primary hypertension Qualified Code(s): I10 - Essential (primary) hypertension (7) Obesity hypoventilation syndrome Current Visit: Yes Status: Chronic Subjective Date of service: 11/06/21 Principal diagnosis: Acute resp failure, Covid PNA, Acute PE, AF with RVR Interval history: No significant events overnight. Objective Vital Signs Temp Pulse Resp BP Pulse Ox 11/06/21 06:13 98 H 112/62 11/06/21 04:50 97.8 F 71 16 112/62 94 11/06/21 00:12 111 H 11/05/21 21:56 92 H 11/05/21 21:01 93 11/05/21 20:33 98.1 F 82 20 115/77 94 11/05/21 16:49 98.0 F 109 H 24 120/72 94 11/05/21 15:05 96 11/05/21 11:47 97.7 F 90 20 118/84 93 - Physical Examination General: No Apparent Distress HEENT: Positive: EOMI, Normocephaly, Mucus Membranes Moist, Mucus Membranes Dry Neck: Positive: neck supple, trachea midline Cardiac: Positive: irregularly irregular, S1/S2 Lungs: Positive: clear to auscultation Neuro: Positive: Grossly Intact Abdomen: Positive: Soft, Active Bowel Sounds. Negative: Tender Skin: Negative: Rash Musculoskeletal: Normal Range of Motion Extremities: Absent: edema - Labs and Meds CBC 11/06/21 Range/Units 07:47 WBC 8.0 (4.5-11.0) K/mm3 RBC 4.35 (3.65-5.03) M/mm3 Hgb 13.2 (11.8-15.2) gm/dl Hct 40.1 (35.5-45.6) % Plt Count 265 (140-440) K/mm3 Comprehensive Metabolic Panel 11/06/21 Range/Units 07:47 Sodium 131 L (137-145) mmol/L Potassium 4.9 (3.6-5.0) mmol/L Chloride 95.0 L (98-107) mmol/L Carbon Dioxide 24 (22-30) mmol/L BUN 31 H (9-20) mg/dL Creatinine 0.8 (0.8-1.3) mg/dL Glucose 225 H (75-100) mg/dL Calcium 8.6 (8.4-10.2) mg/dL - Imaging and Cardiology Echo: report reviewed - Telemetry EKG Rhythm: Atrial Fibrillation (with RVR) AV and intraventricular conduction: right bundle branch block - Allied health notes Allied health notes reviewed: nursing
--- NOTE | 2021-11-06 13:11 | Progress Note ---
Assessment and Plan Cultures: SARS CoV2 PCR: Positive A/P: 75-year-old male with hypertension, CAD, thoracic aortic aneurysm peripheral vascular disease, obesity hypoventilation, morbid obesity: #Bilateral pneumonia: Secondary to COVID-19. Labs reveal WBC 5.8, D-dimer 1951, mild transaminitis, ferritin 319, LDH 268, CRP 11.8. Procalcitonin 0.05. CRP improved to 1.3, ferritin 497. #Acute hypoxic respiratory failure: on HFNC #New onset atrial fibrillation with RVR: cardiology following. #Bilateral PE: on anticoagulation. Recs: -On Solu-Medrol per pulmonary, complete at least 10 days of steroids -Completed Remdesivir -s/p Actemra 10/31/2021 -Anticoagulation for PE per primary -guarded prognosis Will sign off. Bruno Garrett MD, FACP, [facility] ([facility] O: [phone] F: [phone] Subjective Date of service: 11/06/21 Principal diagnosis: Acute resp failure, Covid PNA, Acute PE, AF with RVR Interval history: No fever. Remains on HFNC but slight improvement. Objective - Exam Narrative Exam: Physical Exam (reviewed in chart to minimize risk of transmission) Constitutional: deferred Head, Ears, Nose: deferred Eyes: deferred Neck: deferred Oral: deferred Cardiovascular: deferred Respiratory: deferred GI: deferred Musculoskeletal: deferred Skin: deferred Hem/Lymphatic: deferred Psych: deferred Neurological: deferred - Constitutional Vitals: Vital Signs Temp Pulse Resp BP Pulse Ox 97.8 F 98 H 16 112/62 95 11/06/21 04:50 11/06/21 06:13 11/06/21 04:50 11/06/21 06:13 11/06/21 08:00 Temperature -Last 24 Hours Temperature 97.8 F Temperature 98.1 F Temperature 98.0 F - Labs CBC & Chem 7: 11/06/21 07:47 11/06/21 07:47 Labs: Abnormal lab results 11/06/21 11/06/21 Range/Units 07:47 07:47 RDW 13.1 L (13.2-15.2) % Seg Neuts % (Manual) 90.0 H (40.0-70.0) % Lymphocytes % (Manual) 4.0 L (13.4-35.0) % Lymphocytes # (Manual) 0.3 L (1.2-5.4) K/mm3 Sodium 131 L (137-145) mmol/L Chloride 95.0 L (98-107) mmol/L BUN 31 H (9-20) mg/dL Glucose 225 H (75-100) mg/dL
--- NOTE | 2021-11-06 14:24 | Progress Note ---
Assessment and Plan 75 YO Male with HTN, PVD, Obesity Hypoventilation Syndrome presents to ED for evaluation. Patient reports "I can hardly breathe". Patient states that he has experienced shortness of breath, fatigue, malaise, body aches, dry cough, dimini shed sense of smell, diminished sense of taste, subjective fever, generalized weakness, runny nose over the past 1 week with persistent and worsening symptoms over the same timeframe. EMS was notified and upon arrival the patient was found to be in distress with a pulse oximetry of 82% the patient was placed on supplemental oxygen and transported to [facility] for further care and evaluation of the aforementioned symptoms. The patient was seen and evaluated in the emergency department. All lab and imaging studies reviewed. The patient was found to have a pulse oximetry of 83% on room air which is consistent with acute hypoxemic respiratory failure. Patient sitting up in bed and using accessory muscles to breathe, speaking in short sentences. Patient underwent chest x-ray and was found to have bilateral pneumonia. Patient admitted to the hospital and initiated on pneumonia protocol as well as coronavirus protocol. Patient knowledges subjective fever but denies chills, chest pain, palpitation, skin rash, unilateral leg swelling, calf pain. Patient has history of PE. On eliquis. Patient acknowledges recent ill contact with his grandchildren. Patient denies smoking, alcohol or drug abuse. 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 Allergic to Lisinopril. Patients cedillo virus PCR positive. Patient alert, and awake, still has some cough, denies chest pain or shortness of breath. On vapotherm FiO2 35%. O2 saturation 95% BP 116/82, Pulse 94, Respiratory rate 24 Patient is afebrile. No leukocytosis. Patients CAT scan of chest done 10/26/21 reported Moderate bilateral pulmonary emboli .Moderate multifocal bilateral Covid pneumonia . Moderate hiatal hernia . Patient is on I/V solumedrol, Apixaban, Famotidine and albuterol, finished course of remdesevir I spent critical care time of 35 minutes, obtaining history, review the chart, examine the patient, review chest xray, CAT scan of chest, review lab results.talking to the nursing staff and respiratory therapy and work up plan of treatment in this critically ill COVID 19 patient - Patient Problems (1) CAD (coronary artery disease) Current Visit: Yes Status: Acute Plan to address problem: Management as per cardiology. (2) Acute hypoxemic respiratory failure Current Visit: Yes Status: Acute Plan to address problem: On Vapotherm Fi02 35%. Patient is on I/V solumedrol Patient is on Apixaban Patient is on famotidine. Albuterol inhaler as needed for shortness of breath. (3) Hypertension Current Visit: Yes Status: Chronic Qualifiers: Hypertension type: primary hypertension Qualified Code(s): I10 - Essential (primary) hypertension Plan to address problem: Management as per primary care. (4) Obesity hypoventilation syndrome Current Visit: Yes Status: Chronic Plan to address problem: Blood gases not suggestive of Obesity hypoventilation. Recommend sleep study as out patient, once she recovered from this episode. (5) Pneumonia Current Visit: No Status: Acute Plan to address problem: Antibiotics as per infectious diseases. (6) Pulmonary emboli Current Visit: Yes Status: Acute Plan to address problem: Patient is on eliquis. Subjective Date of service: 11/06/21 Principal diagnosis: Acute resp failure, Covid PNA, Acute PE, AF with RVR Interval history: 75 YO Male with HTN, PVD, Obesity Hypoventilation Syndrome presents to ED for evaluation. Patient reports "I can hardly breathe". Patient states that he has experienced shortness of breath, fatigue, malaise, body aches, dry cough, diminished sense of smell, diminished sense of taste, subjective fever, generalized weakness, runny nose over the past 1 week with persistent and worsening symptoms over the same timeframe. EMS was notified and upon arrival the patient was found to be in distress with a pulse oximetry of 82% the patient was placed on supplemental oxygen and transported to [facility] for further care and evaluation of the aforementioned symptoms. The patient was seen and evaluated in the emergency department. All lab and imaging studies reviewed. The patient was found to have a pulse oximetry of 83% on room air which is consistent with acute hypoxemic respiratory failure. Patient sitting up in bed and using accessory muscles to breathe, speaking in short sentences. Patient underwent chest x-ray and was found to have bilateral pneumonia. Patient admitted to the hospital and initiated on pneumonia protocol as well as coronavirus protocol. Patient knowledges subjective fever but denies chills, chest pain, palpitation, skin rash, unilateral leg swelling, calf pain. Patient has history of PE. On eliquis. Patient acknowledges recent ill contact with his grandchildren. Patient denies smoking, alcohol or drug abuse. 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 Allergic to Lisinopril. Patients cedillo virus PCR positive. Patient alert, and awake, still has some cough, denies chest pain or shortness of breath. On vapotherm FiO2 35%. O2 saturation 95% BP 116/82, Pulse 94, Respiratory rate 24 Patient is afebrile. No leukocytosis. Patients CAT scan of chest done 10/26/21 reported Moderate bilateral pulmonary emboli .Moderate multifocal bilateral Covid pneumonia . Moderate hiatal hernia . Patient is on I/V solumedrol, Apixaban, Famotidine and albuterol, finished course of remdesevir Objective Vital Signs - 12hr 11/06/21 11/06/21 11/06/21 04:50 06:13 08:00 Temperature 97.8 F Pulse Rate 71 98 H Respiratory 16 Rate Blood Pressure 112/62 112/62 O2 Sat by Pulse 94 95 Oximetry 11/06/21 11:27 Temperature 98.2 F Pulse Rate 94 H Respiratory 24 Rate Blood Pressure 116/82 O2 Sat by Pulse 95 Oximetry Constitutional: no acute distress, alert, other (elderly obese male with mildly increased respiratory effort at rest) Eyes: non-icteric ENT: oropharynx moist Neck: supple, no lymphadenopathy, no JVD, other (large circumference) Effort: mildly labored Ascultation: Bilateral: diminished breath sounds, rales (inspiratory, bases), rhonchi Percussion: Bilateral: not dull Cardiovascular: regular rate and rhythm Gastrointestinal: normoactive bowel sounds, soft, non-tender, non-distended (protuberant) Integumentary: normal Extremities: no cyanosis, pink and warm, pulses normal, no ischemia or petechiae Neurologic: non-focal exam, pupils equal and round, CN II-XII normal, motor strength normal and Psychiatric: mood appropriate, affect normal CBC and BMP: 11/06/21 07:47 11/06/21 07:47 ABG, PT/INR, D-dimer: ABG ABG pH 7.474 pH Units (7.350-7.450) H 10/26/21 23:20 ABG pCO2 35.2 mm Hg 10/26/21 23:20 ABG pO2 47.3 mm Hg (80.0-90.0) L 10/26/21 23:20 ABG O2 Saturation 88.5 % (95.0-99.0) L 10/26/21 23:20 PT/INR, D-dimer PT 13.3 Sec. (12.2-14.9) 10/27/21 12:36 INR 0.91 (0.87-1.13) 10/27/21 12:36 D-Dimer 1824.38 ng/mlDDU (0-234) H 11/02/21 05:58 Abnormal lab findings: Abnormal Labs 10/26/21 10/26/21 10/26/21 16:48 16:48 19:03 WBC MCV RDW Lymph % (Auto) 11.3 L [place] % (Auto) 10.2 H Lymph # (Auto) 0.5 L Seg Neutrophils % 77.8 H Seg Neuts % (Manual) Lymphocytes % (Manual) Seg Neutrophils # Man Lymphocytes # (Manual) D-Dimer 1951.42 H ABG pH ABG pO2 ABG O2 Saturation ABG Hemoglobin Oxyhemoglobin Sodium Potassium 3.4 L Chloride 97.5 L BUN 24 H Glucose 108 H Calcium Ferritin AST Lactate Dehydrogenase C-Reactive Protein Total Protein Albumin Free T4 Coronavirus (PCR) 10/26/21 10/26/21 10/26/21 19:03 19:03 21:46 WBC MCV RDW Lymph % (Auto) [place] % (Auto) Lymph # (Auto) Seg Neutrophils % Seg Neuts % (Manual) Lymphocytes % (Manual) Seg Neutrophils # Man Lymphocytes # (Manual) D-Dimer ABG pH ABG pO2 ABG O2 Saturation ABG Hemoglobin Oxyhemoglobin Sodium Potassium Chloride BUN Glucose 104 H Calcium Ferritin 319.2 H AST Lactate Dehydrogenase 268 H C-Reactive Protein 11.80 H Total Protein Albumin Free T4 1.78 H Coronavirus (PCR) 10/26/21 10/27/21 10/27/21 23:20 03:44 03:44 WBC MCV 95 H RDW Lymph % (Auto) [place] % (Auto) Lymph # (Auto) Seg Neutrophils % Seg Neuts % (Manual) 84.0 H Lymphocytes % (Manual) 10.0 L Seg Neutrophils # Man Lymphocytes # (Manual) 0.6 L D-Dimer ABG pH 7.474 H ABG pO2 47.3 L ABG O2 Saturation 88.5 L ABG Hemoglobin 13.5 L Oxyhemoglobin 87.7 L Sodium Potassium Chloride 97.9 L BUN 23 H Glucose 139 H Calcium 8.3 L Ferritin AST Lactate Dehydrogenase C-Reactive Protein Total Protein Albumin Free T4 Coronavirus (PCR) 10/27/21 10/27/21 10/27/21 12:36 23:24 Unknown WBC 4.1 L MCV RDW Lymph % (Auto) [place] % (Auto) Lymph # (Auto) Seg Neutrophils % Seg Neuts % (Manual) Lymphocytes % (Manual) Seg Neutrophils # Man Lymphocytes # (Manual) D-Dimer ABG pH ABG pO2 ABG O2 Saturation ABG Hemoglobin Oxyhemoglobin Sodium 136 L Potassium Chloride 96.8 L BUN 21 H Glucose 144 H Calcium Ferritin AST 49 H Lactate Dehydrogenase C-Reactive Protein Total Protein Albumin 3.4 L Free T4 Coronavirus (PCR) Positive A 10/28/21 10/29/21 10/30/21 04:53 04:28 05:02 WBC MCV RDW Lymph % (Auto) [place] % (Auto) Lymph # (Auto) Seg Neutrophils % Seg Neuts % (Manual) Lymphocytes % (Manual) Seg Neutrophils # Man Lymphocytes # (Manual) D-Dimer ABG pH ABG pO2 ABG O2 Saturation ABG Hemoglobin Oxyhemoglobin Sodium 136 L Potassium Chloride BUN 24 H 38 H 44 H Glucose 163 H 225 H 215 H Calcium Ferritin AST 52 H 52 H 55 H Lactate Dehydrogenase C-Reactive Protein Total Protein 6.2 L 6.1 L Albumin 3.2 L 3.2 L 3.5 L Free T4 Coronavirus (PCR) 11/01/21 11/01/21 11/02/21 04:00 04:00 05:58 WBC MCV RDW Lymph % (Auto) [place] % (Auto) Lymph # (Auto) Seg Neutrophils % Seg Neuts % (Manual) 98.0 H Lymphocytes % (Manual) 0 L Seg Neutrophils # Man 7.8 H Lymphocytes # (Manual) 0.0 L D-Dimer ABG pH ABG pO2 ABG O2 Saturation ABG Hemoglobin Oxyhemoglobin Sodium Potassium Chloride BUN 41 H Glucose 192 H Calcium Ferritin AST Lactate Dehydrogenase C-Reactive Protein Total Protein 6.1 L Albumin 3.3 L Free T4 Coronavirus (PCR) 11/02/21 11/02/21 11/02/21 05:58 05:58 05:58 WBC MCV RDW Lymph % (Auto) [place] % (Auto) Lymph # (Auto) Seg Neutrophils % Seg Neuts % (Manual) Lymphocytes % (Manual) Seg Neutrophils # Man Lymphocytes # (Manual) D-Dimer 1824.38 H ABG pH ABG pO2 ABG O2 Saturation ABG Hemoglobin Oxyhemoglobin Sodium 135 L Potassium Chloride BUN 39 H Glucose 236 H Calcium Ferritin 497.7 H AST Lactate Dehydrogenase 411 H C-Reactive Protein Total Protein Albumin Free T4 Coronavirus (PCR) 11/05/21 11/05/21 11/06/21 06:01 06:01 07:47 WBC MCV RDW 13.1 L Lymph % (Auto) 5.1 L [place] % (Auto) Lymph # (Auto) 0.3 L Seg Neutrophils % 89.8 H Seg Neuts % (Manual) 90.0 H Lymphocytes % (Manual) 4.0 L Seg Neutrophils # Man Lymphocytes # (Manual) 0.3 L D-Dimer ABG pH ABG pO2 ABG O2 Saturation ABG Hemoglobin Oxyhemoglobin Sodium 133 L Potassium Chloride BUN 35 H Glucose 237 H Calcium Ferritin AST Lactate Dehydrogenase C-Reactive Protein Total Protein Albumin Free T4 Coronavirus (PCR) 11/06/21 07:47 WBC MCV RDW Lymph % (Auto) [place] % (Auto) Lymph # (Auto) Seg Neutrophils % Seg Neuts % (Manual) Lymphocytes % (Manual) Seg Neutrophils # Man Lymphocytes # (Manual) D-Dimer ABG pH ABG pO2 ABG O2 Saturation ABG Hemoglobin Oxyhemoglobin Sodium 131 L Potassium Chloride 95.0 L BUN 31 H Glucose 225 H Calcium Ferritin AST Lactate Dehydrogenase C-Reactive Protein Total Protein Albumin Free T4 Coronavirus (PCR) Allied health notes reviewed: nursing
[2021-11-06] MEDS: MELATONIN 5 MG TAB PO SCH (21:33)
[2021-11-07] MEDS: methylPREDNISolone Sod Succinate 125 MG/2 ML INJ IV SCH ×4 (05:45→21:40)
[2021-11-07] MEDS: dilTIAZem 60 MG TAB PO SCH ×4 (05:46→21:38)
--- NOTE | 2021-11-07 07:28 | Progress Note ---
Assessment and Plan Assessment and plan: #Acute hypoxic respiratory failure #COVID 19 pneumonia -Currently on high flow nasal cannula 20 L / 40% FiO2; will wean as tolerated -Pulmonology following, assistance appreciated -Continue steroids x10 days; patient refused remdesivir -Encourage proning as able #Bilateral pulmonary embolism -Continue Eliquis 5 mg every 12 hours #New onset atrial fibrillation w/ RVR -Continue p.o. diltiazem (dose increased to 120 mg twice daily) and metoprolol tartrate -Cardiology following, assistance appreciated -Continue Eliquis -Continue telemetry #Hypertension -Blood pressure relatively controlled -Continue to hold home losartan #Thoracic aortic aneurysm -Echocardiogram showed ascending aorta dilated at 4.1 cm -Will need outpatient follow-up for surveillance #Coronary artery disease -Continue aspirin #Obesity -BMI 34.9% -counseled patient on the importance of weight loss, incorporating exercise, and dietary changes (lean meats, fresh fruits and vegetables, and water intake). Patient expresses understanding. -Time: +15 min #Advanced care planning -Disease education conducted, care plan discussed, diagnoses discussed, progn osis discussed, and patient acknowledges understanding with care plan -Time: +30 min Disposition Plan: Continue medical management; pending LTAC referral History Interval history: No acute events overnight. Patient eager to titrate supplemental O2. Reports improved shortness of breath. No complaints at this time. Hospitalist Physical - Physical exam Narrative exam: GENERAL: Well-developed well-nourished. In no acute distress. HEENT: High flow nasal cannula CHEST/LUNGS: Coarse breath sounds bilaterally HEART/CARDIOVASCULAR: RRR. No murmur, rubs or gallops appreciated. ABDOMEN: +BS. NT/ND. SKIN: No rashes noted. NEURO: No focal motor deficit. Follows all commands and is ambulatory. MUSCULOSKELETAL: No joint effusion EXTREMITIES: Bilateral early chronic venous stasis changes PSYCH: Cooperative. - Constitutional Vitals: Temp Pulse Resp BP Pulse Ox 97.9 F 74 18 136/82 94 11/07/21 05:27 11/07/21 05:46 11/07/21 05:27 11/07/21 05:46 11/07/21 05:27 General appearance: Present: no acute distress, well-nourished, obese, other HEART Score - HEART Score Troponin: Troponin T < 0.010 ng/mL (0.00-0.029) 10/26/21 16:48 Results - Labs CBC & Chem 7: 11/06/21 07:47 11/06/21 07:47 Labs: Laboratory Last Values WBC 8.0 K/mm3 (4.5-11.0) 11/06/21 07:47 RBC 4.35 M/mm3 (3.65-5.03) 11/06/21 07:47 Hgb 13.2 gm/dl (11.8-15.2) 11/06/21 07:47 Hct 40.1 % (35.5-45.6) 11/06/21 07:47 MCV 92 fl (84-94) 11/06/21 07:47 MCH 30 pg (28-32) 11/06/21 07:47 MCHC 33 % (32-34) 11/06/21 07:47 RDW 13.1 % (13.2-15.2) L 11/06/21 07:47 Plt Count 265 K/mm3 (140-440) 11/06/21 07:47 Lymph % (Auto) 5.1 % (13.4-35.0) L 11/05/21 06:01 [place] % (Auto) 5.0 % (0.0-7.3) 11/05/21 06:01 Eos % (Auto) 0.0 % (0.0-4.3) 11/05/21 06:01 Baso % (Auto) 0.1 % (0.0-1.8) 11/05/21 06:01 Lymph # (Auto) 0.3 K/mm3 (1.2-5.4) L 11/05/21 06:01 [place] # (Auto) 0.3 K/mm3 (0.0-0.8) 11/05/21 06:01 Eos # (Auto) 0.0 K/mm3 (0.0-0.4) 11/05/21 06:01 Baso # (Auto) 0.0 K/mm3 (0.0-0.1) 11/05/21 06:01 Add Manual Diff Complete 11/06/21 07:47 Total Counted 100 11/06/21 07:47 Seg Neutrophils % Public Aid Eligibility Assistant 11/06/21 07:47 Seg Neuts % (Manual) 90.0 % (40.0-70.0) H 11/06/21 07:47 Band Neutrophils % 0 % 11/06/21 07:47 Lymphocytes % (Manual) 4.0 % (13.4-35.0) L 11/06/21 07:47 Reactive Lymphs % (Man) 0 % 11/06/21 07:47 Monocytes % (Manual) 6.0 % (0.0-7.3) 11/06/21 07:47 Eosinophils % (Manual) 0 % (0.0-4.3) 11/06/21 07:47 Basophils % (Manual) 0 % (0.0-1.8) 11/06/21 07:47 Metamyelocytes % 0 % 11/06/21 07:47 Myelocytes % 0 % 11/06/21 07:47 Promyelocytes % 0 % 11/06/21 07:47 Blast Cells % 0 % 11/06/21 07:47 Nucleated RBC % Not Reportable 11/06/21 07:47 Seg Neutrophils # 6.2 K/mm3 (1.8-7.7) 11/05/21 06:01 Seg Neutrophils # Man 7.2 K/mm3 (1.8-7.7) 11/06/21 07:47 Band Neutrophils # 0.0 K/mm3 11/06/21 07:47 Lymphocytes # (Manual) 0.3 K/mm3 (1.2-5.4) L 11/06/21 07:47 Abs React Lymphs (Man) 0.0 K/mm3 11/06/21 07:47 Monocytes # (Manual) 0.5 K/mm3 (0.0-0.8) 11/06/21 07:47 Eosinophils # (Manual) 0.0 K/mm3 (0.0-0.4) 11/06/21 07:47 Basophils # (Manual) 0.0 K/mm3 (0.0-0.1) 11/06/21 07:47 Metamyelocytes # 0.0 K/mm3 11/06/21 07:47 Myelocytes # 0.0 K/mm3 11/06/21 07:47 Promyelocytes # 0.0 K/mm3 11/06/21 07:47 Blast Cells # 0.0 K/mm3 11/06/21 07:47 WBC Morphology Not Reportable 11/06/21 07:47 Hypersegmented Neuts Not Reportable 11/06/21 07:47 Hyposegmented Neuts Not Reportable 11/06/21 07:47 Hypogranular Neuts Not Reportable 11/06/21 07:47 Smudge Cells Not Reportable 11/06/21 07:47 Toxic Granulation Not Reportable 11/06/21 07:47 Toxic Vacuolation Not Reportable 11/06/21 07:47 Dohle Bodies Not Reportable 11/06/21 07:47 Pelger-Huet Anomaly Not Reportable 11/06/21 07:47 Seven Rods Not Reportable 11/06/21 07:47 Platelet Estimate Consistent w auto 11/06/21 07:47 Clumped Platelets Not Reportable 11/06/21 07:47 Plt Clumps, EDTA Not Reportable 11/06/21 07:47 Large Platelets Not Reportable 11/06/21 07:47 Giant Platelets Not Reportable 11/06/21 07:47 Platelet Satelliting Not Reportable 11/06/21 07:47 Plt Morphology Comment Not Reportable 11/06/21 07:47 RBC Morphology Normal 11/06/21 07:47 Dimorphic RBCs Not Reportable 11/06/21 07:47 Polychromasia Not Reportable 11/06/21 07:47 Hypochromasia Not Reportable 11/06/21 07:47 Poikilocytosis Not Reportable 11/06/21 07:47 Anisocytosis Not Reportable 11/06/21 07:47 Microcytosis Not Reportable 11/06/21 07:47 Macrocytosis Not Reportable 11/06/21 07:47 Spherocytes Not Reportable 11/06/21 07:47 Pappenheimer Bodies Not Reportable 11/06/21 07:47 Sickle Cells Not Reportable 11/06/21 07:47 Target Cells Not Reportable 11/06/21 07:47 Tear Drop Cells Not Reportable 11/06/21 07:47 Ovalocytes Not Reportable 11/06/21 07:47 Helmet Cells Not Reportable 11/06/21 07:47 Jain-Metcalf Bodies Not Reportable 11/06/21 07:47 [place] Rings Not Reportable 11/06/21 07:47 [place] Cells Not Reportable 11/06/21 07:47 Bite Cells Not Reportable 11/06/21 07:47 Crenated Cell Not Reportable 11/06/21 07:47 Elliptocytes Not Reportable 11/06/21 07:47 Acanthocytes (Spur) Not Reportable 11/06/21 07:47 Rouleaux Not Reportable 11/06/21 07:47 Hemoglobin C Crystals Not Reportable 11/06/21 07:47 Schistocytes Not Reportable 11/06/21 07:47 Malaria parasites Not Reportable 11/06/21 07:47 Harjit Bodies Not Reportable 11/06/21 07:47 Hem Pathologist Commnt No 11/06/21 07:47 PT 13.3 Sec. (12.2-14.9) 10/27/21 12:36 INR 0.91 (0.87-1.13) 10/27/21 12:36 APTT 27.3 Sec. (24.2-36.6) 10/27/21 12:36 D-Dimer 1824.38 ng/mlDDU (0-234) H 11/02/21 05:58 ABG pH 7.474 pH Units (7.350-7.450) H 10/26/21 23:20 ABG pCO2 35.2 mm Hg 10/26/21 23:20 ABG pO2 47.3 mm Hg (80.0-90.0) L 10/26/21 23:20 ABG HCO3 25.3 mmol/L (20.0-26.0) 10/26/21 23:20 ABG O2 Saturation 88.5 % (95.0-99.0) L 10/26/21 23:20 ABG O2 Content 16.6 (0.0-44) 10/26/21 23:20 ABG Base Excess 2.0 mmol/L (-2.0-3.0) 10/26/21 23:20 ABG Hemoglobin 13.5 gm/dl (14.0-18.0) L 10/26/21 23:20 ABG Carboxyhemoglobin 0.5 % (0.0-5.0) 10/26/21 23:20 ABG Methemoglobin 0.4 % (0.0-1.5) 10/26/21 23:20 Oxyhemoglobin 87.7 % (95.0-99.0) L 10/26/21 23:20 FiO2 21 % 10/26/21 23:20 Sodium 131 mmol/L (137-145) L 11/06/21 07:47 Potassium 4.9 mmol/L (3.6-5.0) 11/06/21 07:47 Chloride 95.0 mmol/L (98-107) L 11/06/21 07:47 Carbon Dioxide 24 mmol/L (22-30) 11/06/21 07:47 Anion Gap 17 mmol/L 11/06/21 07:47 BUN 31 mg/dL (9-20) H 11/06/21 07:47 Creatinine 0.8 mg/dL (0.8-1.3) 11/06/21 07:47 Estimated GFR > 60 ml/min 11/06/21 07:47 BUN/Creatinine Ratio 39 % 11/06/21 07:47 Glucose 225 mg/dL (75-100) H 11/06/21 07:47 Calcium 8.6 mg/dL (8.4-10.2) 11/06/21 07:47 Magnesium 1.90 mg/dL (1.7-2.3) 10/26/21 21:46 Ferritin 497.7 ng/mL (30.0-300.0) H 11/02/21 05:58 Total Bilirubin 0.70 mg/dL (0.1-1.2) 11/01/21 04:00 Direct Bilirubin 0.2 mg/dL (0-0.2) 11/01/21 04:00 Indirect Bilirubin 0.5 mg/dL 11/01/21 04:00 AST 37 units/L (5-40) 11/01/21 04:00 ALT 47 units/L (7-56) 11/01/21 04:00 Alkaline Phosphatase 50 units/L (35-129) 11/01/21 04:00 Lactate Dehydrogenase 411 units/L (91-180) H 11/02/21 05:58 Troponin T < 0.010 ng/mL (0.00-0.029) 10/26/21 16:48 C-Reactive Protein 1.30 mg/dL (0.00-1.30) 11/02/21 05:58 NT-Pro-B Natriuret Pep 806.1 pg/mL (0-900) 10/26/21 16:48 Total Protein 6.1 g/dL (6.3-8.2) L 11/01/21 04:00 Albumin 3.3 g/dL (3.9-5) L 11/01/21 04:00 Albumin/Globulin Ratio 1.2 % 11/01/21 04:00 Procalcitonin < 0.05 ng/mL (<0.15) 10/31/21 08:07 TSH 0.889 mlU/mL (0.270-4.200) 10/26/21 21:46 Free T4 1.78 ng/dL (0.76-1.46) H 10/26/21 21:46 Coronavirus (PCR) Positive (Negative) A 10/27/21 Unknown Cummings/IV: Voiding Method Urinal Active Medications - Current Medications Current Medications: Generic Name Dose Route Start Last Admin Trade Name Freq PRN Reason Stop Dose Admin Acetaminophen 650 mg 10/26/21 18:52 Acetaminophen 325 Mg Tab PO Q4H PRN Pain MILD(1-3)/Fever >100.5/LEYVA Albuterol 2.5 mg 10/26/21 18:52 Albuterol 2.5 Mg/3 Ml Nebu IH Q4HRT PRN Shortness Of Breath Apixaban 5 mg 11/03/21 10:00 11/06/21 21:32 Apixaban 5 Mg Tab PO 5 mg Q12HR VASYL Administration Aspirin 81 mg 10/28/21 10:00 11/06/21 10:28 Aspirin 81 Mg Tab Chew PO 81 mg QDAY VASYL Administration Diltiazem HCl 60 mg 10/31/21 19:00 11/07/21 05:46 Diltiazem 60 Mg Tab PO 60 mg Q6HR VASYL Administration Famotidine 20 mg 10/29/21 10:00 11/06/21 10:29 Famotidine 20 Mg Tab PO 20 mg QDAY VASYL Administration Hydromorphone HCl 0.5 mg 10/26/21 18:52 Hydromorphone 1 Mg/1 Ml Inj IV Q23H PRN Pain , Severe (7-10) Melatonin 10 mg 11/05/21 22:00 11/06/21 21:33 Melatonin 5 Mg Tab PO 10 mg QHS VASYL Administration Methylprednisolone Sodium Succinate 60 mg 10/27/21 18:00 11/07/21 05:47 Methylprednisolone Sod Succinate 125 Mg/2 Ml Inj IV 60 mg Q8HR VASYL Administration Metoprolol Tartrate 50 mg 11/02/21 14:00 11/06/21 22:29 Metoprolol Tartrate 50 Mg Tab PO 50 mg TID VASYL Administration Ondansetron HCl 4 mg 10/26/21 18:52 Ondansetron 4 Mg/2 Ml Inj IV Q8H PRN Nausea And Vomiting Oxycodone/Acetaminophen 1 tab 10/26/21 18:52 Oxycodone /Acetaminophen 5-325mg Tab PO Q16H PRN Pain, Moderate (4-6) Sodium Chloride 10 ml 10/26/21 22:00 11/06/21 21:34 Sodium Chloride 0.9% 10 Ml Flush Syringe IV 10 ml BID VASYL Administration Sodium Chloride 10 ml 10/26/21 18:52 Sodium Chloride 0.9% 10 Ml Flush Syringe IV PRN PRN LINE FLUSH Nutrition/Malnutrition Assess - Dietary Evaluation Nutrition/Malnutrition Findings: Nutrition Notes Start: 11/02/21 15:51 Freq: Status: Active Protocol: Document 11/02/21 15:51 JOANN (Rec: 11/02/21 16:06 JOANN [id number]) Nutrition Notes Need for Assessment generated from: LOS Initial or Follow up Assessment Current Diagnosis Coronary Artery Disease, Hypertension,Respiratory Failure Other Pertinent Diagnosis COVID-19, B/l pulmonary embolism, Aortic aneurysm, Atrial Fibrilation. Current Diet Cardiac Diet (since D 10/26). Labs/Tests 11/02: Na 135, BUN 39, Glu 236 . Pertinent Medications 11/02: Nutritionally unremarkable. Height 5 ft 11 in Weight 113.398 kg [place] Body Weight (kg) 78.18 BMI 34.8 Intake Prior to Admission Good Weight change and time frame Pt states not having lost body weight recently. Subjective/Other Information RD consult for LOS assessment. Pt's PO intake of meals has been Fair (50%), according to ADL notes. Ht & Wt checked with RN over the phone. Percent of energy/protein needs met: Prescribed Cardiac Diet provides for energy/protein needs (2,230 Kcal/85 g) during LOS. Burn Absent Trauma Absent GI Symptoms None Food Allergy No Skin Integrity/Comment Clear, warm, dry. Current % PO Fair (50-74%) Minimum of two criteria No Is patient on ventilator? No Is Patient Ambulatory and/or Out of Bed Yes REE-([place]-St. Jeor-ambulatory/OOB) [ 2458.443 [id number]] Kcal/Kg value to use for calculation 12 Approximate Energy Requirements Using 1361 kcal/Kg Calculation Used for Recommendations Kcal/kg Additional Notes Protein: 0.8-1 g/Kg; 77-96 g/ day. Fluids: 1 ml/Kcal, or as per MD. Nutrition Intervention Change Diet Order: Continue Cardiac Diet. Follow-Up By: 11/10/21 Additional Comments Continue monitoring food tolerance, %PO intake of meals , and BM.
[2021-11-07] MEDS: METOPROLOL TARTRATE 50 MG TAB PO SCH ×3 (11:18→21:40)
[2021-11-07] MEDS: ASPIRIN 81 MG TAB CHEW PO SCH (11:19)
[2021-11-07] MEDS: FAMOTIDINE 20 MG TAB PO SCH (11:20)
[2021-11-07] MEDS: APIXABAN 5 MG TAB PO SCH ×2 (11:23→21:40)
--- NOTE | 2021-11-07 12:51 | Progress Note ---
Assessment and Plan Is a 75-year-old male with a past medical history of hypertension, coronary artery disease, and thoracic aortic aneurysm who presented to the ED with a complaint of difficulty breathing since [place] COVID Bilateral PE Acute hypoxic respiratory failure- on highflow [place] COVID PNA Afib w/ RVR(new onset)-currently sinus rhythm HTN CAD Echo 10/26/2021-EF 50 to 55%. Right ventricle systolic function is normal. Trace mitral regurgitation. Trace tricuspid regurgitation. Ascending aorta is dil ated 4.1 cm Stress11/20/2019- Normal pharmacological SPECT stress test. Stress ECG was negative for ischemia. No symptoms of chest pain with vasodilator stress. Normal perfusion without evidence of ischemia or infarct. TID 0.97 (normal). Normal LV systolic function (calculated LVEF 69%). No wall motion abnormalities. Echo 11/20/2019-LV normal size. Normal LV wall thickness. LV wall motion normal. LVEF is 59%. GLS decreased. Normal LV diastolic function. RV moderately to severely dilated. RV systolic function is normal. Estimated RAP 5 mmHg based on IVC. Unable to assess RVSP due to insufficient TR signal. AV not well visualized. AV opens well. Mild AR. No AV stenosis. Aortic arch normal. Sinotubular junction mildly dilated. Ascending aorta mildly dilated. No aortic coarctation. Ao Sinus s 3.[address] jnct s 3.87 cm Ao Asc s 4.1 cm Plan: Continue metoprolol 50mg PO TID Convert to diltiazem 120 mg p.o. twice daily Continue Eliquis for anticoagulation Due to variable BP we will continue to hold patient's losartan Patient seen in conjunction with Dr. Chan who agrees with this plan of care - Patient Problems (1) CAD (coronary artery disease) Current Visit: Yes Status: Acute (2) Acute hypoxemic respiratory failure Current Visit: Yes Status: Acute (3) Hypertension Current Visit: Yes Status: Chronic Qualifiers: Hypertension type: primary hypertension Qualified Code(s): I10 - Essential (primary) hypertension (4) Obesity hypoventilation syndrome Current Visit: Yes Status: Chronic (5) Pneumonia Current Visit: No Status: Acute Subjective Date of service: 11/07/21 Principal diagnosis: Acute resp failure, Covid PNA, Acute PE, AF with RVR Interval history: Patient sitting in bed in no acute distress. Patient still on high flow nasal cannula but being weaned down. Patient is s sinus rhythm 60s to 70s Objective Vital Signs Temp Pulse Resp BP Pulse Ox 11/07/21 10:39 95 11/07/21 05:46 74 136/82 11/07/21 05:27 97.9 F 74 18 136/82 94 11/07/21 01:00 93 11/07/21 00:00 70 136/86 11/06/21 22:29 81 118/82 11/06/21 22:01 98.2 F 81 16 118/82 92 11/06/21 20:15 93 11/06/21 20:00 81 118/82 11/06/21 17:17 98.1 F 78 24 118/77 92 11/06/21 14:00 94 - Physical Examination General: No Apparent Distress HEENT: Positive: EOMI, Normocephaly, Mucus Membranes Moist, Mucus Membranes Dry Neck: Positive: neck supple, trachea midline Cardiac: Positive: Reg Rate and Rhythm Lungs: Positive: Decreased Breath Sounds Neuro: Positive: Grossly Intact Abdomen: Positive: Soft, Active Bowel Sounds. Negative: Tender Skin: Negative: Rash Musculoskeletal: Normal Range of Motion Extremities: Absent: edema - Imaging and Cardiology Echo: report reviewed - Telemetry EKG Rhythm: Sinus Rhythm - EKG Sinus rhythms and dysrhythmias: sinus rhythm AV and intraventricular conduction: right bundle branch block - Allied health notes Allied health notes reviewed: nursing
--- NOTE | 2021-11-07 12:54 | Progress Note ---
Assessment and Plan 75 YO Male with HTN, PVD, Obesity Hypoventilation Syndrome presents to ED for evaluation. Patient reports "I can hardly breathe". Patient states that he has experienced shortness of breath, fatigue, malaise, body aches, dry cough, dimini shed sense of smell, diminished sense of taste, subjective fever, generalized weakness, runny nose over the past 1 week with persistent and worsening symptoms over the same timeframe. EMS was notified and upon arrival the patient was found to be in distress with a pulse oximetry of 82% the patient was placed on supplemental oxygen and transported to [facility] for further care and evaluation of the aforementioned symptoms. The patient was seen and evaluated in the emergency department. All lab and imaging studies reviewed. The patient was found to have a pulse oximetry of 83% on room air which is consistent with acute hypoxemic respiratory failure. Patient sitting up in bed and using accessory muscles to breathe, speaking in short sentences. Patient underwent chest x-ray and was found to have bilateral pneumonia. Patient admitted to the hospital and initiated on pneumonia protocol as well as coronavirus protocol. Patient knowledges subjective fever but denies chills, chest pain, palpitation, skin rash, unilateral leg swelling, calf pain. Patient has history of PE. On eliquis. Patient acknowledges recent ill contact with his grandchildren. Patient denies smoking, alcohol or drug abuse. 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 Allergic to Lisinopril. Patients cedillo virus PCR positive. Patient alert, and awake. Patient's O2 requirements went up. On vapotherm FiO2 40%. Denies CP, SOB or cough. O2 saturation 91% BP 125/72, Pulse 98, Respiratory rate 18 Patient is afebrile. No leukocytosis. Patients CAT scan of chest done 10/26/21 reported Moderate bilateral pulmonary emboli .Moderate multifocal bilateral Covid pneumonia . Moderate hiatal hernia . Patient is on I/V solumedrol, Apixaban, Famotidine and albuterol, finished course of remdesevir I spent critical care time of 32 minutes, obtaining history, review the chart, examine the patient, review chest xray, CAT scan of chest, review lab results.talking to the nursing staff and respiratory therapy and work up plan of treatment in this critically ill COVID 19 patient - Patient Problems (1) CAD (coronary artery disease) Current Visit: Yes Status: Acute Plan to address problem: Management as per cardiology. (2) Acute hypoxemic respiratory failure Current Visit: Yes Status: Acute Plan to address problem: O2 requirements went up, On Vapotherm Fi02 40%. Patient is on I/V solumedrol Patient is on Apixaban Patient is on famotidine. Albuterol inhaler as needed for shortness of breath. (3) Hypertension Current Visit: Yes Status: Chronic Qualifiers: Hypertension type: primary hypertension Qualified Code(s): I10 - Essential (primary) hypertension Plan to address problem: Management as per primary care. (4) Obesity hypoventilation syndrome Current Visit: Yes Status: Chronic Plan to address problem: Blood gases not suggestive of Obesity hypoventilation. Recommend sleep study as out patient, once she recovered from this episode. (5) Pneumonia Current Visit: No Status: Acute Plan to address problem: Antibiotics as per infectious diseases. (6) Pulmonary emboli Current Visit: Yes Status: Acute Plan to address problem: Patient is on eliquis. Subjective Date of service: 11/07/21 Principal diagnosis: Acute resp failure, Covid PNA, Acute PE, AF with RVR Interval history: 75 YO Male with HTN, PVD, Obesity Hypoventilation Syndrome presents to ED for evaluation. Patient reports "I can hardly breathe". Patient states that he has experienced shortness of breath, fatigue, malaise, body aches, dry cough, diminished sense of smell, diminished sense of taste, subjective fever, generalized weakness, runny nose over the past 1 week with persistent and worsening symptoms over the same timeframe. EMS was notified and upon arrival the patient was found to be in distress with a pulse oximetry of 82% the patient was placed on supplemental oxygen and transported to [facility] for further care and evaluation of the aforementioned symptoms. The patient was seen and evaluated in the emergency department. All lab and imaging studies reviewed. The patient was found to have a pulse oximetry of 83% on room air which is consistent with acute hypoxemic respiratory failure. Patient sitting up in bed and using accessory muscles to breathe, speaking in short sentences. Patient underwent chest x-ray and was found to have bilateral pneumonia. Patient admitted to the hospital and initiated on pneumonia protocol as well as coronavirus protocol. Patient knowledges subjective fever but denies chills, chest pain, palpitation, skin rash, unilateral leg swelling, calf pain. Patient has history of PE. On eliquis. Patient acknowledges recent ill contact with his grandchildren. Patient denies smoking, alcohol or drug abuse. 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 Allergic to Lisinopril. Patients cedillo virus PCR positive. Patient alert, and awake. Patient's O2 requirements went up. On vapotherm FiO2 40%. Denies CP, SOB or cough. O2 saturation 91% BP 125/72, Pulse 98, Respiratory rate 18 Patient is afebrile. No leukocytosis. Patients CAT scan of chest done 10/26/21 reported Moderate bilateral pulmonary emboli .Moderate multifocal bilateral Covid pneumonia . Moderate hiatal hernia . Patient is on I/V solumedrol, Apixaban, Famotidine and albuterol, finished course of remdesevir Objective Vital Signs - 12hr 11/07/21 11/07/21 11/07/21 01:00 05:27 05:46 Temperature 97.9 F Pulse Rate 74 74 Respiratory 18 Rate Blood Pressure 136/82 136/82 O2 Sat by Pulse 93 94 Oximetry 11/07/21 10:39 Temperature Pulse Rate Respiratory Rate Blood Pressure O2 Sat by Pulse 95 Oximetry Constitutional: no acute distress, other (elderly obese male with mildly increased respiratory effort at rest) Eyes: non-icteric ENT: oropharynx moist Neck: supple, no lymphadenopathy, no JVD, other (large circumference) Effort: mildly labored Ascultation: Bilateral: diminished breath sounds, rales (inspiratory, bases), rhonchi Percussion: Bilateral: not dull Cardiovascular: regular rate and rhythm Gastrointestinal: normoactive bowel sounds, soft, non-tender, non-distended (protuberant) Integumentary: normal Extremities: no cyanosis, pink and warm, pulses normal, no ischemia or petechiae Neurologic: non-focal exam, pupils equal and round, CN II-XII normal, motor strength normal and Psychiatric: mood appropriate, affect normal CBC and BMP: 11/06/21 07:47 11/08/21 07:54 ABG, PT/INR, D-dimer: ABG ABG pH 7.474 pH Units (7.350-7.450) H 10/26/21 23:20 ABG pCO2 35.2 mm Hg 10/26/21 23:20 ABG pO2 47.3 mm Hg (80.0-90.0) L 10/26/21 23:20 ABG O2 Saturation 88.5 % (95.0-99.0) L 10/26/21 23:20 PT/INR, D-dimer PT 13.3 Sec. (12.2-14.9) 10/27/21 12:36 INR 0.91 (0.87-1.13) 10/27/21 12:36 D-Dimer 1824.38 ng/mlDDU (0-234) H 11/02/21 05:58 Abnormal lab findings: Abnormal Labs 10/26/21 10/26/21 10/26/21 16:48 16:48 19:03 WBC MCV RDW Lymph % (Auto) 11.3 L Whitley % (Auto) 10.2 H Lymph # (Auto) 0.5 L Seg Neutrophils % 77.8 H Seg Neuts % (Manual) Lymphocytes % (Manual) Seg Neutrophils # Man Lymphocytes # (Manual) D-Dimer 1951.42 H ABG pH ABG pO2 ABG O2 Saturation ABG Hemoglobin Oxyhemoglobin Sodium Potassium 3.4 L Chloride 97.5 L BUN 24 H Glucose 108 H Calcium Ferritin AST Lactate Dehydrogenase C-Reactive Protein Total Protein Albumin Free T4 Coronavirus (PCR) 10/26/21 10/26/21 10/26/21 19:03 19:03 21:46 WBC MCV RDW Lymph % (Auto) Whitley % (Auto) Lymph # (Auto) Seg Neutrophils % Seg Neuts % (Manual) Lymphocytes % (Manual) Seg Neutrophils # Man Lymphocytes # (Manual) D-Dimer ABG pH ABG pO2 ABG O2 Saturation ABG Hemoglobin Oxyhemoglobin Sodium Potassium Chloride BUN Glucose 104 H Calcium Ferritin 319.2 H AST Lactate Dehydrogenase 268 H C-Reactive Protein 11.80 H Total Protein Albumin Free T4 1.78 H Coronavirus (PCR) 10/26/21 10/27/21 10/27/21 23:20 03:44 03:44 WBC MCV 95 H RDW Lymph % (Auto) Whitley % (Auto) Lymph # (Auto) Seg Neutrophils % Seg Neuts % (Manual) 84.0 H Lymphocytes % (Manual) 10.0 L Seg Neutrophils # Man Lymphocytes # (Manual) 0.6 L D-Dimer ABG pH 7.474 H ABG pO2 47.3 L ABG O2 Saturation 88.5 L ABG Hemoglobin 13.5 L Oxyhemoglobin 87.7 L Sodium Potassium Chloride 97.9 L BUN 23 H Glucose 139 H Calcium 8.3 L Ferritin AST Lactate Dehydrogenase C-Reactive Protein Total Protein Albumin Free T4 Coronavirus (PCR) 10/27/21 10/27/21 10/27/21 12:36 23:24 Unknown WBC 4.1 L MCV RDW Lymph % (Auto) Whitley % (Auto) Lymph # (Auto) Seg Neutrophils % Seg Neuts % (Manual) Lymphocytes % (Manual) Seg Neutrophils # Man Lymphocytes # (Manual) D-Dimer ABG pH ABG pO2 ABG O2 Saturation ABG Hemoglobin Oxyhemoglobin Sodium 136 L Potassium Chloride 96.8 L BUN 21 H Glucose 144 H Calcium Ferritin AST 49 H Lactate Dehydrogenase C-Reactive Protein Total Protein Albumin 3.4 L Free T4 Coronavirus (PCR) Positive A 10/28/21 10/29/21 10/30/21 04:53 04:28 05:02 WBC MCV RDW Lymph % (Auto) [place] % (Auto) Lymph # (Auto) Seg Neutrophils % Seg Neuts % (Manual) Lymphocytes % (Manual) Seg Neutrophils # Man Lymphocytes # (Manual) D-Dimer ABG pH ABG pO2 ABG O2 Saturation ABG Hemoglobin Oxyhemoglobin Sodium 136 L Potassium Chloride BUN 24 H 38 H 44 H Glucose 163 H 225 H 215 H Calcium Ferritin AST 52 H 52 H 55 H Lactate Dehydrogenase C-Reactive Protein Total Protein 6.2 L 6.1 L Albumin 3.2 L 3.2 L 3.5 L Free T4 Coronavirus (PCR) 11/01/21 11/01/21 11/02/21 04:00 04:00 05:58 WBC MCV RDW Lymph % (Auto) Whitley % (Auto) Lymph # (Auto) Seg Neutrophils % Seg Neuts % (Manual) 98.0 H Lymphocytes % (Manual) 0 L Seg Neutrophils # Man 7.8 H Lymphocytes # (Manual) 0.0 L D-Dimer ABG pH ABG pO2 ABG O2 Saturation ABG Hemoglobin Oxyhemoglobin Sodium Potassium Chloride BUN 41 H Glucose 192 H Calcium Ferritin AST Lactate Dehydrogenase C-Reactive Protein Total Protein 6.1 L Albumin 3.3 L Free T4 Coronavirus (PCR) 11/02/21 11/02/21 11/02/21 05:58 05:58 05:58 WBC MCV RDW Lymph % (Auto) [place] % (Auto) Lymph # (Auto) Seg Neutrophils % Seg Neuts % (Manual) Lymphocytes % (Manual) Seg Neutrophils # Man Lymphocytes # (Manual) D-Dimer 1824.38 H ABG pH ABG pO2 ABG O2 Saturation ABG Hemoglobin Oxyhemoglobin Sodium 135 L Potassium Chloride BUN 39 H Glucose 236 H Calcium Ferritin 497.7 H AST Lactate Dehydrogenase 411 H C-Reactive Protein Total Protein Albumin Free T4 Coronavirus (PCR) 11/05/21 11/05/21 11/06/21 06:01 06:01 07:47 WBC MCV RDW 13.1 L Lymph % (Auto) 5.1 L [place] % (Auto) Lymph # (Auto) 0.3 L Seg Neutrophils % 89.8 H Seg Neuts % (Manual) 90.0 H Lymphocytes % (Manual) 4.0 L Seg Neutrophils # Man Lymphocytes # (Manual) 0.3 L D-Dimer ABG pH ABG pO2 ABG O2 Saturation ABG Hemoglobin Oxyhemoglobin Sodium 133 L Potassium Chloride BUN 35 H Glucose 237 H Calcium Ferritin AST Lactate Dehydrogenase C-Reactive Protein Total Protein Albumin Free T4 Coronavirus (PCR) 11/06/21 07:47 WBC MCV RDW Lymph % (Auto) [place] % (Auto) Lymph # (Auto) Seg Neutrophils % Seg Neuts % (Manual) Lymphocytes % (Manual) Seg Neutrophils # Man Lymphocytes # (Manual) D-Dimer ABG pH ABG pO2 ABG O2 Saturation ABG Hemoglobin Oxyhemoglobin Sodium 131 L Potassium Chloride 95.0 L BUN 31 H Glucose 225 H Calcium Ferritin AST Lactate Dehydrogenase C-Reactive Protein Total Protein Albumin Free T4 Coronavirus (PCR) Allied health notes reviewed: nursing
[2021-11-07] MEDS: oxyCODONE /ACETAMINOPHEN 5-325MG TAB PO PRN (21:39)
[2021-11-07] MEDS: MELATONIN 5 MG TAB PO SCH (21:40)
[2021-11-08] MEDS: methylPREDNISolone Sod Succinate 125 MG/2 ML INJ IV SCH ×3 (05:11→21:29)
--- NOTE | 2021-11-08 08:02 | Progress Note ---
Assessment and Plan Assessment and plan: #Acute hypoxic respiratory failure #COVID 19 pneumonia -Currently on high flow nasal cannula 20 L / 35% FiO2; will wean as tolerated -Pulmonology following, assistance appreciated -Continue steroids x10 days; patient refused remdesivir -Encourage proning as able #Bilateral pulmonary embolism -Continue Eliquis 5 mg every 12 hours #New onset atrial fibrillation w/ RVR -Continue p.o. diltiazem and metoprolol tartrate -Cardiology following, assistance appreciated -Continue Eliquis -Continue telemetry #Hypertension -Blood pressure relatively controlled -Continue to hold home losartan #Thoracic aortic aneurysm -Echocardiogram showed ascending aorta dilated at 4.1 cm -Will need outpatient follow-up for surveillance #Coronary artery disease -Continue aspirin #Obesity -BMI 34.9% -counseled patient on the importance of weight loss, incorporating exercise, and dietary changes (lean meats, fresh fruits and vegetables, and water intake). Patient expresses understanding. #Advanced care planning -Disease education conducted, care plan discussed, diagnoses discussed, prognosis discussed, and patient acknowledges understanding with care plan Disposition Plan: continue medical management History Interval history: No acute events overnight. Reports improved shortness of breath and was able to tolerate physical therapy. No complaints at this time. Hospitalist Physical - Physical exam Narrative exam: GENERAL: Well-developed well-nourished. In no acute distress. HEENT: High flow nasal cannula CHEST/LUNGS: Coarse breath sounds bilaterally HEART/CARDIOVASCULAR: RRR. No murmur, rubs or gallops appreciated. ABDOMEN: +BS. NT/ND. SKIN: No rashes noted. NEURO: No focal motor deficit. Follows all commands. EXTREMITIES: Bilateral early chronic venous stasis changes PSYCH: Cooperative. - Constitutional Vitals: Temp Pulse Resp BP Pulse Ox 98.0 F 67 18 127/81 96 11/08/21 05:09 11/08/21 05:09 11/08/21 05:09 11/08/21 05:09 11/08/21 05:09 General appearance: Present: no acute distress, well-nourished, obese, other HEART Score - HEART Score Troponin: Troponin T < 0.010 ng/mL (0.00-0.029) 10/26/21 16:48 Results - Labs CBC & Chem 7: 11/06/21 07:47 11/08/21 07:54 Labs: Laboratory Last Values WBC 8.0 K/mm3 (4.5-11.0) 11/06/21 07:47 RBC 4.35 M/mm3 (3.65-5.03) 11/06/21 07:47 Hgb 13.2 gm/dl (11.8-15.2) 11/06/21 07:47 Hct 40.1 % (35.5-45.6) 11/06/21 07:47 MCV 92 fl (84-94) 11/06/21 07:47 MCH 30 pg (28-32) 11/06/21 07:47 MCHC 33 % (32-34) 11/06/21 07:47 RDW 13.1 % (13.2-15.2) L 11/06/21 07:47 Plt Count 265 K/mm3 (140-440) 11/06/21 07:47 Lymph % (Auto) 5.1 % (13.4-35.0) L 11/05/21 06:01 [place] % (Auto) 5.0 % (0.0-7.3) 11/05/21 06:01 Eos % (Auto) 0.0 % (0.0-4.3) 11/05/21 06:01 Baso % (Auto) 0.1 % (0.0-1.8) 11/05/21 06:01 Lymph # (Auto) 0.3 K/mm3 (1.2-5.4) L 11/05/21 06:01 [place] # (Auto) 0.3 K/mm3 (0.0-0.8) 11/05/21 06:01 Eos # (Auto) 0.0 K/mm3 (0.0-0.4) 11/05/21 06:01 Baso # (Auto) 0.0 K/mm3 (0.0-0.1) 11/05/21 06:01 Add Manual Diff Complete 11/06/21 07:47 Total Counted 100 11/06/21 07:47 Seg Neutrophils % Accounting Generalist 11/06/21 07:47 Seg Neuts % (Manual) 90.0 % (40.0-70.0) H 11/06/21 07:47 Band Neutrophils % 0 % 11/06/21 07:47 Lymphocytes % (Manual) 4.0 % (13.4-35.0) L 11/06/21 07:47 Reactive Lymphs % (Man) 0 % 11/06/21 07:47 Monocytes % (Manual) 6.0 % (0.0-7.3) 11/06/21 07:47 Eosinophils % (Manual) 0 % (0.0-4.3) 11/06/21 07:47 Basophils % (Manual) 0 % (0.0-1.8) 11/06/21 07:47 Metamyelocytes % 0 % 11/06/21 07:47 Myelocytes % 0 % 11/06/21 07:47 Promyelocytes % 0 % 11/06/21 07:47 Blast Cells % 0 % 11/06/21 07:47 Nucleated RBC % Not Reportable 11/06/21 07:47 Seg Neutrophils # 6.2 K/mm3 (1.8-7.7) 11/05/21 06:01 Seg Neutrophils # Man 7.2 K/mm3 (1.8-7.7) 11/06/21 07:47 Band Neutrophils # 0.0 K/mm3 11/06/21 07:47 Lymphocytes # (Manual) 0.3 K/mm3 (1.2-5.4) L 11/06/21 07:47 Abs React Lymphs (Man) 0.0 K/mm3 11/06/21 07:47 Monocytes # (Manual) 0.5 K/mm3 (0.0-0.8) 11/06/21 07:47 Eosinophils # (Manual) 0.0 K/mm3 (0.0-0.4) 11/06/21 07:47 Basophils # (Manual) 0.0 K/mm3 (0.0-0.1) 11/06/21 07:47 Metamyelocytes # 0.0 K/mm3 11/06/21 07:47 Myelocytes # 0.0 K/mm3 11/06/21 07:47 Promyelocytes # 0.0 K/mm3 11/06/21 07:47 Blast Cells # 0.0 K/mm3 11/06/21 07:47 WBC Morphology Not Reportable 11/06/21 07:47 Hypersegmented Neuts Not Reportable 11/06/21 07:47 Hyposegmented Neuts Not Reportable 11/06/21 07:47 Hypogranular Neuts Not Reportable 11/06/21 07:47 Smudge Cells Not Reportable 11/06/21 07:47 Toxic Granulation Not Reportable 11/06/21 07:47 Toxic Vacuolation Not Reportable 11/06/21 07:47 Dohle Bodies Not Reportable 11/06/21 07:47 Pelger-Huet Anomaly Not Reportable 11/06/21 07:47 Seven Rods Not Reportable 11/06/21 07:47 Platelet Estimate Consistent w auto 11/06/21 07:47 Clumped Platelets Not Reportable 11/06/21 07:47 Plt Clumps, EDTA Not Reportable 11/06/21 07:47 Large Platelets Not Reportable 11/06/21 07:47 Giant Platelets Not Reportable 11/06/21 07:47 Platelet Satelliting Not Reportable 11/06/21 07:47 Plt Morphology Comment Not Reportable 11/06/21 07:47 RBC Morphology Normal 11/06/21 07:47 Dimorphic RBCs Not Reportable 11/06/21 07:47 Polychromasia Not Reportable 11/06/21 07:47 Hypochromasia Not Reportable 11/06/21 07:47 Poikilocytosis Not Reportable 11/06/21 07:47 Anisocytosis Not Reportable 11/06/21 07:47 Microcytosis Not Reportable 11/06/21 07:47 Macrocytosis Not Reportable 11/06/21 07:47 Spherocytes Not Reportable 11/06/21 07:47 Pappenheimer Bodies Not Reportable 11/06/21 07:47 Sickle Cells Not Reportable 11/06/21 07:47 Target Cells Not Reportable 11/06/21 07:47 Tear Drop Cells Not Reportable 11/06/21 07:47 Ovalocytes Not Reportable 11/06/21 07:47 Helmet Cells Not Reportable 11/06/21 07:47 Jain-[place] Bodies Not Reportable 11/06/21 07:47 [place] Rings Not Reportable 11/06/21 07:47 Mary Cells Not Reportable 11/06/21 07:47 Bite Cells Not Reportable 11/06/21 07:47 Crenated Cell Not Reportable 11/06/21 07:47 Elliptocytes Not Reportable 11/06/21 07:47 Acanthocytes (Spur) Not Reportable 11/06/21 07:47 Rouleaux Not Reportable 11/06/21 07:47 Hemoglobin C Crystals Not Reportable 11/06/21 07:47 Schistocytes Not Reportable 11/06/21 07:47 Malaria parasites Not Reportable 11/06/21 07:47 Harjit Bodies Not Reportable 11/06/21 07:47 Hem Pathologist Commnt No 11/06/21 07:47 PT 13.3 Sec. (12.2-14.9) 10/27/21 12:36 INR 0.91 (0.87-1.13) 10/27/21 12:36 APTT 27.3 Sec. (24.2-36.6) 10/27/21 12:36 D-Dimer 1824.38 ng/mlDDU (0-234) H 11/02/21 05:58 ABG pH 7.474 pH Units (7.350-7.450) H 10/26/21 23:20 ABG pCO2 35.2 mm Hg 10/26/21 23:20 ABG pO2 47.3 mm Hg (80.0-90.0) L 10/26/21 23:20 ABG HCO3 25.3 mmol/L (20.0-26.0) 10/26/21 23:20 ABG O2 Saturation 88.5 % (95.0-99.0) L 10/26/21 23:20 ABG O2 Content 16.6 (0.0-44) 10/26/21 23:20 ABG Base Excess 2.0 mmol/L (-2.0-3.0) 10/26/21 23:20 ABG Hemoglobin 13.5 gm/dl (14.0-18.0) L 10/26/21 23:20 ABG Carboxyhemoglobin 0.5 % (0.0-5.0) 10/26/21 23:20 ABG Methemoglobin 0.4 % (0.0-1.5) 10/26/21 23:20 Oxyhemoglobin 87.7 % (95.0-99.0) L 10/26/21 23:20 FiO2 21 % 10/26/21 23:20 Sodium 131 mmol/L (137-145) L 11/06/21 07:47 Potassium 4.9 mmol/L (3.6-5.0) 11/06/21 07:47 Chloride 95.0 mmol/L (98-107) L 11/06/21 07:47 Carbon Dioxide 24 mmol/L (22-30) 11/06/21 07:47 Anion Gap 17 mmol/L 11/06/21 07:47 BUN 31 mg/dL (9-20) H 11/06/21 07:47 Creatinine 0.8 mg/dL (0.8-1.3) 11/06/21 07:47 Estimated GFR > 60 ml/min 11/06/21 07:47 BUN/Creatinine Ratio 39 % 11/06/21 07:47 Glucose 225 mg/dL (75-100) H 11/06/21 07:47 POC Glucose 218 mg/dL (70-105) H 11/07/21 19:15 Calcium 8.6 mg/dL (8.4-10.2) 11/06/21 07:47 Magnesium 1.90 mg/dL (1.7-2.3) 10/26/21 21:46 Ferritin 497.7 ng/mL (30.0-300.0) H 11/02/21 05:58 Total Bilirubin 0.70 mg/dL (0.1-1.2) 11/01/21 04:00 Direct Bilirubin 0.2 mg/dL (0-0.2) 11/01/21 04:00 Indirect Bilirubin 0.5 mg/dL 11/01/21 04:00 AST 37 units/L (5-40) 11/01/21 04:00 ALT 47 units/L (7-56) 11/01/21 04:00 Alkaline Phosphatase 50 units/L (35-129) 11/01/21 04:00 Lactate Dehydrogenase 411 units/L (91-180) H 11/02/21 05:58 Troponin T < 0.010 ng/mL (0.00-0.029) 10/26/21 16:48 C-Reactive Protein 1.30 mg/dL (0.00-1.30) 11/02/21 05:58 NT-Pro-B Natriuret Pep 806.1 pg/mL (0-900) 10/26/21 16:48 Total Protein 6.1 g/dL (6.3-8.2) L 11/01/21 04:00 Albumin 3.3 g/dL (3.9-5) L 11/01/21 04:00 Albumin/Globulin Ratio 1.2 % 11/01/21 04:00 Procalcitonin < 0.05 ng/mL (<0.15) 10/31/21 08:07 TSH 0.889 mlU/mL (0.270-4.200) 10/26/21 21:46 Free T4 1.78 ng/dL (0.76-1.46) H 10/26/21 21:46 Coronavirus (PCR) Positive (Negative) A 10/27/21 Unknown Cummings/IV: Voiding Method Urinal Active Medications - Current Medications Current Medications: Generic Name Dose Route Start Last Admin Trade Name Freq PRN Reason Stop Dose Admin Acetaminophen 650 mg 10/26/21 18:52 Acetaminophen 325 Mg Tab PO Q4H PRN Pain MILD(1-3)/Fever >100.5/LEYVA Albuterol 2.5 mg 10/26/21 18:52 Albuterol 2.5 Mg/3 Ml Nebu IH Q4HRT PRN Shortness Of Breath Apixaban 5 mg 11/03/21 10:00 11/07/21 21:40 Apixaban 5 Mg Tab PO 5 mg Q12HR VASYL Administration Aspirin 81 mg 10/28/21 10:00 11/07/21 11:19 Aspirin 81 Mg Tab Chew PO 81 mg QDAY VASYL Administration Diltiazem HCl 120 mg 11/07/21 22:00 11/07/21 21:38 Diltiazem 60 Mg Tab PO 120 mg BID VASYL Administration Famotidine 20 mg 10/29/21 10:00 11/07/21 11:20 Famotidine 20 Mg Tab PO 20 mg QDAY VASYL Administration Hydromorphone HCl 0.5 mg 10/26/21 18:52 Hydromorphone 1 Mg/1 Ml Inj IV Q23H PRN Pain , Severe (7-10) Melatonin 10 mg 11/05/21 22:00 11/07/21 21:40 Melatonin 5 Mg Tab PO 10 mg QHS VASYL Administration Methylprednisolone Sodium Succinate 60 mg 10/27/21 18:00 11/08/21 05:11 Methylprednisolone Sod Succinate 125 Mg/2 Ml Inj IV 60 mg Q8HR VASYL Administration Metoprolol Tartrate 50 mg 11/02/21 14:00 11/07/21 21:40 Metoprolol Tartrate 50 Mg Tab PO 50 mg TID VASYL Administration Ondansetron HCl 4 mg 10/26/21 18:52 Ondansetron 4 Mg/2 Ml Inj IV Q8H PRN Nausea And Vomiting Oxycodone/Acetaminophen 1 tab 10/26/21 18:52 11/07/21 21:39 Oxycodone /Acetaminophen 5-325mg Tab PO 1 tab Q16H PRN Administration Pain, Moderate (4-6) Sodium Chloride 10 ml 10/26/21 22:00 11/07/21 21:42 Sodium Chloride 0.9% 10 Ml Flush Syringe IV 10 ml BID VASYL Administration Sodium Chloride 10 ml 10/26/21 18:52 11/08/21 05:12 Sodium Chloride 0.9% 10 Ml Flush Syringe IV 10 ml PRN PRN Administration LINE FLUSH Nutrition/Malnutrition Assess - Dietary Evaluation Nutrition/Malnutrition Findings: Nutrition Notes Start: 11/02/21 15:51 Freq: Status: Active Protocol: Document 11/02/21 15:51 JOANN (Rec: 11/02/21 16:06 JOANN [id number]) Nutrition Notes Need for Assessment generated from: LOS Initial or Follow up Assessment Current Diagnosis Coronary Artery Disease, Hypertension,Respiratory Failure Other Pertinent Diagnosis COVID-19, B/l pulmonary embolism, Aortic aneurysm, Atrial Fibrilation. Current Diet Cardiac Diet (since D 10/26). Labs/Tests 11/02: Na 135, BUN 39, Glu 236 . Pertinent Medications 11/02: Nutritionally unremarkable. Height 5 ft 11 in Weight 113.398 kg [place] Body Weight (kg) 78.18 BMI 34.8 Intake Prior to Admission Good Weight change and time frame Pt states not having lost body weight recently. Subjective/Other Information RD consult for LOS assessment. Pt's PO intake of meals has been Fair (50%), according to ADL notes. Ht & Wt checked with RN over the phone. Percent of energy/protein needs met: Prescribed Cardiac Diet provides for energy/protein needs (2,230 Kcal/85 g) during LOS. Burn Absent Trauma Absent GI Symptoms None Food Allergy No Skin Integrity/Comment Clear, warm, dry. Current % PO Fair (50-74%) Minimum of two criteria No Is patient on ventilator? No Is Patient Ambulatory and/or Out of Bed Yes REE-([place]-St. Jeor-ambulatory/OOB) [ 2458.443 [id number]] Kcal/Kg value to use for calculation 12 Approximate Energy Requirements Using 1361 kcal/Kg Calculation Used for Recommendations Kcal/kg Additional Notes Protein: 0.8-1 g/Kg; 77-96 g/ day. Fluids: 1 ml/Kcal, or as per MD. Nutrition Intervention Change Diet Order: Continue Cardiac Diet. Follow-Up By: 11/10/21 Additional Comments Continue monitoring food tolerance, %PO intake of meals , and BM.
[2021-11-08 09:30] LABS: BUN/Creatinine Ratio 35; Blood Urea Nitrogen 28 mg/dL (9-20); Calcium 8.6 mg/dL (8.4-10.2); Hemolysis Index 13
[2021-11-08] MEDS: ASPIRIN 81 MG TAB CHEW PO SCH (11:32)
[2021-11-08] MEDS: METOPROLOL TARTRATE 50 MG TAB PO SCH ×2 (11:32→21:27)
[2021-11-08] MEDS: dilTIAZem 60 MG TAB PO SCH ×2 (11:34→21:27)
[2021-11-08] MEDS: APIXABAN 5 MG TAB PO SCH ×2 (11:36→21:26)
[2021-11-08] MEDS: FAMOTIDINE 20 MG TAB PO SCH (11:36)
--- NOTE | 2021-11-08 13:45 | Progress Note ---
Assessment and Plan Is a 75-year-old male with a past medical history of hypertension, coronary artery disease, and thoracic aortic aneurysm who presented to the ED with a complaint of difficulty breathing since [place] COVID Bilateral PE Acute hypoxic respiratory failure- on highflow [place] COVID PNA Afib w/ RVR(new onset)-currently sinus rhythm HTN CAD Echo 10/26/2021-EF 50 to 55%. Right ventricle systolic function is normal. Trace mitral regurgitation. Trace tricuspid regurgitation. Ascending aorta is dil ated 4.1 cm Stress11/20/2019- Normal pharmacological SPECT stress test. Stress ECG was negative for ischemia. No symptoms of chest pain with vasodilator stress. Normal perfusion without evidence of ischemia or infarct. TID 0.97 (normal). Normal LV systolic function (calculated LVEF 69%). No wall motion abnormalities. Echo 11/20/2019-LV normal size. Normal LV wall thickness. LV wall motion normal. LVEF is 59%. GLS decreased. Normal LV diastolic function. RV moderately to severely dilated. RV systolic function is normal. Estimated RAP 5 mmHg based on IVC. Unable to assess RVSP due to insufficient TR signal. AV not well visualized. AV opens well. Mild AR. No AV stenosis. Aortic arch normal. Sinotubular junction mildly dilated. Ascending aorta mildly dilated. No aortic coarctation. Ao Sinus s 3.[address] jnct s 3.87 cm Ao Asc s 4.1 cm Plan: Convert to metoprolol 75mg PO BID Continue diltiazem 120 mg p.o. twice daily Continue Eliquis for anticoagulation Due to variable BP we will continue to hold patient's losartan Patient seen in conjunction with Dr. Chan who agrees with this plan of care - Patient Problems (1) CAD (coronary artery disease) Current Visit: Yes Status: Acute (2) Acute hypoxemic respiratory failure Current Visit: Yes Status: Acute (3) Hypertension Current Visit: Yes Status: Chronic Qualifiers: Hypertension type: primary hypertension Qualified Code(s): I10 - Essential (primary) hypertension (4) Obesity hypoventilation syndrome Current Visit: Yes Status: Chronic (5) Pneumonia Current Visit: No Status: Acute Subjective Date of service: 11/08/21 Principal diagnosis: Acute resp failure, Covid PNA, Acute PE, AF with RVR Interval history: Patient sitting in bed in no acute distress. Patient still on high flow nasal cannula but being weaned down. Patient is sinus rhythm 90s with PACs Objective Vital Signs Temp Pulse Resp BP Pulse Ox 11/08/21 11:32 84 11/08/21 10:35 94 11/08/21 05:09 98.0 F 67 18 127/81 96 11/08/21 02:33 97 11/07/21 23:11 98.3 F 57 L 18 125/72 91 11/07/21 22:34 95 11/07/21 21:40 98 H 11/07/21 21:38 84 11/07/21 19:00 84 17 98 11/07/21 17:14 98.0 F 75 24 127/81 90 11/07/21 15:41 94 - Physical Examination General: No Apparent Distress HEENT: Positive: EOMI, Normocephaly, Mucus Membranes Moist, Mucus Membranes Dry Neck: Positive: neck supple, trachea midline Cardiac: Positive: Reg Rate and Rhythm Lungs: Positive: Decreased Breath Sounds Neuro: Positive: Grossly Intact Abdomen: Positive: Soft, Active Bowel Sounds. Negative: Tender Skin: Negative: Rash Musculoskeletal: Normal Range of Motion Extremities: Absent: edema - Labs and Meds Comprehensive Metabolic Panel 11/08/21 Range/Units 07:54 Sodium 130 L (137-145) mmol/L Potassium 5.0 (3.6-5.0) mmol/L Chloride 94.3 L (98-107) mmol/L Carbon Dioxide 25 (22-30) mmol/L BUN 28 H (9-20) mg/dL Creatinine 0.8 (0.8-1.3) mg/dL Glucose 223 H (75-100) mg/dL Calcium 8.6 (8.4-10.2) mg/dL - Imaging and Cardiology Echo: report reviewed - Telemetry EKG Rhythm: Sinus Rhythm - EKG Sinus rhythms and dysrhythmias: sinus rhythm AV and intraventricular conduction: right bundle branch block - Allied health notes Allied health notes reviewed: nursing
--- NOTE | 2021-11-08 16:39 | Progress Note ---
Assessment and Plan 75 YO Male with HTN, PVD, Obesity Hypoventilation Syndrome presents to ED for evaluation. Patient reports "I can hardly breathe". Patient states that he has experienced shortness of breath, fatigue, malaise, body aches, dry cough, dimini shed sense of smell, diminished sense of taste, subjective fever, generalized weakness, runny nose over the past 1 week with persistent and worsening symptoms over the same timeframe. EMS was notified and upon arrival the patient was found to be in distress with a pulse oximetry of 82% the patient was placed on supplemental oxygen and transported to [facility] for further care and evaluation of the aforementioned symptoms. The patient was seen and evaluated in the emergency department. All lab and imaging studies reviewed. The patient was found to have a pulse oximetry of 83% on room air which is consistent with acute hypoxemic respiratory failure. Patient sitting up in bed and using accessory muscles to breathe, speaking in short sentences. Patient underwent chest x-ray and was found to have bilateral pneumonia. Patient admitted to the hospital and initiated on pneumonia protocol as well as coronavirus protocol. Patient knowledges subjective fever but denies chills, chest pain, palpitation, skin rash, unilateral leg swelling, calf pain. Patient has history of PE. On eliquis. Patient acknowledges recent ill contact with his grandchildren. Patient denies smoking, alcohol or drug abuse. 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 Allergic to Lisinopril. Patients cedillo virus PCR positive. Patient alert, and awake. Patient resting on 4 litres O2. Denies CP, SOB or cough. O2 saturation 94% BP 117/75, Pulse 76, Respiratory rate 20 Patient is afebrile. No leukocytosis. Patients CAT scan of chest done 10/26/21 reported Moderate bilateral pulmonary emboli .Moderate multifocal bilateral Covid pneumonia . Moderate hiatal hernia . Patient is on I/V solumedrol, Apixaban, Famotidine and albuterol, finished course of remdesevir. Patient is candidate gor home O2. I - Patient Problems (1) CAD (coronary artery disease) Current Visit: Yes Status: Acute Plan to address problem: Management as per cardiology. (2) Acute hypoxemic respiratory failure Current Visit: Yes Status: Acute Plan to address problem: patient is on 4 litres O2. Patient is on I/V solumedrol Patient is on Apixaban Patient is on famotidine. Albuterol inhaler as needed for shortness of breath. (3) Hypertension Current Visit: Yes Status: Chronic Qualifiers: Hypertension type: primary hypertension Qualified Code(s): I10 - Essential (primary) hypertension Plan to address problem: Management as per primary care. (4) Obesity hypoventilation syndrome Current Visit: Yes Status: Chronic Plan to address problem: Blood gases not suggestive of Obesity hypoventilation. Recommend sleep study as out patient, once she recovered from this episode. (5) Pneumonia Current Visit: No Status: Acute Plan to address problem: Antibiotics as per infectious diseases. (6) Pulmonary emboli Current Visit: Yes Status: Acute Plan to address problem: Patient is on eliquis. Subjective Date of service: 11/08/21 Principal diagnosis: Acute resp failure, Covid PNA, Acute PE, AF with RVR Interval history: 75 YO Male with HTN, PVD, Obesity Hypoventilation Syndrome presents to ED for evaluation. Patient reports "I can hardly breathe". Patient states that he has experienced shortness of breath, fatigue, malaise, body aches, dry cough, diminished sense of smell, diminished sense of taste, subjective fever, generalized weakness, runny nose over the past 1 week with persistent and worsening symptoms over the same timeframe. EMS was notified and upon arrival the patient was found to be in distress with a pulse oximetry of 82% the patient was placed on supplemental oxygen and transported to [facility] for further care and evaluation of the aforementioned symptoms. The patient was seen and evaluated in the emergency department. All lab and imaging studies reviewed. The patient was found to have a pulse oximetry of 83% on room air which is consistent with acute hypoxemic respiratory failure. Patient sitting up in bed and using accessory muscles to breathe, speaking in short sentences. Patient underwent chest x-ray and was found to have bilateral pneumonia. Patient admitted to the hospital and initiated on pneumonia protocol as well as coronavirus protocol. Patient knowledges subjective fever but denies chills, chest pain, palpitation, skin rash, unilateral leg swelling, calf pain. Patient has history of PE. On eliquis. Patient acknowledges recent ill contact with his grandchildren. Patient denies smoking, alcohol or drug abuse. 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 Allergic to Lisinopril. Patients cedillo virus PCR positive. Patient alert, and awake. Patient resting on 4 litres O2. Denies CP, SOB or cough. O2 saturation 94% BP 117/75, Pulse 76, Respiratory rate 20 Patient is afebrile. No leukocytosis. Patients CAT scan of chest done 10/26/21 reported Moderate bilateral pulmonary emboli .Moderate multifocal bilateral Covid pneumonia . Moderate hiatal hernia . Patient is on I/V solumedrol, Apixaban, Famotidine and albuterol, finished course of remdesevir. Patient is candidate for home O2. Objective Vital Signs - 12hr 11/08/21 11/08/21 11/08/21 05:09 10:35 11:32 Temperature 98.0 F Pulse Rate 67 84 Respiratory 18 Rate Blood Pressure 127/81 O2 Sat by Pulse 96 94 Oximetry 11/08/21 11/08/21 13:10 14:35 Temperature 97.6 F Pulse Rate 89 Respiratory 24 Rate Blood Pressure 144/93 O2 Sat by Pulse 90 95 Oximetry Constitutional: no acute distress, alert, other (elderly obese male with mildly increased respiratory effort at rest) Eyes: non-icteric ENT: oropharynx moist Neck: supple, no lymphadenopathy, no JVD, other (large circumference) Effort: mildly labored Ascultation: Bilateral: diminished breath sounds, rales (inspiratory, bases), rhonchi Percussion: Bilateral: not dull Cardiovascular: regular rate and rhythm Gastrointestinal: normoactive bowel sounds, soft, non-tender, non-distended (protuberant) Integumentary: normal Extremities: no cyanosis, pink and warm, pulses normal, no ischemia or petechiae Neurologic: non-focal exam, pupils equal and round, CN II-XII normal, motor strength normal and Psychiatric: mood appropriate, affect normal CBC and BMP: 11/09/21 06:50 11/08/21 07:54 ABG, PT/INR, D-dimer: ABG ABG pH 7.474 pH Units (7.350-7.450) H 10/26/21 23:20 ABG pCO2 35.2 mm Hg 10/26/21 23:20 ABG pO2 47.3 mm Hg (80.0-90.0) L 10/26/21 23:20 ABG O2 Saturation 88.5 % (95.0-99.0) L 10/26/21 23:20 PT/INR, D-dimer PT 13.3 Sec. (12.2-14.9) 10/27/21 12:36 INR 0.91 (0.87-1.13) 10/27/21 12:36 D-Dimer 1824.38 ng/mlDDU (0-234) H 11/02/21 05:58 Abnormal lab findings: Abnormal Labs 10/26/21 10/26/21 10/26/21 16:48 16:48 19:03 WBC MCV RDW Lymph % (Auto) 11.3 L [place] % (Auto) 10.2 H Lymph # (Auto) 0.5 L Seg Neutrophils % 77.8 H Seg Neuts % (Manual) Lymphocytes % (Manual) Seg Neutrophils # Man Lymphocytes # (Manual) D-Dimer 1951.42 H ABG pH ABG pO2 ABG O2 Saturation ABG Hemoglobin Oxyhemoglobin Sodium Potassium 3.4 L Chloride 97.5 L BUN 24 H Glucose 108 H POC Glucose Calcium Ferritin AST Lactate Dehydrogenase C-Reactive Protein Total Protein Albumin Free T4 Coronavirus (PCR) 10/26/21 10/26/21 10/26/21 19:03 19:03 21:46 WBC MCV RDW Lymph % (Auto) [place] % (Auto) Lymph # (Auto) Seg Neutrophils % Seg Neuts % (Manual) Lymphocytes % (Manual) Seg Neutrophils # Man Lymphocytes # (Manual) D-Dimer ABG pH ABG pO2 ABG O2 Saturation ABG Hemoglobin Oxyhemoglobin Sodium Potassium Chloride BUN Glucose 104 H POC Glucose Calcium Ferritin 319.2 H AST Lactate Dehydrogenase 268 H C-Reactive Protein 11.80 H Total Protein Albumin Free T4 1.78 H Coronavirus (PCR) 10/26/21 10/27/21 10/27/21 23:20 03:44 03:44 WBC MCV 95 H RDW Lymph % (Auto) [place] % (Auto) Lymph # (Auto) Seg Neutrophils % Seg Neuts % (Manual) 84.0 H Lymphocytes % (Manual) 10.0 L Seg Neutrophils # Man Lymphocytes # (Manual) 0.6 L D-Dimer ABG pH 7.474 H ABG pO2 47.3 L ABG O2 Saturation 88.5 L ABG Hemoglobin 13.5 L Oxyhemoglobin 87.7 L Sodium Potassium Chloride 97.9 L BUN 23 H Glucose 139 H POC Glucose Calcium 8.3 L Ferritin AST Lactate Dehydrogenase C-Reactive Protein Total Protein Albumin Free T4 Coronavirus (PCR) 10/27/21 10/27/21 10/27/21 12:36 23:24 Unknown WBC 4.1 L MCV RDW Lymph % (Auto) [place] % (Auto) Lymph # (Auto) Seg Neutrophils % Seg Neuts % (Manual) Lymphocytes % (Manual) Seg Neutrophils # Man Lymphocytes # (Manual) D-Dimer ABG pH ABG pO2 ABG O2 Saturation ABG Hemoglobin Oxyhemoglobin Sodium 136 L Potassium Chloride 96.8 L BUN 21 H Glucose 144 H POC Glucose Calcium Ferritin AST 49 H Lactate Dehydrogenase C-Reactive Protein Total Protein Albumin 3.4 L Free T4 Coronavirus (PCR) Positive A 10/28/21 10/29/21 10/30/21 04:53 04:28 05:02 WBC MCV RDW Lymph % (Auto) [place] % (Auto) Lymph # (Auto) Seg Neutrophils % Seg Neuts % (Manual) Lymphocytes % (Manual) Seg Neutrophils # Man Lymphocytes # (Manual) D-Dimer ABG pH ABG pO2 ABG O2 Saturation ABG Hemoglobin Oxyhemoglobin Sodium 136 L Potassium Chloride BUN 24 H 38 H 44 H Glucose 163 H 225 H 215 H POC Glucose Calcium Ferritin AST 52 H 52 H 55 H Lactate Dehydrogenase C-Reactive Protein Total Protein 6.2 L 6.1 L Albumin 3.2 L 3.2 L 3.5 L Free T4 Coronavirus (PCR) 11/01/21 11/01/21 11/02/21 04:00 04:00 05:58 WBC MCV RDW Lymph % (Auto) [place] % (Auto) Lymph # (Auto) Seg Neutrophils % Seg Neuts % (Manual) 98.0 H Lymphocytes % (Manual) 0 L Seg Neutrophils # Man 7.8 H Lymphocytes # (Manual) 0.0 L D-Dimer ABG pH ABG pO2 ABG O2 Saturation ABG Hemoglobin Oxyhemoglobin Sodium Potassium Chloride BUN 41 H Glucose 192 H POC Glucose Calcium Ferritin AST Lactate Dehydrogenase C-Reactive Protein Total Protein 6.1 L Albumin 3.3 L Free T4 Coronavirus (PCR) 11/02/21 11/02/21 11/02/21 05:58 05:58 05:58 WBC MCV RDW Lymph % (Auto) [place] % (Auto) Lymph # (Auto) Seg Neutrophils % Seg Neuts % (Manual) Lymphocytes % (Manual) Seg Neutrophils # Man Lymphocytes # (Manual) D-Dimer 1824.38 H ABG pH ABG pO2 ABG O2 Saturation ABG Hemoglobin Oxyhemoglobin Sodium 135 L Potassium Chloride BUN 39 H Glucose 236 H POC Glucose Calcium Ferritin 497.7 H AST Lactate Dehydrogenase 411 H C-Reactive Protein Total Protein Albumin Free T4 Coronavirus (PCR) 11/05/21 11/05/21 11/06/21 06:01 06:01 07:47 WBC MCV RDW 13.1 L Lymph % (Auto) 5.1 L [place] % (Auto) Lymph # (Auto) 0.3 L Seg Neutrophils % 89.8 H Seg Neuts % (Manual) 90.0 H Lymphocytes % (Manual) 4.0 L Seg Neutrophils # Man Lymphocytes # (Manual) 0.3 L D-Dimer ABG pH ABG pO2 ABG O2 Saturation ABG Hemoglobin Oxyhemoglobin Sodium 133 L Potassium Chloride BUN 35 H Glucose 237 H POC Glucose Calcium Ferritin AST Lactate Dehydrogenase C-Reactive Protein Total Protein Albumin Free T4 Coronavirus (PCR) 11/06/21 11/07/21 11/08/21 07:47 19:15 07:54 WBC MCV RDW Lymph % (Auto) [place] % (Auto) Lymph # (Auto) Seg Neutrophils % Seg Neuts % (Manual) Lymphocytes % (Manual) Seg Neutrophils # Man Lymphocytes # (Manual) D-Dimer ABG pH ABG pO2 ABG O2 Saturation ABG Hemoglobin Oxyhemoglobin Sodium 131 L 130 L Potassium Chloride 95.0 L 94.3 L BUN 31 H 28 H Glucose 225 H 223 H POC Glucose 218 H Calcium Ferritin AST Lactate Dehydrogenase C-Reactive Protein Total Protein Albumin Free T4 Coronavirus (PCR) Allied health notes reviewed: nursing
[2021-11-08] MEDS: MELATONIN 5 MG TAB PO SCH (21:27)
[2021-11-08] MEDS: oxyCODONE /ACETAMINOPHEN 5-325MG TAB PO PRN (21:28)
[2021-11-09] MEDS: methylPREDNISolone Sod Succinate 125 MG/2 ML INJ IV SCH ×2 (05:03→13:18)
--- NOTE | 2021-11-09 08:08 | Progress Note ---
Subjective Date of service: 11/09/21 Principal diagnosis: Acute resp failure, Covid PNA, Acute PE, AF with RVR Objective Vital Signs - 12hr 11/08/21 11/08/21 11/09/21 21:27 22:40 02:05 Temperature 97.9 F Pulse Rate 76 75 Respiratory 20 Rate Blood Pressure 117/75 111/69 O2 Sat by Pulse 96 97 Oximetry 11/09/21 05:27 Temperature 97.5 F L Pulse Rate 61 Respiratory 18 Rate Blood Pressure 123/71 O2 Sat by Pulse 93 Oximetry Constitutional: no acute distress, other (elderly obese male with mildly inc reased respiratory effort at rest) Eyes: non-icteric ENT: oropharynx moist Neck: supple, no lymphadenopathy, no JVD, other (large circumference) Effort: mildly labored Ascultation: Bilateral: diminished breath sounds, rales (inspiratory, bases), rhonchi Percussion: Bilateral: not dull Cardiovascular: regular rate and rhythm Gastrointestinal: normoactive bowel sounds, soft, non-tender, non-distended (protuberant) Integumentary: normal Extremities: no cyanosis, pink and warm, pulses normal, no ischemia or petechiae Neurologic: non-focal exam, pupils equal and round, CN II-XII normal, motor strength normal and Psychiatric: mood appropriate, affect normal CBC and BMP: 11/06/21 07:47 11/08/21 07:54 ABG, PT/INR, D-dimer: ABG ABG pH 7.474 pH Units (7.350-7.450) H 10/26/21 23:20 ABG pCO2 35.2 mm Hg 10/26/21 23:20 ABG pO2 47.3 mm Hg (80.0-90.0) L 10/26/21 23:20 ABG O2 Saturation 88.5 % (95.0-99.0) L 10/26/21 23:20 PT/INR, D-dimer PT 13.3 Sec. (12.2-14.9) 10/27/21 12:36 INR 0.91 (0.87-1.13) 10/27/21 12:36 D-Dimer 1824.38 ng/mlDDU (0-234) H 11/02/21 05:58 Abnormal lab findings: Abnormal Labs 10/26/21 10/26/2122 16:48 16:48 19:03 WBC MCV RDW Lymph % (Auto) 11.3 L [place] % (Auto) 10.2 H Lymph # (Auto) 0.5 L Seg Neutrophils % 77.8 H Seg Neuts % (Manual) Lymphocytes % (Manual) Seg Neutrophils # Man Lymphocytes # (Manual) D-Dimer 1951.42 H ABG pH ABG pO2 ABG O2 Saturation ABG Hemoglobin Oxyhemoglobin Sodium Potassium 3.4 L Chloride 97.5 L BUN 24 H Glucose 108 H POC Glucose Calcium Ferritin AST Lactate Dehydrogenase C-Reactive Protein Total Protein Albumin Free T4 Coronavirus (PCR) 10/26/21 10/26/21 10/26/21 19:03 19:03 21:46 WBC MCV RDW Lymph % (Auto) [place] % (Auto) Lymph # (Auto) Seg Neutrophils % Seg Neuts % (Manual) Lymphocytes % (Manual) Seg Neutrophils # Man Lymphocytes # (Manual) D-Dimer ABG pH ABG pO2 ABG O2 Saturation ABG Hemoglobin Oxyhemoglobin Sodium Potassium Chloride BUN Glucose 104 H POC Glucose Calcium Ferritin 319.2 H AST Lactate Dehydrogenase 268 H C-Reactive Protein 11.80 H Total Protein Albumin Free T4 1.78 H Coronavirus (PCR) 10/26/21 10/27/21 10/27/21 23:20 03:44 03:44 WBC MCV 95 H RDW Lymph % (Auto) [place] % (Auto) Lymph # (Auto) Seg Neutrophils % Seg Neuts % (Manual) 84.0 H Lymphocytes % (Manual) 10.0 L Seg Neutrophils # Man Lymphocytes # (Manual) 0.6 L D-Dimer ABG pH 7.474 H ABG pO2 47.3 L ABG O2 Saturation 88.5 L ABG Hemoglobin 13.5 L Oxyhemoglobin 87.7 L Sodium Potassium Chloride 97.9 L BUN 23 H Glucose 139 H POC Glucose Calcium 8.3 L Ferritin AST Lactate Dehydrogenase C-Reactive Protein Total Protein Albumin Free T4 Coronavirus (PCR) 10/27/21 10/27/21 10/27/21 12:36 23:24 Unknown WBC 4.1 L MCV RDW Lymph % (Auto) [place] % (Auto) Lymph # (Auto) Seg Neutrophils % Seg Neuts % (Manual) Lymphocytes % (Manual) Seg Neutrophils # Man Lymphocytes # (Manual) D-Dimer ABG pH ABG pO2 ABG O2 Saturation ABG Hemoglobin Oxyhemoglobin Sodium 136 L Potassium Chloride 96.8 L BUN 21 H Glucose 144 H POC Glucose Calcium Ferritin AST 49 H Lactate Dehydrogenase C-Reactive Protein Total Protein Albumin 3.4 L Free T4 Coronavirus (PCR) Positive A 10/28/21 10/29/21 10/30/21 04:53 04:28 05:02 WBC MCV RDW Lymph % (Auto) [place] % (Auto) Lymph # (Auto) Seg Neutrophils % Seg Neuts % (Manual) Lymphocytes % (Manual) Seg Neutrophils # Man Lymphocytes # (Manual) D-Dimer ABG pH ABG pO2 ABG O2 Saturation ABG Hemoglobin Oxyhemoglobin Sodium 136 L Potassium Chloride BUN 24 H 38 H 44 H Glucose 163 H 225 H 215 H POC Glucose Calcium Ferritin AST 52 H 52 H 55 H Lactate Dehydrogenase C-Reactive Protein Total Protein 6.2 L 6.1 L Albumin 3.2 L 3.2 L 3.5 L Free T4 Coronavirus (PCR) 11/01/21 11/01/21 11/02/21 04:00 04:00 05:58 WBC MCV RDW Lymph % (Auto) [place] % (Auto) Lymph # (Auto) Seg Neutrophils % Seg Neuts % (Manual) 98.0 H Lymphocytes % (Manual) 0 L Seg Neutrophils # Man 7.8 H Lymphocytes # (Manual) 0.0 L D-Dimer ABG pH ABG pO2 ABG O2 Saturation ABG Hemoglobin Oxyhemoglobin Sodium Potassium Chloride BUN 41 H Glucose 192 H POC Glucose Calcium Ferritin AST Lactate Dehydrogenase C-Reactive Protein Total Protein 6.1 L Albumin 3.3 L Free T4 Coronavirus (PCR) 11/02/21 11/02/21 11/02/21 05:58 05:58 05:58 WBC MCV RDW Lymph % (Auto) [place] % (Auto) Lymph # (Auto) Seg Neutrophils % Seg Neuts % (Manual) Lymphocytes % (Manual) Seg Neutrophils # Man Lymphocytes # (Manual) D-Dimer 1824.38 H ABG pH ABG pO2 ABG O2 Saturation ABG Hemoglobin Oxyhemoglobin Sodium 135 L Potassium Chloride BUN 39 H Glucose 236 H POC Glucose Calcium Ferritin 497.7 H AST Lactate Dehydrogenase 411 H C-Reactive Protein Total Protein Albumin Free T4 Coronavirus (PCR) 11/05/21 11/05/21 11/06/21 06:01 06:01 07:47 WBC MCV RDW 13.1 L Lymph % (Auto) 5.1 L [place] % (Auto) Lymph # (Auto) 0.3 L Seg Neutrophils % 89.8 H Seg Neuts % (Manual) 90.0 H Lymphocytes % (Manual) 4.0 L Seg Neutrophils # Man Lymphocytes # (Manual) 0.3 L D-Dimer ABG pH ABG pO2 ABG O2 Saturation ABG Hemoglobin Oxyhemoglobin Sodium 133 L Potassium Chloride BUN 35 H Glucose 237 H POC Glucose Calcium Ferritin AST Lactate Dehydrogenase C-Reactive Protein Total Protein Albumin Free T4 Coronavirus (PCR) 11/06/21 11/07/21 11/08/21 07:47 19:15 07:54 WBC MCV RDW Lymph % (Auto) [place] % (Auto) Lymph # (Auto) Seg Neutrophils % Seg Neuts % (Manual) Lymphocytes % (Manual) Seg Neutrophils # Man Lymphocytes # (Manual) D-Dimer ABG pH ABG pO2 ABG O2 Saturation ABG Hemoglobin Oxyhemoglobin Sodium 131 L 130 L Potassium Chloride 95.0 L 94.3 L BUN 31 H 28 H Glucose 225 H 223 H POC Glucose 218 H Calcium Ferritin AST Lactate Dehydrogenase C-Reactive Protein Total Protein Albumin Free T4 Coronavirus (PCR) Allied health notes reviewed: nursing
--- NOTE | 2021-11-09 08:15 | Progress Note ---
Hospitalist Physical - Constitutional Vitals: Temp Pulse Resp BP Pulse Ox 97.5 F L 61 18 123/71 93 11/09/21 05:27 11/09/21 05:27 11/09/21 05:27 11/09/21 05:27 11/09/21 05:27 General appearance: Present: no acute distress, well-nourished, obese, other HEART Score - HEART Score Troponin: Troponin T < 0.010 ng/mL (0.00-0.029) 10/26/21 16:48 Results - Labs CBC & Chem 7: 11/06/21 07:47 11/08/21 07:54 Labs: Laboratory Last Values WBC 8.0 K/mm3 (4.5-11.0) 11/06/21 07:47 RBC 4.35 M/mm3 (3.65-5.03) 11/06/21 07:47 Hgb 13.2 gm/dl (11.8-15.2) 11/06/21 07:47 Hct 40.1 % (35.5-45.6) 11/06/21 07:47 MCV 92 fl (84-94) 11/06/21 07:47 MCH 30 pg (28-32) 11/06/21 07:47 MCHC 33 % (32-34) 11/06/21 07:47 RDW 13.1 % (13.2-15.2) L 11/06/21 07:47 Plt Count 265 K/mm3 (140-440) 11/06/21 07:47 Lymph % (Auto) 5.1 % (13.4-35.0) L 11/05/21 06:01 [place] % (Auto) 5.0 % (0.0-7.3) 11/05/21 06:01 Eos % (Auto) 0.0 % (0.0-4.3) 11/05/21 06:01 Baso % (Auto) 0.1 % (0.0-1.8) 11/05/21 06:01 Lymph # (Auto) 0.3 K/mm3 (1.2-5.4) L 11/05/21 06:01 [place] # (Auto) 0.3 K/mm3 (0.0-0.8) 11/05/21 06:01 Eos # (Auto) 0.0 K/mm3 (0.0-0.4) 11/05/21 06:01 Baso # (Auto) 0.0 K/mm3 (0.0-0.1) 11/05/21 06:01 Add Manual Diff Complete 11/06/21 07:47 Total Counted 100 11/06/21 07:47 Seg Neutrophils % Career Development Coordinator 11/06/21 07:47 Seg Neuts % (Manual) 90.0 % (40.0-70.0) H 11/06/21 07:47 Band Neutrophils % 0 % 11/06/21 07:47 Lymphocytes % (Manual) 4.0 % (13.4-35.0) L 11/06/21 07:47 Reactive Lymphs % (Man) 0 % 11/06/21 07:47 Monocytes % (Manual) 6.0 % (0.0-7.3) 11/06/21 07:47 Eosinophils % (Manual) 0 % (0.0-4.3) 11/06/21 07:47 Basophils % (Manual) 0 % (0.0-1.8) 11/06/21 07:47 Metamyelocytes % 0 % 11/06/21 07:47 Myelocytes % 0 % 11/06/21 07:47 Promyelocytes % 0 % 11/06/21 07:47 Blast Cells % 0 % 11/06/21 07:47 Nucleated RBC % Not Reportable 11/06/21 07:47 Seg Neutrophils # 6.2 K/mm3 (1.8-7.7) 11/05/21 06:01 Seg Neutrophils # Man 7.2 K/mm3 (1.8-7.7) 11/06/21 07:47 Band Neutrophils # 0.0 K/mm3 11/06/21 07:47 Lymphocytes # (Manual) 0.3 K/mm3 (1.2-5.4) L 11/06/21 07:47 Abs React Lymphs (Man) 0.0 K/mm3 11/06/21 07:47 Monocytes # (Manual) 0.5 K/mm3 (0.0-0.8) 11/06/21 07:47 Eosinophils # (Manual) 0.0 K/mm3 (0.0-0.4) 11/06/21 07:47 Basophils # (Manual) 0.0 K/mm3 (0.0-0.1) 11/06/21 07:47 Metamyelocytes # 0.0 K/mm3 11/06/21 07:47 Myelocytes # 0.0 K/mm3 11/06/21 07:47 Promyelocytes # 0.0 K/mm3 11/06/21 07:47 Blast Cells # 0.0 K/mm3 11/06/21 07:47 WBC Morphology Not Reportable 11/06/21 07:47 Hypersegmented Neuts Not Reportable 11/06/21 07:47 Hyposegmented Neuts Not Reportable 11/06/21 07:47 Hypogranular Neuts Not Reportable 11/06/21 07:47 Smudge Cells Not Reportable 11/06/21 07:47 Toxic Granulation Not Reportable 11/06/21 07:47 Toxic Vacuolation Not Reportable 11/06/21 07:47 Dohle Bodies Not Reportable 11/06/21 07:47 Pelger-Huet Anomaly Not Reportable 11/06/21 07:47 Seven Rods Not Reportable 11/06/21 07:47 Platelet Estimate Consistent w auto 11/06/21 07:47 Clumped Platelets Not Reportable 11/06/21 07:47 Plt Clumps, EDTA Not Reportable 11/06/21 07:47 Large Platelets Not Reportable 11/06/21 07:47 Giant Platelets Not Reportable 11/06/21 07:47 Platelet Satelliting Not Reportable 11/06/21 07:47 Plt Morphology Comment Not Reportable 11/06/21 07:47 RBC Morphology Normal 11/06/21 07:47 Dimorphic RBCs Not Reportable 11/06/21 07:47 Polychromasia Not Reportable 11/06/21 07:47 Hypochromasia Not Reportable 11/06/21 07:47 Poikilocytosis Not Reportable 11/06/21 07:47 Anisocytosis Not Reportable 11/06/21 07:47 Microcytosis Not Reportable 11/06/21 07:47 Macrocytosis Not Reportable 11/06/21 07:47 Spherocytes Not Reportable 11/06/21 07:47 Pappenheimer Bodies Not Reportable 11/06/21 07:47 Sickle Cells Not Reportable 11/06/21 07:47 Target Cells Not Reportable 11/06/21 07:47 Tear Drop Cells Not Reportable 11/06/21 07:47 Ovalocytes Not Reportable 11/06/21 07:47 Helmet Cells Not Reportable 11/06/21 07:47 [place] Bodies Not Reportable 11/06/21 07:47 [place] Rings Not Reportable 11/06/21 07:47 Mary Cells Not Reportable 11/06/21 07:47 Bite Cells Not Reportable 11/06/21 07:47 Crenated Cell Not Reportable 11/06/21 07:47 Elliptocytes Not Reportable 11/06/21 07:47 Acanthocytes (Spur) Not Reportable 11/06/21 07:47 Rouleaux Not Reportable 11/06/21 07:47 Hemoglobin C Crystals Not Reportable 11/06/21 07:47 Schistocytes Not Reportable 11/06/21 07:47 Malaria parasites Not Reportable 11/06/21 07:47 Harjit Bodies Not Reportable 11/06/21 07:47 Hem Pathologist Commnt No 11/06/21 07:47 PT 13.3 Sec. (12.2-14.9) 10/27/21 12:36 INR 0.91 (0.87-1.13) 10/27/21 12:36 APTT 27.3 Sec. (24.2-36.6) 10/27/21 12:36 D-Dimer 1824.38 ng/mlDDU (0-234) H 11/02/21 05:58 ABG pH 7.474 pH Units (7.350-7.450) H 10/26/21 23:20 ABG pCO2 35.2 mm Hg 10/26/21 23:20 ABG pO2 47.3 mm Hg (80.0-90.0) L 10/26/21 23:20 ABG HCO3 25.3 mmol/L (20.0-26.0) 10/26/21 23:20 ABG O2 Saturation 88.5 % (95.0-99.0) L 10/26/21 23:20 ABG O2 Content 16.6 (0.0-44) 10/26/21 23:20 ABG Base Excess 2.0 mmol/L (-2.0-3.0) 10/26/21 23:20 ABG Hemoglobin 13.5 gm/dl (14.0-18.0) L 10/26/21 23:20 ABG Carboxyhemoglobin 0.5 % (0.0-5.0) 10/26/21 23:20 ABG Methemoglobin 0.4 % (0.0-1.5) 10/26/21 23:20 Oxyhemoglobin 87.7 % (95.0-99.0) L 10/26/21 23:20 FiO2 21 % 10/26/21 23:20 Sodium 130 mmol/L (137-145) L 11/08/21 07:54 Potassium 5.0 mmol/L (3.6-5.0) 11/08/21 07:54 Chloride 94.3 mmol/L (98-107) L 11/08/21 07:54 Carbon Dioxide 25 mmol/L (22-30) 11/08/21 07:54 Anion Gap 16 mmol/L 11/08/21 07:54 BUN 28 mg/dL (9-20) H 11/08/21 07:54 Creatinine 0.8 mg/dL (0.8-1.3) 11/08/21 07:54 Estimated GFR > 60 ml/min 11/08/21 07:54 BUN/Creatinine Ratio 35 % 11/08/21 07:54 Glucose 223 mg/dL (75-100) H 11/08/21 07:54 POC Glucose 218 mg/dL (70-105) H 11/07/21 19:15 Calcium 8.6 mg/dL (8.4-10.2) 11/08/21 07:54 Magnesium 1.90 mg/dL (1.7-2.3) 10/26/21 21:46 Ferritin 497.7 ng/mL (30.0-300.0) H 11/02/21 05:58 Total Bilirubin 0.70 mg/dL (0.1-1.2) 11/01/21 04:00 Direct Bilirubin 0.2 mg/dL (0-0.2) 11/01/21 04:00 Indirect Bilirubin 0.5 mg/dL 11/01/21 04:00 AST 37 units/L (5-40) 11/01/21 04:00 ALT 47 units/L (7-56) 11/01/21 04:00 Alkaline Phosphatase 50 units/L (35-129) 11/01/21 04:00 Lactate Dehydrogenase 411 units/L (91-180) H 11/02/21 05:58 Troponin T < 0.010 ng/mL (0.00-0.029) 10/26/21 16:48 C-Reactive Protein 1.30 mg/dL (0.00-1.30) 11/02/21 05:58 NT-Pro-B Natriuret Pep 806.1 pg/mL (0-900) 10/26/21 16:48 Total Protein 6.1 g/dL (6.3-8.2) L 11/01/21 04:00 Albumin 3.3 g/dL (3.9-5) L 11/01/21 04:00 Albumin/Globulin Ratio 1.2 % 11/01/21 04:00 Procalcitonin < 0.05 ng/mL (<0.15) 10/31/21 08:07 TSH 0.889 mlU/mL (0.270-4.200) 10/26/21 21:46 Free T4 1.78 ng/dL (0.76-1.46) H 10/26/21 21:46 Coronavirus (PCR) Positive (Negative) A 10/27/21 Unknown Cumm[place]/IV: Voiding Method Urinal Active Medications - Current Medications Current Medications: Generic Name Dose Route Start Last Admin Trade Name Freq PRN Reason Stop Dose Admin Acetaminophen 650 mg 10/26/21 18:52 Acetaminophen 325 Mg Tab PO Q4H PRN Pain MILD(1-3)/Fever >100.5/LEYVA Albuterol 2.5 mg 10/26/21 18:52 Albuterol 2.5 Mg/3 Ml Nebu IH Q4HRT PRN Shortness Of Breath Apixaban 5 mg 11/03/21 10:00 11/08/21 21:26 Apixaban 5 Mg Tab PO 5 mg Q12HR VASYL Administration Aspirin 81 mg 10/28/21 10:00 11/08/21 11:32 Aspirin 81 Mg Tab Chew PO 81 mg QDAY VASYL Administration Diltiazem HCl 120 mg 11/07/21 22:00 11/08/21 21:27 Diltiazem 60 Mg Tab PO 120 mg BID VASYL Administration Famotidine 20 mg 10/29/21 10:00 11/08/21 11:36 Famotidine 20 Mg Tab PO 20 mg QDAY VASYL Administration Hydromorphone HCl 0.5 mg 10/26/21 18:52 Hydromorphone 1 Mg/1 Ml Inj IV Q23H PRN Pain , Severe (7-10) Melatonin 10 mg 11/05/21 22:00 11/08/21 21:27 Melatonin 5 Mg Tab PO 10 mg QHS VASYL Administration Methylprednisolone Sodium Succinate 60 mg 10/27/21 18:00 11/09/21 05:03 Methylprednisolone Sod Succinate 125 Mg/2 Ml Inj IV 60 mg Q8HR VASYL Administration Metoprolol Tartrate 75 mg 11/08/21 22:00 11/08/21 21:27 Metoprolol Tartrate 50 Mg Tab PO 75 mg BID VASYL Administration Ondansetron HCl 4 mg 10/26/21 18:52 Ondansetron 4 Mg/2 Ml Inj IV Q8H PRN Nausea And Vomiting Oxycodone/Acetaminophen 1 tab 10/26/21 18:52 11/08/21 21:28 Oxycodone /Acetaminophen 5-325mg Tab PO 1 tab Q16H PRN Administration Pain, Moderate (4-6) Sodium Chloride 10 ml 10/26/21 22:00 11/09/21 05:04 Sodium Chloride 0.9% 10 Ml Flush Syringe IV 10 ml BID VASYL Administration Sodium Chloride 10 ml 10/26/21 18:52 11/08/21 05:12 Sodium Chloride 0.9% 10 Ml Flush Syringe IV 10 ml PRN PRN Administration LINE FLUSH Nutrition/Malnutrition Assess - Dietary Evaluation Nutrition/Malnutrition Findings: Nutrition Notes Start: 11/02/21 15:51 Freq: Status: Active Protocol: Document 11/02/21 15:51 JOANN (Rec: 11/02/21 16:06 JOANN [email or web address]) Nutrition Notes Need for Assessment generated from: LOS Initial or Follow up Assessment Current Diagnosis Coronary Artery Disease, Hypertension,Respiratory Failure Other Pertinent Diagnosis COVID-19, B/l pulmonary embolism, Aortic aneurysm, Atrial Fibrilation. Current Diet Cardiac Diet (since D 10/26). Labs/Tests 11/02: Na 135, BUN 39, Glu 236 . Pertinent Medications 11/02: Nutritionally unremarkable. Height 5 ft 11 in Weight 113.398 kg [place] Body Weight (kg) 78.18 BMI 34.8 Intake Prior to Admission Good Weight change and time frame Pt states not having lost body weight recently. Subjective/Other Information RD consult for LOS assessment. Pt's PO intake of meals has been Fair (50%), according to ADL notes. Ht & Wt checked with RN over the phone. Percent of energy/protein needs met: Prescribed Cardiac Diet provides for energy/protein needs (2,230 Kcal/85 g) during LOS. Burn Absent Trauma Absent GI Symptoms None Food Allergy No Skin Integrity/Comment Clear, warm, dry. Current % PO Fair (50-74%) Minimum of two criteria No Is patient on ventilator? No Is Patient Ambulatory and/or Out of Bed Yes REE-([place]-St. Jeor-ambulatory/OOB) [ 2458.443 [id number]] Kcal/Kg value to use for calculation 12 Approximate Energy Requirements Using 1361 kcal/Kg Calculation Used for Recommendations Kcal/kg Additional Notes Protein: 0.8-1 g/Kg; 77-96 g/ day. Fluids: 1 ml/Kcal, or as per MD. Nutrition Intervention Change Diet Order: Continue Cardiac Diet. Follow-Up By: 11/10/21 Additional Comments Continue monitoring food tolerance, %PO intake of meals , and BM.
[2021-11-09 08:25] LABS: Hematocrit 39.9 % (35.5-45.6); Hemoglobin 12.9 gm/dl (11.8-15.2); Mean Corpuscular HGB Conc 32 % (32-34); Mean Corpuscular Volume 92 fl (84-94); Platelet Count 204 K/mm3 (140-440); Red Blood Count 4.34 M/mm3 (3.65-5.03); Red Cell Distribution Width 13.3 % (13.2-15.2)
[2021-11-09] MEDS ORDERED: FUROSEMIDE 20 MG/2 ML INJ IV SCH (09:00)
[2021-11-09] MEDS: METOPROLOL TARTRATE 50 MG TAB PO SCH (09:19)
[2021-11-09] MEDS: ASPIRIN 81 MG TAB CHEW PO SCH (09:19)
[2021-11-09] MEDS: dilTIAZem 60 MG TAB PO SCH (09:19)
[2021-11-09] MEDS: FAMOTIDINE 20 MG TAB PO SCH (09:19)
[2021-11-09] MEDS: APIXABAN 5 MG TAB PO SCH (09:20)
--- NOTE | 2021-11-09 11:14 | Progress Note ---
Assessment and Plan Is a 75-year-old male with a past medical history of hypertension, coronary artery disease, and thoracic aortic aneurysm who presented to the ED with a complaint of difficulty breathing since [place] COVID Bilateral PE Acute hypoxic respiratory failure- on highflow NC COVID PNA Afib w/ RVR(new onset)-currently sinus rhythm HTN CAD Echo 10/26/2021-EF 50 to 55%. Right ventricle systolic function is normal. Trace mitral regurgitation. Trace tricuspid regurgitation. Ascending aorta is dil ated 4.1 cm Stress11/20/2019- Normal pharmacological SPECT stress test. Stress ECG was negative for ischemia. No symptoms of chest pain with vasodilator stress. Normal perfusion without evidence of ischemia or infarct. TID 0.97 (normal). Normal LV systolic function (calculated LVEF 69%). No wall motion abnormalities. Echo 11/20/2019-LV normal size. Normal LV wall thickness. LV wall motion normal. LVEF is 59%. GLS decreased. Normal LV diastolic function. RV moderately to severely dilated. RV systolic function is normal. Estimated RAP 5 mmHg based on IVC. Unable to assess RVSP due to insufficient TR signal. AV not well visualized. AV opens well. Mild AR. No AV stenosis. Aortic arch normal. Sinotubular junction mildly dilated. Ascending aorta mildly dilated. No aortic coarctation. Ao Sinus s 3.[address] jnct s 3.87 cm Ao Asc s 4.1 cm Plan: Continue metoprolol 75mg PO BID Continue diltiazem 120 mg p.o. twice daily Continue Eliquis for anticoagulation Blood pressure is currently controlled. Will defer to patient's primary internet security specialist on initiation of losartan Discussed with patient plan of care and stressed importance of follow-up. Patient verbalized and agreed Cardiac status is stable for discharge. We will sign off Patient should follow-up with their primary internet security specialist in 1 to 2 weeks after discharge Patient seen in conjunction with Dr. Chan who agrees with this plan of care - Patient Problems (1) CAD (coronary artery disease) Current Visit: Yes Status: Acute (2) Acute hypoxemic respiratory failure Current Visit: Yes Status: Acute (3) Hypertension Current Visit: Yes Status: Chronic Qualifiers: Hypertension type: primary hypertension Qualified Code(s): I10 - Essential (primary) hypertension (4) Obesity hypoventilation syndrome Current Visit: Yes Status: Chronic (5) Pneumonia Current Visit: No Status: Acute Subjective Date of service: 11/09/21 Principal diagnosis: Acute resp failure, Covid PNA, Acute PE, AF with RVR Interval history: Patient sitting in bed in no acute distress and reports feeling well this a.m. Patient is no longer on high flow nasal cannula has been weaned down to 3 L on nasal cannula Patient not on monitor this a.m. but overnight patient was patient is sinus rh ythm 60s with PACs Objective Vital Signs Temp Pulse Resp BP Pulse Ox 11/09/21 08:00 93 11/09/21 05:27 97.5 F L 61 18 123/71 93 11/09/21 02:05 97 11/08/21 22:40 97.9 F 75 20 111/69 96 11/08/21 21:27 76 117/75 11/08/21 19:38 94 11/08/21 19:15 76 18 92 11/08/21 18:27 98.2 F 83 24 117/75 94 11/08/21 14:35 95 11/08/21 13:10 97.6 F 89 24 144/93 90 11/08/21 11:32 84 - Physical Examination General: No Apparent Distress HEENT: Positive: EOMI, Normocephaly, Mucus Membranes Moist, Mucus Membranes Dry Neck: Positive: neck supple, trachea midline Cardiac: Positive: Reg Rate and Rhythm Lungs: Positive: Normal Breath Sounds Neuro: Positive: Grossly Intact Abdomen: Positive: Soft, Active Bowel Sounds. Negative: Tender Skin: Negative: Rash Musculoskeletal: Normal Range of Motion Extremities: Absent: edema - Labs and Meds CBC 11/09/21 Range/Units 06:50 WBC 11.0 (4.5-11.0) K/mm3 RBC 4.34 (3.65-5.03) M/mm3 Hgb 12.9 (11.8-15.2) gm/dl Hct 39.9 (35.5-45.6) % Plt Count 204 (140-440) K/mm3 - Imaging and Cardiology Echo: report reviewed - Telemetry EKG Rhythm: Sinus Rhythm - EKG Sinus rhythms and dysrhythmias: sinus rhythm Supraventricular dysrhythmia: atrial premature complexe AV and intraventricular conduction: right bundle branch block - Allied health notes Allied health notes reviewed: nursing
--- NOTE | 2021-11-09 12:22 | Discharge Summary ---
Providers - Providers Date of Admission: 10/26/21 18:06 Attending physician: BIRGIT FUNK MD 10/26/21 20:40 Consult to Physician [CONS] Routine Comment: Consulting Provider: TONI KIRBY Physician Instructions: Reason For Exam: Atrial Fib 10/28/21 06:28 Consult to Physician [CONS] Routine Comment: Consulting Provider: TANYA WILKINSON Physician Instructions: Reason For Exam: Afib with RVR - on Cardizem drip 10/28/21 08:36 Consult to Physician [CONS] Routine Comment: Consulting Provider: SHO BALDWIN Physician Instructions: Reason For Exam: covid positive 11/03/21 07:17 Occupational Therapy Evaluate and Treat [CONS] Routine Comment: Reason For Exam: deconditioning Physical Therapy For [place] Treatment [CONS] Routine Reason For Exam: deconditioning 11/09/21 08:18 Consult to Case Management [CONS] Routine Services Needed at Discharge: Physical Therapy Notified:: RENA Additional Physician Instructions: Home health PT Primary care physician: AMMONIA REFRIGERATION TECHNICIAN Hospitalization Condition: Stable Disposition: 30 STILL A PATIENT Exam - Constitutional Vitals: Temp Pulse Resp BP Pulse Ox 97.5 F L 61 18 123/71 93 11/09/21 05:27 11/09/21 05:27 11/09/21 05:27 11/09/21 05:27 11/09/21 08:00 Plan Care Plan Goals: [place] up with your primary care doctor within 1 week. Follow-up with your primary Computer Forensics Examiner within 2 weeks. Continue to take steroids until complete. You should be using 3 liters of oxygen at home. Please purchase a pulse oximeter to measure your oxygen saturations at home. If you notice that your oxygen saturations continously drop below 90% despite using oxygen, please come to the ER for evaluation. Follow up with: PRIMARY CARE, [Primary Care Provider] - 7 Days Prescriptions: Aspirin [Aspirin BABY CHEW TAB] 81 mg PO QDAY 30 Days #30 tab.chew dilTIAZem [Cardizem] 120 mg PO BID 30 Days #120 tablet Dexamethasone 6 mg PO QDAY 10 Days #10 tab Apixaban [Eliquis] 5 mg PO Q12HR 30 Days #60 tablet Metoprolol [Lopressor TAB] 75 mg PO BID 30 Days #180 tablet Famotidine [Pepcid] 20 mg PO QDAY 30 Days #30 tablet
[2021-11-09 17:31] VITALS: BP 118/71
== END 2021-11-09 19:18 | disposition home health service (06) | DRG 177 ==
LOC: ED 16:00 → 3A 18:06 → IMCU 20:43 → CC1 10-28 06:48 → 3A 10-28 10:00
PROVIDERS: ADMIT Internal Medicine; ATTEND Student in an Organized Health Care Education/Training Program
PROC: XW043E5 Introduction of Remdesivir Anti-infective into Central Vein, Percutaneous Approach, New Technology Group 5 (ICD-10-PCS; principal; 2021-10-27)
PROC: XW033H5 Introduction of Tocilizumab into Peripheral Vein, Percutaneous Approach, New Technology Group 5 (ICD-10-PCS; 2021-10-30)
PROC: 5A0955A Assistance with Respiratory Ventilation, Greater than 96 Consecutive Hours, High Flow/Velocity Cannula (ICD-10-PCS; 2021-11-02)
DX: U07.1 COVID-19 (principal); J12.82 Pneumonia due to coronavirus disease 2019; J96.01 Acute respiratory failure with hypoxia; I26.99 Other pulmonary embolism without acute cor pulmonale; E66.2 Morbid (severe) obesity with alveolar hypoventilation; I10 Essential (primary) hypertension; I25.10 Atherosclerotic heart disease of native coronary artery without angina pectoris; Z68.34 Body mass index [BMI] 34.0-34.9, adult; Z82.49 Family history of ischemic heart disease and other diseases of the circulatory system; I48.91 Unspecified atrial fibrillation
CPT/HCPCS: 36415; 71046; 71275; 80048; 80053; 80076; 82565; 82728; 82803; 82947; 82962; 83615; 83735; 83880; 84145; 84439; 84443; 84484; 85007; 85025; 85027; 85379; 85610; 85730; 86140; 93005; 93306; 94640; 94644; 94760; G0378; J3490; J7060; J9280; J0282; J0456; J0696; J1650; J1940; J2930; J3262; J7050; Q9967; U0003